=== PATIENT | female | born 1935 | race Caucasian/White ===

== ENCOUNTER → 2016-10-28 | Outpatient (CLI) | payer OTHER | LOC: BHFA 11:45 | PROVIDERS: ATTEND Internal Medicine Cardiovascular Disease | DX: I48.91 Unspecified atrial fibrillation (principal) ==

== ENCOUNTER → 2016-11-17 | Outpatient (CLI) | payer OTHER | LOC: FLAB 09:19 | PROVIDERS: ATTEND Internal Medicine Interventional Cardiology | DX: I48.91 Unspecified atrial fibrillation (principal); Z79.899 Other long term (current) drug therapy ==

== ENCOUNTER → 2016-12-08 | Outpatient (CLI) | payer OTHER | LOC: FIMAGING 15:11 | PROVIDERS: ATTEND Internal Medicine Hematology & Oncology | DX: Z12.31 Encounter for screening mammogram for malignant neoplasm of breast (principal); Z85.3 Personal history of malignant neoplasm of breast; Z90.11 Acquired absence of right breast and nipple | CPT/HCPCS: G0202-52 ==

== ENCOUNTER 2016-12-21 11:37 | Emergency (ER) | payer OTHER ==
[2016-12-21 11:41] VITALS: RESP 18; O2SAT 91
--- NOTE | 2016-12-21 12:02 | CPEKG ---
Heart Rate: 65 RR Interval: 923 P-R Interval: 148 QRSD Interval: 78 QT Interval: 460 QTC Interval: 479 P [place]: 87 QRS [place]: 55 T Wave [place]: 43 EKG Severity - NORMAL ECG - EKG Impression: SINUS RHYTHM EKG Impression: Similar to previous Electronically Signed By: Markos Javed 21-Dec-2016 12:07:10
[2016-12-21 12:18] LABS: % IMMATURE GRANULYOCYTES 0.2 % (0.0-1.1); ABSOLUTE IMMATURE GRANULOCYTES 0.01 10^3/uL (0.00-0.10); ADD DIFF? NO; ADD MORPH? NO; ADD SCAN? NO; ATYPICAL LYMPHOCYTE FLAG 10 (0-99); FRAGMENT RBC FLAG 0 (0-99); HEMATOCRIT 37.1 % (38.0-47.0); HEMOGLOBIN 12.4 g/dL (12.6-16.3); LEFT SHIFT FLG 10 (0-99); LIPEMIA HEMOLYSIS FLAG 80 (0-99); MEAN CELL HEMOGLOBIN 30.3 pg (27.9-34.1); MEAN CELL HEMOGLOBIN CONCENTR. 33.4 g/dL (32.4-36.7); MEAN CELL VOLUME 90.7 fL (81.5-99.8); MEAN PLATELET VOLUME 9.5 fL (8.7-11.7); PLATELET CLUMPS FLAG 0 (0-99); PLATELET COUNT 194 10^3/uL (150-400); RED BLOOD CELL COUNT 4.09 10^6/uL (4.18-5.33); RED CELL DISTRIBUTION WIDTH 16.5 % (11.5-15.2)
[2016-12-21 12:27] LABS: ANION GAP 10 mEq/L (8-16); CALCIUM 9.1 mg/dL (8.5-10.4); CARBON DIOXIDE 25 mEq/l (22-31); CHLORIDE 96 mEq/L (97-110); CREATININE 0.7 mg/dL (0.6-1.0); GLOMERULAR FILTRATION RATE > 60; GLUCOSE 97 mg/dL (70-100); POTASSIUM 4.1 mEq/L (3.5-5.2); SODIUM 131 mEq/L (134-144)
[2016-12-21 12:39] LABS: TROPONIN I < 0.012 ng/mL (0-0.034)
--- NOTE | 2016-12-21 13:02 | EDPHY ---
H & P Stated Complaint: HIGH BP, dizzy, CP mid sternal Time Seen by Provider: 12/21/16 12:36 HPI/ROS: CHIEF COMPLAINT: High blood pressure HPI: Patient is a 81-year-old female with a history of atrial fibrillation on Eliquis and oral amiodarone who presents to the emergency department complaining that earlier today she had a headache and chest tightness and high blood pressure. Her symptoms resolved prior to coming to the emergency department. Her blood pressure is now within normal limits for her. She is currently asymptomatic. She denies shortness of breath. She denies cough. She denies recent fevers or illness. REVIEW OF SYSTEMS: Constitutional: denies: chills, fever, recent illness, recent injury EENTM: denies: blurred vision, double vision, nose congestion Respiratory: denies: cough, shortness of breath Cardiac: See HPI Gastrointestinal/Abdominal: denies: abdominal pain, diarrhea, nausea, vomiting, blood streaked stools Genitourinary: denies: dysuria, frequency, hematuria, pain Musculoskeletal: denies: joint pain, muscle pain Skin: denies: lesions, rash, jaundice, bruising Neurological: denies: headache, numbness, paresthesia, tingling, dizziness, weakness Hematologic/Lymphatic: denies: blood clots, easy bleeding, easy bruising Immunologic/allergic: denies: HIV/AIDS, transplant EXAM: GENERAL: Well-appearing, well-nourished and in no acute distress. HEAD: Atraumatic, normocephalic. EYES: Pupils equal round and reactive to light, extraocular movements intact, sclera anicteric, conjunctiva are normal. ENT: TMs normal, nares patent, oropharynx clear without exudates. Moist mucous membranes. NECK: Normal range of motion, supple without lymphadenopathy or JVD. LUNGS: Breath sounds clear to auscultation bilaterally and equal. No wheezes rales or rhonchi. HEART: Regular rate and rhythm without murmurs, rubs or gallops. Equal pulses bilaterally ABDOMEN: Soft, nontender, normoactive bowel sounds. No guarding, no rebound. No masses appreciated. BACK: No CVA tenderness, no spinal tenderness, step-offs or deformities EXTREMITIES: Normal range of motion, no pitting or edema. No clubbing or cyanosis. NEUROLOGICAL: Cranial nerves II through XII grossly intact. Normal speech, normal gait. 5/5 strength, normal movement in all extremities, normal sensation PSYCH: Normal mood, normal affect. SKIN: Warm, dry, normal turgor, no visible rashes or lesions. Source: Patient, Family Exam Limitations: No limitations - Personal History Current Tetanus Diphtheria and Acellular Pertussis (TDAP): Yes Tetanus Vaccine Date: 2004 - Medical/Surgical History Hx Asthma: No Hx Chronic Respiratory Disease: No Hx Diabetes: No Hx Cardiac Disease: Yes Hx Renal Disease: No Hx Cirrhosis: No Hx Alcoholism: No Hx HIV/AIDS: No Hx Splenectomy or Spleen Trauma: No Other PMH: pmh- afib w/ rvr, HTN ,osteoperosis,broken heart syndrome. psh- cardioversion 04/15/16, and 02/07, [place], right mastectomy, right hip replacement fx femur 2002, cataract 2008, fx tib/fib 2011, fx right pelvis, left breast lumpectomy with radiation, R shoulder replaced - Family History Significant Family History: No pertinent family hx - Social History Smoking Status: Former smoker Alcohol Use: Sober Drug Use: None Constitutional: Initial Vital Signs Temperature (C) 36.8 C 12/21/16 11:39 Heart Rate 77 12/21/16 11:39 Respiratory Rate 18 12/21/16 11:39 Blood Pressure 173/89 H 12/21/16 11:39 O2 Sat (%) 91 L 12/21/16 11:39 O2 Delivery Mode Room Air Allergies/Adverse Reactions: codeine [Codeine] Allergy (Intermediate, Verified 02/18/15 05:39) Other-Enter Comments amlodipine besylate [From Norvasc] Allergy (Unknown, Verified 03/09/15 10:35) hydrochlorothiazide Allergy (Unknown, Verified 03/09/15 10:35) amoxicillin Allergy (Verified 02/18/15 04:54) Itching ciprofloxacin Allergy (Verified 04/18/16 09:14) Opioids - Morphine Analogues Allergy (Verified 12/21/16 11:42) Sulfa (Sulfonamide Antibiotics) Allergy (Verified 02/08/15 12:09) Home Medications: Medication Instructions Recorded Acetaminophen [Tylenol Extra 1,000 mg PO TID 03/01/16 Strength] Apixaban [Eliquis] 2.5 mg PO BID 03/01/16 Ascorbic Acid [Vitamin C 500 mg 500 mg PO DAILY 03/01/16 (*)] Cholecalciferol Vit D3 [Vitamin D3 2,000 units PO DAILY 03/01/16 2000 units tab (OTC)] FLUoxetine [Prozac 20 MG (*)] 20 mg PO DAILY 03/01/16 Herbals/Supplements -Info Only 1 ea PO DAILY 03/01/16 Simethicone [GAS-X] 80 mg PO PC PRN 03/01/16 Pantoprazole Sodium [Protonix 40mg 40 mg PO DAILY 04/15/16 (*)] Carvedilol [Coreg (*)] 12.5 mg PO BIDMEAL #0 tab 04/16/16 carBAMazepine [Tegretol] 100 mg PO BID 04/18/16 Diltiazem Cd [Cardizem ER 120 MG 120 mg PO DAILY #30 cap 04/21/16 (*)] Glucosamine/Chondroitin 1 each PO DAILY 04/26/16 [Glucosamine/Chondroitin (*)] Valsartan [Diovan (*)] 320 mg PO HS 04/26/16 Amiodarone HCl [Pacerone (*)] 200 mg PO DAILY #30 tab 04/27/16 Medical Decision Making ED Course/Re-evaluation: The patient is now asymptomatic. We discussed her lab results and EKG which are reassuring. At this point she has to go home and declines further workup or testing. We discussed other possible causes for her symptoms. We discussed specifically aortic dissection or aneurysm. She states that she the he declines any further workup and wishes to go home. Differential Diagnosis: Partial list of the Differential diagnosis considered include but were not limited to; is arrhythmia, hypertension, dissection and although unlikely based on the history and physical exam, I also considered PE, pneumonia, hernia, pneumothorax. I discussed these differential diagnoses and the plan with the patient as well as the usual and expected course. The patient understands that the diagnosis is provisional and that in medicine we are not always correct and that further workup is often warranted. Usual and customary warnings were given. All of the patient's questions were answered. The patient was instructed to return to the emergency department should the symptoms at all worsen or return, otherwise to followup with the physician as we discussed. - Data Points Laboratory Results: Laboratory Results 12/21/16 12:08 12/21/16 12:08 Departure - Departure Disposition: Home, Routine, Self-Care Clinical Impression: HTN (hypertension) Qualifiers: Hypertension type: essential hypertension Qualified Code(s): I10 - Essential ( primary) hypertension Condition: Fair Instructions: Hypertension (ED) Referrals: Jas Adams MD [Primary Care Provider] - As per Instructions
[2016-12-21 13:16] VITALS: BP 158/84; PULSE 65; TEMP 98.4
== END 2016-12-21 13:17 | disposition home or self-care (01) ==
DX: I10 Essential (primary) hypertension (principal); Z79.01 Long term (current) use of anticoagulants; Z87.891 Personal history of nicotine dependence

== ENCOUNTER → 2017-04-11 | Outpatient (CLI) | payer OTHER | LOC: BHFA 16:00 | PROVIDERS: ATTEND Internal Medicine Interventional Cardiology | DX: I48.91 Unspecified atrial fibrillation (principal) ==

== ENCOUNTER 2017-06-10 00:02 | Inpatient (IN) | payer OTHER ==
--- NOTE | 2017-06-10 17:18 | CPEKG ---
Heart Rate: 57 RR Interval: 1053 P-R Interval: 160 QRSD Interval: 84 QT Interval: 496 QTC Interval: 483 P [place]: 76 QRS [place]: 59 T Wave [place]: 54 EKG Severity - ABNORMAL ECG - EKG Impression: SINUS RHYTHM EKG Impression: LEFT VENTRICULAR HYPERTROPHY Electronically Signed By: Ping Carrillo 11-Jun-2017 14:12:29
[2017-06-10] MEDS ORDERED: ACETAMINOPHEN 325 MG TAB PO PRN (17:21)
--- NOTE | 2017-06-10 18:02 | PDCARPN ---
Cardiology Progress Note Assessment/Plan: Assessment: Please see Dr. Crane office note dated 05/12/2017 , this is to be used as history and physical. 82-year-old female with significant past history that includes paroxysmal atrial fibrillation, hypertension, hyperlipidemia, subclinical CAD, GERD, breast cancer.. She has been having adverse reactions to amiodarone and her other cardiac medications. There has been discussion about potentially consideration pacemaker implantation followed by AV node ablation. But after Dr. Crane had discussed this with Dr. Santiago, it was felt that before performing an AV node ablation with pacemaker implantation, is to place her on sotalol to see if this root did do since her adverse reactions to her other AV arely agents and amiodarone. Patient informs me that she has been off her amiodarone for 6 days as requested by Dr. Crane. She denies of any chest pressure, pain, SOB, orthopnea, PND, lightheadedness, near-syncope, or syncopal events. Denies of any symptoms suggestive of recent TIA or CVA. Initial electrocardiogram done today showing QTC of 483 milliseconds, she is currently in sinus rhythm. Plan: 1. Paroxysmal atrial fibrillation: Patient has discontinued amiodarone stay 6 days ago, per Dr. Crane we will hold both her carvedilol at and diltiazem. We will start her on amiodarone loading at 80 mg p. o. twice daily. Will plan for her to have 2 hour post dosing electrocardiograms to evaluate QTC. She will also remain on continuous cardiac monitoring and in the PCU for the 1st doses to assure no arrhythmias. Will continue her on home dosing of Eliquis. Will get all pre sotalol dosing laboratories drawn. 2. Hypertension: Current we her blood pressure is within normal limits. Discontinue carvedilol and diltiazem as mentioned above. Resume Diovan. Adjust as necessary 3. Subclinical CAD: Patient denies of any chest pain or pressure. She is currently not on aspirin therapy due to being on Eliquis. She is currently on secondary risk prevention with atorvastatin. 4. Hyperlipidemia: Continue patient on current atorvastatin. 5. GERD: Resume patient's Diovan. 6. Breast cancer: Past history of mastectomy. 7. Code status: Patient is a full code. 8. DVT prophylaxis: Patient will be resumed on home dose of Eliquis. Have ordered her to use David hose. : 06/10/17 18:02 Reviewed/Discussed With: other (Dr Crane) Objective: Vital Signs (8 Hrs) Temp Pulse Resp BP Pulse Ox 06/10/17 17:02 36.6 C 58 L 18 150/77 H 95 Intake/Output (24 Hrs) 06/09/17 06/10/17 06/11/17 05:59 05:59 05:59 Other: Weight 58.4 kg ICD10 Worksheet Patient Problems: Problems Problem Status Onset Atrial fibrillation and flutter Acute Cardiomyopathy Acute CHF (congestive heart failure) Acute Chronic Disease Mgmt/Transitional Care Acute Sinusitis chronic, frontal Acute Sinusitis chronic, ethmoidal Acute Head ache Acute Chest pain Acute Rapid atrial fibrillation Acute
[2017-06-10 18:28] LABS: % IMMATURE GRANULYOCYTES 0.2 % (0.0-1.1); ABSOLUTE IMMATURE GRANULOCYTES 0.01 10^3/uL (0.00-0.10); ADD DIFF? NO; ADD MORPH? NO; ADD SCAN? NO; ATYPICAL LYMPHOCYTE FLAG 20 (0-99); FRAGMENT RBC FLAG 0 (0-99); HEMATOCRIT 37.4 % (38.0-47.0); HEMOGLOBIN 12.6 g/dL (12.6-16.3); LEFT SHIFT FLG 0 (0-99); LIPEMIA HEMOLYSIS FLAG 80 (0-99); MEAN CELL HEMOGLOBIN 31.8 pg (27.9-34.1); MEAN CELL HEMOGLOBIN CONCENTR. 33.7 g/dL (32.4-36.7); MEAN CELL VOLUME 94.4 fL (81.5-99.8); MEAN PLATELET VOLUME 9.5 fL (8.7-11.7); PLATELET CLUMPS FLAG 0 (0-99); PLATELET COUNT 182 10^3/uL (150-400); RED BLOOD CELL COUNT 3.96 10^6/uL (4.18-5.33); RED CELL DISTRIBUTION WIDTH 14.6 % (11.5-15.2)
[2017-06-10 19:00] LABS: ANION GAP 9 mEq/L (8-16); CALCIUM 6.8 mg/dL (8.5-10.4); CARBON DIOXIDE 21 mEq/l (22-31); CHLORIDE 112 mEq/L (97-110); CREATININE 0.5 mg/dL (0.6-1.0); GLOMERULAR FILTRATION RATE > 60; GLUCOSE 63 mg/dL (70-100); MAGNESIUM 1.5 mg/dL (1.6-2.3); POTASSIUM 3.2 mEq/L (3.5-5.2); SODIUM 142 mEq/L (134-144)
[2017-06-10] MEDS ORDERED: FAMOTIDINE 20 MG TAB PO PRN (19:05)
[2017-06-10] MEDS ORDERED: SIMETHICONE 80 MG TAB CHEW PO PRN (19:05)
[2017-06-10 19:08] LABS: INR 1.09 (0.83-1.16); PROTIME(PATIENT) 14.3 SEC (12.0-15.0)
[2017-06-10 19:09] LABS: APTT 32.8 SEC (23.0-38.0)
[2017-06-10] MEDS ORDERED: MAGNESIUM SULF 2 GM/WATER 50 ML IV ONE (19:16)
[2017-06-10] MEDS: POTASSIUM CL 20 MEQ TAB PO SCH ×3 (19:45→23:45)
[2017-06-10] MEDS: SOTALOL HCL 80 MG TAB PO SCH (21:44)
[2017-06-10] MEDS: ACETAMINOPHEN 500 MG TAB PO SCH (21:44)
[2017-06-10] MEDS: GABAPENTIN 300 MG CAP PO SCH (21:44)
[2017-06-10] MEDS: APIXABAN 2.5 MG TAB PO SCH (21:44)
[2017-06-10] MEDS: VALSARTAN 160 MG TAB PO SCH (21:45)
--- NOTE | 2017-06-10 23:54 | CPEKG ---
Heart Rate: 61 RR Interval: 984 P-R Interval: 184 QRSD Interval: 86 QT Interval: 488 QTC Interval: 492 P [place]: 81 QRS [place]: 52 T Wave [place]: 40 EKG Severity - BORDERLINE ECG - EKG Impression: SINUS RHYTHM EKG Impression: BORDERLINE PROLONGED QT INTERVAL Electronically Signed By: Ping Carrillo 11-Jun-2017 14:12:40
[2017-06-11] MEDS: ACETAMINOPHEN 500 MG TAB PO SCH ×3 (05:11→21:05)
[2017-06-11 05:25] LABS: INR 1.13 (0.83-1.16); PROTIME(PATIENT) 14.7 SEC (12.0-15.0)
[2017-06-11 05:26] LABS: ANION GAP 9 mEq/L (8-16); CALCIUM 8.4 mg/dL (8.5-10.4); CARBON DIOXIDE 28 mEq/l (22-31); CHLORIDE 101 mEq/L (97-110); CREATININE 0.6 mg/dL (0.6-1.0); GLOMERULAR FILTRATION RATE > 60; GLUCOSE 74 mg/dL (70-100); MAGNESIUM 2.2 mg/dL (1.6-2.3); POTASSIUM 4.6 mEq/L (3.5-5.2); SODIUM 138 mEq/L (134-144)
[2017-06-11] MEDS: CHOLECALCIFEROL VIT D3 2,000 UNITS TAB/CAP PO SCH (08:35)
[2017-06-11] MEDS: APIXABAN 2.5 MG TAB PO SCH ×2 (08:36→21:03)
[2017-06-11] MEDS: ASCORBIC ACID 500 MG TAB PO SCH (08:36)
[2017-06-11] MEDS: PANTOPRAZOLE SODIUM 40 MG TAB PO SCH (08:36)
[2017-06-11] MEDS: ATORVASTATIN CALCIUM 10 MG TAB PO SCH (08:36)
[2017-06-11] MEDS: GABAPENTIN 300 MG CAP PO SCH ×3 (08:36→21:05)
[2017-06-11] MEDS: FLUoxetine 20 MG CAP PO SCH (08:36)
[2017-06-11] MEDS: SOTALOL HCL 80 MG TAB PO SCH ×2 (08:37→21:03)
--- NOTE | 2017-06-11 08:40 | SOAPPROG ---
SOAP Progress Note Assessment/Plan: Assessment/Plan: This is a 82 yr old with CAD, PAF, HTN, GERD, who is here for sotalol loading after Amiodarone has failed PAF: Tolerating sotalol well, continue current dose. Maintains SR. QTc is WNL HTN: Suboptimal control, will add small dose of hydralazine. Continue to monitor Subclinical CAD: Optimally Rx. Will request more ambulation. 06/11/17 08:37 Subjective: Pt is doing well. Nonspecific complaints. Objective: Vital Signs Temp Pulse Resp BP Pulse Ox 36.7 C 61 14 150/74 H 93 06/11/17 08:10 06/11/17 08:10 06/11/17 08:10 06/11/17 08:10 06/11/17 08:10 Laboratory Results 06/10/17 18:15 06/11/17 03:36 06/10/17 06/11/17 06/12/17 05:59 05:59 05:59 Intake Total 550 Output Total 100 Balance 450 PT 14.7 SEC (12.0-15.0) 06/11/17 03:36 INR 1.13 (0.83-1.16) 06/11/17 03:36 Physical Exam - Physical Exam General Appearance: alert, no apparent distress EENT: PERRL/EOMI, pharynx normal Neck: supple, No carotid bruit Respiratory: chest non-tender, lungs clear, No crackles, No rales, No rhonchi Cardiac/Chest: regular rate, rhythm, No edema, No gallop Abdomen: normal bowel sounds, non-tender, soft Skin: normal color, warm/dry ICD10 Worksheet Patient Problems: Problems Problem Status Onset Atrial fibrillation and flutter Acute CHF (congestive heart failure) Acute Cardiomyopathy Acute Chest pain Acute Chronic Disease Mgmt/Transitional Care Acute Head ache Acute Rapid atrial fibrillation Acute Sinusitis chronic, ethmoidal Acute Sinusitis chronic, frontal Acute
[2017-06-11] MEDS: CALCIUM CARBONATE 500 MG TAB PO SCH ×2 (09:26→21:03)
[2017-06-11] MEDS: hydrALAZINE 10 MG TAB PO SCH ×3 (09:26→21:06)
--- NOTE | 2017-06-11 12:20 | ASMTCMCOM ---
CM Note CM Note Notes: Chart reviewed. Patient admitted yesterday for medication titration. She currently lives independent and has home services to help with errands. No needs identified. CM available should needs arise. Date Signed: 06/11/2017 12:20 PM Electronically Signed By:Barbara Gutierrez RN
--- NOTE | 2017-06-11 13:27 | CPEKG ---
Heart Rate: 62 RR Interval: 968 P-R Interval: 168 QRSD Interval: 86 QT Interval: 492 QTC Interval: 500 P [place]: 87 QRS [place]: 58 T Wave [place]: 44 EKG Severity - ABNORMAL ECG - EKG Impression: SINUS RHYTHM EKG Impression: CONSIDER LEFT VENTRICULAR HYPERTROPHY EKG Impression: BORDERLINE PROLONGED QT INTERVAL Electronically Signed By: Ping Carrillo 11-Jun-2017 14:13:05
[2017-06-11] MEDS: VALSARTAN 160 MG TAB PO SCH (21:03)
--- NOTE | 2017-06-11 23:10 | CPEKG ---
Heart Rate: 57 RR Interval: 1053 P-R Interval: 168 QRSD Interval: 90 QT Interval: 520 QTC Interval: 507 P [place]: 87 QRS [place]: 66 T Wave [place]: 60 EKG Severity - BORDERLINE ECG - EKG Impression: SINUS RHYTHM EKG Impression: BORDERLINE PROLONGED QT INTERVAL Electronically Signed By: Jenniffer Fjaardo 12-Jun-2017 05:56:57
[2017-06-12] MEDS: GABAPENTIN 300 MG CAP PO SCH ×3 (06:00→21:02)
[2017-06-12] MEDS: ACETAMINOPHEN 500 MG TAB PO SCH ×3 (06:00→21:05)
[2017-06-12] MEDS: hydrALAZINE 10 MG TAB PO SCH (06:01)
[2017-06-12] MEDS: APIXABAN 2.5 MG TAB PO SCH ×2 (09:21→21:02)
[2017-06-12] MEDS: PANTOPRAZOLE SODIUM 40 MG TAB PO SCH (09:21)
[2017-06-12] MEDS: ASCORBIC ACID 500 MG TAB PO SCH (09:21)
[2017-06-12] MEDS: CHOLECALCIFEROL VIT D3 2,000 UNITS TAB/CAP PO SCH (09:22)
[2017-06-12] MEDS: SOTALOL HCL 80 MG TAB PO SCH ×2 (09:22→21:02)
[2017-06-12] MEDS: FLUoxetine 20 MG CAP PO SCH (09:23)
[2017-06-12] MEDS: ATORVASTATIN CALCIUM 10 MG TAB PO SCH (09:23)
[2017-06-12] MEDS: CALCIUM CARBONATE 500 MG TAB PO SCH ×2 (09:23→21:03)
--- NOTE | 2017-06-12 10:27 | SOAPPROG ---
SOAP Progress Note Assessment/Plan: Assessment/Plan: This is a 82 yr old with CAD, PAF, HTN, GERD, who is here for sotalol loading after Amiodarone has failed PAF: Has increased Qtc and hence will decrease the dose. Maintains SR. HTN: continue with hydralazine. Continue to monitor Subclinical CAD: Optimally Rx. 06/12/17 10:25 Subjective: Pt denies palpitation. No recurrence of PAF Objective: Vital Signs Temp Pulse Resp BP Pulse Ox 36.7 C 63 14 160/85 H 92 06/12/17 08:00 06/12/17 08:00 06/12/17 08:00 06/12/17 08:00 06/12/17 08:00 Laboratory Results 06/10/17 18:15 06/11/17 03:36 06/11/17 06/12/17 06/13/17 05:59 05:59 05:59 Intake Total 550 1100 Output Total 100 Balance 450 1100 PT 14.7 SEC (12.0-15.0) 06/11/17 03:36 INR 1.13 (0.83-1.16) 06/11/17 03:36 Physical Exam - Physical Exam General Appearance: alert, no apparent distress EENT: PERRL/EOMI, pharynx normal Neck: non-tender, supple, No lymphadenopathy (R), No lymphadenopathy (L) Respiratory: lungs clear, normal breath sounds Cardiac/Chest: regular rate, rhythm, No edema, No gallop Abdomen: normal bowel sounds, soft, No organomegaly ICD10 Worksheet Patient Problems: Problems Problem Status Onset Atrial fibrillation and flutter Acute CHF (congestive heart failure) Acute Cardiomyopathy Acute Chest pain Acute Chronic Disease Mgmt/Transitional Care Acute Head ache Acute Rapid atrial fibrillation Acute Sinusitis chronic, ethmoidal Acute Sinusitis chronic, frontal Acute
[2017-06-12] MEDS: hydrALAZINE 25 MG TAB PO SCH ×3 (11:36→21:06)
--- NOTE | 2017-06-12 11:42 | CPEKG ---
Heart Rate: 58 RR Interval: 1034 P-R Interval: 148 QRSD Interval: 80 QT Interval: 496 QTC Interval: 488 P [place]: 75 QRS [place]: 71 T Wave [place]: 69 EKG Severity - BORDERLINE ECG - EKG Impression: SINUS RHYTHM EKG Impression: BORDERLINE PROLONGED QT INTERVAL Electronically Signed By: Ping Carrillo 12-Jun-2017 19:27:40
[2017-06-12] MEDS ORDERED: MAGNESIUM HYDROXIDE 30 ML UDCUP PO PRN (17:57)
[2017-06-12] MEDS: VALSARTAN 160 MG TAB PO SCH (21:06)
--- NOTE | 2017-06-12 23:06 | CPEKG ---
Heart Rate: 60 RR Interval: 1000 P-R Interval: 164 QRSD Interval: 88 QT Interval: 496 QTC Interval: 496 P [place]: 81 QRS [place]: 66 T Wave [place]: 52 EKG Severity - BORDERLINE ECG - EKG Impression: SINUS RHYTHM EKG Impression: BORDERLINE PROLONGED QT INTERVAL Electronically Signed By: Jenniffer Fajardo 13-Jun-2017 07:55:53
[2017-06-13] MEDS: GABAPENTIN 300 MG CAP PO SCH (06:34)
[2017-06-13] MEDS: ACETAMINOPHEN 500 MG TAB PO SCH (06:34)
[2017-06-13] MEDS: hydrALAZINE 25 MG TAB PO SCH ×2 (06:34→11:56)
[2017-06-13 07:20] VITALS: BP 126/64; PULSE 63; RESP 16; TEMP 97.9; O2SAT 91
[2017-06-13] MEDS: ASCORBIC ACID 500 MG TAB PO SCH (07:51)
[2017-06-13] MEDS: PANTOPRAZOLE SODIUM 40 MG TAB PO SCH (07:51)
[2017-06-13] MEDS: CALCIUM CARBONATE 500 MG TAB PO SCH (07:51)
[2017-06-13] MEDS: APIXABAN 2.5 MG TAB PO SCH (07:52)
[2017-06-13] MEDS: CHOLECALCIFEROL VIT D3 2,000 UNITS TAB/CAP PO SCH (07:52)
[2017-06-13] MEDS: FLUoxetine 20 MG CAP PO SCH (07:52)
[2017-06-13] MEDS: ATORVASTATIN CALCIUM 10 MG TAB PO SCH (07:52)
[2017-06-13] MEDS: SOTALOL HCL 80 MG TAB PO SCH (10:37)
--- NOTE | 2017-06-13 13:09 | GDS ---
[f rep st] DISCHARGE SUMMARY DISCHARGE DIAGNOSES: 1. Paroxysmal atrial fibrillation, failed sotalol therapy. 2. Fatigue. 3. Hypertension. 4. Hyperlipidemia. 5. Trigeminal neuralgia. HOSPITAL COURSE: For detailed H and P, please see prior dictation. Briefly, the patient is an 82-year-old female, typically followed by Dr. Valentín Crane. She has a history of paroxysmal atrial fibrillation, hypertension, hyperlipidemia, and coronary artery disease. She has also been complaining of facial tingling, which has been attributed to trigeminal neuralgia. She does note that the tingling began when she started amiodarone. In the past, she was treated with rate control and anticoagulation. Unfortunately, when she went into atrial fibrillation, her rates were difficult to control secondary to hypotension. She was then started on amiodarone, but has complained of facial tingling, which correlated with beginning this medication. Dr. Crane discussed the patient with Dr. Theron Santiago, and the decision was made for a trial of sotalol. She was admitted to the hospital and started on sotalol 80 mg b.i.d. Unfortunately, her QTc was prolonged and the dose had to be decreased to 40 mg twice a day. Her QTc continued to progress, and at the time of discharge, it was 496. The decision was made to discontinue sotalol and have her return to her normal medical regimen. She will remain off the amiodarone and sotalol. The patient was discussed with Dr. Santiago, who agrees with the above. PHYSICAL EXAMINATION: GENERAL: Patient appears in no acute distress. VITAL SIGNS: Blood pressure 126/64, heart rate 63, oxygen saturation of 91% on room air, afebrile. LUNGS: Clear to auscultation. No wheezes, rhonchi, or crackles auscultated. CARDIAC: Regular rate and rhythm without any significant murmurs, rubs, or gallops appreciated. EXTREMITIES: No evidence of edema. DISCHARGE MEDICATIONS: Her medications are unchanged except for amiodarone and sotalol have both been discontinued. She will continue Lipitor 10 mg daily, herbal supplement daily, Tylenol p.r.n., vitamin C 1000 mg daily, Eliquis 2.5 mg twice daily, vitamin D3 at 2000 units daily, Gas-X 80 mg p.r.n., Protonix 40 mg daily, Cardizem ER 120 mg daily, Diovan 320 mg at bedtime, Pepcid 20 mg b.i.d. p.r.n., Neurontin 600 mg t.i.d., Coreg 25 mg twice daily, Prozac 40 mg daily. PLAN: The patient has a history of paroxysmal atrial fibrillation. She does not want to resume amiodarone and has failed sotalol therapy secondary to a long QTc. She will follow up with Dr. Valentín Crane on 04/23 at 9 a.m. as scheduled. Further recommendations can be made at that time. Prior discussion of pacemaker implantation and AV arely ablation was discussed and she is interested in this as a options. She is not interested in a trial of another antiarrhythmic medication. /[id number]/MODL MTDD
--- NOTE | 2017-06-13 16:10 | CPEKG ---
Heart Rate: 60 RR Interval: 1000 P-R Interval: 164 QRSD Interval: 88 QT Interval: 508 QTC Interval: 508 P [place]: 84 QRS [place]: 66 T Wave [place]: 54 EKG Severity - BORDERLINE ECG - EKG Impression: SINUS RHYTHM EKG Impression: BORDERLINE PROLONGED QT INTERVAL EKG Impression: COMPARED WITH 06/12/2017 AT 11:05 P.M., NO SIGNIFICANT CHANGE Electronically Signed By: Maru Pritchard 13-Jun-2017 17:19:15
--- NOTE | 2017-06-13 17:24 | ASDISCHSUM ---
Discharge Information Plan Status:Home with No Needs Medically Cleared to Leave:06/12/2017 Discharge Date:06/13/2017 02:07 PM CM D/C Disposition:Home, Routine, Self-Care ADT D/C Disposition:Home, Routine, Self-Care Projected Discharge Date:06/13/2017 02:07 PM Transportation at D/C: Discharge Delay Reason: Follow-Up Date:06/13/2017 02:07 PM Discharge Slot: Final Diagnosis: Placement Information Patient Contact Information Contact Name:ANGEL LUIS Relationship:Sister Address: Work Phone: [place] Alternate Phone: [facility]/Zip Code:[place] Email: Financial Information Financial Class: Primary Plan Desc:MEDICARE INPATIENT Primary Plan Number:[id number] Secondary Plan Desc:SE[employer]STIAN PPO Secondary Plan Number:[id number] Assessment Information [facility] CM Progress Note CM Note CM Note Notes: Chart reviewed. Patient admitted yesterday for medication titration. She currently lives independent and has home services to help with errands. No needs identified. CM available should needs arise. Date Signed: 06/11/2017 12:20 PM Electronically Signed By:Barbara Gutierrez RN Intervention Information Intervention Type:*IM-Signed Date of Service:06/13/2017 11:04 AM Patient Type:Inpatient Staff Member:India Glsas Hours: Discipline: Severity: Comment:
== END 2017-06-13 14:07 | disposition home or self-care (01) | DRG 310 ==
LOC: F2W 16:55
PROVIDERS: ADMIT Internal Medicine Interventional Cardiology; ATTEND Internal Medicine Interventional Cardiology
DX: I48.0 Paroxysmal atrial fibrillation (principal); T44.7X5A Adverse effect of beta-adrenoreceptor antagonists, initial encounter; I10 Essential (primary) hypertension; E78.5 Hyperlipidemia, unspecified; G50.0 Trigeminal neuralgia; K21.9 Gastro-esophageal reflux disease without esophagitis; Z85.3 Personal history of malignant neoplasm of breast; Z90.10 Acquired absence of unspecified breast and nipple
CPT/HCPCS: 97165-GO; G8987-GO-CI; G8988-GO-CI; G8989-GO-CI

== ENCOUNTER → 2017-11-02 | Outpatient (CLI) | payer OTHER | LOC: FIMAGING 10-27 14:50 | PROVIDERS: ATTEND Internal Medicine | DX: Z13.820 Encounter for screening for osteoporosis (principal); M81.0 Age-related osteoporosis without current pathological fracture; Z85.3 Personal history of malignant neoplasm of breast; Z78.0 Asymptomatic menopausal state; Z87.81 Personal history of (healed) traumatic fracture ==

== ENCOUNTER → 2017-12-14 | Outpatient (CLI) | payer OTHER | LOC: FIMAGING 16:12 | PROVIDERS: ATTEND Internal Medicine Hematology & Oncology | DX: Z12.31 Encounter for screening mammogram for malignant neoplasm of breast (principal); Z85.3 Personal history of malignant neoplasm of breast; Z90.11 Acquired absence of right breast and nipple; Z92.3 Personal history of irradiation ==

== ENCOUNTER 2017-12-22 08:27 | Inpatient (IN) | payer OTHER ==
--- NOTE | 2017-12-22 08:29 | EDPHY ---
H & P Time Seen by Provider: 12/22/17 08:29 Constitutional: Initial Vital Signs Temperature (C) 36.9 C 12/22/17 08:30 Heart Rate 100 12/22/17 08:30 Respiratory Rate 18 12/22/17 08:30 Blood Pressure 221/143 H 12/22/17 08:30 O2 Sat (%) 92 12/22/17 08:30 O2 Delivery Mode Nasal Cannula O2 (L/minute) 2 Allergies/Adverse Reactions: codeine [Codeine] Allergy (Intermediate, Verified 02/18/15 05:39) Other-Enter Comments amlodipine besylate [From Norvasc] Allergy (Unknown, Verified 03/09/15 10:35) hydrochlorothiazide Allergy (Unknown, Verified 03/09/15 10:35) amoxicillin Allergy (Verified 02/18/15 04:54) Itching ciprofloxacin Allergy (Verified 04/18/16 09:14) Opioids - Morphine Analogues Allergy (Verified 12/21/16 11:42) Sulfa (Sulfonamide Antibiotics) Allergy (Verified 02/08/15 12:09) Home Medications: Medication Instructions Recorded Acetaminophen [Tylenol Extra 1,000 mg PO TID@06,14,22 03/01/16 Strength] Apixaban [Eliquis] 2.5 mg PO BID 03/01/16 Ascorbic Acid [Vitamin C 500 mg 1,000 mg PO DAILY 03/01/16 (*)] Cholecalciferol Vit D3 [Vitamin D3 2,000 units PO DAILY 03/01/16 2000 units tab (OTC)] Herbals/Supplements -Info Only 1 ea PO DAILY 03/01/16 Simethicone [GAS-X] 80 mg PO PC PRN 03/01/16 Pantoprazole Sodium [Protonix 40mg 40 mg PO DAILY 04/15/16 (*)] Diltiazem Cd [Cardizem ER 120 MG 120 mg PO DAILY #30 cap 04/21/16 (*)] Valsartan [Diovan (*)] 320 mg PO HS 04/26/16 Atorvastatin Calcium [Lipitor 10 10 mg PO DAILY 06/10/17 mg (*)] Carvedilol [Coreg (*)] 25 mg PO BIDMEAL 06/10/17 Famotidine [Pepcid 20 MG (*)] 20 mg PO BID PRN 06/10/17 Fluoxetine HCl [Prozac 40 mg] 40 mg PO DAILY 06/10/17 Gabapentin [Neurontin] 600 mg PO TID@06,,06/10/17 Medical Decision Making - Diagnostics Imaging Results: Imaging Impressions Head CT 12/22/17 08:36 Impression: Negative noncontrast CT of the brain. Results called to Dr. Cesar Garcia at 10:20 AM at the time of the interpretation. Imaging: Discussed imaging studies w/ will call order clerk Radiologist, I viewed and interpreted images myself ED Course/Re-evaluation: CHIEF COMPLAINT: Chest pain and headache HISTORY OF PRESENT ILLNESS: The patient is an anticoagulated (Eliquis) 82 y/o female with a history of atrial fibrillation and hypertension arriving via EMS complaining of chest pain , a headache, and hypertension onset this morning. When she woke up this morning she had a headache and right-sided chest and abdominal pain. She initially thought this abdominal pain was due to gas. However, the pain continued to worsen so she called EMS. When EMS arrived the patient had a blood pressure of 221/147. While en route to the hospital the patient vomited once, so she was given 4mg of Zofran. The headache and chest pain are currently a 5/ 10. Denies shortness of breath, urinary or bowel complaints, numbness, paresthesias, fever. Followed by Dr. Crane, event planning manager. REVIEW OF SYSTEMS: A 10 point review of systems was performed and is negative with the exception of the elements mentioned in the history of present illness. PHYSICAL EXAM: HR, BP, O2 Sat, RR. Temp noted General Appearance: Alert, well hydrated, appropriate, and non-toxic appearing. Head: Atraumatic without scalp tenderness or obvious injury Eyes: Pupils equal, round, reactive to light and accommodation, EOMI, no trauma , no injection. Ears: Clear bilaterally, no perforation, normal landmarks Nose: Atraumatic, no rhinorrhea, clear. Throat: There is no erythema or exudates, no lesions, normal tonsils, mucus membranes moist. Neck: Supple, nontender, no lymphadenopathy. Respiratory: No retractions, no distress, no wheezes, and no accessory muscle use. Lungs are clear to auscultation bilaterally. Cardiovascular: Regular rate and rhythm, no murmurs, rubs, or gallops. Good capillary refill all extremities. Gastrointestinal: Abdomen is soft, nontender, non-distended, no masses, no rebound, no guarding, no peritoneal signs. Musculoskeletal: Normal active ROM of all extremities, atraumatic. Neurological: Alert, appropriate, and interactive. Nonfocal neuro. Skin: No rashes, good turgor, no nodules on palpation. Past medical history: Atrial fibrillation, CAD, cardiomyopathy, hypertension, hyperlipidemia Past surgical history: Denies Family history: Denies Social history: Lives in [place], retired, DIAGNOSTICS/PROCEDURES/CRITICAL CARE TIME: EKG: The 12 lead EKG was interpreted by myself as sinus rhythm with a rate of 82. Minimal ST depression, lateral leads, borderline prolonged QT interval. See hard copy and/or "tracemaster" electronic copy for interpretation. Head CT: Normal DIFFERENTIAL DIAGNOSIS: The differential diagnosis for the patient's chest pain included but was not limited to hypertensive emergency, myocardial ischemia, pulmonary embolus, chest wall pain, pleural inflammation, and pulmonary infectious causes. MEDICAL DECISION MAKING: The patient is an anticoagulated (Eliquis) 82 y/o female with a history of atrial fibrillation and hypertension arriving via EMS presenting with chest pain , a headache, and hypertension (211/147) onset this morning. Upon arriving to the emergency department she has a blood pressure of 221/143. Patient has hypertensive urgency. Labs, EKG, and head CT ordered; 20mg IV Labetalol and Labetalol drip administered. 0830: I met EMS upon arrival. 0915: Patient's troponin is negative. 0942: I reviewed patient's EKG as sinus rhythm with minimal ST depression. 0950: Patient would like pain medication; 25mcg IV Fentanyl administered. 1020: Spoke with Dr. Marie, radiologist, who reports the patient has a normal head CT. 1042: Patient has low sodium and chlorine. Her blood pressure has decreased to 153/86. She will need to be admitted for her symptoms and laboratory findings. 1107: Consulted with hospitalist service, Dr. Gutierres accepts admission of this patient. 1109: Patient's pain has not improved; additional 50mcg IV Fentanyl administered. - Data Points Laboratory Results: Laboratory Results 12/22/17 08:58 12/22/17 08:58 12/22/17 12/22/17 12/22/17 09:08 08:58 08:58 WBC RBC Hgb Hct MCV MCH MCHC RDW Plt Count MPV Neut % (Auto) Lymph % (Auto) [place] % (Auto) Eos % (Auto) Baso % (Auto) Nucleat RBC Rel Count Absolute Neuts (auto) Absolute Lymphs (auto) Absolute Monos (auto) Absolute Eos (auto) Absolute Basos (auto) Absolute Nucleated RBC Immature Gran % Immature Gran # PT 13.1 SEC SEC (12.0-15.0) INR 0.97 (0.83-1.16) APTT 30.6 SEC SEC (23.0-38.0) Sodium 129 mEq/L L mEq/L (135-145) Potassium 4.1 mEq/L mEq/L (3.3-5.0) Chloride 93 mEq/L L mEq/L (97-110) Carbon Dioxide 25 mEq/l mEq/l (22-31) Anion Gap 11 mEq/L mEq/L (8-16) BUN 10 mg/dL mg/dL (7-23) Creatinine 0.4 mg/dL L mg/dL (0.6-1.0) Estimated GFR > 60 Glucose 128 mg/dL H mg/dL (70-100) Calcium 8.9 mg/dL mg/dL (8.5-10.4) POC Troponin I 0.00 ng/mL ng/mL (0.00-0.08) NT-Pro-B Natriuret Pep 508 pg/mL H pg/mL (0-450) 12/22/17 08:58 WBC 7.38 10^3/uL 10^3/uL (3.80-9.50) RBC 4.66 10^6/uL 10^6/uL (4.18-5.33) Hgb 14.7 g/dL g/dL (12.6-16.3) Hct 43.0 % % (38.0-47.0) MCV 92.3 fL fL (81.5-99.8) MCH 31.5 pg pg (27.9-34.1) MCHC 34.2 g/dL g/dL (32.4-36.7) RDW 13.4 % % (11.5-15.2) Plt Count 246 10^3/uL 10^3/uL (150-400) MPV 8.8 fL fL (8.7-11.7) Neut % (Auto) 78.7 % H % (39.3-74.2) Lymph % (Auto) 14.1 % L % (15.0-45.0) [place] % (Auto) 6.1 % % (4.5-13.0) Eos % (Auto) 0.3 % L % (0.6-7.6) Baso % (Auto) 0.5 % % (0.3-1.7) Nucleat RBC Rel Count 0.0 % % (0.0-0.2) Absolute Neuts (auto) 5.81 10^3/uL 10^3/uL (1.70-6.50) Absolute Lymphs (auto) 1.04 10^3/uL 10^3/uL (1.00-3.00) Absolute Monos (auto) 0.45 10^3/uL 10^3/uL (0.30-0.80) Absolute Eos (auto) 0.02 10^3/uL L 10^3/uL (0.03-0.40) Absolute Basos (auto) 0.04 10^3/uL 10^3/uL (0.02-0.10) Absolute Nucleated RBC 0.00 10^3/uL 10^3/uL (0-0.01) Immature Gran % 0.3 % % (0.0-1.1) Immature Gran # 0.02 10^3/uL 10^3/uL (0.00-0.10) PT INR APTT Sodium Potassium Chloride Carbon Dioxide Anion Gap BUN Creatinine Estimated GFR Glucose Calcium POC Troponin I NT-Pro-B Natriuret Pep Medications Given: Labetalol HCl 200 mg/ Dextrose 200 mls @ 0 mls/hr IV CONT LYNN; As Directed PRN Reason: Protocol Stop: 06/20/18 08:44 Last Admin: 12/22/17 09:47 Dose: 200 mls Discontinued Medications Fentanyl (Sublimaze) 25 mcg IVP EDNOW ONE Stop: 12/22/17 09:50 Last Admin: 12/22/17 09:53 Dose: 25 mcg Labetalol HCl (Trandate Injection) 20 mg IVP ONCE ONE Stop: 12/22/17 08:35 Last Admin: 12/22/17 08:59 Dose: 20 mg Point of Care Test Results: Chemistry 06/28/18 09:08 POC Troponin I 0.00 ng/mL ng/mL (0.00-0.08) Departure - Departure Disposition: [facility] Inpatient Acute Clinical Impression: Hyponatremia, Hypochloremia, Hypertensive emergency Chest pain Qualifiers: Chest pain type: other chest pain Qualified Code(s): R07.89 - Other chest pain Headache Qualifiers: Headache type: unspecified Headache chronicity pattern: acute headache Intractability: not intractable Qualified Code(s): R51 - Headache Condition: Fair Referrals: Patient,NotPresent [Unknown] - As per Instructions Report Scribed for: Cesar Garcia Report Scribed by: Angie Bello Date of Report: 12/22/17 Time of Report: 08:50
[2017-12-22] MEDS ORDERED: LABETALOL HCL 5 MG/ML 20 ML MDV IVP ONE (08:34)
[2017-12-22] MEDS ORDERED: LABETALOL HCL 200 MG in D5W 200 ML IV SCH (08:45)
[2017-12-22 09:12] LABS: PLATELET COUNT 246 10^3/uL (150-400)
[2017-12-22 09:19] LABS: INR 0.97 (0.83-1.16); PROTIME(PATIENT) 13.1 SEC (12.0-15.0)
--- NOTE | 2017-12-22 09:43 | CPEKG ---
Heart Rate: 82 RR Interval: 732 P-R Interval: 164 QRSD Interval: 94 QT Interval: 432 QTC Interval: 505 P [place]: 82 QRS [place]: 71 T Wave [place]: 75 EKG Severity - BORDERLINE ECG - EKG Impression: SINUS RHYTHM EKG Impression: MINIMAL ST DEPRESSION, LATERAL LEADS EKG Impression: BORDERLINE PROLONGED QT INTERVAL Electronically Signed By: Cesar Garcia 22-Dec-2017 14:57:15
[2017-12-22] MEDS ORDERED: fentaNYL 100 MCG/2 ML INJ IVP ONE ×2 (09:49→11:08)
[2017-12-22] MEDS ORDERED: fentaNYL 100 MCG/2 ML INJ IVP PRN (13:38)
[2017-12-22] MEDS ORDERED: hydrALAZINE 20 MG/ML VIAL IVP PRN (13:39)
[2017-12-22] MEDS ORDERED: LABETALOL HCL 5 MG/ML 20 ML MDV IVP PRN (13:40)
--- NOTE | 2017-12-22 13:48 | CPEKG ---
Heart Rate: 74 RR Interval: 811 P-R Interval: 148 QRSD Interval: 100 QT Interval: 412 QTC Interval: 457 P [place]: 93 QRS [place]: 72 T Wave [place]: 57 EKG Severity - ABNORMAL ECG - EKG Impression: SINUS RHYTHM EKG Impression: MULTIPLE ATRIAL PREMATURE COMPLEXES EKG Impression: TALL T WAVES CONSIDER ISCHEMIA AND ELECTROLYTE ABN Electronically Signed By: Jaswinder Kent 23-Dec-2017 08:54:34
[2017-12-22] MEDS ORDERED: ONDANSETRON 4 MG/2 ML VIAL IVP PRN (14:41)
[2017-12-22] MEDS ORDERED: SIMETHICONE 80 MG TAB CHEW PO PRN (14:44)
[2017-12-22] MEDS: PANTOPRAZOLE SODIUM 40 MG VIAL IVP SCH (14:45)
--- NOTE | 2017-12-22 14:52 | PDGENHP ---
History and Physical - Chief Complaint Chest pain, Headache - History of Present Illness The patient is a 82 yo female with a history of atrial fibrillation and hypertension who presented with chest pain and headache since this morning. In the ER she is noted to have a BP in the 230's systolic. She has no neurological deficits. A CT of the head was negative. Initial troponin is negative. EKG shows questionable st depression of the inferior leads. In the ER, she was started on a Labetalol drip. BP have dropped to high 140's systolic. She still has a VASQUEZ. She still feels chest pressure. She has also been experiencing some SOB. no palpitations or leg swelling. Followed by Dr. Crane, transplant nurse. Past medical history: Atrial fibrillation, CAD, cardiomyopathy, hypertension, hyperlipidemia Past surgical history: Denies Family history: Denies Social history: Lives in [place], retired, , non smoker, no ETOH History Information - Allergies/Home Medication List Allergies/Adverse Reactions: codeine [Codeine] Allergy (Intermediate, Verified 02/18/15 05:39) Other-Enter Comments amlodipine besylate [From Norvasc] Allergy (Unknown, Verified 03/09/15 10:35) hydrochlorothiazide Allergy (Unknown, Verified 03/09/15 10:35) amoxicillin Allergy (Verified 02/18/15 04:54) Itching ciprofloxacin Allergy (Verified 04/18/16 09:14) Opioids - Morphine Analogues Allergy (Verified 12/21/16 11:42) Sulfa (Sulfonamide Antibiotics) Allergy (Verified 02/08/15 12:09) Home Medications: Acetaminophen [Tylenol Extra Strength] 1,000 mg PO TID@,14,03/01/16 [Last Taken 12/22/17 06:00] Apixaban [Eliquis] 2.5 mg PO BID 03/01/16 [Last Taken 12/21/17 21:00] Ascorbic Acid [Vitamin C 500 mg (*)] 1,000 mg PO DAILY 03/01/16 [Last Taken ] Cholecalciferol Vit D3 [Vitamin D3 2000 units tab (OTC)] 2,000 units PO DAILY [Last Taken 12/21/17] Herbals/Supplements -Info Only 1 ea PO DAILY 03/01/16 [Last Taken 06/10/17] Simethicone [GAS-X] 80 mg PO PC PRN 03/01/16 [Last Taken 06/07/17] Pantoprazole Sodium [Protonix 40mg (*)] 40 mg PO DAILY 04/15/16 [Last Taken ] Valsartan [Diovan (*)] 320 mg PO HS 04/26/16 [Last Taken 12/21/17] Carvedilol [Coreg (*)] 25 mg PO BIDMEAL 06/10/17 [Last Taken 12/21/17 18:00] Famotidine [Pepcid 20 MG (*)] 20 mg PO BID PRN 06/10/17 [Last Taken 06/10/17 09: 00] Fluoxetine HCl [Prozac 40 mg] 40 mg PO DAILY 06/10/17 [Last Taken 12/21/17] Gabapentin [Neurontin] 600 mg PO TID@06,14,22 06/10/17 [Last Taken 12/21/17 22: 00] Alendronate Sodium [Fosamax 70 MG (*)] 70 mg PO ELIZONDO@0700 12/22/17 [Last Taken ] Calcium Carbonate [Tums 500MG (*)] 2,000 mg PO DAILY PRN 12/22/17 [Last Taken ] I have personally reviewed and updated: medical history, social history - Social History Smoking Status: Former smoker Review of Systems Review of Systems: ROS: 1pt was reviewed & negative except for what was stated in HPI & below Physical Exam Physical Exam: Temp Pulse Resp BP Pulse Ox 36.9 C 82 15 146/79 H 96 12/22/17 12:31 12/22/17 12:31 12/22/17 12:31 12/22/17 12:31 12/22/17 12:31 O2 (L/minute) 1 Constitutional: no apparent distress Eyes: PERRL, EOMI Ears, Nose, Mouth, Throat: moist mucous membranes, hearing normal Cardiovascular: regular rate and rhythym, No edema Respiratory: no respiratory distress, no rales or rhonchi, clear to auscultation Gastrointestinal: normoactive bowel sounds, soft, non-tender abdomen Skin: warm Neurologic: AAOx3 Psychiatric: interacting appropriately, not anxious, not encephalopathic Lymph, Heme, Immunologic: No petechiae Lab Data & Imaging Review 12/22/17 08:58 12/22/17 08:58 WBC 7.38 10^3/uL (3.80-9.50) 12/22/17 08:58 RBC 4.66 10^6/uL (4.18-5.33) 12/22/17 08:58 Hgb 14.7 g/dL (12.6-16.3) 12/22/17 08:58 Hct 43.0 % (38.0-47.0) 12/22/17 08:58 MCV 92.3 fL (81.5-99.8) 12/22/17 08:58 MCH 31.5 pg (27.9-34.1) 12/22/17 08:58 MCHC 34.2 g/dL (32.4-36.7) 12/22/17 08:58 RDW 13.4 % (11.5-15.2) 12/22/17 08:58 Plt Count 246 10^3/uL (150-400) 12/22/17 08:58 MPV 8.8 fL (8.7-11.7) 12/22/17 08:58 Neut % (Auto) 78.7 % (39.3-74.2) H 12/22/17 08:58 Lymph % (Auto) 14.1 % (15.0-45.0) L 12/22/17 08:58 [place] % (Auto) 6.1 % (4.5-13.0) 12/22/17 08:58 Eos % (Auto) 0.3 % (0.6-7.6) L 12/22/17 08:58 Baso % (Auto) 0.5 % (0.3-1.7) 12/22/17 08:58 Nucleat RBC Rel Count 0.0 % (0.0-0.2) 12/22/17 08:58 Absolute Neuts (auto) 5.81 10^3/uL (1.70-6.50) 12/22/17 08:58 Absolute Lymphs (auto) 1.04 10^3/uL (1.00-3.00) 12/22/17 08:58 Absolute Monos (auto) 0.45 10^3/uL (0.30-0.80) 12/22/17 08:58 Absolute Eos (auto) 0.02 10^3/uL (0.03-0.40) L 12/22/17 08:58 Absolute Basos (auto) 0.04 10^3/uL (0.02-0.10) 12/22/17 08:58 Absolute Nucleated RBC 0.00 10^3/uL (0-0.01) 12/22/17 08:58 Immature Gran % 0.3 % (0.0-1.1) 12/22/17 08:58 Immature Gran # 0.02 10^3/uL (0.00-0.10) 12/22/17 08:58 PT 13.1 SEC (12.0-15.0) 12/22/17 08:58 INR 0.97 (0.83-1.16) 12/22/17 08:58 APTT 30.6 SEC (23.0-38.0) 12/22/17 08:58 D-Dimer < 0.27 ug/mLFEU (0.00-0.50) 12/22/17 14:04 Sodium 129 mEq/L (135-145) L 12/22/17 08:58 Potassium 4.1 mEq/L (3.3-5.0) 12/22/17 08:58 Chloride 93 mEq/L (97-110) L 12/22/17 08:58 Carbon Dioxide 25 mEq/l (22-31) 12/22/17 08:58 Anion Gap 11 mEq/L (8-16) 12/22/17 08:58 BUN 10 mg/dL (7-23) 12/22/17 08:58 Creatinine 0.4 mg/dL (0.6-1.0) L 12/22/17 08:58 Estimated GFR > 60 12/22/17 08:58 Glucose 128 mg/dL (70-100) H 12/22/17 08:58 Calcium 8.9 mg/dL (8.5-10.4) 12/22/17 08:58 POC Troponin I 0.00 ng/mL (0.00-0.08) 12/22/17 09:08 NT-Pro-B Natriuret Pep 508 pg/mL (0-450) H 12/22/17 08:58 Assessment & Plan Assessment: #acute chest pain #Hypertensive emergency #Abnormal EKG #Headache, with no neurological deficits #Afib, chronic AC -cont carvedilol and diltiazem #Urinary retention Plan: Given her persistent chest pain, will obtain repeat EKG and trop now check TTE, repeat trop and EKG Telemetry check CXR Fentanyl, pain management urine osm, Na NPO DNR further reccs pending w/u total critical care time is 60 minutes
[2017-12-22] MEDS ORDERED: FUROSEMIDE 20 MG/2 ML VIAL IVP ONE (15:21)
--- NOTE | 2017-12-22 15:52 | ECHO ---
[email or web address] [address] [address] Main: [phone] Fax: Transthoracic Echocardiogram Name: ARTHUR JACOB MR#: [id number] Study Date: 12/22/2017 Study Time: 02:08 PM Date of : 1935 Age: 82 year(s) Height: 167.6 cm (66 in.) Weight: 58.51 kg (129 lb.) BSA: 1.66 m2 Gender: Female Examination: Echo Indication: HTN crisis/chest pain Image Quality: Contrast: Requested by: Remington Gutierres BP: 146 mmHg/79 mmHg Heart Rate: Rhythm: Indication: HTN crisis/chest pain Procedure Staff Butadiene Compressor Operator: Belkis Gutierrez RDCS Reading Physician: Rick Edmonds MD Requesting Provider: Conclusions: No pericardial effusion. Biatrial enlargement. Preserved LV systolic function with ejection fraction of 65%. Moderate to severe mitral regurgitation. Mild tricuspid regurgitation with a right ventricular systolic pressure 55 mm of mercury. Considerations for transesophageal echo and surgical evaluation if clinically warranted. Measurements: Chambers Valvular Assessment AV/MV Valvular Assessment TV/PV Normal Normal Normal Name Value Range Name Value Range Name Value Range Ao Tyra (MM): 3.2 cm (2.2 cm-3.7 AV Vmax: 1.37 m/s (1 m/s-1.7 TR Vmax: 3.35 mm/s ( - ) cm) m/s) TR PGmax: 45 mmHg ( - ) IVSd (2D): 0.8 cm (0.6 cm-1.1 AV meanP mmHg ( - ) syst. PAP: 55 mmHg ( - ) cm) PIYUSH (VTI): 1.9 cm ( - ) LVDd (2D): 5.4 cm (3.9 cm-5.3 MV E Vmax: 0.98 m/s ( - ) cm) MV A Vmax: 0.58 m/s ( - ) LVDs (2D): 3.2 cm (2.1 cm-4 MV E/A: 1.69 ( - ) cm) MV meanP mmHg ( - ) LVPWd (2D): 0.8 cm ( - ) MVA (Vmax): 2.2 m/s ( - ) LVOTd 2.1 cm 2.1 cm mm LVEF (MOD4): 68 % (>=55 %) EF Range: 65-70 % Continued Measurements: Chambers Valvular Assessment AV/MV Valvular Assessment TV/PV Name Value Name Value Name Value LADs: 4.4 cm MV Annulus: 3.3 cm CVP (est.): 10 mmHg LADs Lon.6 cm MV E' Septal: 0.07 m/s LA Area: 33.4 cm2 MV E/E' Septal: 14.50 MV E/E' Lateral: 10.30 Patient: ARTHUR JACOB Study Date: 12/22/2017 Page 1 of 2 02:08 PM MV VTI: 23.90 cm MR Vena Contracta: 0.5 cm MR ERO: 0.130 cm2 MR PISA radius: 6 mm MR Reg. Volume: 25 ml MR Reg. Fraction: 12 % Additional Vessels Name Value Inferior Vena Cava: 2.7 cm Findings: Left Ventricle: Normal size left ventricle. Mild concentric LV hypertrophy. Normal global systolic LV function. The ejection fraction is estimated to be 65-70 %. No regional wall motion abnormality. Right Ventricle: Normal size right ventricle. Left Atrium: The left atrium is severely dilated. Right Atrium: The right atrium is moderately dilated. Mitral Valve: Moderate mitral valve leaflet calcification is present. Moderate to severe mitral regurgitation. MV leaflets appear to not coapt completely.. Aortic Valve: The aortic valve is tri-leaflet. Moderate aortic cusp calcification is present. Trivial aortic valve regurgitation. Tricuspid Valve: The tricuspid valve is normal in appearance and function. Mild tricuspid regurgitation is present. The pulmonary artery pressure is mildly increased. RVSP is 55mmHG.. Pulmonic Valve: The pulmonic valve is normal in appearance and function. Aorta: The aorta is normal. Pericardium: No pericardial effusion. (No Signature Object) Patient: ARTHUR JACOB Study Date: 12/22/2017 Page 2 of 2 02:08 PM [id number]
[2017-12-22] MEDS: ONDANSETRON DISINTEGRATING 4 MG TAB PO PRN (16:23)
[2017-12-22] MEDS ORDERED: fentaNYL 250 MCG/5 ML INJ IVP PRN (16:36)
[2017-12-22] MEDS: fentaNYL 100 MCG/2 ML INJ IVP PRN ×2 (17:48→22:01)
[2017-12-22] MEDS: CARVEDILOL 25 MG TAB PO SCH (17:49)
[2017-12-22] MEDS: FAMOTIDINE 20 MG TAB PO PRN (17:49)
[2017-12-22] MEDS ORDERED: IOPAMIDOL (ISOVUE 370) 100 ML BTL IV ONE (18:07)
[2017-12-22] MEDS ORDERED: APIXABAN 2.5 MG TAB PO SCH (21:00)
[2017-12-22] MEDS ORDERED: VALSARTAN 160 MG TAB PO SCH (21:00)
[2017-12-22] MEDS: GABAPENTIN 300 MG CAP PO SCH (22:01)
[2017-12-22] MEDS: ACETAMINOPHEN 325 MG TAB PO PRN (22:01)
[2017-12-22] MEDS: CALCIUM CARBONATE 500 MG CHEWABLE TAB PO PRN (22:02)
[2017-12-23 04:27] LABS: PLATELET COUNT 212 10^3/uL (150-400)
[2017-12-23] MEDS: GABAPENTIN 300 MG CAP PO SCH ×3 (05:48→21:00)
[2017-12-23] MEDS: fentaNYL 100 MCG/2 ML INJ IVP PRN (05:49)
[2017-12-23] MEDS: CARVEDILOL 25 MG TAB PO SCH (08:11)
[2017-12-23] MEDS: ASCORBIC ACID 500 MG TAB PO SCH (08:11)
[2017-12-23] MEDS: FLUoxetine 20 MG CAP PO SCH (08:11)
[2017-12-23] MEDS: CHOLECALCIFEROL VIT D3 2,000 UNITS TAB/CAP PO SCH (08:12)
[2017-12-23] MEDS: PANTOPRAZOLE SODIUM 40 MG VIAL IVP SCH (08:12)
[2017-12-23] MEDS: DILTIAZEM CD 120 MG CAP PO SCH (08:22)
--- NOTE | 2017-12-23 10:21 | PDMN ---
Medical Necessity Medical necessity: est los>2mn for acute chest pain, hypertensive emergency, abn EKG, H/A, afib on chronic AC, and urinary retention; admit for repeat EKG & troponin, labetalol gtt, TTE, tele; comorbid CAD, HTN, HLD, cardiomyopathy; per order and H&P 12/22/17
[2017-12-23] MEDS ORDERED: NS 500 ML IV ONE ×2 (11:00→12:00)
--- NOTE | 2017-12-23 14:34 | HOSPPROG ---
Hospitalist Progress Note Assessment/Plan: #acute chest pain, resolved #Hypertensive emergency #Moderate to severe MR with Pulmonary Edema #Pulmonary HTN #Headache, with no neurological deficits, resolved #Afib, chronic AC -cont carvedilol #Urinary retention #Hypotension, BP down to 62/41 with activity today CTA chest negative for p.e or dissection, evidence of Pulmonary artery hypertension TTE: preserved LVEF, mod - severe MR, RVSP 55 Plan: Give 500ml fluid given hypotension Hold additional diuretics tonight. Will likely need going forward cont Coreg Hold Diltiazem, hold Labetalol and Hydralazine change PPI from IV to PO and make BID CXR in a.m. to determine need for diuretics Urine studies Cards consult If possible, she would like to hold off on valvular surgery cont inpatient Subjective: no further chest pain, O2 improving, but still on supplementatal O2. Had hypotension while working with OT this morning Objective: Vital Signs Temp Pulse Resp BP Pulse Ox 36.6 C 63 18 109/48 L 97 12/23/17 12:00 12/23/17 12:00 12/23/17 12:00 12/23/17 12:00 12/23/17 12:00 Laboratory Results 12/23/17 03:25 12/23/17 03:25 12/22/17 12/23/17 12/24/17 05:59 05:59 05:59 Intake Total 725 Output Total 1350 Balance -625 PT 13.1 SEC (12.0-15.0) 12/22/17 08:58 INR 0.97 (0.83-1.16) 12/22/17 08:58 - Physical Exam Constitutional: no apparent distress Eyes: PERRL Ears, Nose, Mouth, Throat: moist mucous membranes Cardiovascular: regular rate and rhythym, No edema Respiratory: no respiratory distress, reduced air movement Gastrointestinal: normoactive bowel sounds, soft, non-tender abdomen Skin: warm Musculoskeletal: No generalized weakness Neurologic: AAOx3 Psychiatric: interacting appropriately, not anxious, not encephalopathic Lymph, Heme, Immunologic: No petechiae ICD10 Worksheet Patient Problems: Problems Problem Status Onset Chest pain Acute Head ache Acute Hypertensive emergency Acute Hypochloremia Acute Hyponatremia Acute Atrial fibrillation and flutter Acute CHF (congestive heart failure) Acute Cardiomyopathy Acute Chronic Disease Mgmt/Transitional Care Acute Rapid atrial fibrillation Acute Sinusitis chronic, ethmoidal Acute Sinusitis chronic, frontal Acute
[2017-12-23] MEDS: APIXABAN 2.5 MG TAB PO SCH ×2 (15:41→20:59)
--- NOTE | 2017-12-23 15:49 | ASMTCMCOM ---
CM Note CM Note Notes: 12/23/2017 Case Management Note Met w/pt to discuss d/c needs. Pt was admitted for treatment of hypertensive emergency, chest pain and headache. Pt lives at [facility] in an independent living apartment. She has 3 meals a day from [facility]. She has hired [facility] for 10 hours/week. Pt caregiver from [facility] runs errands and performs light housekeeping duties. Pt nephmanny Adkins is supportive [phone] and her niece Francia can be reached at [phone]. PT is recommending outpatient rehab at [facility]. Discussed palliative care with pt. Pt requested palliative referral. Notified MD. [facility] Discuss[facility] with [facility] palliative team. Case Management d/c poc: home [facility] resuming [facility]. Case Management to follow. Date Signed: 12/23/2017 03:48 PM Electronically Signed By:Zara Thomason RN
--- NOTE | 2017-12-23 16:56 | PDCARPN ---
Cardiology Progress Note Assessment/Plan: The patient is an 82-year-old female who I follow as an outpatient (last visit ). Her cardiac history includes hypertension, hyperlipidemia, paroxysmal atrial fibrillation, and eys-mift-zrkspbih CAD. She was admitted through the emergency room yesterday. The admission history and physical mentions chest pain and headache. However, Ada tells me that she just felt "awful"and that her issues rafi chest discomfort and headache have been long- standing. She has significant acid reflux with almost persistent chest discomfort. She said that she has had a sinus headache for the better part of 2 years. In fact, she has been taking fairly high amounts of acetaminophen at home for this. In the emergency room, her blood pressure was severely elevated with a systolic pressure of 230 mmHg. Her chest x-ray was reported as being consistent with pulmonary edema. There was no mention of this finding on her CT pulmonary angiogram which was negative for evidence of PE. She was started on intravenous labetalol and was given a single dose of intravenous Lasix. Her blood pressure came down fairly quickly and she is now off of labetalol. She did have a mild hypotensive episode earlier today. Her lung navarro are clear on examination today and she does not have any significant lower extremity edema. Her echocardiogram demonstrates normal left ventricular systolic function, moderate to severe mitral regurgitation, and an estimated PA systolic pressure of 55 mmHg. All of these echocardiographic findings have been present for at least 2 years. Yesterday's laboratory studies demonstrated moderate hyponatremia. Her troponin was normal. Her BNP was essentially normal at 508. Hypertensive Crisis- Appears to be resolved. Would reintroduce her usual home medications as blood pressure allows. Coronary Artery Disease- Ltk-olxs-[id number] CAD by cardiac catheterization in 2016. Chest pain not consistent with angina. Troponin negative. ECG with nonspecific changes. Paroxysmal Atrial Fibrillation- maintaining sinus rhythm on standard therapy. 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 It did not. Continues on systemic anticoagulation for stroke prophylaxis. Pulmonary Edema- Suspect that the etiology was acutely worsened diastolic dysfunction in the setting of hypertensive crisis with a contribution from her mitral regurgitation. Had a good diuretic response to a single dose of Lasix. Lung navarro are clear today. O2 saturation in the 90s on room air. Hyponatremia- Per the hospitalist service. Mitral Regurgitation- In reviewing my office notes. I do not see that we have had an in-depth discussion about this issue in the past. I spoke with her about it today and the potential implications including the possible need for open heart surgery. She is willing to consider all options. I will have my nurse contact her to arrange for an outpatient followup visit with me shortly after this hospital stay. At that time, I will refer her to our valvular heart disease clinic for initial assessment for potential mitral valve replacement versus Mitraclip when timing seems to be appropriate. 12/23/17 16:53 Subjective: No complaints today. Objective: Vital Signs (8 Hrs) Temp Pulse Pulse Pulse Resp BP BP 12/23/17 16:00 36.4 C 60 18 111/52 L 12/23/17 14:55 63 79/38 L 12/23/17 12:00 36.6 C 63 18 109/48 L 12/23/17 09:20 102 H 84 62/44 L BP Pulse Ox 12/23/17 16:00 95 12/23/17 14:55 95 12/23/17 12:00 97 12/23/17 09:20 116/54 L 83 L Intake/Output (24 Hrs) 12/22/17 12/23/17 12/24/17 05:59 05:59 05:59 Intake Total 725 400 Output Total 1350 500 Balance -625 -100 Intake: Oral (ml) 600 400 IV Infused (ml) 125 Labetalol HCl 200 mg In 125 D5w 200 ml @ As Directed IV CONT LYNN Rx#: [id number] Output: Urine (ml) 1350 500 Bedside Commode 1150 Toilet 200 500 Other: Weight 58.9 kg Intake Quantity Yes Sufficient Number of Voids Bedside Commode 1 Toilet 2 Result Diagrams: 12/23/17 03:25 12/23/17 03:25 Cardiac Labs: Cardiac Lab Results (72 Hrs) 12/22/17 14:04 Troponin I 0.021 - Physical Exam Constitutional: no apparent distress Eyes: PERRL, anicteric sclera Ears, Nose, Mouth, Throat: moist mucous membranes Cardiovascular: regular rate and rhythm, systolic murmur Respiratory: clear to auscultate bilat Gastrointestinal: normoactive bowel sounds, no tenderness, no masses Skin: no rashes, no edema Neurologic: AAOx3 Psychiatric: not anxious ICD10 Worksheet Patient Problems: Problems Problem Status Onset Chest pain Acute Head ache Acute Hypertensive emergency Acute Hypochloremia Acute Hyponatremia Acute Atrial fibrillation and flutter Acute CHF (congestive heart failure) Acute Cardiomyopathy Acute Chronic Disease Mgmt/Transitional Care Acute Rapid atrial fibrillation Acute Sinusitis chronic, ethmoidal Acute Sinusitis chronic, frontal Acute
[2017-12-23] MEDS: PANTOPRAZOLE SODIUM 40 MG TAB PO SCH (20:59)
[2017-12-23] MEDS: ACETAMINOPHEN 325 MG TAB PO PRN (20:59)
[2017-12-24] MEDS: CALCIUM CARBONATE 500 MG CHEWABLE TAB PO PRN (06:20)
[2017-12-24] MEDS: ACETAMINOPHEN 325 MG TAB PO PRN ×4 (06:22→21:43)
[2017-12-24] MEDS: GABAPENTIN 300 MG CAP PO SCH ×4 (06:24→20:55)
[2017-12-24] MEDS: ASCORBIC ACID 500 MG TAB PO SCH (08:05)
[2017-12-24] MEDS: PANTOPRAZOLE SODIUM 40 MG TAB PO SCH ×3 (08:05→20:56)
[2017-12-24] MEDS: CHOLECALCIFEROL VIT D3 2,000 UNITS TAB/CAP PO SCH (08:05)
[2017-12-24] MEDS: APIXABAN 2.5 MG TAB PO SCH ×2 (08:06→20:51)
[2017-12-24] MEDS: FLUoxetine 20 MG CAP PO SCH (08:06)
[2017-12-24] MEDS ORDERED: CARVEDILOL 6.25 MG TAB PO ONE (13:44)
[2017-12-24] MEDS ORDERED: FUROSEMIDE 20 MG TAB PO ONE (13:45)
--- NOTE | 2017-12-24 13:51 | HOSPPROG ---
Hospitalist Progress Note Assessment/Plan: #acute chest pain, resolved #Hypertensive emergency, resolved #Hypotension, resolved #Moderate to severe MR with Pulmonary Edema #Pulmonary HTN #Headache, with no neurological deficits, resolved #Afib, chronic AC -cont carvedilol -Cont Apixaban #Urinary retention #Hyponatremia -Urine studies are c/w appropriate Na retention. Suggests no SiADH -Etiology possible due to CHF/volume overload Studies: CTA chest negative for p.e or dissection, evidence of Pulmonary artery hypertension TTE: preserved LVEF, mod - severe MR, RVSP 55 Plan: -CXR reviewed, still shows improving CHF. Still with trace pedal edema. She will get Lasix 20mg PO x 1. Unclear if she will need daily or every other day going forward -restart Coreg. For now cont to hold Diltiazem and Diovan as BP may not tolerate -cont Protonix BID -Cont Apixaban -consider discharge tomorrow Subjective: SOB with exertion. no cp. On RA currently. CXR suggests improving pulm edema Objective: Vital Signs Temp Pulse Resp BP Pulse Ox 36.8 C 72 17 117/79 89 L 12/24/17 11:05 12/24/17 11:05 12/24/17 11:05 12/24/17 11:05 12/24/17 11:05 Laboratory Results 12/23/17 03:25 12/24/17 03:27 12/23/17 12/24/17 12/25/17 05:59 05:59 05:59 Intake Total 725 1200 Output Total 1350 750 250 Balance -625 450 -250 PT 13.1 SEC (12.0-15.0) 12/22/17 08:58 INR 0.97 (0.83-1.16) 12/22/17 08:58 - Physical Exam Constitutional: no apparent distress Eyes: PERRL Ears, Nose, Mouth, Throat: moist mucous membranes, hearing normal Cardiovascular: regular rate and rhythym, edema (trac) Respiratory: reduced air movement Gastrointestinal: normoactive bowel sounds, soft, non-tender abdomen Skin: warm Neurologic: AAOx3 Psychiatric: interacting appropriately, not anxious, not encephalopathic Lymph, Heme, Immunologic: No petechiae ICD10 Worksheet Patient Problems: Problems Problem Status Onset Chest pain Acute Head ache Acute Hypertensive emergency Acute Hypochloremia Acute Hyponatremia Acute Atrial fibrillation and flutter Acute CHF (congestive heart failure) Acute Cardiomyopathy Acute Chronic Disease Mgmt/Transitional Care Acute Rapid atrial fibrillation Acute Sinusitis chronic, ethmoidal Acute Sinusitis chronic, frontal Acute
[2017-12-24] MEDS: CARVEDILOL 25 MG TAB PO SCH (17:51)
[2017-12-24] MEDS ORDERED: LACTULOSE 20 GM/30 ML UDCUP PO PRN (21:47)
[2017-12-24] MEDS ORDERED: BISACODYL 10 MG SUPP PR PRN (21:47)
[2017-12-24] MEDS ORDERED: MAGNESIUM HYDROXIDE 30 ML UDCUP PO PRN (21:47)
[2017-12-24] MEDS ORDERED: MAGNESIUM HYDROXIDE 30 ML UDCUP PO ONE (21:47)
[2017-12-24] MEDS ORDERED: POLYETHYLENE GLYCOL 3350 17 GM PKT PO PRN (21:47)
[2017-12-25] MEDS: GABAPENTIN 300 MG CAP PO SCH ×3 (05:45→16:34)
[2017-12-25] MEDS: CALCIUM CARBONATE 500 MG CHEWABLE TAB PO PRN (05:48)
[2017-12-25] MEDS ORDERED: ALENDRONATE SODIUM 70 MG TAB PO SCH (07:00)
[2017-12-25] MEDS: ACETAMINOPHEN 325 MG TAB PO PRN (07:38)
[2017-12-25] MEDS: FLUoxetine 20 MG CAP PO SCH (07:40)
[2017-12-25] MEDS: CARVEDILOL 25 MG TAB PO SCH (07:40)
[2017-12-25] MEDS: APIXABAN 2.5 MG TAB PO SCH (07:41)
[2017-12-25] MEDS: CHOLECALCIFEROL VIT D3 2,000 UNITS TAB/CAP PO SCH (07:41)
[2017-12-25] MEDS: ASCORBIC ACID 500 MG TAB PO SCH (07:41)
[2017-12-25] MEDS: PANTOPRAZOLE SODIUM 40 MG TAB PO SCH (07:41)
[2017-12-25] MEDS: ONDANSETRON DISINTEGRATING 4 MG TAB PO PRN (08:36)
[2017-12-25] MEDS: FAMOTIDINE 20 MG TAB PO PRN (08:36)
[2017-12-25] MEDS ORDERED: SENNOSIDES/DOCUSATE SODIUM TAB PO SCH (09:00)
[2017-12-25] MEDS ORDERED: MAG HYDROX/AL HYDROX/SIMETH 30 ML UDCUP PO ONE (12:50)
[2017-12-25] MEDS ORDERED: LIDOCAINE 2% VISCOUS 15 ML UDCUP PO ONE (12:50)
[2017-12-25] MEDS ORDERED: HYOSCYAMINE SULFATE 0.125 MG TAB PO ONE (12:50)
[2017-12-25] MEDS: DILTIAZEM CD 120 MG CAP PO SCH (13:05)
[2017-12-25 15:01] VITALS: BP 128/56
--- NOTE | 2017-12-25 15:47 | GDS ---
[f rep st] DISCHARGE SUMMARY DISCHARGE DIAGNOSES: 1. Chest pain, resolved. 2. Hypertensive urgency. 3. Non flow-limiting coronary artery disease. 4. Hypertension. 5. Hyperlipidemia. 6. Atrial fibrillation. 7. Gastroesophageal reflux disease. CONSULTANTS: Dr. Valentín Crane, Cardiology. HISTORY: For details, please see History and Physical dated December 14, 2017. In brief, the patient is an 82-year-old female with multiple medical problems including coronary disease, mitral valve regurg itation, atrial fibrillation, and hypertension who presents to the emergency department with chest pa in. She was found to have markedly elevated blood pressures with a systolic blood pressure over 200. She was admitted to the hospital for further management. HOSPITAL COURSE: Patient admitted to the cardiac telemetry unit. She received IV labetalol for her initial hypertensive crisis. Her blood pressures have actually improved nicely and she will restart her home medications at discharge. However, I will decrease her Diovan slightly as she did have a li ttle hypotension here. She was evaluated by her primary Orthopaedic Nurse, Dr. Valentín Crane, who notes she had non-flow limiting coronary disease by cardiac catheterization in 2016. She had negative trop onin and a nonischemic EKG. Her chest pain is not thought to be consistent with an anginal process. I am more suspicious for acid reflux. She has had problems with this during previous hospitalizatio ns. Her Protonix was increased to twice daily. Her symptoms actually improved with a GI cocktail. I recommend she follow up with Dr. Edson Lantigua of [facility], and to [facility]. We also discussed possibly changing to different bisphosphonate as she may be couch ving side effects from her Fosamax. Dr. Crane, will arrange for referral to the Valve Clinic for initial assessment of potential mitral valve replacement versus a MitraClip when the timing is approp riate. On the day of discharge, she is normotensive. Her heart rates in the 60s. She is saturating 94% on room air. DISPOSITION: Patient is discharged home in stable condition. FOLLOWUP: 1. Dr. Edson Lantigua, [facility]. 2. Dr. Valentín Crane, Cardiology. 3. Primary Care. DISCHARGE MEDICATIONS: Please see [employer] completed outpatient medication list. Changed medication s include Protonix increased to 40 mg p.o. twice daily and valsartan is decreased from 320 mg p.o. h. s. to 160 mg p.o. h.s. this could be up titrated in the outpatient setting as indicated. She will c ontinue all other outpatient medications as previously prescribed. /[id number]/MODL
--- NOTE | 2017-12-25 17:01 | ASMTLACE ---
LACE Length of stay for Answers: 3 days current admission Acuity / Level of Answers: Yes Care: Did the patient have an inpatient admission? Comorbidities - select Answers: Coronary Artery Disease all that apply Other Notes: Atrial fibrillation; HT N # of Emergency department Answers: 1-2 visits in the last 6 months Score: 10 Date Signed: 12/25/2017 05:01 PM Electronically Signed By:Barbara Gutierrez RN
--- NOTE | 2017-12-25 17:03 | ASMTCMCOM ---
CM Note CM Note Notes: Chart reviewed.Medically clear for dc to home . Patient lives at [facility] and will have palliative care consult after discharge. CM available should other needs arise. Plan : DC to home Date Signed: 12/25/2017 05:03 PM Electronically Signed By:Barbara Gutierrez RN
--- NOTE | 2017-12-26 09:12 | ASDISCHSUM ---
Discharge Information Plan Status:Home with No Needs Medically Cleared to Leave:12/25/2017 Discharge Date:12/25/2017 05:20 PM CM D/C Disposition:Home, Routine, Self-Care ADT D/C Disposition:Home, Routine, Self-Care Projected Discharge Date:12/25/2017 11:00 AM Transportation at D/C: Discharge Delay Reason: Follow-Up Date:12/25/2017 11:00 AM Discharge Slot: Final Diagnosis: Placement Information Referral Type:Palliative Care Referral ID:[id number] Provider Name:[facility]) Address 1:[address] [place] Address 2: City:[place] Selection Factors: State:[place] Patient Contact Information Contact Name:ANGEL LUIS Relationship:Sister Address: Work Phone: [facility]:[place] Alternate Phone: State/Zip Code:[place] Email: Financial Information Financial Class:Medicare Primary Plan Desc:MEDICARE INPATIENT Primary Plan Number:[id number] Secondary Plan Desc:SEBASTIAN [employer] PPO Secondary Plan Number:[id number] Assessment Information LACE LACE Length of stay for Answers: 3 days current admission Acuity / Level of Answers: Yes Care: Did the patient have an inpatient admission? Comorbidities - select Answers: Coronary Artery Disease all that apply Other Notes: Atrial fibrillation; HT N # of Emergency department Answers: 1-2 visits in the last 6 months Score: 10 Date Signed: 12/25/2017 05:01 PM Electronically Signed By:Barbara Gutierrez RN [facility] CM Progress Note CM Note CM Note Notes: 12/23/2017 Case Management Note Met w/pt to discuss d/c needs. Pt was admitted for treatment of hypertensive emergency, chest pain and headache. Pt lives at [facility] in an independent living apartment. She has 3 meals a day from [facility]. She has hired [facility] for 10 hours/week. Pt caregiver from [facility] runs errands and performs light housekeeping duties. Pt tish Adkins is supportive [phone] and her niece Francia can be reached at [phone]. PT is recommending outpatient rehab at [facility]. Discussed palliative care with pt. Pt requested palliative referral. Notified MD. Made outpatient palliative referrals via [employer]. Discussed with [facility] palliative team. Case Management d/c poc: home FMIL resuming [facility]. Case Management to follow. Date Signed: 12/23/2017 03:48 PM Electronically Signed By:Zara Thomason RN [facility] CM Progress Note CM Note CM Note Notes: Chart reviewed.Medically clear for dc to home . [facility] and will have palliative care consult after discharge. CM available should other needs arise. Plan : DC to home Date Signed: 12/25/2017 05:03 PM Electronically Signed By:Barbara Gutierrez RN Intervention Information Intervention Type:*IM-Signed Date of Service:12/25/2017 05:09 PM Patient Type:Inpatient Staff Member:SEUN Gutierrez Margaret Hours: Discipline: Severity: Comment:
== END 2017-12-25 17:20 | disposition home or self-care (01) | DRG 305 ==
LOC: EDBD → EDUNIT# → OBSVTOIN 12:14 → F2W 12:20
PROVIDERS: ADMIT Family Medicine; ATTEND Family Medicine
DX: I16.1 Hypertensive emergency (principal); K21.9 Gastro-esophageal reflux disease without esophagitis; I25.10 Atherosclerotic heart disease of native coronary artery without angina pectoris; E78.5 Hyperlipidemia, unspecified; I48.2 Chronic atrial fibrillation; I34.0 Nonrheumatic mitral (valve) insufficiency; R33.9 Retention of urine, unspecified; Z79.01 Long term (current) use of anticoagulants; Z66 Do not resuscitate
CPT/HCPCS: 84484-PO; 96365; 96366; 97116-GP; 97162-GP; 97165-GO; 97535-GO; G8978-GP-CJ; G8979-GP-CI; G8987-GO-CJ; G8988-GO-CI; J1940; J2405; J3010; Q9967

== ENCOUNTER 2018-01-02 11:22 | Emergency (ER) | payer OTHER ==
--- NOTE | 2018-01-02 12:38 | EDPHY ---
H & P Time Seen by Provider: 01/02/18 12:23 HPI/ROS: CHIEF COMPLAINT: Hypertension, headache HISTORY OF PRESENT ILLNESS: The patient is a 82-year-old female with a history of hypertension who presents emergency department with elevated blood pressure. The patient was recently admitted to [facility] on 12/22/2017 and discharged on 12/25/2017. In part, she was diagnosed with hypertensive crisis. Her medications were adjusted. She was noted to have mitral valve disease and she has follow-up with the Valve clinic next week. Patient states she woke this morning and felt a slight headache. She went down to exercise on the machines. Prior to starting the checked her pressure and stated that her systolic pressure was 200. They recommended she come in for evaluation. Patient states her headache is improved. She has no focal neurologic deficits. No current chest pain. The patient does have ongoing"esophageal problems." She takes Tums regularly with no relief. REVIEW OF SYSTEMS: My complete review of systems is negative except as mentioned in the HPI. Past Medical/Surgical History: Includes hypertensive urgency, hypertension, hyperlipidemia, atrial fibrillation , GERD, mitral valve disease, reflux Smoking Status: Former smoker Physical Exam: Vitals noted. Initial blood pressure was 173/92. Repeat blood pressure was 176 /85. When I was in the room the blood pressure was 142/81 GENERAL: Well-appearing, in no acute distress, alert. HEENT: Eyes normal to inspection, normal pharynx, no signs of dehydration. NECK: No thyromegaly, no lymphadenopathy, supple. RESPIRATORY: Clear to auscultation bilaterally, no rales, rhonchi or wheezing. CVS: Regular rate and rhythm, no rubs, murmurs, or gallops. ABDOMEN: Soft, nontender, nondistended, no organomegaly. BACK: Normal to inspection, no CVA tenderness. SKIN: Normal color, no rash, warm, dry. No pallor. EXTREMITIES: No pedal edema, no calf tenderness, no Homans sign or cords, no joint swelling. NEURO/PSYCH: Alert and oriented x3, normal mood and affect, normal motor sensory exam. No obvious cranial nerve deficit. Constitutional: Initial Vital Signs Temperature (C) 36.9 C 01/02/18 11:27 Heart Rate 79 01/02/18 11:27 Respiratory Rate 16 01/02/18 11:27 Blood Pressure 173/92 H 01/02/18 11:27 O2 Sat (%) 95 01/02/18 11:27 O2 Delivery Mode Room Air Allergies/Adverse Reactions: codeine [Codeine] Allergy (Intermediate, Verified 01/02/18 11:25) Other-Enter Comments amlodipine besylate [From Norvasc] Allergy (Unknown, Verified 01/02/18 11:25) hydrochlorothiazide Allergy (Unknown, Verified 01/02/18 11:25) amoxicillin Allergy (Verified 01/02/18 11:25) Itching ciprofloxacin Allergy (Verified 01/02/18 11:25) Opioids - Morphine Analogues Allergy (Verified 01/02/18 11:25) Sulfa (Sulfonamide Antibiotics) Allergy (Verified 01/02/18 11:25) Home Medications: Medication Instructions Recorded Acetaminophen [Tylenol Extra 1,000 mg PO TID@,,03/01/16 Strength] Apixaban [Eliquis] 2.5 mg PO BID 03/01/16 Ascorbic Acid [Vitamin C 500 mg 1,000 mg PO DAILY 03/01/16 (*)] Cholecalciferol Vit D3 [Vitamin D3 2,000 units PO DAILY 03/01/16 2000 units tab (OTC)] Herbals/Supplements -Info Only 1 ea PO DAILY 03/01/16 Simethicone [GAS-X] 80 mg PO PC PRN 03/01/16 Diltiazem Cd [Cardizem ER 120 MG 120 mg PO DAILY #30 cap 04/21/16 (*)] Carvedilol [Coreg (*)] 25 mg PO BIDMEAL 06/10/17 Famotidine [Pepcid 20 MG (*)] 20 mg PO BID PRN 06/10/17 Fluoxetine HCl [Prozac 40 mg] 40 mg PO DAILY 06/10/17 Gabapentin [Neurontin] 600 mg PO TID@,,06/10/17 Alendronate Sodium [Fosamax 70 MG 70 mg PO ELIZONDO@0700 12/22/17 (*)] Calcium Carbonate [Tums 500MG (*)] 2,000 mg PO DAILY PRN 12/22/17 Pantoprazole Sodium [Protonix 40mg 40 mg PO BID #60 tab 12/25/17 (*)] Valsartan [Diovan (*)] 160 mg PO HS #30 tab 12/25/17 Medical Decision Making ED Course/Re-evaluation: In the emergency department I discussed possible etiologies with the patient. I reviewed her previous record. Laboratory studies, EKG were ordered. EKG shows normal sinus rhythm, normal rate, normal axis, normal intervals. There are no ST or T-wave abnormalities. EKG is normal as interpreted by me. I reviewed the patient's laboratory studies. They are unremarkable. Dr. Adams was in the emergency department to evaluate the patient. He recommended doubling the dose of the patient's diltiazem. I discussed this plan with the patient. Patient will take diltiazem 120 mg orally in the morning and 120 mg at bedtime. The patient was given warnings prior to leaving. She will follow up Dr. Adams this week. Differential Diagnosis: My differential includes but is not limited to hypertensive urgency, hypertensive crisis, hypertension, ACS, acute MN, GERD, reflux, valvular disease - Data Points Laboratory Results: Laboratory Results 01/02/18 11:38 01/02/18 11:38 01/02/18 01/02/18 01/02/18 12:43 11:38 11:38 WBC 5.88 10^3/uL 10^3/uL (3.80-9.50) RBC 4.33 10^6/uL 10^6/uL (4.18-5.33) Hgb 13.6 g/dL g/dL (12.6-16.3) Hct 40.2 % % (38.0-47.0) MCV 92.8 fL fL (81.5-99.8) MCH 31.4 pg pg (27.9-34.1) MCHC 33.8 g/dL g/dL (32.4-36.7) RDW 13.6 % % (11.5-15.2) Plt Count 236 10^3/uL 10^3/uL (150-400) MPV 9.3 fL fL (8.7-11.7) Neut % (Auto) 69.5 % % (39.3-74.2) Lymph % (Auto) 19.4 % % (15.0-45.0) [place] % (Auto) 9.4 % % (4.5-13.0) Eos % (Auto) 0.7 % % (0.6-7.6) Baso % (Auto) 0.7 % % (0.3-1.7) Nucleat RBC Rel Count 0.0 % % (0.0-0.2) Absolute Neuts (auto) 4.09 10^3/uL 10^3/uL (1.70-6.50) Absolute Lymphs (auto) 1.14 10^3/uL 10^3/uL (1.00-3.00) Absolute Monos (auto) 0.55 10^3/uL 10^3/uL (0.30-0.80) Absolute Eos (auto) 0.04 10^3/uL 10^3/uL (0.03-0.40) Absolute Basos (auto) 0.04 10^3/uL 10^3/uL (0.02-0.10) Absolute Nucleated RBC 0.00 10^3/uL 10^3/uL (0-0.01) Immature Gran % 0.3 % % (0.0-1.1) Immature Gran # 0.02 10^3/uL 10^3/uL (0.00-0.10) Sodium 131 mEq/L L mEq/L (135-145) Potassium 4.6 mEq/L mEq/L (3.3-5.0) Chloride 98 mEq/L mEq/L (97-110) Carbon Dioxide 25 mEq/l mEq/l (22-31) Anion Gap 8 mEq/L mEq/L (8-16) BUN 11 mg/dL mg/dL (7-23) Creatinine 0.5 mg/dL L mg/dL (0.6-1.0) Estimated GFR > 60 Glucose 95 mg/dL mg/dL (70-100) Calcium 8.9 mg/dL mg/dL (8.5-10.4) POC Troponin I 0.00 ng/mL ng/mL (0.00-0.08) Point of Care Test Results: Chemistry 01/02/18 12:43 POC Troponin I 0.00 ng/mL ng/mL (0.00-0.08) Departure - Departure Disposition: Home, Routine, Self-Care Clinical Impression: Hypertension Qualifiers: Hypertension type: unspecified Qualified Code(s): I10 - Essential (primary) hypertension Condition: Good Instructions: Hypertension (ED) Additional Instructions: Dr. Adams recommended that you increased your diltiazem dose. Take 1 tablet ( 120mg) with breakfast and take 1 tablet (120 mg) at bedtime. You need close follow-up with Dr. Adams this week. Return with worsening symptoms or concerns. Referrals: Jas Adams MD [Primary Care Provider] - 2-3 days, call for appt.
--- NOTE | 2018-01-02 12:48 | CPEKG ---
Heart Rate: 70 RR Interval: 857 P-R Interval: 160 QRSD Interval: 82 QT Interval: 432 QTC Interval: 467 P [place]: 95 QRS [place]: 62 T Wave [place]: 55 EKG Severity - NORMAL ECG - EKG Impression: SINUS RHYTHM Electronically Signed By: Valentín Crane 05-Jan-2018 21:11:45
[2018-01-02 13:05] LABS: PLATELET COUNT 236 10^3/uL (150-400)
[2018-01-02 14:11] VITALS: BP 151/80
== END 2018-01-02 14:11 | disposition home or self-care (01) ==
DX: I10 Essential (primary) hypertension (principal); Z87.891 Personal history of nicotine dependence
CPT/HCPCS: 84484-PO

== ENCOUNTER → 2018-03-06 | Outpatient (CLI) | payer OTHER | LOC: FIMAGING 15:08 | PROVIDERS: ATTEND Otolaryngology | DX: Z98.890 Other specified postprocedural states (principal); J32.9 Chronic sinusitis, unspecified ==

== ENCOUNTER → 2018-03-09 | Outpatient (CLI) | payer OTHER | LOC: BHFA 10:00 | PROVIDERS: ATTEND Internal Medicine Cardiovascular Disease | DX: I34.0 Nonrheumatic mitral (valve) insufficiency (principal) ==

== ENCOUNTER 2018-07-02 09:30 | Emergency (ER) | payer OTHER ==
[2018-07-02] MEDS ORDERED: LORazepam 2 MG/ML INJ IVP ONE (09:52)
--- NOTE | 2018-07-02 09:52 | EDPHY ---
H & P Time Seen by Provider: 07/02/18 09:35 HPI/ROS: CHIEF COMPLAINT: Headache, indigestion and chest discomfort HISTORY OF PRESENT ILLNESS: The patient presents the emergency department with headache, indigestion and chest discomfort that began at 4:00 a.m. In the morning. The patient reports she has been hospitalized several times for this in the past. It typically has been associated with hypertension and anxiety. The patient does endorse symptoms of anxiety. She reports she felt in her usual state of health yesterday. She denies any history of exertional chest pain or shortness of breath. The patient does have a history of atrial fibrillation. She also has a history of coronary artery disease. No history of recent stenting or coronary intervention. REVIEW OF SYSTEMS: A comprehensive 10 point review of systems is otherwise negative aside from elements mentioned in the history of present illness. Source: Patient Exam Limitations: No limitations - Personal History Tetanus Vaccine Date: 2004 - Medical/Surgical History Hx Asthma: No Hx Chronic Respiratory Disease: No Hx Diabetes: No Hx Cardiac Disease: Yes Hx Renal Disease: No Hx Cirrhosis: No Hx Alcoholism: No Hx HIV/AIDS: No Hx Splenectomy or Spleen Trauma: No Other PMH: pmh- afib w/ rvr, HTN, L TKA ,osteoperosis,broken heart syndrome. psh- cardioversion 04/15/16, and 02/07, [place], right mastectomy, right hip replacement fx femur 2002, cataract 2008, fx tib/fib 2011, fx right pelvis, left breast lumpectomy with radiation, R shoulder replaced - Social History Smoking Status: Former smoker - Physical Exam Exam: General Appearance: Alert, no distress Eyes: Pupils equal and round no pallor or injection ENT, Mouth: Mucous membranes moist Respiratory: There are no retractions, lungs are clear to auscultation Cardiovascular: Regular rate and rhythm Gastrointestinal: Abdomen is soft and nontender, no masses, bowel sounds normal Neurological: A&O, normal motor function, normal sensory exam, normal cranial nerves Skin: Warm and dry, no rashes Musculoskeletal: Neck is supple nontender Extremities: symmetrical, full range of motion Psychiatric: Patient is oriented X 3, there is no agitation Constitutional: Initial Vital Signs Temperature (C) 37.2 C 07/02/18 09:51 Heart Rate 82 07/02/18 09:51 Respiratory Rate 16 07/02/18 09:51 Blood Pressure 143/91 H 07/02/18 09:51 O2 Sat (%) 93 07/02/18 09:51 O2 Delivery Mode Room Air Allergies/Adverse Reactions: codeine [Codeine] Allergy (Intermediate, Verified 07/02/18 09:54) Other-Enter Comments amlodipine besylate [From Norvasc] Allergy (Unknown, Verified 07/02/18 09:54) hydrochlorothiazide Allergy (Unknown, Verified 07/02/18 09:54) amoxicillin Allergy (Verified 07/02/18 09:54) Itching ciprofloxacin Allergy (Verified 07/02/18 09:54) Opioids - Morphine Analogues Allergy (Verified 07/02/18 09:54) Sulfa (Sulfonamide Antibiotics) Allergy (Verified 07/02/18 09:54) Home Medications: Medication Instructions Recorded Acetaminophen [Tylenol Extra 1,000 mg PO TID@,,03/01/16 Strength] Apixaban [Eliquis] 2.5 mg PO BID 03/01/16 Ascorbic Acid [Vitamin C 500 mg 1,000 mg PO DAILY 03/01/16 (*)] Cholecalciferol Vit D3 [Vitamin D3 2,000 units PO DAILY 03/01/16 2000 units tab (OTC)] Herbals/Supplements -Info Only 1 ea PO DAILY 03/01/16 Simethicone [GAS-X] 80 mg PO PC PRN 03/01/16 Diltiazem Cd [Cardizem ER 120 MG 120 mg PO DAILY #30 cap 04/21/16 (*)] Carvedilol [Coreg (*)] 25 mg PO BIDMEAL 06/10/17 Famotidine [Pepcid 20 MG (*)] 20 mg PO BID PRN 06/10/17 Fluoxetine HCl [Prozac 40 mg] 40 mg PO DAILY 06/10/17 Gabapentin [Neurontin] 600 mg PO TID@,,06/10/17 Alendronate Sodium [Fosamax 70 MG 70 mg PO ELIZONDO@0700 12/22/17 (*)] Calcium Carbonate [Tums 500MG (*)] 2,000 mg PO DAILY PRN 12/22/17 Pantoprazole Sodium [Protonix 40mg 40 mg PO BID #60 tab 12/25/17 (*)] Valsartan [Diovan (*)] 160 mg PO HS #30 tab 12/25/17 LORazepam [Ativan] 0.5 mg PO DAILY PRN #6 tablet 07/02/18 Medical Decision Making - Diagnostics EKG Interpretation: EKG: Complete interpretation has been separately recorded in the [facility] archive. Summary impression: Sinus rhythm, rate 81, LVH is noted, nonspecific ST T wave changes present ED Course/Re-evaluation: Patient presents to the ED with headache, indigestion and chest discomfort. The patient has had this symptom in the past prompting her referral to the emergency department. Working diagnosis does seem to be anxiety. The patient's EKG demonstrates no evidence of acute changes. The patient's troponin is normal. The patient did receive a mg of Ativan intravenously. Additional blood testing was unremarkable. The patient was re-evaluated at 12:00 p.m. And is feeling much better. She would like to be discharged home. I feel this is reasonable. Her POA is requesting a short course of Ativan which the patient had been prescribed in the past. Plan will be to ensure that the patient can safely ambulate with a walker before she is discharged. Differential Diagnosis: Differential diagnosis considered includes gastroesophageal reflux disease, anxiety, acute coronary syndrome, arrhythmia, myocardial infarction - Data Points Laboratory Results: Laboratory Results 07/02/18 09:38 07/02/18 09:38 07/02/18 07/02/18 09:38 09:38 WBC 9.15 10^3/uL 10^3/uL (3.80-9.50) RBC 4.73 10^6/uL 10^6/uL (4.18-5.33) Hgb 14.9 g/dL g/dL (12.6-16.3) Hct 44.7 % % (38.0-47.0) MCV 94.5 fL fL (81.5-99.8) MCH 31.5 pg pg (27.9-34.1) MCHC 33.3 g/dL g/dL (32.4-36.7) RDW 13.5 % % (11.5-15.2) Plt Count 305 10^3/uL 10^3/uL (150-400) MPV 9.2 fL fL (8.7-11.7) Neut % (Auto) 79.6 % H % (39.3-74.2) Lymph % (Auto) 10.8 % L % (15.0-45.0) [place] % (Auto) 9.2 % % (4.5-13.0) Eos % (Auto) 0.0 % L % (0.6-7.6) Baso % (Auto) 0.1 % L % (0.3-1.7) Nucleat RBC Rel Count 0.0 % % (0.0-0.2) Absolute Neuts (auto) 7.28 10^3/uL H 10^3/uL (1.70-6.50) Absolute Lymphs (auto) 0.99 10^3/uL L 10^3/uL (1.00-3.00) Absolute Monos (auto) 0.84 10^3/uL H 10^3/uL (0.30-0.80) Absolute Eos (auto) 0.00 10^3/uL L 10^3/uL (0.03-0.40) Absolute Basos (auto) 0.01 10^3/uL L 10^3/uL (0.02-0.10) Absolute Nucleated RBC 0.00 10^3/uL 10^3/uL (0-0.01) Immature Gran % 0.3 % % (0.0-1.1) Immature Gran # 0.03 10^3/uL 10^3/uL (0.00-0.10) Sodium 132 mEq/L L mEq/L (135-145) Potassium 4.5 mEq/L mEq/L (3.5-5.2) Chloride 99 mEq/L mEq/L (97-110) Carbon Dioxide 23 mEq/l mEq/l (22-31) Anion Gap 10 mEq/L mEq/L (6-14) BUN 14 mg/dL mg/dL (7-23) Creatinine 0.4 mg/dL L mg/dL (0.6-1.0) Estimated GFR > 60 Glucose 124 mg/dL H mg/dL (70-100) Calcium 9.2 mg/dL mg/dL (8.5-10.4) Medications Given: Discontinued Medications Al Hydroxide/Mg Hydroxide (Maalox Susp) 30 ml PO ONCE ONE Stop: 07/02/18 10:32 Last Admin: 07/02/18 11:11 Dose: Not Given Hyoscyamine Sulfate (Levsin, Hyomax-Sl) 0.25 mg PO ONCE ONE Stop: 07/02/18 10:32 Last Admin: 07/02/18 11:11 Dose: Not Given Lidocaine (Lidocaine 2% Viscous) 15 ml PO ONCE ONE Stop: 07/02/18 10:32 Last Admin: 07/02/18 11:11 Dose: Not Given Lorazepam (Ativan Injection) 1 mg IVP EDNOW ONE Stop: 07/02/18 09:53 Last Admin: 07/02/18 10:00 Dose: 1 mg Departure - Departure Disposition: Home, Routine, Self-Care Clinical Impression: Chest pain, Headache Condition: Good Instructions: Chest Pain (ED) Additional Instructions: 1. Please follow-up with your primary care provider as scheduled. 2. Return to the ED for any worsening chest pain, difficulty breathing or other concerns. 3. You have been given a short course of Ativan for any recurrent symptoms of anxiety. I recommend the use this medication sparingly as it can be habit forming it is associated with sedation and fall risk. Referrals: Ludy Teresa MD [Primary Care Provider] - As per Instructions Prescriptions: LORazepam [Ativan] 0.5 mg PO DAILY PRN #6 tablet PRN Reason: for anxiety
[2018-07-02 09:57] LABS: PLATELET COUNT 305 10^3/uL (150-400)
--- NOTE | 2018-07-02 10:01 | CPEKG ---
Test Reason : OPEN Blood Pressure : / mmHG Vent. Rate : 081 BPM Atrial Rate : 081 BPM P-R Int : 142 ms QRS Dur : 087 ms QT Int : 419 ms P-R-T Axes : 089 069 076 degrees QTc Int : 487 ms Sinus rhythm Left ventricular hypertrophy Confirmed by Burton Alfred ([id number]) on 07/02/2018 10:00:29 AM Referred By: Confirmed By:Burton Alfred
[2018-07-02] MEDS ORDERED: HYOSCYAMINE SULFATE 0.125 MG TAB PO ONE (10:31)
[2018-07-02] MEDS ORDERED: MAG HYDROX/AL HYDROX/SIMETH 30 ML UDCUP PO ONE (10:31)
[2018-07-02] MEDS ORDERED: LIDOCAINE 2% VISCOUS 15 ML UDCUP PO ONE (10:31)
[2018-07-02 13:00] VITALS: BP 156/89
== END 2018-07-02 13:00 | disposition home or self-care (01) ==
LOC: EDUNIT#
DX: R07.9 Chest pain, unspecified (principal); R51 Headache; Z87.891 Personal history of nicotine dependence
CPT/HCPCS: 93005; 96374; 99284; J2060; 84484-ER

== ENCOUNTER 2018-07-12 16:17 | Inpatient (IN) | payer OTHER ==
[2018-07-12] MEDS ORDERED: DILTIAZEM 25 MG/5 ML VIAL IVP ONE (16:56)
[2018-07-12] MEDS ORDERED: DILTIAZEM 125 MG in D5W 125 ML IV ONE (16:56)
[2018-07-12] MEDS ORDERED: NS 500 ML IV ONE (16:56)
--- NOTE | 2018-07-12 17:01 | EDPHY ---
H & P Time Seen by Provider: 07/12/18 16:28 HPI/ROS: Chief complaint. Chest pain HPI. The patient is an 83-year-old female. She presents with chest pain that began at about 4:00 a.m. This morning. She feels pressure left anterior chest radiating through to her back. She took Tylenol and tramadol this morning without relief. The chest pain continues. She has no shortness of breath. No fever or cough. She does have a history of atrial fibrillation with rapid ventricular rate. She was seen in the emergency department July 02 and was in normal sinus rhythm. She does take Eliquis and diltiazem. No abdominal pain. No leg swelling or pain ROS 10 systems were reviewed and negative with the exception of the elements mentioned in the history of present illness Past Medical/Surgical History: Atrial fibrillation with rapid ventricular response, hypertension, broken heart syndrome, cardioversion, cholecystectomy, mastectomy, hip replacement, femur fracture, CHF Social History: , nonsmoker, no alcohol Smoking Status: Former smoker Physical Exam: General Appearance: Pleasant well-developed female mild distress vital signs significant for heart rate 139. Blood pressure 138/92. Afebrile Eyes: Pupils equal and round no pallor or injection. ENT, Mouth: Mucous membranes are moist. Respiratory: There are no retractions, lungs are clear to auscultation. Cardiovascular: Irregularly irregular rate and rhythm with fast ventricular response Gastrointestinal: Abdomen is soft and nontender, no masses, bowel sounds normal. Neurological: Awake and alert, sensory and motor exams grossly normal. Skin: Warm and dry, no rashes. Musculoskeletal: Neck is supple nontender. Extremities symmetrical, full range of motion. Psychiatric: Patient is oriented X 3, there is no agitation. Constitutional: Initial Vital Signs Temperature (C) 36.6 C 07/12/18 16:24 Heart Rate 139 H 07/12/18 16:24 Respiratory Rate 18 07/12/18 16:24 Blood Pressure 138/92 H 07/12/18 16:24 O2 Sat (%) 94 07/12/18 16:24 O2 Delivery Mode Room Air Allergies/Adverse Reactions: codeine [Codeine] Allergy (Intermediate, Verified 07/12/18 16:22) Other-Enter Comments amlodipine besylate [From Norvasc] Allergy (Unknown, Verified 07/12/18 16:22) hydrochlorothiazide Allergy (Unknown, Verified 07/12/18 16:22) amoxicillin Allergy (Verified 07/12/18 16:22) Itching ciprofloxacin Allergy (Verified 07/12/18 16:22) Opioids - Morphine Analogues Allergy (Verified 07/12/18 16:22) Sulfa (Sulfonamide Antibiotics) Allergy (Verified 07/12/18 16:22) Home Medications: Medication Instructions Recorded Acetaminophen [Tylenol Extra 1,000 mg PO TID@,,03/01/16 Strength] Apixaban [Eliquis] 2.5 mg PO BID 03/01/16 Ascorbic Acid [Vitamin C 500 mg 1,000 mg PO DAILY 03/01/16 (*)] Cholecalciferol Vit D3 [Vitamin D3 2,000 units PO DAILY 03/01/16 2000 units tab (OTC)] Herbals/Supplements -Info Only 1 ea PO DAILY 03/01/16 Simethicone [GAS-X] 80 mg PO PC PRN 03/01/16 Diltiazem Cd [Cardizem ER 120 MG 120 mg PO DAILY #30 cap 04/21/16 (*)] Carvedilol [Coreg (*)] 25 mg PO BIDMEAL 06/10/17 Famotidine [Pepcid 20 MG (*)] 20 mg PO BID PRN 06/10/17 Fluoxetine HCl [Prozac 40 mg] 40 mg PO DAILY 06/10/17 Gabapentin [Neurontin] 600 mg PO TID@,,06/10/17 Alendronate Sodium [Fosamax 70 MG 70 mg PO ELIZONDO@0700 12/22/17 (*)] Calcium Carbonate [Tums 500MG (*)] 2,000 mg PO DAILY PRN 12/22/17 Pantoprazole Sodium [Protonix 40mg 40 mg PO BID #60 tab 12/25/17 (*)] Valsartan [Diovan (*)] 160 mg PO HS #30 tab 12/25/17 LORazepam [Ativan] 0.5 mg PO DAILY PRN #6 tablet 07/02/18 Medical Decision Making - Diagnostics EKG Interpretation: EKG interpreted by me shows atrial fibrillation with normal axis. QRS is normal. No significant ST elevation or depression. Ventricular response is 133 Imaging Results: Imaging Impressions Chest X-Ray 07/12/18 16:57 Impression: Senescent changes of lung. Mild cardiomegaly. Procedures: IV normal saline, monitor Diltiazem bolus and drip ED Course/Re-evaluation: Left antecubital IV infiltrated. IV restarted right arm. Re-evaluation 6:15 p.m.. Patient is heart rate goes from 95-120. Patient tells me she continues to have chest discomfort She and I discussed laboratory evaluation, imaging studies. We discussed treatment plan including recommendation for admission. She expresses understanding and agreement I consulted discussed the case with , hospitalist, who agrees to the admission Differential Diagnosis: Atrial fibrillation this new in the past week as she was here about a week ago and was in normal sinus rhythm. She has ongoing chest pain. Evidence of CHF. Ventricular rate is better controlled but the patient remains in atrial fibrillation - Data Points Laboratory Results: Laboratory Results 07/12/18 16:40 07/12/18 16:40 07/12/18 07/12/18 07/12/18 17:57 16:40 16:40 WBC 7.10 10^3/uL 10^3/uL (3.80-9.50) RBC 4.37 10^6/uL 10^6/uL (4.18-5.33) Hgb 13.6 g/dL g/dL (12.6-16.3) Hct 40.1 % % (38.0-47.0) MCV 91.8 fL fL (81.5-99.8) MCH 31.1 pg pg (27.9-34.1) MCHC 33.9 g/dL g/dL (32.4-36.7) RDW 13.8 % % (11.5-15.2) Plt Count 269 10^3/uL 10^3/uL (150-400) MPV 9.2 fL fL (8.7-11.7) Neut % (Auto) 67.1 % % (39.3-74.2) Lymph % (Auto) 22.4 % % (15.0-45.0) [place] % (Auto) 9.0 % % (4.5-13.0) Eos % (Auto) 0.8 % % (0.6-7.6) Baso % (Auto) 0.4 % % (0.3-1.7) Nucleat RBC Rel Count 0.0 % % (0.0-0.2) Absolute Neuts (auto) 4.76 10^3/uL 10^3/uL (1.70-6.50) Absolute Lymphs (auto) 1.59 10^3/uL 10^3/uL (1.00-3.00) Absolute Monos (auto) 0.64 10^3/uL 10^3/uL (0.30-0.80) Absolute Eos (auto) 0.06 10^3/uL 10^3/uL (0.03-0.40) Absolute Basos (auto) 0.03 10^3/uL 10^3/uL (0.02-0.10) Absolute Nucleated RBC 0.00 10^3/uL 10^3/uL (0-0.01) Immature Gran % 0.3 % % (0.0-1.1) Immature Gran # 0.02 10^3/uL 10^3/uL (0.00-0.10) Sodium 128 mEq/L L mEq/L (135-145) Potassium 4.8 mEq/L mEq/L (3.5-5.2) Chloride 97 mEq/L mEq/L (97-110) Carbon Dioxide 23 mEq/l mEq/l (22-31) Anion Gap 8 mEq/L mEq/L (6-14) BUN 15 mg/dL mg/dL (7-23) Creatinine 0.6 mg/dL mg/dL (0.6-1.0) Estimated GFR > 60 Glucose 93 mg/dL mg/dL (70-100) Calcium 9.2 mg/dL mg/dL (8.5-10.4) POC Troponin I 0.01 ng/mL ng/mL (0.00-0.08) NT-Pro-B Natriuret Pep 2400 pg/mL H pg/mL (0-450) Medications Given: Discontinued Medications Diltiazem HCl (Cardizem 25 Mg/5 Ml Vial) 10 mg IVP EDNOW ONE Stop: 07/12/18 16:57 Last Admin: 07/12/18 17:22 Dose: 10 mg Sodium Chloride (Ns) 500 mls @ 0 mls/hr IV EDNOW ONE; Wide Open PRN Reason: Protocol Stop: 07/12/18 16:57 Last Admin: 07/12/18 17:22 Dose: 500 mls Diltiazem/Dextrose (Diltiazem 125mg/125ml (Premix)) 125 mls @ 0 mls/hr IV EDNOW ONE; Titrate PRN Reason: Protocol Stop: 07/12/18 17:31 Last Admin: 07/12/18 18:00 Dose: 125 mls Point of Care Test Results: Chemistry 07/12/18 17:57 POC Troponin I 0.01 ng/mL ng/mL (0.00-0.08) Departure - Departure Disposition: [facility] Inpatient Acute Clinical Impression: Atrial fibrillation Qualifiers: Atrial fibrillation type: paroxysmal Qualified Code(s): I48.0 - Paroxysmal atrial fibrillation Chest pain Qualifiers: Chest pain type: unspecified Qualified Code(s): R07.9 - Chest pain, unspecified CHF (congestive heart failure) Qualifiers: Heart failure type: unspecified Heart failure chronicity: unspecified Qualified Code(s): I50.9 - Heart failure, unspecified Condition: Fair Referrals: Ludy Teresa MD [Primary Care Provider] - As per Instructions
[2018-07-12 17:05] LABS: PLATELET COUNT 269 10^3/uL (150-400)
--- NOTE | 2018-07-12 17:07 | CPEKG ---
Test Reason : OPEN Blood Pressure : / mmHG Vent. Rate : 133 BPM Atrial Rate : 135 BPM P-R Int : 086 ms QRS Dur : 080 ms QT Int : 348 ms P-R-T Axes : 068 056 054 degrees QTc Int : 518 ms Atrial fibrillation Left ventricular hypertrophy ST depression, probably rate related Prolonged QT interval Confirmed by Darryl Sorensen ([id number]) on 07/12/2018 5:06:39 PM Referred By: Confirmed By:Darryl Sorensen
[2018-07-12] MEDS ORDERED: DILTIAZEM HCL/D5W 125 ML IV ONE (17:30)
[2018-07-12] MEDS ORDERED: ACETAMINOPHEN 325 MG TAB PO PRN (19:15)
[2018-07-12] MEDS ORDERED: ONDANSETRON 4 MG/2 ML VIAL IVP PRN (19:15)
[2018-07-12] MEDS ORDERED: ONDANSETRON DISINTEGRATING 4 MG TAB PO PRN (19:15)
--- NOTE | 2018-07-12 19:48 | PDCONSULT ---
<Mile Goff - Last Filed: 07/12/18 20:02> Range Mounter Note: This is an 83 y/o female with history of atrial fibrillation with RVR, hypertension and congestive heart failure presenting to the emergency room after experiencing left sided chest pain that began early this morning and has not subsided. She reports it radiates to her back. She rates the intensity of the pain 6/10. Denies palpitations, shortness of breath, vomiting, fevers, chills. She does endorse mild nausea and abdominal tenderness and non-focal headache. EKG shows atrial fibrillation with no significant ST elevation or depression. Ventricular response is 133. CXR reveal senescent changes of the lungs with mild cardiomegaly. She is being admitted for further diagnostic work-up and monitoring. Past Medical/Surgical History 1. Atrial fibrillation 2. Coronary artery disease 3. Cardiomyopathy 4. Hypertension 5. Hyperlipidemia Family history: non-pertinent Social history: , lives in [place] at the [facility] in independent living. Denies tobacco or illicit drug use. Denies alcohol use. Review of Systems: all negative besides what is noted in the HPI and what is down below Constitutional: feels healthy, denies fevers chills HEENT: negative Cards: noted in HPI, constant sternal chest pain that radiates to her back Respiratory: denies cough, shortness of breath GI: denies any urinary retention, incontinence, dysuria : noted in HPI, + nausea and abdominal tenderness Musculoskeletal: negative Skin: negative Neuro: + frontal, non-focal headache Psych: Anxious, depression Heme/Lymph: negative Allergy: see allergy list Physical examination Constitutional: She is in no respiratory distress or apparent discomfort, pleasant, able to carry on a conversation with full sentences, well-nourished HEENT: PERRLA, EOMI, normal hearing Cards: S1, S2 irregularly irregular with HR 90-115 bpm. No murmurs or rubs heard. Respiratory: CTAB GI: no bladder fullness or tenderness : Active BS, tender upon palpation, no palpable masses Musculoskeletal: Full ROM in all extremities Skin: No noted abrasion or lesions Neuro: A&Ox3, sensation intact, CN2-CN12 intact Psych: Mild anxious Heme/Lymph: No enlarged cervical lymp nodes A/P: This is a 83 y/o female presenting with persistent chest pain that radiates to her back. She is anticoagulated with Eliquis. She has chronic atrial fibrillation but she presents with atrial fibrillation and RVR with HR between 90-130s bpm. 1. Atrial fibrillation with RVR: she was given bolus and started on a drip of Diltazem in the emergency room. -Continue Diltazem drip until HR is stabilized; would consider transitioning off drip and to PO tomorrow depending on HR -Cont tele monitoring -Would have cards consult in AM -2x troponin negative 0.01. Will cycle one more trop tomorrow morning -Cycle one more EKG and then PRN -Continue Eliquis 2. Hyponatremia (128): received 500 ml NS in ED -1L gentle IVF overnight -Fluid restrict 1.5L -Rechecking sodium tomorrow with BMP 3. CHF: BNP 2400. Moderately elevated however does not appear to be fluid overloaded. No pedal edema, no JVD, lungs CTAB. -Continue to monitor 4. Hypertension: currently stable. Continue to monitor with the diltiazem drip. -She may continue hydralazine, losartan. Holding carvedilol for now. 5. Anxiety/depression: she may continue prozac and gabapentin 6. Generalized body pain: can continue tylenol and tramadol PRN Diet: Cardiac, fluid restricted 1.5L Code: DNR VTE ppx: SCDssergo Dispo: Admit to obs <Ronny Lombardi - Last Filed: 07/12/18 21:31> Range Mounter Note: Patient seen and evaluated independently and care plan reviewed with RICKEY Goff, agree with her assessment and plan as outlined above, please see separate note for further details.
[2018-07-12] MEDS ORDERED: LORazepam 0.5 MG TAB PO PRN (19:54)
[2018-07-12] MEDS ORDERED: traMADol 50 MG TAB PO PRN (19:54)
[2018-07-12] MEDS ORDERED: FAMOTIDINE 20 MG TAB PO PRN (19:54)
[2018-07-12] MEDS ORDERED: CETIRIZINE 10 MG TAB PO PRN (19:54)
[2018-07-12] MEDS ORDERED: NS 1,000 ML IV SCH (20:00)
[2018-07-12] MEDS: hydrALAZINE 25 MG TAB PO SCH (21:31)
[2018-07-12] MEDS: APIXABAN 2.5 MG TAB PO SCH (21:31)
[2018-07-12] MEDS: GABAPENTIN 300 MG CAP PO SCH (21:31)
[2018-07-12] MEDS: ACETAMINOPHEN 500 MG TAB PO SCH (21:31)
[2018-07-12] MEDS: DILTIAZEM HCL/D5W 125 ML IV SCH (21:32)
--- NOTE | 2018-07-12 21:34 | HOSPPROG ---
Hospitalist Progress Note Assessment/Plan: 83 yo F with MMI including CAD, a fib, htn, hld and valvular heart disease presenting with chest pain as well as a fib w/rvr # chest pain: in the setting of a fib w/rvr and patient notes she does often have chest pain associated with this, has a hx of CAD but non flow limiting and in the past has had hospitalizations for chest pain that have been thought to be non cardiac. She denies pain currently, heart score of 7. Plan will be for serial trops and ecg monitoring overnight, cardiology consulted and given relatively recent hospitalization for same with echo performed at that time will hold off on any further ischemic testing pending cardiology evaluation. # a fib w/rvr: chronically on AC as well as dilt and carvedilol, started on dilt gtt and will likely be able to transition to home meds in am, as above, cards consulted # gerd: prior episode of chest pain thought to be GI in nature, continue PPI, simethicone # VHD: with moderate to severe MR, last echo approximately 6 months ago, followed by cardiology # hx of Takotsubo's CM: with EF as low as 25%, most recent EF of 65-70% # chronic medical issues: HTN, HLD, breast cancer, idiopathic trigeminal neuralgia # observation status # Patient new to my care. Old records reviewed and summarized as above. Care plan reviewed with ER doctor as well as with RICKEY Goff, please see her separate note for further details. Objective: Vital Signs Temp Pulse Resp BP Pulse Ox 36.6 C 105 H 18 125/81 H 95 07/12/18 16:24 07/12/18 20:00 07/12/18 20:00 07/12/18 20:00 07/12/18 20:00 07/11/18 07/12/18 07/13/18 05:59 05:59 05:59 Intake Total 500 Balance 500 ICD10 Worksheet Patient Problems: Problems Problem Status Onset Atrial fibrillation and flutter Acute Cardiomyopathy Acute CHF (congestive heart failure) Acute Chronic Disease Mgmt/Transitional Care Acute Sinusitis chronic, frontal Acute Sinusitis chronic, ethmoidal Acute Head ache Acute Chest pain Acute Rapid atrial fibrillation Acute Hyponatremia Acute Hypochloremia Acute Hypertensive emergency Acute Hypertension Acute Atrial fibrillation Acute
--- NOTE | 2018-07-12 23:08 | CPEKG ---
Test Reason : OPEN Blood Pressure : / mmHG Vent. Rate : 107 BPM Atrial Rate : 129 BPM P-R Int : 146 ms QRS Dur : 083 ms QT Int : 384 ms P-R-T Axes : 000 052 058 degrees QTc Int : 513 ms Atrial fibrillation Confirmed by Rick Edmonds ([id number]) on 07/12/2018 11:07:35 PM Referred By: Confirmed By:Rick Edmonds
[2018-07-13] MEDS: GABAPENTIN 300 MG CAP PO SCH ×3 (06:27→20:49)
[2018-07-13] MEDS: ACETAMINOPHEN 500 MG TAB PO SCH ×4 (06:28→22:46)
[2018-07-13] MEDS: LOSARTAN POTASSIUM 50 MG TAB PO SCH (07:59)
[2018-07-13] MEDS: hydrALAZINE 25 MG TAB PO SCH ×2 (07:59→20:49)
[2018-07-13] MEDS: APIXABAN 2.5 MG TAB PO SCH ×2 (07:59→20:49)
[2018-07-13] MEDS: PANTOPRAZOLE SODIUM 40 MG TAB PO SCH (07:59)
[2018-07-13] MEDS ORDERED: CARVEDILOL 25 MG TAB PO SCH (08:00)
[2018-07-13] MEDS: SIMETHICONE 80 MG TAB CHEW PO PRN (08:56)
[2018-07-13] MEDS ORDERED: METOCLOPRAMIDE 10 MG/2 ML VIAL IVP PRN (08:59)
[2018-07-13] MEDS ORDERED: Herbals/Supplements -Info Only PO SCH (09:00)
[2018-07-13] MEDS: FLUoxetine 20 MG CAP PO SCH (11:24)
[2018-07-13] MEDS: ASCORBIC ACID 500 MG TAB PO SCH (11:24)
[2018-07-13] MEDS: CHOLECALCIFEROL VIT D3 2,000 UNITS TAB/CAP PO SCH (11:24)
--- NOTE | 2018-07-13 12:04 | HOSPPROG ---
Hospitalist Progress Note Assessment/Plan: #Afib w RVR #CP due to Afib, reports resolved. Recent cards w/u negative. Will hold off on stress testing at this time #Chronic AC #CHF #Hyponatremia, Mild pedal edema #Nausea #Long QT, likely acquired #VASQUEZ Plan: -Still on Dilt Drip. Takes oral CCB at home. Cards to see -stop IVF -obtain urine studies, suspect some underlying SiADH. Volume is not significantly overloaded -cont Eliquis -Tylenol for her VASQUEZ. She has multiple med allergies. Will determine response. -Reglan for Nausea, avoid meds prolonging QT -PT/OT -Change to inpatient Subjective: + Nausea. no cp or sob. Objective: Vital Signs Temp Pulse Resp BP Pulse Ox 36.6 C 118 H 18 140/105 H 93 07/13/18 07:46 07/13/18 07:46 07/13/18 07:46 07/13/18 07:46 07/13/18 07:46 Laboratory Results 07/13/18 03:35 07/13/18 03:35 07/12/18 07/13/18 07/14/18 05:59 05:59 05:59 Intake Total 1190 Output Total 400 200 Balance 790 -200 - Physical Exam Constitutional: no apparent distress Eyes: PERRL Ears, Nose, Mouth, Throat: moist mucous membranes Cardiovascular: irregularly irregular, edema (trace) Respiratory: no respiratory distress, no rales or rhonchi, clear to auscultation Skin: warm Neurologic: AAOx3 Psychiatric: interacting appropriately, not anxious, not encephalopathic Lymph, Heme, Immunologic: No petechiae ICD10 Worksheet Patient Problems: Problems Problem Status Onset Atrial fibrillation Acute CHF (congestive heart failure) Acute Chest pain Acute Atrial fibrillation and flutter Acute Cardiomyopathy Acute Chronic Disease Mgmt/Transitional Care Acute Head ache Acute Hypertension Acute Hypertensive emergency Acute Hypochloremia Acute Hyponatremia Acute Rapid atrial fibrillation Acute Sinusitis chronic, ethmoidal Acute Sinusitis chronic, frontal Acute
--- NOTE | 2018-07-13 12:32 | ASMTCMCOM ---
CM Note CM Note Notes: Pts case discussed in tx rounds. Pt is a 83 y/o female admitted for afib with rvr. Pt lives at [facility]. Pt recieves about 2hrs of help daily. Pt does all her own ADLs. OT worked w/ pt and has cleared her to go back without any needs. Cards have been consulted. CM available for changes. Plan: Independent Date Signed: 07/13/2018 12:31 PM Electronically Signed By:EVER Campos
[2018-07-13] MEDS: DILTIAZEM HCL/D5W 125 ML IV SCH (14:24)
--- NOTE | 2018-07-13 14:25 | PDCARCONS ---
Cardiology Consult Reason for Consult: Atrial Fibrillation with RVR Chief Complaint: chest pain Requesting Physician: Ronny Lombardi MD History of Present Illness: Ritu is a 83 y/o female with past Medical History of CAD, Paroxysmal Atrial Fibrillation, Hypertension, Hyperlipidemia, and moderate to severe Mitral Regurgitation. She presented to the ER with complaint of chest pain. She was found to be in Atrial Fibrillation with RVR. Her CAD is non-flow limiting. Chronic, paroxysmal Atrial Fibrillation with CHADs VASc (4) based on age, gender , and HTN. She is chronically on Eliquis 2.5 mg BID for anticoagulation. Her Home medications include Diltiazem, and Carvedilol. She has been on a Diltiazem Drip since her admission last night. She has history of Takotsubo's Cardiomyopathy with Ejection Fraction of 25% at its low point and recently 65%. She was evaluated in clinic by Dr Andry Gonsales, March 15 2018. Her recent Echo at that time showed moderate to severe MR. He did not think she is a good candidate for surgery. Should she become symptomatic, she may be a candidate for Mitraclip. Today she has converted to Sinus Rhythm, and reverts back to Atrial Fibrillation with rates in the 90 to 100's. She is not SOB and denies chest pain at time of visit. Will continue with Diltiazem drip at this time. History Information - Allergies/Home Medication List Allergies/Adverse Reactions: codeine [Codeine] Allergy (Intermediate, Verified 07/12/18 16:22) Other-Enter Comments amlodipine besylate [From Norvasc] Allergy (Unknown, Verified 07/12/18 16:22) hydrochlorothiazide Allergy (Unknown, Verified 07/12/18 16:22) amoxicillin Allergy (Verified 07/12/18 16:22) Itching ciprofloxacin Allergy (Verified 07/12/18 16:22) Opioids - Morphine Analogues Allergy (Verified 07/12/18 16:22) Sulfa (Sulfonamide Antibiotics) Allergy (Verified 07/12/18 16:22) Home Medications: Acetaminophen [Tylenol Extra Strength] 1,000 mg PO TID@06,14,03/01/16 [Last Taken 07/12/18 14:00] Apixaban [Eliquis] 2.5 mg PO BID 03/01/16 [Last Taken 07/12/18 09:00] Ascorbic Acid [Vitamin C 500 mg (*)] 1,000 mg PO DAILY 03/01/16 [Last Taken ] Cholecalciferol Vit D3 [Vitamin D3 2000 units tab (OTC)] 2,000 units PO DAILY [Last Taken 07/12/18] Herbals/Supplements -Info Only 1 ea PO DAILY 03/01/16 [Last Taken 07/12/18] Simethicone [GAS-X] 80 mg PO PC PRN 03/01/16 [Last Taken 07/11/18] Carvedilol [Coreg (*)] 25 mg PO BIDMEAL 06/10/17 [Last Taken 07/12/18 09:00] Famotidine [Pepcid 20 MG (*)] 20 mg PO BID PRN 06/10/17 [Last Taken 07/12/18 09: 00] Gabapentin [Neurontin] 600 mg PO TID@06,,06/10/17 [Last Taken 07/12/18 14: 00] Alendronate Sodium [Fosamax 70 MG (*)] 70 mg PO ELIZONDO@0700 12/22/17 [Last Taken ] Calcium Carbonate [Tums 500MG (*)] 500 - 1,000 mg PO TID PRN 12/22/17 [Last Taken 07/11/18] Cetirizine [ZyrTEC 10 mg (*)] 10 mg PO DAILY PRN 07/12/18 [Last Taken 07/12/18] Diltiazem Cd [Cardizem ER 120 MG (*)] 120 mg PO BID 07/12/18 [Last Taken 09:00] FLUoxetine HCL [Fluoxetine HCl] 60 mg PO DAILY 07/12/18 [Last Taken 07/12/18 09: 00] Hydralazine HCl 25 mg PO BID 07/12/18 [Last Taken 07/12/18 09:00] Losartan Potassium 50 mg PO DAILY 07/12/18 [Last Taken 07/12/18] Pantoprazole Sodium [Protonix 40mg (*)] 40 mg PO DAILY 07/12/18 [Last Taken 09:00] traMADol [Ultram 50 mg (*)] 25 mg PO TID PRN 07/12/18 [Last Taken 07/12/18 12:00 ] Past Medical History: - Social History Smoking Status: Former smoker Cardiac History - Cardiac History Past Cardiac History: OTHER (Paroxysmal Atrial Fibrillation history CHADs VASc score 4. . Moderate to severe Mitral Regurgitatin. Takotsubo Cardiomyopathy. ) Cardiac Risk Factors: hypertension (>140/90), lipidemia Physical Exam Physical Exam: Temp Pulse Resp BP Pulse Ox 36.8 C 120 H 16 125/79 H 94 07/13/18 12:00 07/13/18 13:47 07/13/18 12:00 07/13/18 13:47 07/13/18 12:00 Constitutional: no apparent distress Eyes: PERRL Ears, Nose, Mouth, Throat: moist mucous membranes Cardiovascular: systolic murmur, irregularly irregular, No JVD Peripheral Pulses: 2+: carotid (R), carotid (L) Respiratory: no respiratory distress, no rales or rhonchi Gastrointestinal: soft, non-tender abdomen, No ascites Genitourinary: no bladder fullness Skin: warm Musculoskeletal: full muscle strength Neurologic: AAOx3 Psychiatric: interacting appropriately, not anxious Lab and Imaging 07/13/18 03:35 07/13/18 03:35 WBC 5.27 10^3/uL (3.80-9.50) 07/13/18 03:35 RBC 3.72 10^6/uL (4.18-5.33) L 07/13/18 03:35 Hgb 11.6 g/dL (12.6-16.3) L 07/13/18 03:35 Hct 34.4 % (38.0-47.0) L 07/13/18 03:35 MCV 92.5 fL (81.5-99.8) 07/13/18 03:35 MCH 31.2 pg (27.9-34.1) 07/13/18 03:35 MCHC 33.7 g/dL (32.4-36.7) 07/13/18 03:35 RDW 14.0 % (11.5-15.2) 07/13/18 03:35 Plt Count 212 10^3/uL (150-400) 07/13/18 03:35 MPV 9.2 fL (8.7-11.7) 07/12/18 16:40 Neut % (Auto) 67.1 % (39.3-74.2) 07/12/18 16:40 Lymph % (Auto) 22.4 % (15.0-45.0) 07/12/18 16:40 Daniels % (Auto) 9.0 % (4.5-13.0) 07/12/18 16:40 Eos % (Auto) 0.8 % (0.6-7.6) 07/12/18 16:40 Baso % (Auto) 0.4 % (0.3-1.7) 07/12/18 16:40 Nucleat RBC Rel Count 0.0 % (0.0-0.2) 07/12/18 16:40 Absolute Neuts (auto) 4.76 10^3/uL (1.70-6.50) 07/12/18 16:40 Absolute Lymphs (auto) 1.59 10^3/uL (1.00-3.00) 07/12/18 16:40 Absolute Monos (auto) 0.64 10^3/uL (0.30-0.80) 07/12/18 16:40 Absolute Eos (auto) 0.06 10^3/uL (0.03-0.40) 07/12/18 16:40 Absolute Basos (auto) 0.03 10^3/uL (0.02-0.10) 07/12/18 16:40 Absolute Nucleated RBC 0.00 10^3/uL (0-0.01) 07/12/18 16:40 Immature Gran % 0.3 % (0.0-1.1) 07/12/18 16:40 Immature Gran # 0.02 10^3/uL (0.00-0.10) 07/12/18 16:40 Sodium 130 mEq/L (135-145) L 07/13/18 03:35 Potassium 4.2 mEq/L (3.5-5.2) 07/13/18 03:35 Chloride 99 mEq/L (97-110) 07/13/18 03:35 Carbon Dioxide 25 mEq/l (22-31) 07/13/18 03:35 Anion Gap 6 mEq/L (6-14) 07/13/18 03:35 BUN 12 mg/dL (7-23) 07/13/18 03:35 Creatinine 0.5 mg/dL (0.6-1.0) L 07/13/18 03:35 Estimated GFR > 60 07/13/18 03:35 Glucose 81 mg/dL (70-100) 07/13/18 03:35 Calcium 8.2 mg/dL (8.5-10.4) L 07/13/18 03:35 POC Troponin I 0.01 ng/mL (0.00-0.08) 07/12/18 17:57 Troponin I < 0.012 ng/mL (0.000-0.034) 07/13/18 03:35 NT-Pro-B Natriuret Pep 2400 pg/mL (0-450) H 07/12/18 16:40 Urine Osmolality 340 mosmo/kg (300-900) 07/13/18 12:43 Ur Random Sodium 110 mEq/L (30-90) H 07/13/18 12:43 Visualized and Interpreted EKG results: Yes EKG Interpretation: Positive for: other (Atrial Fibrillation) Telemetry: Atrial Fibrillation with rate 90 to 100's A/P Assessment: Atrial Fibrillation. Continue with Diltiazem drip, and Eliquis for anticoagulation. She had recent Echocardiogram. Will continue to monitor closely on Telemetry. Will adjust medications as necessary. Plan: Continue on Telemetry, and Diltiazem drip. Medication adjustment as needed.
--- NOTE | 2018-07-13 15:03 | PDMN ---
Medical Necessity Medical necessity: Change to inpt as of 07/13/18 @ 1435 per MD order and MCG M- 505, Atrial Fibrillation. 83 y/o w/hx CAD admitted w/cp in setting of afib w/RVR - diltiazem gtt, CHF w/BNP 2400. Upgraded to inpt for persistent afib w/RVR, HR 103-120 today, cont w/dilt gtt, cardiology consult, watch prolonged QT, nausea, hyponatremia Na 130, urine studies pending, PT/OT evals pending. Est LOS>2MN for ongoing eval/management of above.
[2018-07-13] MEDS ORDERED: POLYETHYLENE GLYCOL 3350 17 GM PKT PO PRN (15:33)
[2018-07-13] MEDS ORDERED: LACTULOSE 20 GM/30 ML UDCUP PO PRN (15:33)
[2018-07-13] MEDS ORDERED: MAGNESIUM HYDROXIDE 30 ML UDCUP PO PRN (15:33)
[2018-07-13] MEDS ORDERED: BISACODYL 10 MG SUPP PR PRN (15:33)
[2018-07-13] MEDS: SENNOSIDES/DOCUSATE SODIUM TAB PO SCH (20:49)
[2018-07-14] MEDS: DILTIAZEM HCL/D5W 125 ML IV SCH (04:00)
[2018-07-14] MEDS: GABAPENTIN 300 MG CAP PO SCH ×3 (06:53→21:02)
[2018-07-14] MEDS: ACETAMINOPHEN 500 MG TAB PO SCH ×3 (06:53→21:02)
[2018-07-14] MEDS: PANTOPRAZOLE SODIUM 40 MG TAB PO SCH (08:31)
[2018-07-14] MEDS: ASCORBIC ACID 500 MG TAB PO SCH (08:31)
[2018-07-14] MEDS: hydrALAZINE 25 MG TAB PO SCH ×2 (08:31→21:02)
[2018-07-14] MEDS: APIXABAN 2.5 MG TAB PO SCH ×2 (08:31→21:02)
[2018-07-14] MEDS: SENNOSIDES/DOCUSATE SODIUM TAB PO SCH ×2 (08:31→21:02)
[2018-07-14] MEDS: FLUoxetine 20 MG CAP PO SCH (08:31)
[2018-07-14] MEDS: CHOLECALCIFEROL VIT D3 2,000 UNITS TAB/CAP PO SCH (08:32)
[2018-07-14] MEDS: LOSARTAN POTASSIUM 50 MG TAB PO SCH (08:32)
[2018-07-14] MEDS ORDERED: LOSARTAN POTASSIUM 50 MG TAB PO ONE (10:30)
--- NOTE | 2018-07-14 10:30 | PDCARPN ---
Cardiology Progress Note Assessment/Plan: Assessment: Atrial Fibrillation: She has past history of Atrial fibrillation with multiple unsuccessful DCCV. She most recently was on Diltiazem for maintenance and did well until this hospitalization. She has not converted on the Dilt drip. She was managed on Amiodarone until May 2017 when she was switched to Diltiazem. She does not recall NOT tolerating the Amiodarone. She continues on Eliquis for anticoagulation. She is agreeable to try the Amiodarone again. Will start IV. She has noted the chest discomfort again with the atrial fibrillation. Hypertension: Her BP is elevated today. She reported to me that she was on Losartan 100 mg until last week when her [facility] physician decreased the dose to 50 mg. Will increase her dose back to Losartan 100 mg QD. CAD mild by cardiac angiogram showing mild irregularities, in the past 2 years. Her chest discomfort is not likely cardiac. Will consider a Nuclear Lexiscan stress test if chest pain persists after converting to SR. Plan: She did not tolerate the Amiodarone, and was switched back to Diltiazem gtt. She does not want DCCV as she has had it multiple times and it failed. 07/14/18 10:13 07/14/18 17:45 Reviewed/Discussed With: hospitalist, multidisciplinary team Time Spent with Patient: greater than 25 minutes Time Spent with Patient: Greater than 25 minutes spent on this patients care, greater than 50% of time spent counseling, educating, and coordinating care regarding the above mentioned plan. Objective: Vital Signs (8 Hrs) Temp Pulse Resp BP Pulse Ox 07/14/18 08:31 144/101 H 07/14/18 07:53 36.8 C 107 H 18 126/93 H 92 07/14/18 04:00 91 07/14/18 03:50 36.5 C 87 16 135/88 H 92 Intake/Output (24 Hrs) 07/13/18 07/14/18 07/15/18 05:59 05:59 05:59 Intake Total 1839 Output Total 1450 Balance 389 Intake: Oral (ml) 1240 IV Infused (ml) 599 Diltiazem HCl/D5w 125 ml 199 @ Per Protocol IV CONT LYNN Rx#:[id number] Ns 1,000 ml @ 75 mls/hr 400 IV CONT LYNN Rx#: [id number] Output: Urine (ml) 1450 Toilet 1450 Other: Number of Voids Toilet 1 Number of Stools Toilet 2 Result Diagrams: 07/14/18 03:14 07/14/18 03:14 - Physical Exam Constitutional: no apparent distress Cardiovascular: no murmurs, no rubs, no gallops, irregularly irregular Peripheral Pulses: 2+: dorsalis-pedis (R), dorsalis-pedis (L) Respiratory: clear to auscultate bilat, no crackles, no wheezes Skin: warm, no edema Neurologic: AAOx3 Psychiatric: cooperative, interactive ICD10 Worksheet Patient Problems: Problems Problem Status Onset Atrial fibrillation Acute CHF (congestive heart failure) Acute Chest pain Acute Atrial fibrillation and flutter Acute Cardiomyopathy Acute Chronic Disease Mgmt/Transitional Care Acute Head ache Acute Hypertension Acute Hypertensive emergency Acute Hypochloremia Acute Hyponatremia Acute Rapid atrial fibrillation Acute Sinusitis chronic, ethmoidal Acute Sinusitis chronic, frontal Acute
[2018-07-14] MEDS ORDERED: AMIODARONE A.FIB-6HR INFSN (ORDER 2/3) PREMIX IV ONE (11:30)
[2018-07-14] MEDS ORDERED: AMIODARONE A.FIB-LOAD DOSE(ORDER 1/3) PREMIX IV ONE (11:30)
--- NOTE | 2018-07-14 13:10 | HOSPPROG ---
Hospitalist Progress Note Assessment/Plan: #Afib w RVR #CP due to Afib, reports resolved. Recent cards w/u negative. Will hold off on stress testing at this time. If still with cp after converts to Sinus, consider stress testing #Chronic AC #CHF #HTN #Hyponatremia, Mild pedal edema #Nausea #Long QT, likely acquired #VASQUEZ Plan: -stop Dilt drip. 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 -adjust BP meds -cont Eliquis -Tylenol for her VASQUEZ -Reglan for Nausea, avoid meds prolonging QT -PT/OT -cont inpatient Subjective: still in afib. no current cp or sob. Objective: Vital Signs Temp Pulse Resp BP Pulse Ox 36.6 C 102 H 18 128/87 H 93 07/14/18 12:00 07/14/18 12:00 07/14/18 12:00 07/14/18 12:00 07/14/18 12:00 Laboratory Results 07/14/18 03:14 07/14/18 03:14 07/13/18 07/14/18 07/15/18 05:59 05:59 05:59 Intake Total 1839 Output Total 1450 Balance 389 - Physical Exam Constitutional: no apparent distress Eyes: PERRL, EOMI Ears, Nose, Mouth, Throat: moist mucous membranes, hearing normal Cardiovascular: irregularly irregular, No edema Respiratory: no respiratory distress, no rales or rhonchi, clear to auscultation Gastrointestinal: normoactive bowel sounds Skin: warm Neurologic: AAOx3 Psychiatric: interacting appropriately, not anxious, not encephalopathic Lymph, Heme, Immunologic: No petechiae ICD10 Worksheet Patient Problems: Problems Problem Status Onset Atrial fibrillation Acute CHF (congestive heart failure) Acute Chest pain Acute Atrial fibrillation and flutter Acute Cardiomyopathy Acute Chronic Disease Mgmt/Transitional Care Acute Head ache Acute Hypertension Acute Hypertensive emergency Acute Hypochloremia Acute Hyponatremia Acute Rapid atrial fibrillation Acute Sinusitis chronic, ethmoidal Acute Sinusitis chronic, frontal Acute
[2018-07-14] MEDS ORDERED: DILTIAZEM HCL/D5W 125 ML IV SCH (17:30)
[2018-07-14] MEDS ORDERED: AMIODARONE A.FIB-18HR INFSN (ORDER 3/3) IV ONE (18:30)
[2018-07-15] MEDS: GABAPENTIN 300 MG CAP PO SCH ×3 (06:01→21:03)
[2018-07-15] MEDS: ACETAMINOPHEN 500 MG TAB PO SCH ×3 (06:01→21:04)
[2018-07-15] MEDS: FLUoxetine 20 MG CAP PO SCH (08:34)
[2018-07-15] MEDS: APIXABAN 2.5 MG TAB PO SCH ×2 (08:34→21:01)
[2018-07-15] MEDS: CHOLECALCIFEROL VIT D3 2,000 UNITS TAB/CAP PO SCH (08:34)
[2018-07-15] MEDS: hydrALAZINE 25 MG TAB PO SCH ×2 (08:35→21:02)
[2018-07-15] MEDS: LOSARTAN POTASSIUM 50 MG TAB PO SCH (08:35)
[2018-07-15] MEDS: PANTOPRAZOLE SODIUM 40 MG TAB PO SCH (08:35)
[2018-07-15] MEDS: ASCORBIC ACID 500 MG TAB PO SCH (08:35)
[2018-07-15] MEDS: SENNOSIDES/DOCUSATE SODIUM TAB PO SCH ×2 (08:35→21:06)
[2018-07-15] MEDS: DILTIAZEM CD 120 MG CAP PO SCH ×2 (09:46→21:01)
[2018-07-15] MEDS: METOPROLOL TARTRATE 50 MG TAB PO SCH ×2 (09:46→21:02)
--- NOTE | 2018-07-15 11:34 | HOSPPROG ---
Hospitalist Progress Note Assessment/Plan: #Afib w RVR - did not tolerate amiodarone, back on po dilt and bb -cont current po meds -cardiology following, considering need for pacemaker #CP due to Afib - CP resolved, recent cards w/u negative. -defer stress testing at this time, unless symptoms recur while rate controlld #Chronic AC #CHF #HTN #Hyponatremia - urine c/w SIADH, Na improving -cont fluid restriction #Nausea #Long QT, likely acquired #VASQUEZ Subjective: Pt feels ok. Denies CP or SOb. No palpitations this am. No fevers. Taking po fairly well. Objective: Vital Signs Temp Pulse Resp BP Pulse Ox 36.7 C 79 14 137/72 H 93 07/15/18 11:28 07/15/18 11:28 07/15/18 11:28 07/15/18 11:28 07/15/18 11:28 Laboratory Results 07/14/18 03:14 07/14/18 03:14 07/14/18 07/15/18 07/16/18 05:59 05:59 05:59 Intake Total 1839 845 Output Total 1450 1500 Balance 389 -655 - Physical Exam Constitutional: no apparent distress Eyes: PERRL Ears, Nose, Mouth, Throat: moist mucous membranes Cardiovascular: irregularly irregular Respiratory: no respiratory distress, clear to auscultation Gastrointestinal: normoactive bowel sounds, soft, non-tender abdomen Skin: warm Musculoskeletal: full muscle strength Neurologic: AAOx3 Psychiatric: interacting appropriately ICD10 Worksheet Patient Problems: Problems Problem Status Onset Atrial fibrillation Acute CHF (congestive heart failure) Acute Chest pain Acute Atrial fibrillation and flutter Acute Cardiomyopathy Acute Chronic Disease Mgmt/Transitional Care Acute Head ache Acute Hypertension Acute Hypertensive emergency Acute Hypochloremia Acute Hyponatremia Acute Rapid atrial fibrillation Acute Sinusitis chronic, ethmoidal Acute Sinusitis chronic, frontal Acute
--- NOTE | 2018-07-15 11:45 | SOAPPROG ---
JEZ Progress Note Assessment/Plan: Assessment: 1. Paroxysmal atrial fibrillation. She had been on amiodarone until May. Apparently, this was trialed yesterday and she was not able to tolerate it. She had also stated that she really does not want to go through a cardioversion again. Fortunately, she appears to be doing well with rate controlled atrial fibrillation without symptoms of dyspnea, palpitations or chest pain noted today. 2. Nonobstructive CAD. She is asymptomatic today. There is mention in the chart that she may have had chest pain earlier in rapid atrial fibrillation. 3. Hypertension. 4. Moderate to severe mitral regurgitation. There is no history of congestive heart failure or left ventricular remodeling. Plan: 1. At this point I think we should simply try to rate control her and use systemic anticoagulation. It should be noted that as an outpatient she was on diltiazem CD 100 20 mg twice daily and carvedilol 25 mg twice daily. 2. Towards the the goal of rate control I have seen started her metoprolol 50 mg twice daily. I have also reinstituted her diltiazem CD 100 20 mg twice daily. 3. We will try to wean her off of the IV Cardizem drip. 4. Continue her current dose of anticoagulation. 5. I will plan to reassess her in the morning. Depending on her clinical response other options for therapy include implanting a dual-chamber pacemaker and ablating her AV node. 07/15/18 11:46 Subjective: The patient was seen and examined. Her chart was reviewed. Today she states that she feels fine. She has no awareness of her atrial fibrillation and denies chest pain and dyspnea. She is currently on a diltiazem drip with heart rates in atrial fibrillation of between 101 120 beats per minute. Objective: Vital Signs Temp Pulse Resp BP Pulse Ox 36.7 C 79 14 137/72 H 93 07/15/18 11:28 07/15/18 11:28 07/15/18 11:28 07/15/18 11:28 07/15/18 11:28 Laboratory Results 07/14/18 03:14 07/14/18 03:14 07/14/18 07/15/18 07/16/18 05:59 05:59 05:59 Intake Total 1839 845 740 Output Total 1450 1500 200 Balance 389 -65 540 Physical Exam - Physical Exam General Appearance: WD/WN, alert, no apparent distress EENT: PERRL/EOMI, normal ENT inspection, pharynx normal, TMs normal Neck: non-tender, full range of motion, supple, normal inspection Respiratory: chest non-tender, lungs clear, normal breath sounds Cardiac/Chest: normal peripheral pulses, irregularly irregular Peripheral Pulses: 2+: carotid (R), carotid (L), femoral (R), femoral (L), dorsalis-pedis (R), dorsalis-pedis (L) Abdomen: normal bowel sounds, non-tender, soft Pelvic Exam: deferred Rectal: deferred Back: Normal inspection Skin: normal color, warm/dry Lymphatic: no adenopathy Extremities: normal range of motion, non-tender, normal inspection, normal capillary refill Neuro/Psych: no motor/sensory deficits, alert, normal mood/affect, oriented x 3 ICD10 Worksheet Patient Problems: Problems Problem Status Onset Atrial fibrillation Acute CHF (congestive heart failure) Acute Chest pain Acute Atrial fibrillation and flutter Acute Cardiomyopathy Acute Chronic Disease Mgmt/Transitional Care Acute Head ache Acute Hypertension Acute Hypertensive emergency Acute Hypochloremia Acute Hyponatremia Acute Rapid atrial fibrillation Acute Sinusitis chronic, ethmoidal Acute Sinusitis chronic, frontal Acute
[2018-07-15] MEDS: SIMETHICONE 80 MG TAB CHEW PO PRN (15:30)
[2018-07-15] MEDS: CALCIUM CARB W/VIT D 500 MG TAB PO SCH (21:05)
[2018-07-16] MEDS: SIMETHICONE 80 MG TAB CHEW PO PRN (04:17)
[2018-07-16] MEDS: ACETAMINOPHEN 500 MG TAB PO SCH ×3 (05:32→20:42)
[2018-07-16] MEDS: GABAPENTIN 300 MG CAP PO SCH ×3 (05:32→20:42)
[2018-07-16] MEDS ORDERED: ALENDRONATE SODIUM 70 MG TAB PO SCH (07:00)
[2018-07-16] MEDS: CHOLECALCIFEROL VIT D3 2,000 UNITS TAB/CAP PO SCH (08:41)
[2018-07-16] MEDS: hydrALAZINE 25 MG TAB PO SCH ×2 (08:41→20:42)
[2018-07-16] MEDS: APIXABAN 2.5 MG TAB PO SCH ×2 (08:41→20:41)
[2018-07-16] MEDS: CALCIUM CARB W/VIT D 500 MG TAB PO SCH ×2 (08:41→20:42)
[2018-07-16] MEDS: SODIUM CHLORIDE 1,000 MG TAB PO SCH ×2 (08:41→18:02)
[2018-07-16] MEDS: FLUoxetine 20 MG CAP PO SCH (08:41)
[2018-07-16] MEDS: LOSARTAN POTASSIUM 50 MG TAB PO SCH (08:41)
[2018-07-16] MEDS: PANTOPRAZOLE SODIUM 40 MG TAB PO SCH (08:41)
[2018-07-16] MEDS: ASCORBIC ACID 500 MG TAB PO SCH (08:42)
[2018-07-16] MEDS: METOPROLOL TARTRATE 50 MG TAB PO SCH ×2 (08:42→20:42)
[2018-07-16] MEDS: DILTIAZEM CD 120 MG CAP PO SCH ×2 (08:42→20:42)
[2018-07-16] MEDS: SENNOSIDES/DOCUSATE SODIUM TAB PO SCH ×2 (09:53→20:41)
--- NOTE | 2018-07-16 09:57 | HOSPPROG ---
Hospitalist Progress Note Assessment/Plan: #Afib w RVR - did not tolerate amiodarone, back on po dilt and bb, rates better today 90-110's -cont current po meds -cardiology following, considering need for pacemaker #CP due to Afib - CP resolved, recent cards w/u negative. -defer stress testing at this time, unless symptoms recur while rate controlld #Chronic AC #CHF - stable, no e/o exacerbation #HTN - adequate control -cont dilt, losartan, hydralazine, metoprolol #Hyponatremia - urine c/w SIADH, Na improving -cont fluid restriction -add salt tabs #Nausea - improved with HR control #Long QT #DNR #Dispo - cont inpt, likely dc tomorrow Subjective: Pt feels well. She ambulated in halls this am. Denies CP, SOB or palpitations. No fevers. Taking po well. No complaints. Objective: Vital Signs Temp Pulse Resp BP Pulse Ox 36.6 C 110 H 19 131/87 H 95 07/16/18 08:00 07/16/18 08:00 07/16/18 08:00 07/16/18 08:00 07/16/18 08:00 Laboratory Results 07/14/18 03:14 07/16/18 05:30 07/15/18 07/16/18 07/17/18 05:59 05:59 05:59 Intake Total 845 990 Output Total 1500 650 Balance -655 340 - Physical Exam Constitutional: no apparent distress Eyes: PERRL Ears, Nose, Mouth, Throat: moist mucous membranes Cardiovascular: irregularly irregular Respiratory: no respiratory distress, clear to auscultation Gastrointestinal: normoactive bowel sounds, soft, non-tender abdomen Skin: warm Musculoskeletal: full muscle strength Neurologic: AAOx3 Psychiatric: interacting appropriately ICD10 Worksheet Patient Problems: Problems Problem Status Onset Atrial fibrillation Acute CHF (congestive heart failure) Acute Chest pain Acute Atrial fibrillation and flutter Acute Cardiomyopathy Acute Chronic Disease Mgmt/Transitional Care Acute Head ache Acute Hypertension Acute Hypertensive emergency Acute Hypochloremia Acute Hyponatremia Acute Rapid atrial fibrillation Acute Sinusitis chronic, ethmoidal Acute Sinusitis chronic, frontal Acute
--- NOTE | 2018-07-16 10:58 | SOAPPROG ---
SOSHIRA Progress Note Assessment/Plan: Assessment: 1. Paroxysmal atrial fibrillation. She had been on amiodarone until May. Apparently, this was trialed yesterday and she was not able to tolerate it. She had also stated that she really does not want to go through a cardioversion again. Fortunately, she appears to be doing well with rate controlled atrial fibrillation without symptoms of dyspnea, palpitations or chest pain noted today. 2. Nonobstructive CAD. She is asymptomatic today. There is mention in the chart that she may have had chest pain earlier in rapid atrial fibrillation. 3. Hypertension. 4. Moderate to severe mitral regurgitation. There is no history of congestive heart failure or left ventricular remodeling. 07/16/2018: She appears to be doing well with the recent medication changes. She has reasonable although not optimal heart rate control in atrial fibrillation on a combination of diltiazem and metoprolol. She has not had any concerning symptoms. Fortunately, we have been able to wean off of her diltiazem. She and I did discuss a options for therapy should rate controlled not be successful. Specifically, she had questions regarding the utility of permanent pacing. We also talked about AV node ablation in this setting. Plan: 1. I would like to see how she does when she is getting up and walking around. Specifically I would like to assess her heart rate with ambulation and her symptoms. 2. I think it would be prudent to continue to monitor her in the hospital overnight. 3. Depending on her clinical course we may need to adjust her medications further. 4. Implantation of a permanent pacemaker and AV node ablation is an option should she fail medical therapy. 5. Her other medications will be continued. 07/16/18 10:55 Subjective: She states she is feeling better today. She has not had any palpitations nor has she had episodes of chest discomfort. Resting heart rates are in the 1 teens on her current combination of metoprolol and diltiazem. She has not had any pauses noted on telemetry. She continues on systemic anticoagulation with no indications of bleeding. Objective: Vital Signs Temp Pulse Resp BP Pulse Ox 36.6 C 110 H 19 131/87 H 95 07/16/18 08:00 07/16/18 08:00 07/16/18 08:00 07/16/18 08:00 07/16/18 08:00 Laboratory Results 07/14/18 03:14 07/16/18 05:30 07/15/18 07/16/18 07/17/18 05:59 05:59 05:59 Intake Total 845 990 400 Output Total 1500 650 Balance -655 340 400 Physical Exam - Physical Exam General Appearance: WD/WN, no apparent distress Neck: non-tender Respiratory: other (Scant left basilar rales which clear with deep inspiration) Cardiac/Chest: irregularly irregular Peripheral Pulses: 2+: carotid (R), carotid (L) Neuro/Psych: alert, oriented x 3 ICD10 Worksheet Patient Problems: Problems Problem Status Onset Atrial fibrillation and flutter Acute Cardiomyopathy Acute CHF (congestive heart failure) Acute Chronic Disease Mgmt/Transitional Care Acute Sinusitis chronic, frontal Acute Sinusitis chronic, ethmoidal Acute Head ache Acute Chest pain Acute Rapid atrial fibrillation Acute Hyponatremia Acute Hypochloremia Acute Hypertensive emergency Acute Hypertension Acute Atrial fibrillation Acute
--- NOTE | 2018-07-16 13:34 | ASMTCMCOM ---
CM Note CM Note Notes: 07/16/2018 Case Management Note Discussed pt during rounds. Ongoing adjustment of medication doses. Anticipating d/c tomorrow. Faxed updates to [facility] Management d/c poc: return to prior level of services at [facility] Case Management to follow. Date Signed: 07/16/2018 01:33 PM Electronically Signed By:Zara Thomason RN
[2018-07-17] MEDS: ACETAMINOPHEN 500 MG TAB PO SCH (05:36)
[2018-07-17] MEDS: GABAPENTIN 300 MG CAP PO SCH (05:37)
[2018-07-17 07:36] VITALS: BP 132/98
[2018-07-17] MEDS: FLUoxetine 20 MG CAP PO SCH (07:39)
[2018-07-17] MEDS: CALCIUM CARB W/VIT D 500 MG TAB PO SCH (07:39)
[2018-07-17] MEDS: ASCORBIC ACID 500 MG TAB PO SCH (07:39)
[2018-07-17] MEDS: LOSARTAN POTASSIUM 50 MG TAB PO SCH (07:40)
[2018-07-17] MEDS: METOPROLOL TARTRATE 50 MG TAB PO SCH (07:40)
[2018-07-17] MEDS: hydrALAZINE 25 MG TAB PO SCH (07:41)
[2018-07-17] MEDS: CHOLECALCIFEROL VIT D3 2,000 UNITS TAB/CAP PO SCH (07:41)
[2018-07-17] MEDS: SODIUM CHLORIDE 1,000 MG TAB PO SCH (07:41)
[2018-07-17] MEDS: APIXABAN 2.5 MG TAB PO SCH (07:41)
[2018-07-17] MEDS: DILTIAZEM CD 120 MG CAP PO SCH (07:41)
[2018-07-17] MEDS: PANTOPRAZOLE SODIUM 40 MG TAB PO SCH (07:41)
[2018-07-17] MEDS: SENNOSIDES/DOCUSATE SODIUM TAB PO SCH (07:42)
[2018-07-17] MEDS: SIMETHICONE 80 MG TAB CHEW PO PRN (07:47)
--- NOTE | 2018-07-17 09:08 | SOAPPROG ---
JEZ Progress Note Assessment/Plan: Assessment: 1. Paroxysmal atrial fibrillation. She had been on amiodarone until May. Apparently, this was trialed yesterday and she was not able to tolerate it. She had also stated that she really does not want to go through a cardioversion again. Fortunately, she appears to be doing well with rate controlled atrial fibrillation without symptoms of dyspnea, palpitations or chest pain noted today. 2. Nonobstructive CAD. She is asymptomatic today. There is mention in the chart that she may have had chest pain earlier in rapid atrial fibrillation. 3. Hypertension. 4. Moderate to severe mitral regurgitation. There is no history of congestive heart failure or left ventricular remodeling. 07/16/2018: She appears to be doing well with the recent medication changes. She has reasonable although not optimal heart rate control in atrial fibrillation on a combination of diltiazem and metoprolol. She has not had any concerning symptoms. Fortunately, we have been able to wean off of her diltiazem. She and I did discuss a options for therapy should rate controlled not be successful. Specifically, she had questions regarding the utility of permanent pacing. We also talked about AV node ablation in this setting. 07/17/2018: Her heart rates are under much better control on her current medications and symptomatic Cynthia she is much improved with no palpitations, dyspnea or chest discomfort. Plan: 1. At this point I think she can be discharged from the hospital. 2. Continue current medications. 3. We will make arrangements for her to follow up with me next week to continue to monitor her and make further adjustments to her medications as needed. 4. Depending on her clinical course we can consider implantation of a permanent pacemaker and AV node ablation. 07/17/18 09:06 Subjective: She states that she has been feeling well. She had several walks yesterday around the [place] limiting symptoms of dyspnea. She notes no chest discomfort. On her current medications her heart rates have been consistently below 100 beats per minute. She notes no dizziness or lightheadedness. There has been no documented bradycardia. Objective: Vital Signs Temp Pulse Resp BP Pulse Ox 36.9 C 93 18 132/98 H 95 07/17/18 07:35 07/17/18 07:35 07/17/18 07:35 07/17/18 07:35 07/17/18 07:35 Laboratory Results 07/14/18 03:14 07/17/18 03:50 07/16/18 07/17/18 07/18/18 05:59 05:59 05:59 Intake Total 990 1170 Output Total 650 700 Balance 340 470 Physical Exam - Physical Exam General Appearance: WD/WN Neck: non-tender Respiratory: lungs clear Cardiac/Chest: irregularly irregular Peripheral Pulses: 2+: carotid (R), carotid (L) Abdomen: normal bowel sounds Pelvic Exam: deferred Rectal: deferred Neuro/Psych: alert, oriented x 3 ICD10 Worksheet Patient Problems: Problems Problem Status Onset Atrial fibrillation Acute CHF (congestive heart failure) Acute Chest pain Acute Atrial fibrillation and flutter Acute Cardiomyopathy Acute Chronic Disease Mgmt/Transitional Care Acute Head ache Acute Hypertension Acute Hypertensive emergency Acute Hypochloremia Acute Hyponatremia Acute Rapid atrial fibrillation Acute Sinusitis chronic, ethmoidal Acute Sinusitis chronic, frontal Acute
--- NOTE | 2018-07-17 10:26 | PDIAF ---
- Diagnosis Diagnosis: a fib Code Status: Do Not Resuscitate - Medication Management Discharge Medications: electronically signed and located in the Home Medication List. PICC Care - Routine: N/A - Orders Isolation Type: None Diet Recommendation: cardiac -low fat low salt - Follow Up Care Current Providers and Referrals: Ludy Teresa MD [Primary Care Provider] - As per Instructions Nathaniel Omalley MD [Medical Doctor] - 07/25/18 3:30 pm ([place] location. Check in at 3:15)
--- NOTE | 2018-07-17 10:29 | PDIAF ---
- Diagnosis Diagnosis: a fib Code Status: Do Not Resuscitate - Medication Management Discharge Medications: electronically signed and located in the Home Medication List. PICC Care - Routine: N/A - Orders Services needed: Registered Nurse Isolation Type: None Diet Recommendation: cardiac -low fat low salt - Follow Up Care Current Providers and Referrals: Ludy Teresa MD [Primary Care Provider] - As per Instructions Nathaniel Omalley MD [Medical Doctor] - 07/25/18 3:30 pm ([place] location. Check in at 3:15)
--- NOTE | 2018-07-17 10:40 | ASMTLACE ---
LACE Length of stay for Answers: 3 days current admission Acuity / Level of Answers: Yes Care: Did the patient have an inpatient admission? Comorbidities - select Answers: Congestive heart failure all that apply Opioid dependence / Chronic pain Other Notes: AFib; HTN # of Emergency department Answers: 3-4 visits in the last 6 months Score: 16 Date Signed: 07/17/2018 10:40 AM Electronically Signed By:Zara Thomason RN
--- NOTE | 2018-07-17 10:42 | ASMTDCNOTE ---
Case Management Discharge Discharge Order Complete? Answers: Yes Patient to Obtain Answers: via Family Medications Transportation Arranged Answers: Family/Friends Faxed Final Orders Answers: Yes Notes: to [facility] [place] Agency/Facility Transfer Answers: Yes Notes: to [facility]F at [place] Report Printed & Faxed to request Receiving Agency Family Notified Answers: Yes Notes: transporting pt home. Discharge Comments Notes: 07/17/2018 Case Management Note Faxed final orders to [facility] at [place] request. RN to call report. Sergio to transport home at 11:30. Pt resides in Independent Living with the addition of [facility]. Date Signed: 07/17/2018 10:42 AM Electronically Signed By:Zara Thomason RN
--- NOTE | 2018-07-17 10:43 | ASDISCHSUM ---
Discharge Information Plan Status:Home with No Needs Medically Cleared to Leave:07/16/2018 Discharge Date:07/16/2018 CM D/C Disposition:Home, Routine, Self-Care ADT D/C Disposition:Home, Routine, Self-Care Projected Discharge Date:07/17/2018 11:00 AM Transportation at D/C:Family Discharge Delay Reason: Follow-Up Date:07/17/2018 11:00 AM Discharge Slot: Final Diagnosis: Placement Information Referral Type:Assisted Living Residence Referral ID:[id number] Provider Name:[facility] Address 1:[address] Phone Number: Address 2: Fax Number: [facility]:[place] Selection Factors: State:[place] Referral Type:*Long-Term/SNF Referral ID:[id number] Provider Name: Address 1: Phone Number: Address 2: Fax Number: City: Selection Factors: State: Patient Contact Information Contact Name:ARIANNAMYESHARUBINA Relationship:Nephew Address: Work Phone: [facility]:[place] Alternate Phone: State/Zip Code:[place] Email: Financial Information Financial Class:Medicare Advantage Plans Primary Plan Desc:[employer] ADV Primary Plan Number:[id number] Secondary Plan Desc: Secondary Plan Number: Assessment Information LACE LACE Length of stay for Answers: 3 days current admission Acuity / Level of Answers: Yes Care: Did the patient have an inpatient admission? Comorbidities - select Answers: Congestive heart failure all that apply Opioid dependence / Chronic pain Other Notes: AFib; HTN # of Emergency department Answers: 3-4 visits in the last 6 months Score: 16 Date Signed: 07/17/2018 10:40 AM Electronically Signed By:Zara Thomason RN [facility] CM Progress Note CM Note CM Note Notes: Pts case discussed in tx rounds. Pt is a 83 y/o female admitted for afib with rvr. Pt lives at [facility]. Pt recieves about 2hrs of help daily. Pt does all her own ADLs. OT worked w/ pt and has cleared her to go back without any needs. Cards have been consulted. CM available for changes. Plan: Independent Date Signed: 07/13/2018 12:31 PM Electronically Signed By:EVER Campos [facility] Progress Note CM Note CM Note Notes: 07/16/2018 Case Management Note Discussed pt during rounds. Ongoing adjustment of medication doses. Anticipating d/c tomorrow. Faxed updates to [facility] Case Management d/c poc: return to prior level of services at [facility] Case Management to follow. Date Signed: 07/16/2018 01:33 PM Electronically Signed By:Zara Thomason RN Case Management Discharge Plan Note Case Management Discharge Discharge Order Complete? Answers: Yes Patient to Obtain Answers: via Family Medications Transportation Arranged Answers: Family/Friends Faxed Final Orders Answers: Yes Notes: to [facility] [place] request Agency/Facility Transfer Answers: Yes Notes: to SNF at [place]' Report Printed & Faxed to request Receiving Agency Family Notified Answers: Yes Notes: transporting pt home. Discharge Comments Notes: 07/17/2018 Case Management Note Faxed final orders to [facility] [place] request. RN to call reportAlyssa Hill to transport home at 11:30. Pt resides in Independent Living with the addition of [facility]. Date Signed: 07/17/2018 10:42 AM Electronically Signed By:Zara Thomason RN Intervention Information Intervention Type:*Incorrect Registration Date of Service:07/13/2018 07:17 AM Patient Type:Inpatient Staff Member:SEUN Stern, [facility] Hours: Discipline: Severity: Comment: Intervention Type:*IM-Signed Date of Service:07/14/2018 03:00 PM Patient Type:Inpatient Staff Member:India Glass Hours: Discipline: Severity: Comment: Intervention Type:*IM-Signed Date of Service:07/17/2018 09:57 AM Patient Type:Inpatient Staff Member:India Glass Hours: Discipline: Severity: Comment:
--- NOTE | 2018-07-17 16:14 | PDDCSUM ---
Discharge Summary Discharge Summary: Date of admission: 07/13/2018 Date of discharge: 07/15/2018 Discharge diagnoses: A fib with RVR Chest pain secondary to above, resolved Chronic heart failure, stable Hypertension Hyponatremia History: 83 yo female with h/o A fib presented with chest pain, found to be in rapid atrial fibrillation Hospital course: She was admitted to the PCU and started on IV diltiazem drip. She continued to have rapid HR and did not convert. Cardiology consult was obtained and she was transitioned to IV Amiodarone. She did not tolerate this and was ultimately restarted on oral medications. Her coreg was changed to metoprolol and Cardizem CD 120 mg twice daily was resumed. Her Losartan was increased to 100 mg daily. She has remained rate controlled for 48 hrs with HR 80-110's. She had negative troponins and a non-ischemic EKG. No further cardiac risk stratification was performed. Follow up: Dr. Earnest Omalley [facility] OR Meds: See [facility] for completed updated medication list. Changed medications: Coreg is d/c'd. Metoprolol 50 mg BID started at d/c. Losartan is increased from 50 mg to 100 mg daily. Continue Eliquis 2.5 mg twice daily and all other outpatient medications as previously prescribed.
== END 2018-07-17 11:04 | DRG 309 ==
LOC: INTOOBSV 19:02 → F2W 20:45 → OBSVTOIN 07-13 14:35
PROVIDERS: ADMIT Internal Medicine; ATTEND Internal Medicine
DX: I48.0 Paroxysmal atrial fibrillation (principal); E87.1 Hypo-osmolality and hyponatremia; E86.9 Volume depletion, unspecified; I11.0 Hypertensive heart disease with heart failure; I50.9 Heart failure, unspecified; I25.10 Atherosclerotic heart disease of native coronary artery without angina pectoris; E78.5 Hyperlipidemia, unspecified; I34.0 Nonrheumatic mitral (valve) insufficiency; Z79.01 Long term (current) use of anticoagulants; Z66 Do not resuscitate; I45.81 Long QT syndrome
CPT/HCPCS: 84484-ER; 96365; 96366; 97165-GO; 97535-GO; G0378; J0282; J2765

== ENCOUNTER 2018-07-31 11:00 | Observation (INO) | payer OTHER ==
[2018-07-31 12:01] LABS: PLATELET COUNT 234 10^3/uL (150-400)
[2018-07-31 12:21] LABS: INR 1.06 (0.83-1.16)
[2018-07-31] MEDS ORDERED: METOCLOPRAMIDE 10 MG/2 ML VIAL IVP ONE (12:37)
[2018-07-31] MEDS ORDERED: DEXAMETHASONE 4 MG/ML VIAL IVP ONE (12:37)
--- NOTE | 2018-07-31 12:41 | EDPHY ---
H & P Stated Complaint: hx afib DARSHAN scheduled for / couch 04/05 Time Seen by Provider: 07/31/18 11:17 HPI/ROS: CHIEF COMPLAINT: Headache HISTORY OF PRESENT ILLNESS: 83-year-old female with atrial fibrillation on Eliquis presents with headache. She awoke this morning with a left-sided headache, associated with nausea. She took Tylenol 1 g orally and tramadol 50 mg orally. The headache continues to be moderate, 02/03. Started Rythmol 1 week ago. No associated symptoms and no recent trauma. No recent illness. History of prior severe headaches related to hypertension. This is not the worst headache ever. REVIEW OF SYSTEMS: complete 10 point ROS reviewed and is negative except for the noted elements in the HPI - Personal History Current Tetanus Diphtheria and Acellular Pertussis (TDAP): Yes Tetanus Vaccine Date: 2004 - Medical/Surgical History Hx Asthma: No Hx Chronic Respiratory Disease: No Hx Diabetes: No Hx Cardiac Disease: Yes Hx Renal Disease: No Hx Cirrhosis: No Hx Alcoholism: No Hx HIV/AIDS: No Hx Splenectomy or Spleen Trauma: No Other PMH: afib w/ rvr, HTN, L TKA, osteoporosis, takotsubo syndrome. cardioversion x5 04/15/16, and 02/07, nat[place], right mastectomy, right hip replacement fx femur 2002, cataract 2008, fx tib/fib 2011, fx right pelvis, left breast lumpectomy with radiation, R shoulder replaced. - Social History Smoking Status: Former smoker - Physical Exam Exam: General Appearance: Alert, pleasant Eyes: Pupils equal and round, no conjunctival pallor ENT, Mouth: Mucous membranes moist Neck: Normal inspection Respiratory: Lungs are clear to auscultation Cardiovascular: Regular rate and rhythm Gastrointestinal: Abdomen is soft and nontender Neurological: Alert, oriented x3, cranial nerves II through XII intact, motor 5 /5, sensory intact to light touch Skin: Warm and dry Extremities: Normal inspection Psychiatric: Mood and affect normal Constitutional: Initial Vital Signs Temperature (C) 37 C 07/31/18 11:04 Heart Rate 104 H 07/31/18 11:04 Respiratory Rate 17 07/31/18 11:04 Blood Pressure 129/90 H 07/31/18 11:04 O2 Sat (%) 94 07/31/18 11:04 O2 Delivery Mode Room Air Allergies/Adverse Reactions: codeine [Codeine] Allergy (Intermediate, Verified 07/31/18 11:02) Other-Enter Comments amlodipine besylate [From Norvasc] Allergy (Unknown, Verified 07/31/18 11:02) hydrochlorothiazide Allergy (Unknown, Verified 07/31/18 11:02) amoxicillin Allergy (Verified 07/31/18 11:02) Itching ciprofloxacin Allergy (Verified 07/31/18 11:02) Opioids - Morphine Analogues Allergy (Verified 07/31/18 11:02) Sulfa (Sulfonamide Antibiotics) Allergy (Verified 07/31/18 11:02) Home Medications: Medication Instructions Recorded Acetaminophen [Tylenol Extra 1,000 mg PO TID@,,03/01/16 Strength] Apixaban [Eliquis] 2.5 mg PO BID 03/01/16 Ascorbic Acid [Vitamin C 500 mg 1,000 mg PO DAILY 03/01/16 (*)] Cholecalciferol Vit D3 [Vitamin D3 2,000 units PO DAILY 03/01/16 2000 units tab (OTC)] Herbals/Supplements -Info Only 1 ea PO DAILY 03/01/16 Simethicone [GAS-X] 80 mg PO PC PRN 03/01/16 Famotidine [Pepcid 20 MG (*)] 20 mg PO BID PRN 06/10/17 Gabapentin [Neurontin] 600 mg PO TID@,,06/10/17 Alendronate Sodium [Fosamax 70 MG 70 mg PO ELIZONDO@0700 12/22/17 (*)] LORazepam [Ativan] 0.5 mg PO DAILY PRN #6 tablet 07/02/18 Cetirizine [ZyrTEC 10 mg (*)] 10 mg PO DAILY PRN 07/12/18 Diltiazem Cd [Cardizem ER 120 MG 120 mg PO BID 07/12/18 (*)] FLUoxetine HCL [Fluoxetine HCl] 60 mg PO DAILY 07/12/18 Hydralazine HCl 25 mg PO BID 07/12/18 Pantoprazole Sodium [Protonix 40mg 40 mg PO DAILY 07/12/18 (*)] traMADol [Ultram 50 mg (*)] 25 mg PO TID PRN 07/12/18 Calcium Citrate W/Vit D [Citracal 945 mg PO BID 07/15/18 + D] Losartan Potassium [Cozaar 50 mg 100 mg PO DAILY tab 07/17/18 (*)] Metoprolol Tartrate [Lopressor 50 50 mg PO BID #60 tab 07/17/18 mg (*)] Rythmol Sr 225mg (*) 07/31/18 Medical Decision Making - Diagnostics Imaging Results: Imaging Impressions Head CT 07/31/18 11:16 Impression: No acute intracranial hemorrhage or mass. Kadie Elise was notified of these findings by telephone at 12:14 PM on 07/31/2018 Imaging: Discussed imaging studies w/ banquet server on call Radiologist ED Course/Re-evaluation: This patient presents with a nontraumatic headache. CT scan of the head read by the radiologist is unremarkable. I do not suspect subarachnoid hemorrhage or meningitis in this patient Discussion with the patient regarding treatment of headache. After some discussion, we will give Reglan, Benadryl and Decadron IV then reassess. 3:00 p.m.-headache much improved, would like to go home. However, she is now in atrial fibrillation with RVR ventricular rate 120s. EKG reveals atrial fibrillation, ventricular rate 114. Metoprolol [address] Earnest Omalley was consulted. Plan for cardioversion tomorrow. Hospitalist service was consulted for admission Differential Diagnosis: Headache including but not limited to subarachnoid hemorrhage, migraine headache , tension headache and infectious causes such as meningitis, pharyngitis and sinusitis. - Data Points Laboratory Results: Laboratory Results 07/31/18 11:40 07/31/18 11:40 07/31/18 07/31/18 07/31/18 11:41 11:40 11:40 WBC RBC Hgb Hct MCV MCH MCHC RDW Plt Count MPV Neut % (Auto) Lymph % (Auto) Edmons[place] % (Auto) Eos % (Auto) Baso % (Auto) Nucleat RBC Rel Count Absolute Neuts (auto) Absolute Lymphs (auto) Absolute Monos (auto) Absolute Eos (auto) Absolute Basos (auto) Absolute Nucleated RBC Immature Gran % Immature Gran # PT 14.0 SEC SEC (12.0-15.0) INR 1.06 (0.83-1.16) APTT 26.0 SEC SEC (23.0-38.0) Sodium 131 mEq/L L mEq/L (135-145) Potassium 4.5 mEq/L mEq/L (3.5-5.2) Chloride 98 mEq/L mEq/L (97-110) Carbon Dioxide 23 mEq/l mEq/l (22-31) Anion Gap 10 mEq/L mEq/L (6-14) BUN 14 mg/dL mg/dL (7-23) Creatinine 0.6 mg/dL mg/dL (0.6-1.0) Estimated GFR > 60 Glucose 99 mg/dL mg/dL (70-100) Calcium 8.9 mg/dL mg/dL (8.5-10.4) POC Troponin I 0.00 ng/mL ng/mL (0.00-0.08) 07/31/18 11:40 WBC 5.75 10^3/uL 10^3/uL (3.80-9.50) RBC 4.13 10^6/uL L 10^6/uL (4.18-5.33) Hgb 13.0 g/dL g/dL (12.6-16.3) Hct 38.0 % % (38.0-47.0) MCV 92.0 fL fL (81.5-99.8) MCH 31.5 pg pg (27.9-34.1) MCHC 34.2 g/dL g/dL (32.4-36.7) RDW 13.7 % % (11.5-15.2) Plt Count 234 10^3/uL 10^3/uL (150-400) MPV 9.1 fL fL (8.7-11.7) Neut % (Auto) 73.3 % % (39.3-74.2) Lymph % (Auto) 17.7 % % (15.0-45.0) Ed[place] % (Auto) 8.3 % % (4.5-13.0) Eos % (Auto) 0.2 % L % (0.6-7.6) Baso % (Auto) 0.3 % % (0.3-1.7) Nucleat RBC Rel Count 0.0 % % (0.0-0.2) Absolute Neuts (auto) 4.21 10^3/uL 10^3/uL (1.70-6.50) Absolute Lymphs (auto) 1.02 10^3/uL 10^3/uL (1.00-3.00) Absolute Monos (auto) 0.48 10^3/uL 10^3/uL (0.30-0.80) Absolute Eos (auto) 0.01 10^3/uL L 10^3/uL (0.03-0.40) Absolute Basos (auto) 0.02 10^3/uL 10^3/uL (0.02-0.10) Absolute Nucleated RBC 0.00 10^3/uL 10^3/uL (0-0.01) Immature Gran % 0.2 % % (0.0-1.1) Immature Gran # 0.01 10^3/uL 10^3/uL (0.00-0.10) PT INR APTT Sodium Potassium Chloride Carbon Dioxide Anion Gap BUN Creatinine Estimated GFR Glucose Calcium POC Troponin I Medications Given: Discontinued Medications Dexamethasone (Decadron Injection) 6 mg IVP EDNOW ONE Stop: 07/31/18 12:38 Last Admin: 07/31/18 13:18 Dose: 6 mg Diphenhydramine HCl (Benadryl Injection) 12.5 mg IVP EDNOW ONE Stop: 07/31/18 12:38 Last Admin: 07/31/18 13:18 Dose: 12.5 mg Metoclopramide HCl (Reglan Injection) 10 mg IVP EDNOW ONE Stop: 07/31/18 12:38 Last Admin: 07/31/18 13:19 Dose: 10 mg Point of Care Test Results: Chemistry 07/31/18 11:41 POC Troponin I 0.00 ng/mL ng/mL (0.00-0.08) Departure - Departure Disposition: [facility] Inpatient Acute Clinical Impression: Headache, Atrial fibrillation Condition: Fair Referrals: Ludy Teresa MD [Primary Care Provider] - As per Instructions
--- NOTE | 2018-07-31 15:23 | CPEKG ---
Test Reason : OPEN Blood Pressure : / mmHG Vent. Rate : 114 BPM Atrial Rate : 169 BPM P-R Int : 101 ms QRS Dur : 101 ms QT Int : 397 ms P-R-T Axes : 000 077 064 degrees QTc Int : 547 ms Atrial fibrillation Left ventricular hypertrophy Prolonged QT interval Confirmed by Kadie Elise ([id number]) on 07/31/2018 3:23:14 PM Referred By: Kadie Elise Confirmed By:Kadie Elise
[2018-07-31] MEDS ORDERED: METOPROLOL TARTRATE 25 MG TAB PO ONE (15:25)
[2018-07-31] MEDS ORDERED: ONDANSETRON 4 MG/2 ML VIAL IVP PRN (16:02)
[2018-07-31] MEDS ORDERED: SIMETHICONE 80 MG TAB CHEW PO PRN (16:14)
[2018-07-31] MEDS ORDERED: LORazepam 0.5 MG TAB PO PRN (16:14)
[2018-07-31] MEDS ORDERED: DILTIAZEM 125 MG in D5W 125 ML IV SCH (16:15)
[2018-07-31] MEDS ORDERED: NS 1,000 ML IV SCH (16:15)
--- NOTE | 2018-07-31 16:33 | PDGENHP ---
History and Physical - Chief Complaint Headache - History of Present Illness HPI: 83 y/o presenting from Cardiology office d/t frontal headache. She reportedly came to the cardiology office for an EKG and schedule a cardioversion but c/o a constant headache, rating intensity 8/10. After receiving Decadron, Benadryl, and Metoprolol in ER - intensity is 7/10. Denies vision changes, vomiting, fever, chills, chest pain or palpitations. Endorses mild nausea. Denies urinary or bowel concerns. Head CT is unremarkable for any acute processes. Per Dr. Nathaniel Omalley, environmental monitoring technician, she will be cardioverted tomorrow. She is being admitted for observation and management of her headache. Past Medical History 1. Atrial Fibrillation 2. CAD 3. Cardiomyopathy 4. Hypertension 5. Hyperlipidemia 6. Takotsubo syndrome Past Surgical History 1. Right hip replacement 2. Hysterectomy 3. Left knee replacement 4. Bilateral mastectomy 5. Cardioversion x 5 (2015) 6. Cholecystectomy 7. Right shoulder replacement Social 1. , lives in [place] at the [facility] 2. Denies tobacco or illicit drug use. Denies alcohol use. History Information - Allergies/Home Medication List Allergies/Adverse Reactions: codeine [Codeine] Allergy (Intermediate, Verified 07/31/18 11:02) Other-Enter Comments amlodipine besylate [From Norvasc] Allergy (Unknown, Verified 07/31/18 11:02) hydrochlorothiazide Allergy (Unknown, Verified 07/31/18 11:02) amoxicillin Allergy (Verified 07/31/18 11:02) Itching ciprofloxacin Allergy (Verified 07/31/18 11:02) Opioids - Morphine Analogues Allergy (Verified 07/31/18 11:02) Sulfa (Sulfonamide Antibiotics) Allergy (Verified 07/31/18 11:02) Home Medications: Acetaminophen [Tylenol Extra Strength] 1,000 mg PO TID@06,14,22 03/01/16 [Last Taken 07/31/18 14:00] Apixaban [Eliquis] 2.5 mg PO BID 03/01/16 [Last Taken 07/31/18 09:00] Ascorbic Acid [Vitamin C 500 mg (*)] 1,000 mg PO DAILY 03/01/16 [Last Taken 10/13] Cholecalciferol Vit D3 [Vitamin D3 2000 units tab (OTC)] 2,000 units PO DAILY [Last Taken 07/31/18] Herbals/Supplements -Info Only 1 ea PO DAILY 03/01/16 [Last Taken 07/12/18] Simethicone [GAS-X] 80 mg PO PC PRN 03/01/16 [Last Taken 07/11/18] Gabapentin [Neurontin] 600 mg PO TID@06,14,06/10/17 [Last Taken 07/31/18 14: 00] Cetirizine [ZyrTEC 10 mg (*)] 10 mg PO DAILY 07/12/18 [Last Taken 07/31/18] Diltiazem Cd [Cardizem ER 120 MG (*)] 120 mg PO DAILY 07/12/18 [Last Taken 07/31] FLUoxetine HCL [Fluoxetine HCl] 60 mg PO DAILY 07/12/18 [Last Taken 07/31/18] Hydralazine HCl 25 mg PO BID 07/12/18 [Last Taken 07/31/18 09:00] Pantoprazole Sodium [Protonix 40mg (*)] 40 mg PO DAILY 07/12/18 [Last Taken 10/13] traMADol [Ultram 50 mg (*)] 25 mg PO TID PRN 07/12/18 [Last Taken 07/12/18 12:00 ] Calcium Citrate W/Vit D [Citracal + D] 945 mg PO BID 07/15/18 [Last Taken 09:00] Metoprolol Tartrate [Lopressor 50 mg (*)] 25 mg PO BID 07/31/18 [Last Taken 10/13 09:00] Propafenone HCl Sr [Rythmol Sr 225mg (*)] 225 mg PO Q12 07/31/18 [Last Taken 10/13 09:00] I have personally reviewed and updated: family history, medical history, social history, surgical history Past Medical History: See HPI list - Surgical History Additional surgical history: See HPI list - Family History Positive for: non-pertinent - Social History Smoking Status: Former smoker Alcohol Use: None Drug Use: None Review of Systems Review of Systems: ROS: 10pt was reviewed & negative except for what was stated in HPI & below Constitutional: Reports: malaise EENMT: Reports: no symptoms Cardiac: Reports: no symptoms Respiratory: Reports: no symptoms Gastrointestinal: Reports: nausea Genitourinary: Reports: no symptoms Muscolosketal: Reports: no symptoms Skin: Reports: no symptoms Neurological: Reports: headache Hematologic/Lymphatic: Reports: no symptoms Immunologic/Allergy: Reports: other (See Allergy list) Physical Exam Physical Exam: Lab data and imaging were reviewed. Case discussed with admitting physician, Dr. Wilman Foss. Temp Pulse Resp BP Pulse Ox 36.9 C 126 H 20 125/86 H 94 07/31/18 16:05 07/31/18 16:05 07/31/18 16:05 07/31/18 16:05 07/31/18 16:05 Constitutional: no apparent distress, appears nourished, not in pain Eyes: PERRL, anicteric sclera, EOMI Ears, Nose, Mouth, Throat: moist mucous membranes, hearing normal, ears appear normal, no oral mucosal ulcers Cardiovascular: no murmur, rub, or gallop, irregularly irregular, tachycardia, edema (Mild bilateral non-pitting pedal edema) Peripheral Pulses: 2+: dorsalis-pedis (R) (Radial 2+), dorsalis-pedis (L) ( Radial 2+) Respiratory: no respiratory distress, no rales or rhonchi, clear to auscultation Gastrointestinal: normoactive bowel sounds, soft, non-tender abdomen, no palpable masses Genitourinary: no bladder fullness, no bladder tenderness Skin: warm, normal color, no rashes or abrasions, no fluctuance, no induration, No mottled Musculoskeletal: full muscle strength, no muscle tenderness, normal joint ROM, no joint effusions Neurologic: AAOx3, sensation intact bilaterally, CN II-XII Intact Psychiatric: interacting appropriately, not anxious, not encephalopathic, thought process linear Lymph, Heme, Immunologic: no cervical LAD, no supraclavicular LAD Lab Data & Imaging Review 07/31/18 11:40 07/31/18 11:40 WBC 5.75 10^3/uL (3.80-9.50) 07/31/18 11:40 RBC 4.13 10^6/uL (4.18-5.33) L 07/31/18 11:40 Hgb 13.0 g/dL (12.6-16.3) 07/31/18 11:40 Hct 38.0 % (38.0-47.0) 07/31/18 11:40 MCV 92.0 fL (81.5-99.8) 07/31/18 11:40 MCH 31.5 pg (27.9-34.1) 07/31/18 11:40 MCHC 34.2 g/dL (32.4-36.7) 07/31/18 11:40 RDW 13.7 % (11.5-15.2) 07/31/18 11:40 Plt Count 234 10^3/uL (150-400) 07/31/18 11:40 MPV 9.1 fL (8.7-11.7) 07/31/18 11:40 Neut % (Auto) 73.3 % (39.3-74.2) 07/31/18 11:40 Lymph % (Auto) 17.7 % (15.0-45.0) 07/31/18 11:40 [place] % (Auto) 8.3 % (4.5-13.0) 07/31/18 11:40 Eos % (Auto) 0.2 % (0.6-7.6) L 07/31/18 11:40 Baso % (Auto) 0.3 % (0.3-1.7) 07/31/18 11:40 Nucleat RBC Rel Count 0.0 % (0.0-0.2) 07/31/18 11:40 Absolute Neuts (auto) 4.21 10^3/uL (1.70-6.50) 07/31/18 11:40 Absolute Lymphs (auto) 1.02 10^3/uL (1.00-3.00) 07/31/18 11:40 Absolute Monos (auto) 0.48 10^3/uL (0.30-0.80) 07/31/18 11:40 Absolute Eos (auto) 0.01 10^3/uL (0.03-0.40) L 07/31/18 11:40 Absolute Basos (auto) 0.02 10^3/uL (0.02-0.10) 07/31/18 11:40 Absolute Nucleated RBC 0.00 10^3/uL (0-0.01) 07/31/18 11:40 Immature Gran % 0.2 % (0.0-1.1) 07/31/18 11:40 Immature Gran # 0.01 10^3/uL (0.00-0.10) 07/31/18 11:40 PT 14.0 SEC (12.0-15.0) 07/31/18 11:40 INR 1.06 (0.83-1.16) 07/31/18 11:40 APTT 26.0 SEC (23.0-38.0) 07/31/18 11:40 Sodium 131 mEq/L (135-145) L 07/31/18 11:40 Potassium 4.5 mEq/L (3.5-5.2) 07/31/18 11:40 Chloride 98 mEq/L (97-110) 07/31/18 11:40 Carbon Dioxide 23 mEq/l (22-31) 07/31/18 11:40 Anion Gap 10 mEq/L (6-14) 07/31/18 11:40 BUN 14 mg/dL (7-23) 07/31/18 11:40 Creatinine 0.6 mg/dL (0.6-1.0) 07/31/18 11:40 Estimated GFR > 60 07/31/18 11:40 Glucose 99 mg/dL (70-100) 07/31/18 11:40 Calcium 8.9 mg/dL (8.5-10.4) 07/31/18 11:40 POC Troponin I 0.00 ng/mL (0.00-0.08) 07/31/18 11:41 Assessment & Plan Plan: 83 y/o female with history of atrial fibrillation on Eliquis presents with headache and need of cardioversion. 1. Atrial fibrillation with RVR: echo performed 11/2017 revealing: no pericardial effusion. Biatrial enlargement. Preserved LV systolic function with EF 65%. Moderate to severe mitral regurgitation. Mild tricuspid regurgitation with right ventricular systolic pressure 55 mmHg. -Consulted cardiology. Dr. Omalley to cardiovert tomorrow morning therefore will be NPO at midnight tonight -Diltazem drip initiated; HR 115-130s while in ER -Received metoprolol 25 mg in ER; may continue home medications metoprolol, rhythmol, diltiazem, eliquis -Troponin negative (0.00). Will cycle one more trop this evening. -Cont tele monitoring 2. Non-focal headache: This morning, she took Tylenol 1g + Tramadol with no relief. She received decadron, Benadryl, metoprolol in ER with minor relief. -Ice pack -Scheduled Tylenol 1 g Q8H + home medication of tramadol -Gentle IVF as she reportedly has not been drinking a lot of water today 3. Hyponatremia (131) -1L gentle IVF overnight -BMP tomorrow 4. Hypertension: Currently stable. Continue to monitor with the diltiazem drip -May continue her home medications of hydralazine, losartan. 5. Anxiety/Depression: on prozac and gabapentin. 6. CHF: Does not appear to be fluid overloaded. Lungs CTAB, no JVD.. Continue to monitor Diet: Cardiac, NPO at midnight tonight Code: DNR VTE ppx: Tish Cordon Dispo: Admit to obs
--- NOTE | 2018-07-31 17:38 | HOSPPROG ---
Hospitalist Progress Note Assessment/Plan: I have personally seen and evaluated Ms. Ritu Guerrero. I agree with assessment and plan as outline by PAClementina, in a separate note. Objective: Vital Signs Temp Pulse Resp BP Pulse Ox 36.8 C 122 H 16 93/68 L 94 07/31/18 16:34 07/31/18 16:34 07/31/18 16:34 07/31/18 16:34 07/31/18 16:34 PT 14.0 SEC (12.0-15.0) 07/31/18 11:40 INR 1.06 (0.83-1.16) 07/31/18 11:40 ICD10 Worksheet Patient Problems: Problems Problem Status Onset Atrial fibrillation Acute Head ache Acute Atrial fibrillation and flutter Acute CHF (congestive heart failure) Acute Cardiomyopathy Acute Chest pain Acute Chronic Disease Mgmt/Transitional Care Acute Hypertension Acute Hypertensive emergency Acute Hypochloremia Acute Hyponatremia Acute Rapid atrial fibrillation Acute Sinusitis chronic, ethmoidal Acute Sinusitis chronic, frontal Acute
[2018-07-31] MEDS: traMADol 50 MG TAB PO PRN (18:29)
[2018-07-31] MEDS ORDERED: CHOLECALCIFEROL PO SCH (21:00)
[2018-07-31] MEDS ORDERED: CALCIUM CITRATE PO SCH (21:00)
[2018-07-31] MEDS ORDERED: [UNRECOGNIZED DRUG - OTHER] PO SCH (21:00)
[2018-07-31] MEDS: GABAPENTIN 300 MG CAP PO SCH (21:29)
[2018-07-31] MEDS: APIXABAN 2.5 MG TAB PO SCH (21:29)
[2018-07-31] MEDS: PROPAFENONE HCL SR 225 MG CAP PO SCH (21:29)
[2018-07-31] MEDS: hydrALAZINE 25 MG TAB PO SCH (21:31)
[2018-07-31] MEDS: METOPROLOL TARTRATE 50 MG TAB PO SCH (21:31)
[2018-07-31] MEDS: ACETAMINOPHEN 500 MG TAB PO SCH (21:32)
[2018-08-01 02:50] LABS: PLATELET COUNT 239 10^3/uL (150-400)
[2018-08-01] MEDS ORDERED: DILTIAZEM HCL/D5W 125 ML IV SCH (04:00)
[2018-08-01] MEDS: GABAPENTIN 300 MG CAP PO SCH ×2 (04:13→14:26)
[2018-08-01] MEDS: ACETAMINOPHEN 500 MG TAB PO SCH ×2 (04:14→14:26)
[2018-08-01] MEDS: ONDANSETRON DISINTEGRATING 4 MG TAB PO PRN ×2 (05:49→10:47)
[2018-08-01] MEDS ORDERED: FLUoxetine 20 MG CAP PO SCH (09:00)
[2018-08-01] MEDS ORDERED: CHOLECALCIFEROL VIT D3 2,000 UNITS TAB/CAP PO SCH (09:00)
[2018-08-01] MEDS ORDERED: LOSARTAN POTASSIUM 50 MG TAB PO SCH (09:00)
[2018-08-01] MEDS ORDERED: CALCIUM CARB W/VIT D 500 MG TAB PO SCH (09:00)
[2018-08-01] MEDS ORDERED: CETIRIZINE 10 MG TAB PO SCH (09:00)
[2018-08-01] MEDS ORDERED: PANTOPRAZOLE SODIUM 40 MG TAB PO SCH (09:00)
[2018-08-01] MEDS ORDERED: ASCORBIC ACID 500 MG TAB PO SCH (09:00)
[2018-08-01] MEDS: APIXABAN 2.5 MG TAB PO SCH (09:19)
[2018-08-01] MEDS: PROPAFENONE HCL SR 225 MG CAP PO SCH (09:19)
[2018-08-01] MEDS: traMADol 50 MG TAB PO PRN (09:20)
[2018-08-01] MEDS ORDERED: NS 1,000 ML IV ONE (09:35)
[2018-08-01] MEDS ORDERED: ATROPINE SULFATE 1 MG/10 ML SYR IVP ONE (09:35)
[2018-08-01] MEDS: hydrALAZINE 25 MG TAB PO SCH (10:04)
[2018-08-01] MEDS: DILTIAZEM CD 120 MG CAP PO SCH ×2 (10:04→14:26)
[2018-08-01] MEDS: METOPROLOL TARTRATE 50 MG TAB PO SCH (10:04)
[2018-08-01] MEDS ORDERED: ATROPINE SULFATE 1 MG/10 ML SYR ONE (12:40)
--- NOTE | 2018-08-01 12:42 | PDANEPAE ---
ANE History of Present Illness A-fib with RVR ANE Past Medical History - Cardiovascular History Hx Hypertension: Yes Hx Arrhythmias: Yes Hx Chest Pain: No Hx Coronary Artery / Peripheral Vascular Disease: No Hx CHF / Valvular Disease: No Cardiovascular History Comment: 2013-Afib, 2 cardioversions. - Pulmonary History Hx COPD: No Hx Asthma/Reactive Airway Disease: No Hx Recent Upper Respiratory Infection: No Hx Oxygen in Use at Home: No Hx Sleep Apnea: No Sleep Apnea Screening Result - Last Documented: Negative - Neurologic History Hx Cerebrovascular Accident: No Hx Seizures: No Hx Dementia: No - Endocrine History Hx Diabetes: No Obesity: no - Renal History Hx Renal Disorders: No - Liver History Hx Hepatic Disorders: No - Neurological & Psychiatric Hx Hx Neurological and Psychiatric Disorders: Yes Neurological / Psychiatric History Comment: Anxiety-med. - Cancer History Hx Cancer: Yes Cancer History Comment: Breast-surg. Chemo-R, radiation L. - Congenital Disorder History Hx Congenital Disorders: No - GI History GERD: mild Hx Gastrointestinal Disorders: Yes Gastrointestinal History Comment: Chronic constipation-meds. GERD-med. - Other Health History Other Health History: Bilateral hearing loss. Joint arthritis, osteoporosis. Uses walker. Permanent bilateral bridges. Warfarin-easy bruising. - Chronic Pain History Chronic Pain: Yes - Surgical History Prior Surgeries: 2011-L leg ORIF. Bilateral cataracts.2005-L knee plasty. 2003- R hip plasty, also 1998. 1991-R mastectomy. 2000- L breast lumpectomy. 1987- total hyst. 1969-GB surg. 1962-mandible surg. ANE Review of Systems Review of systems is: negative Review of Systems: - Exercise capacity Exercise capacity: >=4 METS ANE Patient History - Allergies Allergies/Adverse Reactions: codeine [Codeine] Allergy (Intermediate, Verified 07/31/18 11:02) Other-Enter Comments amlodipine besylate [From Norvasc] Allergy (Unknown, Verified 07/31/18 11:02) hydrochlorothiazide Allergy (Unknown, Verified 07/31/18 11:02) amoxicillin Allergy (Verified 07/31/18 11:02) Itching ciprofloxacin Allergy (Verified 07/31/18 11:02) Opioids - Morphine Analogues Allergy (Verified 07/31/18 11:02) Sulfa (Sulfonamide Antibiotics) Allergy (Verified 07/31/18 11:02) - Home Medications Home medications: home medication list seen and reviewed Home Medications: Acetaminophen [Tylenol Extra Strength] 1,000 mg PO TID@03/01/16 [Last Taken 07/31/18 14:00] Apixaban [Eliquis] 2.5 mg PO BID 03/01/16 [Last Taken 07/31/18 09:00] Ascorbic Acid [Vitamin C 500 mg (*)] 1,000 mg PO DAILY 03/01/16 [Last Taken 10/13] Cholecalciferol Vit D3 [Vitamin D3 2000 units tab (OTC)] 2,000 units PO DAILY [Last Taken 07/31/18] Herbals/Supplements -Info Only 1 ea PO DAILY 03/01/16 [Last Taken 07/12/18] Simethicone [GAS-X] 80 mg PO PC PRN 03/01/16 [Last Taken 07/11/18] Gabapentin [Neurontin] 600 mg PO TID@06/10/17 [Last Taken 07/31/18 14: 00] Cetirizine [ZyrTEC 10 mg (*)] 10 mg PO DAILY 07/12/18 [Last Taken 07/31/18] Diltiazem Cd [Cardizem ER 120 MG (*)] 120 mg PO DAILY 07/12/18 [Last Taken 07/31] FLUoxetine HCL [Fluoxetine HCl] 60 mg PO DAILY 07/12/18 [Last Taken 07/31/18] Hydralazine HCl 25 mg PO BID 07/12/18 [Last Taken 07/31/18 09:00] Pantoprazole Sodium [Protonix 40mg (*)] 40 mg PO DAILY 07/12/18 [Last Taken 10/13] traMADol [Ultram 50 mg (*)] 25 mg PO TID PRN 07/12/18 [Last Taken 07/12/18 12:00 ] Calcium Citrate W/Vit D [Citracal + D] 945 mg PO BID 07/15/18 [Last Taken 09:00] Metoprolol Tartrate [Lopressor 50 mg (*)] 25 mg PO BID 07/31/18 [Last Taken 10/13 09:00] Propafenone HCl Sr [Rythmol Sr 225mg (*)] 225 mg PO Q12 07/31/18 [Last Taken 10/13 09:00] - NPO status NPO Status: no food or drink >8 hours NPO Since - Liquids (Date): 08/01/18 NPO Since - Liquids (Time): 00:00 NPO Since - Solids (Date): 08/01/18 NPO Since - Solids (Time): 00:00 - Anes Hx Anes Hx: no prior problems - Smoking Hx Smoking Status: Never smoked - Alcohol Use Alcohol Use: None ANE Labs/Vital Signs - Labs Result Diagrams: 08/01/18 02:30 08/01/18 02:30 - Vital Signs Vital Signs: reviewed preoperatively; see RN documention for details Blood Pressure: 125/78 Heart Rate: 89 Respiratory Rate: 18 O2 Sat (%): 92 Height: 167.64 cm Weight: 57.9 kg ANE Physical Exam - Airway Neck exam: FROM Mallampati Score: Class 2 Mouth exam: normal dental/mouth exam - Pulmonary Pulmonary: no respiratory distress - Cardiovascular Cardiovascular: regular rate and rhythym - ASA Status ASA Status: III ANE Anesthesia Plan Anesthesia Plan: GA with mask
[2018-08-01] MEDS ORDERED: PROPOFOL 200 MG/20 ML VIAL ONE (12:43)
--- NOTE | 2018-08-01 13:00 | PDHPUP ---
History & Physical Update H&P update statement: This history and physical update is based on an assessment of the patient which was completed after admission or registration (within 24 hours), but prior to the surgery/procedure. H&P update: H&P reviewed & patient examined, no change in patient's condition since H&P completed
--- NOTE | 2018-08-01 13:13 | PDCARCONS ---
Cardiology Consult Reason for Consult: afib Chief Complaint: palpitations History of Present Illness: 83 yo known persistent atrial fibrillation and progressive valvular heart disease.Currently loading with Rythmol. Chronically anticoagulated. Rate controlled. She is now admitted with progressive palpitations AFib with rapid ventricular response. She has been seen by my partner Dr. Omalley. His plan was to continue loading her with Rythmol and attempt cardioversion in mid July. At that time he had requested assessment of her mitral valve. This morning she is feeling fair with palpitations and mild shortness of breath. She has no PND orthopnea. She has no chest pain. She has had no fever or chills. Patient's past medical history is 7 for takotsubo cardiomyopathy after shoulder surgery. AFib beginning in 2013 with cardioversions in the summer of 2013, summer. She has had a fall related to rate control. Risk include hypertension. She has a history of subclinical coronary disease based on angiograms in 2013 in 2016 History Information - Allergies/Home Medication List Allergies/Adverse Reactions: codeine [Codeine] Allergy (Intermediate, Verified 07/31/18 11:02) Other-Enter Comments amlodipine besylate [From Norvasc] Allergy (Unknown, Verified 07/31/18 11:02) hydrochlorothiazide Allergy (Unknown, Verified 07/31/18 11:02) amoxicillin Allergy (Verified 07/31/18 11:02) Itching ciprofloxacin Allergy (Verified 07/31/18 11:02) Opioids - Morphine Analogues Allergy (Verified 07/31/18 11:02) Sulfa (Sulfonamide Antibiotics) Allergy (Verified 07/31/18 11:02) Home Medications: Acetaminophen [Tylenol Extra Strength] 1,000 mg PO TID@06,14,22 03/01/16 [Last Taken 07/31/18 14:00] Apixaban [Eliquis] 2.5 mg PO BID 03/01/16 [Last Taken 07/31/18 09:00] Ascorbic Acid [Vitamin C 500 mg (*)] 1,000 mg PO DAILY 03/01/16 [Last Taken 10/13] Cholecalciferol Vit D3 [Vitamin D3 2000 units tab (OTC)] 2,000 units PO DAILY [Last Taken 07/31/18] Herbals/Supplements -Info Only 1 ea PO DAILY 03/01/16 [Last Taken 07/12/18] Simethicone [GAS-X] 80 mg PO PC PRN 03/01/16 [Last Taken 07/11/18] Gabapentin [Neurontin] 600 mg PO TID@06,14,22 06/10/17 [Last Taken 07/31/18 14: 00] Cetirizine [ZyrTEC 10 mg (*)] 10 mg PO DAILY 07/12/18 [Last Taken 07/31/18] Diltiazem Cd [Cardizem ER 120 MG (*)] 120 mg PO DAILY 07/12/18 [Last Taken 07/31] FLUoxetine HCL [Fluoxetine HCl] 60 mg PO DAILY 07/12/18 [Last Taken 07/31/18] Hydralazine HCl 25 mg PO BID 07/12/18 [Last Taken 07/31/18 09:00] Pantoprazole Sodium [Protonix 40mg (*)] 40 mg PO DAILY 07/12/18 [Last Taken 10/13] traMADol [Ultram 50 mg (*)] 25 mg PO TID PRN 07/12/18 [Last Taken 07/12/18 12:00 ] Calcium Citrate W/Vit D [Citracal + D] 945 mg PO BID 07/15/18 [Last Taken 09:00] Metoprolol Tartrate [Lopressor 50 mg (*)] 25 mg PO BID 07/31/18 [Last Taken 10/13 09:00] Propafenone HCl Sr [Rythmol Sr 225mg (*)] 225 mg PO Q12 07/31/18 [Last Taken 10/13 09:00] I have personally reviewed and updated: family history, medical history, social history, surgical history Past Medical History: - Past Medical History atrial fibrillation, coronary artery disease, hypertension, hyperlipidemia - Surgical History Reports: mastectomy - Family History Positive for: non-pertinent - Social History Smoking Status: Former smoker Alcohol Use: None Drug Use: None Physical Exam Physical Exam: Temp Pulse Resp BP Pulse Ox 36.6 C 89 18 125/78 H 92 08/01/18 11:44 08/01/18 12:42 08/01/18 12:42 08/01/18 12:42 08/01/18 12:42 Constitutional: no apparent distress Ears, Nose, Mouth, Throat: moist mucous membranes Cardiovascular: irregularly irregular Peripheral Pulses: 1+: carotid (R), carotid (L), femoral (R), femoral (L), dorsalis-pedis (R), dorsalis-pedis (L) Respiratory: no respiratory distress, no rales or rhonchi Gastrointestinal: normoactive bowel sounds, soft, non-tender abdomen Skin: warm Musculoskeletal: full muscle strength Neurologic: AAOx3, No facial droop Psychiatric: interacting appropriately Lymph, Heme, Immunologic: no cervical LAD, no supraclavicular LAD Lab and Imaging 08/01/18 02:30 08/01/18 02:30 WBC 4.09 10^3/uL (3.80-9.50) 08/01/18 02:30 RBC 3.97 10^6/uL (4.18-5.33) L 08/01/18 02:30 Hgb 12.5 g/dL (12.6-16.3) L 08/01/18 02:30 Hct 37.0 % (38.0-47.0) L 08/01/18 02:30 MCV 93.2 fL (81.5-99.8) 08/01/18 02:30 MCH 31.5 pg (27.9-34.1) 08/01/18 02:30 MCHC 33.8 g/dL (32.4-36.7) 08/01/18 02:30 RDW 13.4 % (11.5-15.2) 08/01/18 02:30 Plt Count 239 10^3/uL (150-400) 08/01/18 02:30 MPV 9.3 fL (8.7-11.7) 08/01/18 02:30 Neut % (Auto) 74.8 % (39.3-74.2) H 08/01/18 02:30 Lymph % (Auto) 18.6 % (15.0-45.0) 08/01/18 02:30 [place] % (Auto) 6.4 % (4.5-13.0) 08/01/18 02:30 Eos % (Auto) 0.0 % (0.6-7.6) L 08/01/18 02:30 Baso % (Auto) 0.0 % (0.3-1.7) L 08/01/18 02:30 Nucleat RBC Rel Count 0.0 % (0.0-0.2) 08/01/18 02:30 Absolute Neuts (auto) 3.06 10^3/uL (1.70-6.50) 08/01/18 02:30 Absolute Lymphs (auto) 0.76 10^3/uL (1.00-3.00) L 08/01/18 02:30 Absolute Monos (auto) 0.26 10^3/uL (0.30-0.80) L 08/01/18 02:30 Absolute Eos (auto) 0.00 10^3/uL (0.03-0.40) L 08/01/18 02:30 Absolute Basos (auto) 0.00 10^3/uL (0.02-0.10) L 08/01/18 02:30 Absolute Nucleated RBC 0.00 10^3/uL (0-0.01) 08/01/18 02:30 Immature Gran % 0.2 % (0.0-1.1) 08/01/18 02:30 Immature Gran # 0.01 10^3/uL (0.00-0.10) 08/01/18 02:30 PT 14.0 SEC (12.0-15.0) 07/31/18 11:40 INR 1.06 (0.83-1.16) 07/31/18 11:40 APTT 26.0 SEC (23.0-38.0) 07/31/18 11:40 Sodium 129 mEq/L (135-145) L 08/01/18 02:30 Potassium 4.0 mEq/L (3.5-5.2) 08/01/18 02:30 Chloride 98 mEq/L (97-110) 08/01/18 02:30 Carbon Dioxide 22 mEq/l (22-31) 08/01/18 02:30 Anion Gap 9 mEq/L (6-14) 08/01/18 02:30 BUN 14 mg/dL (7-23) 08/01/18 02:30 Creatinine 0.4 mg/dL (0.6-1.0) L 08/01/18 02:30 Estimated GFR > 60 08/01/18 02:30 Glucose 121 mg/dL (70-100) H 08/01/18 02:30 Calcium 8.3 mg/dL (8.5-10.4) L 08/01/18 02:30 POC Troponin I 0.00 ng/mL (0.00-0.08) 07/31/18 11:41 Troponin I < 0.012 ng/mL (0.000-0.034) 07/31/18 17:23 A/P Assessment: Impression: Recurrent persistent atrial fibrillation with rapid ventricular response despite standard of care. Likely being driven by progressive valvular heart disease with known mitral regurgitation. Recommendations are for DARSHAN cardioversion today. Continue Rythmol for maintenance of sinus rhythm. Continue anticoagulation. Continue rate control strategy as well. Clinical follow-up post procedure.
--- NOTE | 2018-08-01 13:16 | PDTEE1 ---
DARSHAN Cardioversion Procedure Procedure: electrical cardioversion, transesophageal echo Indications: atrial fibrillation Consent: signed and in chart Anticoagulation: eliquis Procedural Details: Pads were placed in anterior-posterior position. DARSHAN probe was advanced and standard images obtained. There is no evidence of left atrial or left atrial appendage thrombus. Synchronized cardioversion attempt #1: 200J Results: normal sinus rhythm Conclusions: successful DARSHAN cardioversion Patient Problems: Problems Problem Status Onset Atrial fibrillation and flutter Acute Cardiomyopathy Acute CHF (congestive heart failure) Acute Chronic Disease Mgmt/Transitional Care Acute Sinusitis chronic, frontal Acute Sinusitis chronic, ethmoidal Acute Head ache Acute Chest pain Acute Rapid atrial fibrillation Acute Hyponatremia Acute Hypochloremia Acute Hypertensive emergency Acute Hypertension Acute Atrial fibrillation Acute
--- NOTE | 2018-08-01 13:26 | POSTANESTH ---
Post Anesthetic Evaluation Cardiovascular Status: Normal, Stable Respiratory Status: Normal, Stable Level of Consciousness/Mental Status: Can Participate in Eval Pain Control: Adequate, Prn Tx Ordered Nausea/Vomiting Control: Adequate, Prn Tx Ordered Complications Possibly Related to Anesthesia: None Noted
--- NOTE | 2018-08-01 13:59 | ASMTCMCOM ---
CM Note CM Note Notes: Pts case discussed in tx rounds. Pt is a 83 y/o female admitted for afib w/ rvr. OT has been ordered and awaiting recommendations. Pt is going for a DARSHAN and cardioversion today. Pt will most likely d/c independent without any needs. CM available for changes. Plan: Independent Date Signed: 08/01/2018 01:59 PM Electronically Signed By:EVER Campos
[2018-08-01 15:01] VITALS: BP 139/78
--- NOTE | 2018-08-01 15:35 | GDS ---
[f rep st] DISCHARGE SUMMARY DISCHARGE DIAGNOSES: 1. Atrial fibrillation with rapid ventricular response. 2. Acute on chronic headache. 3. Coronary artery disease. 4. Hypertension. 5. Hyperlipidemia. PROCEDURE: Successful cardioversion 08/01/2018. CONSULTATION: Cardiology. HISTORY OF PRESENT ILLNESS: An 83-year-old female with CAD, atrial fibrillation , presenting from cardiology office with frontal headache. Rates it at 8/10. After receiving Decadron, Benadryl and metoprolol in the ER, it was still persistent. She denied vision changes, vomiting. Head CT was unremarkable. She was brought in for elective cardioversion and headache management. HOSPITAL COURSE BY PROBLEM: 1. Atrial fibrillation with RVR: Underwent echo 12/14/2017, showed preserved LV function with EF 65%, moderate to severe MR. Dr. Edmonds performed cardioversion Rythmol, metoprolol, and Eliquis. See Dr. Omalley in 1 week. 2. Nonfocal headache: CT head reassuring. May have been secondary to underlying AFib. Much improved today. 3. Hyponatremia: 129 today. This is at her baseline. 4. Hypertension: Resume home medications. 5. Anxiety/depression: On Prozac and gabapentin, p.r.n. Ativan. 6. Valvular heart disease: [id number] MR, mild TR. Euvolemic. DISPOSITION: The patient is stable for discharge. FOLLOWUP: Dr. Omalley in 1 week. PHYSICAL EXAMINATION: VITAL SIGNS: Today, temperature 36.4, blood pressure is 144/72, heart rate 80, respirations 18, 92% on room air. GENERAL: She is well- appearing smiling, in no acute distress. HEENT: PERRLA. Moist mucous membranes. CV: Irregularly irregular, now normal sinus rhythm after cardioversion. No edema. LUNGS: Clear. No crackles. ABDOMEN: Soft, nontender, nondistended. Positive bowel sounds. : No Martins. MUSCULOSKELETAL: 5/5 upper and lower extremity strength. NEURO: 2 through 12 intact. PSYCH: Alert and oriented x3. Time spent on discharge greater than 30 minutes coordinating discharge, discussing case with Dr. Edmonds. /[id number]/MODL MTDD
--- NOTE | 2018-08-02 09:52 | ECHO ---
[email or web address] [id number] Main: [phone] Fax: Transesophageal Echocardiography Name: ARTHUR JACOB MR#: [id number] Study Date: 08/01/2018 Study Time: 12:53 PM Date of : 1935 Age: 83 year(s) Height: ( ) Weight: ( ) BSA: Gender: Female Examination: DARSHAN Indication: Pre Cardioversion Image Quality: Contrast: Requested by: Liliam Alfaro Heart Rate: Rhythm: BP: / Procedure Staff Pneumatic Riveter: Darius Woodson RDCS Reading Physician: Rick Edmonds MD Requesting Provider: DARSHAN Exam Details Conclusions: No pericardial effusion. Preserved left ventricular systolic function. Dilated left atrium with moderate to severe mitral regurgitation and flail cord of the posterior leaflet of the mitral valve. No thrombus within the atrial appendage. No contraindications to cardioversion identified. Measurements: Chambers Valvular Assessment AV/MV Valvular Assessment TV/PV Normal Normal Normal Name Value Range Name Value Range Name Value Range Additional Measurements: Findings: Left Ventricle: Normal global systolic LV function. Left Atrium: The left atrium is severely dilated. Left Atrial Appendage: Good color flow doppler in the left atrial appendage. No thrombus in left appendage. Mitral Valve: Moderate to severe mitral regurgitation. There is flail of the posterior leaflet of the mitral valve. Aortic Valve: The aortic valve is tri-leaflet. Mild aortic cusp calcification is noted. Patient: ARTHUR JACOB Study Date: 08/01/2018 Page 1 of 2 12:53 PM l1n (No Signature Object) Patient: ARTHUR JACOB Study Date: 08/01/2018 Page 2 of 2 12:53 PM D:_[id number]
== END 2018-08-01 17:14 | disposition home or self-care (01) ==
LOC: F2W 16:16
PROVIDERS: ADMIT Internal Medicine; ATTEND Internal Medicine
DX: I48.1 Persistent atrial fibrillation (principal); R51 Headache; I34.0 Nonrheumatic mitral (valve) insufficiency; I36.1 Nonrheumatic tricuspid (valve) insufficiency; E87.1 Hypo-osmolality and hyponatremia; I51.81 Takotsubo syndrome; I25.10 Atherosclerotic heart disease of native coronary artery without angina pectoris; E78.5 Hyperlipidemia, unspecified; F32.9 Major depressive disorder, single episode, unspecified; F41.9 Anxiety disorder, unspecified; K21.9 Gastro-esophageal reflux disease without esophagitis; M81.0 Age-related osteoporosis without current pathological fracture; G50.0 Trigeminal neuralgia; Z79.01 Long term (current) use of anticoagulants; Z85.3 Personal history of malignant neoplasm of breast; Z87.891 Personal history of nicotine dependence; Z92.3 Personal history of irradiation; Z82.3 Family history of stroke; Z96.652 Presence of left artificial knee joint; Z96.641 Presence of right artificial hip joint; Z96.611 Presence of right artificial shoulder joint; Z88.0 Allergy status to penicillin; Z88.2 Allergy status to sulfonamides; Z90.11 Acquired absence of right breast and nipple; Z66 Do not resuscitate
CPT/HCPCS: 70450; 92960; 93005; 93312; 96374; 96375; 99285; G0378; J1100; J1200; J2704; J2765; 84484-ER; J0461

== ENCOUNTER 2018-08-08 07:33 | Inpatient (IN) | payer OTHER ==
[2018-08-08] MEDS ORDERED: NS 500 ML IV ONE (07:42)
--- NOTE | 2018-08-08 07:53 | EDPHY ---
H & P Time Seen by Provider: 08/08/18 07:38 HPI/ROS: HPI Atrial fibrillation. 83-year-old female by private vehicle. This patient has a history of atrial fibrillation. She was admitted to the hospital about a week ago with atrial fibrillation and RVR as well as a headache. She was electric cardioverted by Dr. Rick Edmonds on July 31 after a negative transesophageal echocardiogram. She was then discharged from the hospital with plan for follow- up with human resources consultant Dr. Earnest Omalley in 1 week. She is on Eliquis and has been on metoprolol. Dr. Edmonds added Rythmol 225 mg twice daily to her medication regiment. Her current medication regiment is 50 mg of metoprolol and 225 mg of Rythmol twice daily. She has not taken these medications this morning. She reports that she had some issues with constipation last night. She did have a bowel movement this morning. She reports that she felt fatigued and knew she was in AFib when she woke up this morning. She reports she was not in AFib when she went to sleep last night. She denies any chest pain no shortness of breath. ROS: Constitutional: No fever, no chills. As above. Eyes: No discharge. No changes in vision. ENT: No sore throat. No nasal congestion or rhinorrhea. Respiratory: No cough. No shortness of breath. Cardiac: No chest pain, as above. Gastrointestinal: No abdominal pain, no vomiting, no diarrhea. Genitourinary: No hematuria. No dysuria or increased frequency with urination. Musculoskeletal: No back pain. No neck pain. No myalgias or arthralgias. Skin: No rashes. Neurological: No headache. No focal weakness or altered sensation. Past medical history: Valvular disease. As above, cholecystectomy, right total hip replacement, right mastectomy, pelvis fracture, tib-fib fracture, hypertension, osteoporosis, broken heart syndrome. Social history: . Lives in [facility] living , no alcohol, nonsmoker. Physical Exam: General Appearance: Alert, no distress. This patient is responding to questions appropriately and in full sentences. This patient appears well- hydrated and well-nourished. Eyes: Pupils equal and round no pallor or injection. No lid edema, erythema or injection. Respiratory: There are no retractions, lungs are clear to auscultation anteriorly with good air movement bilaterally. Cardiovascular: Irregular tachycardia. No murmur. Gastrointestinal: Abdomen is soft and nontender, no masses, bowel sounds normal. No focal tenderness at McBurney's point. No Salguero sign. Neurological: Motor sensory function is grossly intact. Cranial nerves are normal. Gait is normal. Skin: Warm and dry, no rashes. Musculoskeletal: Neck is supple and nontender. Extremities are symmetrical. All joints range without pain or impingement. Psychiatric: No agitation. No depression. Database: EKG: EKG time is 7:45 a.m.; EKG shows a narrow complex atrial fibrillation with ventricular rate average of 125. Probable left ventricular hypertrophy. The QRS intervals are within normal limits. Prolonged QT interval noted. There are no ST-T wave changes indicative of ischemic or injury pattern. No evidence of right heart strain. Interpreted by me. Imaging: Procedures: Emergency department course: Triage vital signs reviewed. She is hypertensive. Tachycardic with a rate of 130. Vital signs are otherwise unremarkable. IV was placed. She was placed on a conveyor monitor. She was started on IV normal saline with 500 cc to be given over the next hour. EKG obtained and reviewed by myself. She has not taken her morning medications which include metoprolol 50 mg and Rythmol 225 mg. She will be given these medications initially as treatment of her atrial fibrillation with RVR. 9:10 a.m., the patient was re-evaluated, resting comfortably at this time. No chest pain, no shortness of breath. She is still in atrial fibrillation. Her rate has come down to the low 120s. She does have a history of valvular disease. I will consult with Cardiology on further management, rate control verses another DARSHAN and cardioversion. 9:10 a.m., spoke with on-call non cut filer Dr. Earnest Omalley. He is very familiar with this patient. He will come down to the emergency department and evaluate the patient and he and I will discuss a management plan. 9:55 a.m., Dr. Earnest Omalley of the cardiology service is currently at the patient' s bedside. He is reviewing the patient's echocardiogram. He has given the patient some IV metoprolol. He would like the patient admitted to the hospitalist service, telemetry observation in order to further evaluate her condition. Hospitalist paged. 10:00 a.m., spoke with on-call hospitalist, case discussed in detail, patient admitted to the hospitalist service in stable condition. Differential Diagnosis: The differential diagnosis on this patient includes but is not limited to atrial fibrillation with RVR. Acute coronary syndrome, thyroid storm, pulmonary embolism, ventricular tachycardia unlikely. This represents a partial list of diagnoses considered. These considerations are based on history , physical exam, past history, reassessment and diagnostic testing. Smoking Status: Former smoker Constitutional: Initial Vital Signs Temperature (C) 36.5 C 08/08/18 07:34 Heart Rate 130 H 08/08/18 07:34 Respiratory Rate 18 08/08/18 07:34 Blood Pressure 161/103 H 08/08/18 07:34 O2 Sat (%) 94 08/08/18 07:34 O2 Delivery Mode Nasal Cannula O2 (L/minute) 1.5 Allergies/Adverse Reactions: codeine [Codeine] Allergy (Intermediate, Verified 07/31/18 11:02) Other-Enter Comments amlodipine besylate [From Norvasc] Allergy (Unknown, Verified 07/31/18 11:02) hydrochlorothiazide Allergy (Unknown, Verified 07/31/18 11:02) amoxicillin Allergy (Verified 07/31/18 11:02) Itching ciprofloxacin Allergy (Verified 07/31/18 11:02) Opioids - Morphine Analogues Allergy (Verified 07/31/18 11:02) Sulfa (Sulfonamide Antibiotics) Allergy (Verified 07/31/18 11:02) Home Medications: Medication Instructions Recorded Acetaminophen [Tylenol Extra 1,000 mg PO TID@,,03/01/16 Strength] Apixaban [Eliquis] 2.5 mg PO BID 03/01/16 Ascorbic Acid [Vitamin C 500 mg 1,000 mg PO DAILY 03/01/16 (*)] Cholecalciferol Vit D3 [Vitamin D3 2,000 units PO DAILY 03/01/16 2000 units tab (OTC)] Herbals/Supplements -Info Only 1 ea PO DAILY 03/01/16 Simethicone [GAS-X] 80 mg PO PC PRN 03/01/16 Gabapentin [Neurontin] 600 mg PO TID@,,06/10/17 LORazepam [Ativan] 0.5 mg PO DAILY PRN #6 tablet 07/02/18 Cetirizine [ZyrTEC 10 mg (*)] 10 mg PO DAILY 07/12/18 Diltiazem Cd [Cardizem ER 120 MG 120 mg PO DAILY 07/12/18 (*)] FLUoxetine HCL [Fluoxetine HCl] 60 mg PO DAILY 07/12/18 Hydralazine HCl 25 mg PO BID 07/12/18 Pantoprazole Sodium [Protonix 40mg 40 mg PO DAILY 07/12/18 (*)] traMADol [Ultram 50 mg (*)] 25 mg PO TID PRN 07/12/18 Calcium Citrate W/Vit D [Citracal 945 mg PO BID 07/15/18 + D] Losartan Potassium [Cozaar 50 mg 100 mg PO DAILY tab 07/17/18 (*)] Metoprolol Tartrate [Lopressor 50 25 mg PO BID 07/31/18 mg (*)] Propafenone HCl Sr [Rythmol Sr 225 mg PO Q12 07/31/18 225mg (*)] Rythmol 150mg (*) 08/08/18 Medical Decision Making - Data Points Laboratory Results: Laboratory Results 08/08/18 07:51 08/08/18 07:51 08/08/18 08/08/18 08/08/18 07:54 07:51 07:51 WBC RBC Hgb Hct MCV MCH MCHC RDW Plt Count MPV Neut % (Auto) Lymph % (Auto) [place] % (Auto) Eos % (Auto) Baso % (Auto) Nucleat RBC Rel Count Absolute Neuts (auto) Absolute Lymphs (auto) Absolute Monos (auto) Absolute Eos (auto) Absolute Basos (auto) Absolute Nucleated RBC Immature Gran % Immature Gran # PT 13.1 SEC SEC (12.0-15.0) INR 0.97 (0.83-1.16) APTT 29.5 SEC SEC (23.0-38.0) Sodium 133 mEq/L L mEq/L (135-145) Potassium 4.6 mEq/L mEq/L (3.5-5.2) Chloride 98 mEq/L mEq/L (97-110) Carbon Dioxide 25 mEq/l mEq/l (22-31) Anion Gap 10 mEq/L mEq/L (6-14) BUN 12 mg/dL mg/dL (7-23) Creatinine 0.5 mg/dL L mg/dL (0.6-1.0) Estimated GFR > 60 Glucose 125 mg/dL H mg/dL (70-100) Calcium 9.5 mg/dL mg/dL (8.5-10.4) POC Troponin I 0.00 ng/mL ng/mL (0.00-0.08) TSH 2.130 uIU/mL uIU/mL (0.465-4.680) 08/08/18 08/08/18 07:51 07:41 WBC 7.06 10^3/uL 10^3/uL (3.80-9.50) RBC 5.11 10^6/uL 10^6/uL (4.18-5.33) Hgb 16.0 g/dL g/dL (12.6-16.3) Hct 47.6 % H % (38.0-47.0) MCV 93.2 fL fL (81.5-99.8) MCH 31.3 pg pg (27.9-34.1) MCHC 33.6 g/dL g/dL (32.4-36.7) RDW 13.7 % % (11.5-15.2) Plt Count 374 10^3/uL 10^3/uL (150-400) MPV 8.7 fL fL (8.7-11.7) Neut % (Auto) 63.6 % % (39.3-74.2) Lymph % (Auto) 24.2 % % (15.0-45.0) [place] % (Auto) 10.3 % % (4.5-13.0) Eos % (Auto) 0.6 % % (0.6-7.6) Baso % (Auto) 0.7 % % (0.3-1.7) Nucleat RBC Rel Count 0.0 % % (0.0-0.2) Absolute Neuts (auto) 4.49 10^3/uL 10^3/uL (1.70-6.50) Absolute Lymphs (auto) 1.71 10^3/uL 10^3/uL (1.00-3.00) Absolute Monos (auto) 0.73 10^3/uL 10^3/uL (0.30-0.80) Absolute Eos (auto) 0.04 10^3/uL 10^3/uL (0.03-0.40) Absolute Basos (auto) 0.05 10^3/uL 10^3/uL (0.02-0.10) Absolute Nucleated RBC 0.00 10^3/uL 10^3/uL (0-0.01) Immature Gran % 0.6 % % (0.0-1.1) Immature Gran # 0.04 10^3/uL 10^3/uL (0.00-0.10) PT INR APTT Sodium Potassium Chloride Carbon Dioxide Anion Gap BUN Creatinine Estimated GFR Glucose Calcium POC Troponin I TSH Cancelled Medications Given: Discontinued Medications Sodium Chloride (Ns) 500 mls @ 1,000 mls/hr IV EDNOW ONE PRN Reason: Protocol Stop: 08/08/18 08:11 Last Admin: 08/08/18 08:08 Dose: 500 mls Metoprolol Tartrate (Lopressor) 50 mg PO EDNOW ONE Stop: 08/08/18 07:58 Last Admin: 08/08/18 08:08 Dose: 50 mg Metoprolol Tartrate (Lopressor Injection) 5 mg IVP EDNOW ONE Stop: 08/08/18 09:39 Last Admin: 08/08/18 09:42 Dose: 5 mg Propafenone HCl (Rythmol) 225 mg PO EDNOW ONE Stop: 08/08/18 07:58 Last Admin: 08/08/18 08:27 Dose: 225 mg Point of Care Test Results: Chemistry 08/08/18 07:54 POC Troponin I 0.00 ng/mL ng/mL (0.00-0.08) Departure - Departure Disposition: [facility] Inpatient Acute Clinical Impression: Atrial fibrillation with RVR Referrals: Ludy Teresa MD [Primary Care Provider] - As per Instructions
[2018-08-08] MEDS ORDERED: PROPAFENONE HCL 150 MG TAB PO ONE (07:57)
[2018-08-08] MEDS ORDERED: METOPROLOL TARTRATE 50 MG TAB PO ONE (07:57)
[2018-08-08 08:02] LABS: PLATELET COUNT 374 10^3/uL (150-400)
[2018-08-08 08:11] LABS: INR 0.97 (0.83-1.16); PROTIME(PATIENT) 13.1 SEC (12.0-15.0)
[2018-08-08] MEDS ORDERED: METOPROLOL TARTRATE 5 MG/5 ML INJ IVP ONE (09:38)
[2018-08-08] MEDS ORDERED: ONDANSETRON 4 MG/2 ML VIAL IVP PRN (13:00)
[2018-08-08] MEDS ORDERED: ONDANSETRON DISINTEGRATING 4 MG TAB PO PRN (13:00)
[2018-08-08] MEDS ORDERED: ACETAMINOPHEN 325 MG TAB PO PRN (13:00)
[2018-08-08] MEDS ORDERED: LORazepam 0.5 MG TAB PO PRN (13:02)
[2018-08-08] MEDS ORDERED: SIMETHICONE 80 MG TAB CHEW PO PRN (13:02)
--- NOTE | 2018-08-08 13:31 | GHP ---
[f rep st] HISTORY AND PHYSICAL DATE OF ADMISSION: 08/08/2018 HISTORY OF PRESENT ILLNESS: The patient is a pleasant 83-year-old female with a history of mitral re gurgitation and atrial fibrillation. These are both longstanding. She was admitted about a week ago , and she underwent DARSHAN-directed cardioversion and the addition of propafenone. She was home for unm hospital really 5 days and developed palpitations and the sense of not feeling well, making her suspicious f or atrial fibrillation. She took her pulse, and it was elevated. She reported to the emergency depa rtment. She maintains she has been compliant with medications. No fever, chills, cough, sputum, nausea, vomiting, diarrhea. She does have some constipation, but di d move her bowels this morning. She takes prune juice alone to manage her constipation. REVIEW OF SYSTEMS: Complete 10-point review of systems conducted and negative except as noted in the HPI. PAST MEDICAL HISTORY: Atrial fibrillation, mitral regurgitation, hypertension, reflux, history of co ronary disease, Takotsubo syndrome, hip replacement, hysterectomy, knee replacement, bilateral mastec dinah, numerous cardioversions, right shoulder replacement. SOCIAL HISTORY: She is , lives at [facility] in independent living. No tobacco. No alc ohol. ALLERGIES: Codeine, amlodipine which she is also on, hydrochlorothiazide, amoxicillin, ciprofloxacin , opioids, sulfa. FAMILY HISTORY: Reviewed and unremarkable. PHYSICAL EXAMINATION: PRESENTING VITALS: Today, temp 36.8; blood pressure 140/100, now 122/66; puls e 96-123; breathing 20 times a minute; 97% on 1.5 L and 93% on room air. GENERAL: No acute distress . HEENT: Sclerae anicteric. Oropharynx clear. Mucous membranes are moist. NECK: Supple without lymphadenopathy or JVD. LUNGS: Clear to auscultation bilaterally with no crackles. HEART: S1, S2. Irregularly irregular. Tachycardic. ABDOMEN: Soft, nontender, nondistended. LOWER EXTREMITIES: Without edema. Calves are nontender. SKIN: Without rash. NEUROLOGIC: Exam is nonfocal. I discussed the case with Dr. Earnest Omalley. EKG interpreted by me showed atrial fibrillation at 1:25 wi th normal axis and intervals. T-wave inversion in leads III and avF, otherwise unremarkable. These T-wave inversions in the inferior leads are different than her prior EKG at a slower rate. LABORTORIES: Today, white count 7, hematocrit 47, platelets 374,000. Coags are essentially normal. Sodium 133, potassium 4.6, chloride 98, bicarb 25, BUN 12, creatinine 0.5, glucose 125. TSH is 2. Point of care troponin 0.00. I have discussed the case with Dr. Earnest Omalley. ASSESSMENT/PLAN: An 83-year-old female with recurrent atrial fibrillation. 1. Atrial fibrillation. This is valvular atrial fibrillation, given her mitral regurgitation. She has failed management with propafenone and a beta daniel. Cardiology is considering AV node ablatio n followed by pacemaker versus restarting amiodarone which she had been on about a decade ago. 2. Mitral regurgitation. The patient would probably benefit in a very limited way from surgical que ral valve intervention in that she is not in heart failure. 3. Hyponatremia. This is mild and somewhere near her baseline. We will follow. 4. Hypoxia. She had an oxygen requirement in the emergency department that vanished. We will follo w. DISPOSITION: Inpatient status. I suspect it will take greater than 2 midnights to manage her recurr ent atrial fibrillation. CODE: Full. /[id number]/MODL
--- NOTE | 2018-08-08 14:01 | PDCARCONS ---
Cardiology Consult Reason for Consult: Paroxysmal atrial fibrillation. Chief Complaint: Palpitations, chest pain. Requesting Physician: Rodrigo Ro History of Present Illness: Ms. Guerrero is well known to me from previous hospitalizations and from my outpatient clinic. She has a history of paroxysmal atrial fibrillation dating back at least 5 years. 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 In the past she has been treated with amiodarone which was discontinued in 2017 due to side effects of facial pain, sotalol which was discontinued due to prolongation of the QT interval and most recently with propafenone, diltiazem and metoprolol. She underwent cardioversion 1 week with successful lutheran of sinus rhythm an improvement in symptoms of palpitations and fatigue. She was doing well until this morning when she was awakened with a sensation of a very rapid heart rate. This was associated with mild chest pressure and symptoms of dyspnea. As result she came to the emergency department where she was noted to be in rapid atrial fibrillation with heart rates in the 130s to 140s. She had taken her normal medications however had not yet taking her morning doses. She was given IV metoprolol with an improvement in her rate control and a reduction in her symptoms. She had no evidence of congestive heart failure. History Information - Allergies/Home Medication List Allergies/Adverse Reactions: codeine [Codeine] Allergy (Intermediate, Verified 07/31/18 11:02) Other-Enter Comments amlodipine besylate [From Norvasc] Allergy (Unknown, Verified 07/31/18 11:02) hydrochlorothiazide Allergy (Unknown, Verified 07/31/18 11:02) amoxicillin Allergy (Verified 07/31/18 11:02) Itching ciprofloxacin Allergy (Verified 07/31/18 11:02) Opioids - Morphine Analogues Allergy (Verified 07/31/18 11:02) Sulfa (Sulfonamide Antibiotics) Allergy (Verified 07/31/18 11:02) Home Medications: Acetaminophen [Tylenol Extra Strength] 1,000 mg PO TID@06,14,22 03/01/16 [Last Taken 07/31/18 14:00] Apixaban [Eliquis] 2.5 mg PO BID 03/01/16 [Last Taken 08/07/18 21:00] Ascorbic Acid [Vitamin C 500 mg (*)] 1,000 mg PO DAILY 03/01/16 [Last Taken 05/15] Cholecalciferol Vit D3 [Vitamin D3 2000 units tab (OTC)] 2,000 units PO DAILY [Last Taken 08/07/18] Herbals/Supplements -Info Only 1 ea PO DAILY 03/01/16 [Last Taken 07/12/18] Simethicone [GAS-X] 80 mg PO PC PRN 03/01/16 [Last Taken 07/11/18] Gabapentin [Neurontin] 600 mg PO TID@06,14,06/10/17 [Last Taken 08/07/18 22: 00] Cetirizine [ZyrTEC 10 mg (*)] 10 mg PO DAILY 07/12/18 [Last Taken 08/07/18] Diltiazem Cd [Cardizem ER 120 MG (*)] 120 mg PO DAILY 07/12/18 [Last Taken 08/07] FLUoxetine HCL [Fluoxetine HCl] 60 mg PO DAILY 07/12/18 [Last Taken 08/07/18] Hydralazine HCl 25 mg PO BID 07/12/18 [Last Taken 08/07/18 21:00] Pantoprazole Sodium [Protonix 40mg (*)] 40 mg PO DAILY 07/12/18 [Last Taken 05/15] traMADol [Ultram 50 mg (*)] 25 mg PO TID PRN 07/12/18 [Last Taken 07/12/18 12:00 ] Calcium Citrate W/Vit D [Citracal + D] 945 mg PO BID 07/15/18 [Last Taken 21:00] Metoprolol Tartrate [Lopressor 50 mg (*)] 25 mg PO BID 07/31/18 [Last Taken 05/15 21:00] Propafenone HCl Sr [Rythmol Sr 225mg (*)] 225 mg PO Q12 07/31/18 [Last Taken 05/15 21:00] I have personally reviewed and updated: family history, medical history, social history, surgical history Past Medical History: - Past Medical History Additional medical history: Paroxysmal atrial fibrillation, moderate to severe mitral regurgitation, hypertension, GERD, nonobstructive CAD, history of takotsubo cardiomyopathy, osteoarthritis. - Surgical History Additional surgical history: Right shoulder replacement, bilateral mastectomy. - Family History Positive for: non-pertinent - Social History Smoking Status: Former smoker Alcohol Use: None Drug Use: None (She is currently a resident of [facility] Age in Years: 75 or older Sex: Female Congestive Heart Failure History: No Hypertension History: Yes Stroke/TIA/Thromboembolism History: No Vascular Disease History: No Diabetes Mellitus: No [id number] Score: 4 Physical Exam Physical Exam: Temp Pulse Resp BP Pulse Ox 36.7 C 107 H 12 122/66 H 93 08/08/18 12:06 08/08/18 12:06 08/08/18 12:06 08/08/18 12:06 08/08/18 12:10 O2 (L/minute) 1.52 Constitutional: no apparent distress, appears nourished, not in pain Eyes: PERRL, anicteric sclera, EOMI Ears, Nose, Mouth, Throat: moist mucous membranes, hearing normal, ears appear normal, no oral mucosal ulcers Cardiovascular: no murmur, rub, or gallop, irregularly irregular, No edema Respiratory: no respiratory distress, no rales or rhonchi, clear to auscultation Gastrointestinal: normoactive bowel sounds, soft, non-tender abdomen, no palpable masses Genitourinary: no bladder fullness, no bladder tenderness Skin: warm, normal color, no rashes or abrasions, no fluctuance, no induration, No mottled Musculoskeletal: full muscle strength, no muscle tenderness, normal joint ROM, no joint effusions Psychiatric: interacting appropriately, not anxious, not encephalopathic, thought process linear Lymph, Heme, Immunologic: no cervical LAD, no supraclavicular LAD Lab and Imaging 08/08/18 07:51 08/08/18 07:51 WBC 7.06 10^3/uL (3.80-9.50) 08/08/18 07:51 RBC 5.11 10^6/uL (4.18-5.33) 08/08/18 07:51 Hgb 16.0 g/dL (12.6-16.3) 08/08/18 07:51 Hct 47.6 % (38.0-47.0) H 08/08/18 07:51 MCV 93.2 fL (81.5-99.8) 08/08/18 07:51 MCH 31.3 pg (27.9-34.1) 08/08/18 07:51 MCHC 33.6 g/dL (32.4-36.7) 08/08/18 07:51 RDW 13.7 % (11.5-15.2) 08/08/18 07:51 Plt Count 374 10^3/uL (150-400) 08/08/18 07:51 MPV 8.7 fL (8.7-11.7) 08/08/18 07:51 Neut % (Auto) 63.6 % (39.3-74.2) 08/08/18 07:51 Lymph % (Auto) 24.2 % (15.0-45.0) 08/08/18 07:51 [place] % (Auto) 10.3 % (4.5-13.0) 08/08/18 07:51 Eos % (Auto) 0.6 % (0.6-7.6) 08/08/18 07:51 Baso % (Auto) 0.7 % (0.3-1.7) 08/08/18 07:51 Nucleat RBC Rel Count 0.0 % (0.0-0.2) 08/08/18 07:51 Absolute Neuts (auto) 4.49 10^3/uL (1.70-6.50) 08/08/18 07:51 Absolute Lymphs (auto) 1.71 10^3/uL (1.00-3.00) 08/08/18 07:51 Absolute Monos (auto) 0.73 10^3/uL (0.30-0.80) 08/08/18 07:51 Absolute Eos (auto) 0.04 10^3/uL (0.03-0.40) 08/08/18 07:51 Absolute Basos (auto) 0.05 10^3/uL (0.02-0.10) 08/08/18 07:51 Absolute Nucleated RBC 0.00 10^3/uL (0-0.01) 08/08/18 07:51 Immature Gran % 0.6 % (0.0-1.1) 08/08/18 07:51 Immature Gran # 0.04 10^3/uL (0.00-0.10) 08/08/18 07:51 PT 13.1 SEC (12.0-15.0) 08/08/18 07:51 INR 0.97 (0.83-1.16) 08/08/18 07:51 APTT 29.5 SEC (23.0-38.0) 08/08/18 07:51 Sodium 133 mEq/L (135-145) L 08/08/18 07:51 Potassium 4.6 mEq/L (3.5-5.2) 08/08/18 07:51 Chloride 98 mEq/L (97-110) 08/08/18 07:51 Carbon Dioxide 25 mEq/l (22-31) 08/08/18 07:51 Anion Gap 10 mEq/L (6-14) 08/08/18 07:51 BUN 12 mg/dL (7-23) 08/08/18 07:51 Creatinine 0.5 mg/dL (0.6-1.0) L 08/08/18 07:51 Estimated GFR > 60 08/08/18 07:51 Glucose 125 mg/dL (70-100) H 08/08/18 07:51 Calcium 9.5 mg/dL (8.5-10.4) 08/08/18 07:51 POC Troponin I 0.00 ng/mL (0.00-0.08) 08/08/18 07:54 TSH 2.130 uIU/mL (0.465-4.680) 08/08/18 07:51 Visualized and Interpreted Chest x-ray results: No Visualized and Interpreted imaging results: No Visualized and Interpreted EKG results: Yes EKG additional interpertation: Atrial fibrillation with a rapid ventricular response. LVH with strain. Telemetry: Atrial fibrillation. A/P Assessment: 1. Paroxysmal atrial fibrillation. She has failed medical therapy with amiodarone, sotalol and most recently Rythmol. She is symptomatic mostly with respect to elevated heart rates and irregularity to her pulse. 2. Myxomatous mitral valve disease. She has evidence of moderate to severe mitral regurgitation associated with structural changes and possibly a ruptured cord. She has been seen previously by CT surgery. She was thought not to be a surgical candidate. In discussing the case was structural heart, she really is not experiencing symptoms of heart failure breathlessness. A majority of her symptoms are related to atrial fibrillation not likely to be improved with performance of a percutaneous procedure. 3. Hypertension. Well controlled on her current medications. Plan: In general, I think that we have exhausted medical therapy options. I think the best course of action would be to implant a pacemaker in proceed with AV node ablation. This option as well as potentially reinstituting amiodarone was discussed with the patient. At the present time she favors pacemaker placement and AV node ablation. We will plan to hold her anticoagulants for the time being, make her NPO after midnight and plan for permanent pacemaker in the morning. Following that procedure, she can be seen in the outpatient setting by electrophysiology to electively schedule AV node ablation. Review of Systems - Review of Systems Constitutional: no symptoms reported EENTM: no symptoms reported Respiratory: see HPI Cardiology: see HPI Gastrointestinal/Abdominal: no symptoms reported Genitourinary: no symptoms reported Musculoskeletal: no symptoms reported Skin: no symptoms reported Neurological: no symptoms reported Endocrine: no symptoms reported Hematologic/Lymphatic: no symptoms reported All Other Systems: Reviewed and Negative
--- NOTE | 2018-08-08 14:12 | PDMN ---
Medical Necessity Medical necessity: Pt meets inpt criteria per MD order and MCG M-505, Atrial Fibrillation. 83 y/o w/hx mitral regurg ad afib and recent hospitalization w/[facility] /[facility] for afib presenting w/palpitations and not feeling well, admitted w/ valvular afib w/RVR, failed outpt management w/propafenone and beta daniel, cardiology consult pending, possibility of AV node ablation/PPM vs amiodorone initiation, mitral regurg to be addressed. Anticipate>2MN for ongoing eval/ management of recurrent afib.
[2018-08-08] MEDS: GABAPENTIN 300 MG CAP PO SCH ×2 (14:28→21:24)
[2018-08-08] MEDS: ACETAMINOPHEN 500 MG TAB PO SCH ×2 (14:28→21:24)
[2018-08-08] MEDS: PANTOPRAZOLE SODIUM 40 MG TAB PO SCH (16:18)
[2018-08-08] MEDS: CALCIUM CARB W/VIT D 500 MG TAB PO SCH (18:15)
[2018-08-08] MEDS ORDERED: PROPAFENONE HCL SR 225 MG CAP PO SCH (21:00)
[2018-08-08] MEDS ORDERED: METOPROLOL TARTRATE 50 MG TAB PO SCH (21:00)
[2018-08-08] MEDS ORDERED: APIXABAN 2.5 MG TAB PO SCH (21:00)
[2018-08-08] MEDS: METOPROLOL TARTRATE 50 MG TAB PO SCH (21:24)
[2018-08-08] MEDS: hydrALAZINE 25 MG TAB PO SCH (21:24)
[2018-08-09] MEDS: GABAPENTIN 300 MG CAP PO SCH ×3 (01:38→20:48)
[2018-08-09] MEDS: ACETAMINOPHEN 500 MG TAB PO SCH ×3 (01:38→20:46)
[2018-08-09 04:54] LABS: PLATELET COUNT 324 10^3/uL (150-400)
[2018-08-09 05:04] LABS: INR 1.1 (0.83-1.16); PROTIME(PATIENT) 14.4 SEC (12.0-15.0)
[2018-08-09] MEDS ORDERED: BACITRACIN IRRIGATION/NS 50,000 UNITS/1,000 ML BTL IRR ONE (06:00)
[2018-08-09] MEDS ORDERED: NS 1,000 ML IV ONE (06:00)
[2018-08-09] MEDS ORDERED: ceFAZolin 2 GM/DEXTROSE 100 ML IV ONE (07:30)
[2018-08-09] MEDS ORDERED: fentaNYL 100 MCG/2 ML INJ ONE (07:42)
[2018-08-09] MEDS ORDERED: LIDOCAINE 1% 300 MG/30 ML SDV ONE (07:42)
[2018-08-09] MEDS ORDERED: MIDAZOLAM 2 MG/2 ML VIAL ONE (07:42)
[2018-08-09] MEDS ORDERED: IOPAMIDOL (ISOVUE-300) 50 ML VIAL ONE (07:42)
[2018-08-09] MEDS ORDERED: LIDO/EPI 1% **for epidural** 30 ML SDV ONE (07:42)
[2018-08-09] MEDS ORDERED: BUPIVACAINE 0.5% 30 ML SDV ONE (07:42)
--- NOTE | 2018-08-09 08:33 | PDPROPOC ---
Sedation Plan of Care Sedation Plan of Care: vital signs stable, mental status noted, patient educated of risks, benefits, alternatives, patient can tolerate sedation ASA Classification: ASA 2 Planned drugs: fentanyl, midazolam Mallampati Score: Class 1 Mallampati Reference Image: Patient passed 3-3-2 rule?: Yes
[2018-08-09] MEDS ORDERED: Herbals/Supplements -Info Only PO SCH (09:00)
[2018-08-09] MEDS ORDERED: DILTIAZEM CD 120 MG CAP PO SCH (09:00)
--- NOTE | 2018-08-09 10:39 | CPIP ---
[f rep st] INVASIVE CARDIAC PROCEDURE DATE OF PROCEDURE: 08/09/2018 INDICATIONS: The patient is 83 years old. She has a history of paroxysmal atrial fibrillation and h as failed multiple medical therapies. Plans are for placement of a permanent pacemaker with an AV no de ablation to be done within the next month. PROCEDURE: Implantation of a dual-chamber pacemaker. TECHNIQUE: Following informed consent, in a fasting state and following the administration of prophy lactic antibiotics, the patient was brought to the cardiac catheterization laboratory. The left ches t was prepped and draped in usual sterile fashion. The skin below the left clavicle was infiltrated with 2% lidocaine. A venogram was performed, which identified a widely patent axillary subclavian system. Using a #10 b lade, a 3 cm incision was made. This incision was then carried bluntly down to the prepectoral fasci a and the pacemaker pocket was fashioned. Using modified Seldinger technique, 2 individual sticks we re made accessing the axillary vein at the level of the 1st rib. Two individual J-wires were then pl aced under fluoroscopy and visualized in the inferior vena cava. At this point, antibiotic soaked sp onge was placed in the pocket. Using the first J-wire, 6-Maori sheath was placed. This allowed us to place the right ventricular lead deep within the right ventricular apex. The sheath was torn away , the lead screwed in place, and the lead secured to the pacemaker pocket floor with 0 Ethibond. Usi ng the remaining wire, a 2nd 6-Maori sheath was placed. Using this sheath, the right atrial lead wa s placed in the right atrial appendage. The lead was then screwed into place and the sheath torn marisa y. The lead was sutured into place with 0 Ethibond. At this point, the antibiotic soaked sponge was removed from the pocket. The pocket was then irrigated with antibiotic-containing solution. Both l shayna were identified by serial number and affixed to the header according to oral and maxillofacial pathologist guidelines. The device was placed in the pocket. The pocket was then closed in 3 layers initially using 2 laye rs of interrupted suture with 2-0 and 3-0 Vicryl, and finally 3-0 Stratafix for the skin. Steri-Stri ps and a dry dressing were applied. DEVICE INFORMATION: The pacemaker is a [employer]'s Bloqronik Edora 8 DRT model #881635, serial #[id number]. The r ight atrial lead is a BiotroniSABIA Solia S45,, model #862006, serial #[id number]. The atrial and the vent ricular lead is a Biotronik Solia S53, model #270617, serial #[id number]. In the atrium, sensed fibril latory waves were 0.8 mV, through the device, 1.1 mV through the PSA. In the ventricle, the sensed R -waves were 7.3 mV with a lead impedance of 773 ohms and a capture threshold of 0.7 V at 0.4 msec. L ead impedance in atrial lead was 449 ohms. DISPOSITION: The patient be recovered in the CVC and returned to her room. /[id number]/MODL
--- NOTE | 2018-08-09 10:54 | SOAPPROG ---
SOAP Progress Note Assessment/Plan: Assessment: 1. Paroxysmal atrial fibrillation. She has failed medical therapy dating back a number of years. She has been on amiodarone, sotalol and most recently propafenone. Additionally, she has been treated with diltiazem and metoprolol without control of her arrhythmias. At this point, I feel that we have exhausted medical therapy. Yesterday, she was consented for implantation of a permanent pacemaker with plans for AV node ablation here within a month. 2. 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 This is associated with at least moderate to severe mitral regurgitation. This is asymptomatic however, obviously, may be contributing to her atrial fibrillation. She has been seen by CT surgery in the past and thought not to be a surgical candidate. In discussing the case with structural heart, given the fact that she is not symptomatic and the fact that a MitraClip would not improve her burden of atrial fibrillation it is thought that she is not a can defer MitraClip presently. 3. Hypertension. This is being managed fairly aggressively with reasonable blood pressure control. 4. History of takotsubo cardiomyopathy. No recurrence. Plan: 1. She will undergo implantation of a dual-chamber pacemaker today. 2. Following pacemaker placement we will up titrate her medications to gain control of her atrial fibrillation. 3. I discontinued her propafenone. 4. Tomorrow evening I would like to restart systemic anticoagulation. 5. She can follow up with electrophysiology in a month for plans for AV node ablation. 08/09/18 10:55 Subjective: She remains in atrial fibrillation. She has had occasions of palpitations and minimal chest discomfort however no symptoms of dyspnea. She has not had any fever. She denies cough and sputum production. Objective: Vital Signs Temp Pulse Resp BP Pulse Ox 36.5 C 109 H 14 130/87 H 92 08/09/18 03:50 08/09/18 03:50 08/09/18 03:50 08/09/18 03:50 08/09/18 03:50 Laboratory Results 08/09/18 04:02 08/09/18 04:02 08/08/18 08/09/18 08/10/18 05:59 05:59 05:59 Intake Total 600 Output Total 200 Balance 400 PT 14.4 SEC (12.0-15.0) 08/09/18 04:02 INR 1.10 (0.83-1.16) 08/09/18 04:02 Physical Exam - Physical Exam General Appearance: no apparent distress, thin Neck: non-tender, full range of motion, supple Respiratory: lungs clear Cardiac/Chest: tachycardia, irregularly irregular Peripheral Pulses: 2+: carotid (R), carotid (L) Abdomen: non-tender, soft Pelvic Exam: deferred Rectal: deferred Neuro/Psych: alert, oriented x 3 ICD10 Worksheet Patient Problems: Problems Problem Status Onset Atrial fibrillation with RVR Acute Atrial fibrillation Acute Atrial fibrillation and flutter Acute CHF (congestive heart failure) Acute Cardiomyopathy Acute Chest pain Acute Chronic Disease Mgmt/Transitional Care Acute Head ache Acute Hypertension Acute Hypertensive emergency Acute Hypochloremia Acute Hyponatremia Acute Rapid atrial fibrillation Acute Sinusitis chronic, ethmoidal Acute Sinusitis chronic, frontal Acute
--- NOTE | 2018-08-09 11:45 | CPEKG ---
Test Reason : OPEN Blood Pressure : / mmHG Vent. Rate : 128 BPM Atrial Rate : 127 BPM P-R Int : 152 ms QRS Dur : 097 ms QT Int : 357 ms P-R-T Axes : 000 059 -81 degrees QTc Int : 521 ms Atrial fibrillation LVH with secondary repolarization abnormality ST depression, probably rate related Prolonged QT interval Confirmed by Theron Santiago ([id number] on 08/09/2018 11:44:42 AM Referred By: Rodrigo Ro Confirmed By:Theron Santiago
[2018-08-09] MEDS: POLYETHYLENE GLYCOL 3350 17 GM PKT PO SCH (11:49)
[2018-08-09] MEDS: LOSARTAN POTASSIUM 50 MG TAB PO SCH (11:49)
[2018-08-09] MEDS: CALCIUM CARB W/VIT D 500 MG TAB PO SCH ×2 (11:49→16:35)
[2018-08-09] MEDS: FLUoxetine 20 MG CAP PO SCH (11:50)
[2018-08-09] MEDS: METOPROLOL TARTRATE 50 MG TAB PO SCH ×2 (11:50→20:47)
[2018-08-09] MEDS: DILTIAZEM CD 120 MG CAP PO SCH ×2 (11:50→20:48)
[2018-08-09] MEDS: PANTOPRAZOLE SODIUM 40 MG TAB PO SCH (11:50)
[2018-08-09] MEDS: hydrALAZINE 25 MG TAB PO SCH ×2 (11:50→22:54)
[2018-08-09] MEDS: ASCORBIC ACID 500 MG TAB PO SCH (11:50)
[2018-08-09] MEDS: CHOLECALCIFEROL VIT D3 2,000 UNITS TAB/CAP PO SCH (11:51)
--- NOTE | 2018-08-09 13:40 | HOSPPROG ---
Hospitalist Progress Note Assessment/Plan: 83 yo F w AF AF: failed medical therapy s/p pacer continue bb and dilt ablation in future MR: significant but no chf dispo: PT eval prior to dc as uses walker, lives in independent living in [place]: restart anticoag 08/10 Subjective: case d/w dr king. s/p dual chamber pacer Objective: Vital Signs Temp Pulse Resp BP Pulse Ox 36.6 C 124 H 18 103/59 L 92 08/09/18 13:28 08/09/18 13:28 08/09/18 13:28 08/09/18 13:28 08/09/18 13:28 Laboratory Results 08/09/18 04:02 08/09/18 04:02 08/08/18 08/09/18 08/10/18 05:59 05:59 05:59 Intake Total 600 320 Output Total 200 Balance 400 320 PT 14.4 SEC (12.0-15.0) 08/09/18 04:02 INR 1.10 (0.83-1.16) 08/09/18 04:02 - Physical Exam Constitutional: no apparent distress, appears nourished Eyes: PERRL, anicteric sclera Ears, Nose, Mouth, Throat: moist mucous membranes, hearing normal Cardiovascular: irregularly irregular, tachycardia Respiratory: no respiratory distress, no rales or rhonchi Gastrointestinal: normoactive bowel sounds, soft, non-tender abdomen Genitourinary: No paula in urethra Skin: warm, normal color Musculoskeletal: full muscle strength ICD10 Worksheet Patient Problems: Problems Problem Status Onset Atrial fibrillation with RVR Acute Atrial fibrillation Acute Atrial fibrillation and flutter Acute CHF (congestive heart failure) Acute Cardiomyopathy Acute Chest pain Acute Chronic Disease Mgmt/Transitional Care Acute Head ache Acute Hypertension Acute Hypertensive emergency Acute Hypochloremia Acute Hyponatremia Acute Rapid atrial fibrillation Acute Sinusitis chronic, ethmoidal Acute Sinusitis chronic, frontal Acute
[2018-08-09] MEDS: traMADol 50 MG TAB PO PRN (16:35)
--- NOTE | 2018-08-09 16:46 | ASMTCASEMG ---
Living Arrangements What is your living Answers: Alone arrangement? Who do you live with? Type Of Residence What kind of residence do Answers: Halfway you live in? Type of Residence Facility Name Notes: Patient lives at [facility] Discharge Plan Comments Coordination Status Comments Notes: Patient is an 83yo female who is being admitted for AFIB, mitral regurgitation, hyponatremia and hypoxia. Patient lives alone at [facility] in independent living. PT/OT evals have been ordered. D/C plan TBD. CM will follow. Date Signed: 08/09/2018 04:45 PM Electronically Signed By:Kristel Skaggs LCSW
--- NOTE | 2018-08-09 23:23 | CPEKG ---
Test Reason : OPEN Blood Pressure : / mmHG Vent. Rate : 125 BPM Atrial Rate : 124 BPM P-R Int : 104 ms QRS Dur : 098 ms QT Int : 356 ms P-R-T Axes : 000 064 -41 degrees QTc Int : 514 ms Atrial fibrillation Probable left ventricular hypertrophy Nonspecific T abnormalities, inferior leads Prolonged QT interval Confirmed by Yulissa Sequeira ([id number]) on 08/09/2018 11:22:51 PM Referred By: Yulissa Sequeira Confirmed By:Yulissa Sequeira
[2018-08-10] MEDS: traMADol 50 MG TAB PO PRN (03:06)
[2018-08-10] MEDS: ACETAMINOPHEN 500 MG TAB PO SCH ×3 (05:25→21:22)
[2018-08-10] MEDS: GABAPENTIN 300 MG CAP PO SCH ×3 (05:25→21:21)
[2018-08-10] MEDS: POLYETHYLENE GLYCOL 3350 17 GM PKT PO SCH (08:23)
[2018-08-10] MEDS: CHOLECALCIFEROL VIT D3 2,000 UNITS TAB/CAP PO SCH (08:24)
[2018-08-10] MEDS: LOSARTAN POTASSIUM 50 MG TAB PO SCH (08:24)
[2018-08-10] MEDS: ASCORBIC ACID 500 MG TAB PO SCH (08:24)
[2018-08-10] MEDS: PANTOPRAZOLE SODIUM 40 MG TAB PO SCH (08:24)
[2018-08-10] MEDS: FLUoxetine 20 MG CAP PO SCH (08:24)
[2018-08-10] MEDS: DILTIAZEM CD 120 MG CAP PO SCH ×2 (08:25→21:21)
[2018-08-10] MEDS: METOPROLOL TARTRATE 50 MG TAB PO SCH ×2 (08:25→21:22)
[2018-08-10] MEDS: CALCIUM CARB W/VIT D 500 MG TAB PO SCH ×2 (08:25→17:10)
[2018-08-10] MEDS: hydrALAZINE 25 MG TAB PO SCH (08:25)
--- NOTE | 2018-08-10 11:08 | HOSPPROG ---
Hospitalist Progress Note Assessment/Plan: 83 yo F w AF AF: failed medical therapy s/p pacer continue bb and dilt ablation in future orthostasis: d/w dr king dc losartan and hydral no change in arely agents gentle IVF (i L over 10 h) limited echo to rule out effusion MR: significant but no chf dispo: PT eval prior to dc as uses walker, lives in independent living in [place]: restart anticoag 08/10 Subjective: orthostatic and weak w PT this AM. tele: af 90-110's. case d/w dr king Objective: Vital Signs Temp Pulse Resp BP Pulse Ox 36.4 C 100 12 108/74 91 L 08/10/18 07:55 08/10/18 07:55 08/10/18 07:55 08/10/18 08:25 08/10/18 07:55 Laboratory Results 08/09/18 04:02 08/09/18 04:02 08/09/18 08/10/18 08/11/18 05:59 05:59 05:59 Intake Total 600 1170 Output Total 200 Balance 400 1170 PT 14.4 SEC (12.0-15.0) 08/09/18 04:02 INR 1.10 (0.83-1.16) 08/09/18 04:02 - Physical Exam Constitutional: no apparent distress, appears nourished Eyes: PERRL, anicteric sclera Ears, Nose, Mouth, Throat: moist mucous membranes, hearing normal Cardiovascular: no murmur, rub, or gallop, irregularly irregular Respiratory: no respiratory distress, no rales or rhonchi Gastrointestinal: normoactive bowel sounds, soft, non-tender abdomen Genitourinary: no bladder fullness, No paula in urethra Skin: warm, normal color Musculoskeletal: full muscle strength, no muscle tenderness Neurologic: AAOx3, sensation intact bilaterally Psychiatric: interacting appropriately ICD10 Worksheet Patient Problems: Problems Problem Status Onset Atrial fibrillation with RVR Acute Atrial fibrillation Acute Atrial fibrillation and flutter Acute CHF (congestive heart failure) Acute Cardiomyopathy Acute Chest pain Acute Chronic Disease Mgmt/Transitional Care Acute Head ache Acute Hypertension Acute Hypertensive emergency Acute Hypochloremia Acute Hyponatremia Acute Rapid atrial fibrillation Acute Sinusitis chronic, ethmoidal Acute Sinusitis chronic, frontal Acute
[2018-08-10] MEDS ORDERED: NS 1,000 ML IV SCH (11:15)
--- NOTE | 2018-08-10 16:34 | SOAPPROG ---
SOAP Progress Note Assessment/Plan: Assessment: 1. Paroxysmal atrial fibrillation. She has failed medical therapy dating back a number of years. She has been on amiodarone, sotalol and most recently propafenone. Additionally, she has been treated with diltiazem and metoprolol without control of her arrhythmias. At this point, I feel that we have exhausted medical therapy. Yesterday, she was consented for implantation of a permanent pacemaker with plans for AV node ablation here within a month. 2. 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 This is associated with at least moderate to severe mitral regurgitation. This is asymptomatic however, obviously, may be contributing to her atrial fibrillation. She has been seen by CT surgery in the past and thought not to be a surgical candidate. In discussing the case with structural heart, given the fact that she is not symptomatic and the fact that a MitraClip would not improve her burden of atrial fibrillation it is thought that she is not a can defer MitraClip presently. 3. Hypertension. This is being managed fairly aggressively with reasonable blood pressure control. 4. History of takotsubo cardiomyopathy. No recurrence. 08/10/2018: Generally she appears to be doing well. I suspect her hypotension is hemodynamically mediated. There is no indication of pneumothorax or pericardial effusion. Plan: 1. Discontinue losartan and hydralazine. 2. Continue metoprolol and diltiazem. 3. She can start systemic anticoagulation this evening. 4. Hopefully, he hemodynamics will remain stable we can discharge her tomorrow with plans for AV node ablation in the next month. 08/10/18 16:33 Subjective: She was noted to have hypotension earlier today with systolic blood pressures down into the 70s. These have subsequently resolved. I reviewed her chest x- ray. There was no indication of pneumothorax. Pacemaker leads are in good position. She had an echocardiogram done with no indication of a pericardial effusion. Objective: Vital Signs Temp Pulse Resp BP Pulse Ox 36.6 C 94 12 110/71 94 08/10/18 12:30 08/10/18 12:30 08/10/18 12:30 08/10/18 12:30 08/10/18 12:30 Laboratory Results 08/09/18 04:02 08/09/18 04:02 0208/10/18 08/11/18 05:59 05:59 05:59 Intake Total 600 1170 650 Output Total 200 Balance 400 1170 650 PT 14.4 SEC (12.0-15.0) 08/09/18 04:02 INR 1.10 (0.83-1.16) 08/09/18 04:02 Physical Exam - Physical Exam General Appearance: WD/WN, no apparent distress Respiratory: lungs clear Cardiac/Chest: irregularly irregular, other (Pacemaker in place with well- approximated wound.) Peripheral Pulses: 2+: carotid (R), carotid (L) Abdomen: non-tender, soft Pelvic Exam: deferred Rectal: deferred ICD10 Worksheet Patient Problems: Problems Problem Status Onset Atrial fibrillation and flutter Acute Cardiomyopathy Acute CHF (congestive heart failure) Acute Chronic Disease Mgmt/Transitional Care Acute Sinusitis chronic, frontal Acute Sinusitis chronic, ethmoidal Acute Head ache Acute Chest pain Acute Rapid atrial fibrillation Acute Hyponatremia Acute Hypochloremia Acute Hypertensive emergency Acute Hypertension Acute Atrial fibrillation Acute Atrial fibrillation with RVR Acute
--- NOTE | 2018-08-10 17:18 | PDCARPN ---
Cardiology Progress Note Assessment/Plan: 83-year-old female, early persistent atrial fibrillation, has failed medical therapy. Dr. Omalley discussed with me the role of pacemaker and AV node ablation. I agree with this plan. Pacemaker has been implanted this admission. AV node ablation is being scheduled for one-month post pacemaker implantation. My nurse will discuss this with the patient. Risks and benefits of EPS/ablation including but not limited to risks of , myocardial infarction, stroke, tamponade which may require emergent cardiac surgery, AV block requiring implantation of a permanent pacemaker, vascular access complications which may require surgery, deep venous thrombosis, pulmonary embolism, infection, risks associated with sedation/anesthesia were discussed with the patient. Risks and benefits specific to AV junction ablation including a risk of being pacemaker dependent i.e. risk of sudden or syncope in case of pacemaker failure. It was also emphasized that the pacemaker lower rate will be programmed at 80 ppm for the 1st 3 months to reduce the risk of sudden cardiac due to torsades de pointes. I also emphasized to the patient that this procedure does not prevent atrial fibrillation, is designed for rate control only, and therefore anticoagulation must be continued postprocedure. 08/10/18 17:16 Objective: Vital Signs (8 Hrs) Temp Pulse Resp BP Pulse Ox 08/10/18 17:12 36.4 C 87 14 107/84 H 90 L 08/10/18 12:30 36.6 C 94 12 110/71 94 08/10/18 12:16 36.6 C 89 14 87/52 L 93 08/10/18 10:39 73/53 L Intake/Output (24 Hrs) 08/09/18 08/10/18 08/11/18 11:59 11:59 11:59 Intake Total 920 850 650 Output Total 200 Balance 720 850 650 Intake: Oral (ml) 720 850 650 IV Intake (ml) 200 Output: Urine (ml) 200 Toilet 200 Other: Number of Voids Toilet 1 1 2 Number of Stools Toilet 1 1 Result Diagrams: 08/09/18 04:02 08/09/18 04:02 ICD10 Worksheet Patient Problems: Problems Problem Status Onset Atrial fibrillation and flutter Acute Cardiomyopathy Acute CHF (congestive heart failure) Acute Chronic Disease Mgmt/Transitional Care Acute Sinusitis chronic, frontal Acute Sinusitis chronic, ethmoidal Acute Head ache Acute Chest pain Acute Rapid atrial fibrillation Acute Hyponatremia Acute Hypochloremia Acute Hypertensive emergency Acute Hypertension Acute Atrial fibrillation Acute Atrial fibrillation with RVR Acute
[2018-08-10] MEDS: APIXABAN 2.5 MG TAB PO SCH (21:22)
[2018-08-11] MEDS: ACETAMINOPHEN 500 MG TAB PO SCH (05:41)
[2018-08-11] MEDS: GABAPENTIN 300 MG CAP PO SCH (05:41)
[2018-08-11 07:44] VITALS: BP 113/87
[2018-08-11] MEDS: METOPROLOL TARTRATE 50 MG TAB PO SCH (08:18)
[2018-08-11] MEDS: ASCORBIC ACID 500 MG TAB PO SCH (08:19)
[2018-08-11] MEDS: PANTOPRAZOLE SODIUM 40 MG TAB PO SCH (08:19)
[2018-08-11] MEDS: CALCIUM CARB W/VIT D 500 MG TAB PO SCH (08:19)
[2018-08-11] MEDS: DILTIAZEM CD 120 MG CAP PO SCH (08:19)
[2018-08-11] MEDS: CHOLECALCIFEROL VIT D3 2,000 UNITS TAB/CAP PO SCH (08:19)
[2018-08-11] MEDS: APIXABAN 2.5 MG TAB PO SCH (08:20)
[2018-08-11] MEDS: FLUoxetine 20 MG CAP PO SCH (08:20)
--- NOTE | 2018-08-11 09:32 | HOSPPROG ---
Hospitalist Progress Note Assessment/Plan: 83 yo F w AF AF: failed medical therapy s/p pacer continue bb and dilt ablation in future orthostasis: d/w dr king dc losartan and hydral no change in arely agents gentle IVF (i L over 10 h) limited echo to rule out effusion 08/11- vitals better MR: significant but no chf dispo: PT eval prior to dc as uses walker, lives in independent living in proph: home today > 30 MINUTES Subjective: bp/hr better Objective: Vital Signs Temp Pulse Resp BP Pulse Ox 36.7 C 80 19 113/87 H 92 08/11/18 07:43 08/11/18 07:43 08/11/18 07:43 08/11/18 08:19 08/11/18 07:43 Laboratory Results 08/09/18 04:02 08/09/18 04:02 08/10/18 08/11/18 08/12/18 05:59 05:59 05:59 Intake Total 1170 1440 Balance 1170 1440 PT 14.4 SEC (12.0-15.0) 08/09/18 04:02 INR 1.10 (0.83-1.16) 08/09/18 04:02 - Physical Exam Constitutional: no apparent distress, appears nourished Eyes: PERRL, anicteric sclera Ears, Nose, Mouth, Throat: moist mucous membranes, hearing normal Cardiovascular: regular rate and rhythym, no murmur, rub, or gallop, other ( pacer site OK) Respiratory: no respiratory distress, no rales or rhonchi Gastrointestinal: normoactive bowel sounds, soft, non-tender abdomen Genitourinary: no bladder fullness, No paula in urethra Skin: warm, normal color Musculoskeletal: full muscle strength, no muscle tenderness Neurologic: AAOx3 ICD10 Worksheet Patient Problems: Problems Problem Status Onset Atrial fibrillation with RVR Acute Atrial fibrillation Acute Atrial fibrillation and flutter Acute CHF (congestive heart failure) Acute Cardiomyopathy Acute Chest pain Acute Chronic Disease Mgmt/Transitional Care Acute Head ache Acute Hypertension Acute Hypertensive emergency Acute Hypochloremia Acute Hyponatremia Acute Rapid atrial fibrillation Acute Sinusitis chronic, ethmoidal Acute Sinusitis chronic, frontal Acute
--- NOTE | 2018-08-11 09:42 | SOAPPROG ---
SOAP Progress Note Assessment/Plan: Assessment: 1. Paroxysmal atrial fibrillation. She has failed medical therapy dating back a number of years. She has been on amiodarone, sotalol and most recently propafenone. Additionally, she has been treated with diltiazem and metoprolol without control of her arrhythmias. At this point, I feel that we have exhausted medical therapy. Yesterday, she was consented for implantation of a permanent pacemaker with plans for AV node ablation here within a month. 2. 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 This is associated with at least moderate to severe mitral regurgitation. This is asymptomatic however, obviously, may be contributing to her atrial fibrillation. She has been seen by CT surgery in the past and thought not to be a surgical candidate. In discussing the case with structural heart, given the fact that she is not symptomatic and the fact that a MitraClip would not improve her burden of atrial fibrillation it is thought that she is not a can defer MitraClip presently. 3. Hypertension. This is being managed fairly aggressively with reasonable blood pressure control. 4. History of takotsubo cardiomyopathy. No recurrence. 08/10/2018: Generally she appears to be doing well. I suspect her hypotension is hemodynamically mediated. There is no indication of pneumothorax or pericardial effusion. 08/11/2018: At this point, she appears much improved. Her heart rate in atrial fibrillation is nicely controlled. Plan: 1. Can be discharged from the hospital today on her current medications. 2. Follow-up with me has already been arranged for next week. 3. In 1 months time she will come in for an AV node ablation. 4. Will follow her myxomatous mitral valve disease longitudinally in the outpatient setting. 08/11/18 09:41 Subjective: She is doing well today. She has no complaints of dyspnea or chest discomfort. Chest x-ray from yesterday indicated a well-positioned pacemaker with no indications of pneumothorax. Following discontinuation of her ARB and hydralazine her hemodynamics have improved. Objective: Vital Signs Temp Pulse Resp BP Pulse Ox 36.7 C 80 19 113/87 H 92 08/11/18 07:43 08/11/18 07:43 08/11/18 07:43 08/11/18 08:19 08/11/18 07:43 Laboratory Results 08/09/18 04:02 08/09/18 04:02 08/10/18 08/11/18 08/12/18 05:59 05:59 05:59 Intake Total 1170 1440 Balance 1170 1440 PT 14.4 SEC (12.0-15.0) 08/09/18 04:02 INR 1.10 (0.83-1.16) 08/09/18 04:02 Physical Exam - Physical Exam General Appearance: no apparent distress, thin Respiratory: lungs clear Cardiac/Chest: irregularly irregular, other (Pacemaker site is free of hematoma and well approximated) Peripheral Pulses: 2+: carotid (R), carotid (L) Abdomen: non-tender Pelvic Exam: deferred Rectal: deferred ICD10 Worksheet Patient Problems: Problems Problem Status Onset Atrial fibrillation with RVR Acute Atrial fibrillation Acute Atrial fibrillation and flutter Acute CHF (congestive heart failure) Acute Cardiomyopathy Acute Chest pain Acute Chronic Disease Mgmt/Transitional Care Acute Head ache Acute Hypertension Acute Hypertensive emergency Acute Hypochloremia Acute Hyponatremia Acute Rapid atrial fibrillation Acute Sinusitis chronic, ethmoidal Acute Sinusitis chronic, frontal Acute
[2018-08-11] MEDS: POLYETHYLENE GLYCOL 3350 17 GM PKT PO SCH (10:13)
--- NOTE | 2018-08-11 12:21 | GDS ---
[f rep st] DISCHARGE SUMMARY DISCHARGE DIAGNOSES: 1. Poorly controlled atrial fibrillation failing medical therapy, now status post pacemaker. 2. Mitral regurgitation without heart failure. 3. History of coronary disease. See history and physical by Dr. Roel Hanley. The patient presented with atrial fibrillation. She had recently been started on propafenone and this was discontinued. Pacemaker was placed without co mplication. On the 1st day following the pacemaker placement on the , she was orthostatic. Her losartan and hydralazine were discontinued. On the following day, today, the day of discharge, her heart rate and blood pressure were improved. She is feeling well. Her Eliquis is resumed. She is discharged home with outpatient followup with Chai Santiago and Dr. Omalley for AV node ablation. She has a dual lead pacer. /[id number]/MODL
== END 2018-08-11 11:42 | disposition home or self-care (01) | DRG 244 ==
LOC: F2W 11:48 → OBSVTOIN 13:06
PROVIDERS: ADMIT Internal Medicine; ATTEND Internal Medicine
DX: I48.0 Paroxysmal atrial fibrillation (principal); I34.0 Nonrheumatic mitral (valve) insufficiency; I10 Essential (primary) hypertension; I25.10 Atherosclerotic heart disease of native coronary artery without angina pectoris; Z95.0 Presence of cardiac pacemaker; Z66 Do not resuscitate
CPT/HCPCS: 84484-ER; 96374; 97161-GP; 97165-GO; 97530-GO; 97535-GO; C1785; C1898; J0690; J2250; J3010; Q9967

== ENCOUNTER 2018-09-04 06:42 | Observation (INO) | payer OTHER ==
[2018-09-04] MEDS ORDERED: NS 1,000 ML IV ONE (06:47)
[2018-09-04 07:21] LABS: PLATELET COUNT 252 10^3/uL (150-400)
[2018-09-04 07:32] LABS: INR 1.03 (0.83-1.16); PROTIME(PATIENT) 13.1 SEC (12.0-15.0)
[2018-09-04] MEDS ORDERED: LIDOCAINE 1% 300 MG/30 ML SDV ONE (08:08)
[2018-09-04] MEDS ORDERED: HEPARIN 10,000 UNIT/10 ML MDV (1,000 UNIT/ML) ONE (08:08)
[2018-09-04] MEDS ORDERED: BUPIVACAINE 0.75% 10 ML SDV ONE (08:09)
[2018-09-04] MEDS ORDERED: ISOPROTERENOL HCL/D5W 0.2 MG/50 ML BAG IV ONE (08:09)
[2018-09-04] MEDS ORDERED: PROPOFOL/EMULSION 500 MG/50 ML BOTTLE IV ONE (08:13)
[2018-09-04] MEDS ORDERED: fentaNYL 100 MCG/2 ML INJ ONE (08:15)
--- NOTE | 2018-09-04 08:21 | PDANEPAE ---
ANE History of Present Illness 83 year old female for AV node ablation for A-fib. History of cardiomyopathy, htn, trigeminal neuralgia, depression. ANE Past Medical History - Cardiovascular History Hx Hypertension: Yes Hx Arrhythmias: Yes Hx Chest Pain: No Hx Coronary Artery / Peripheral Vascular Disease: Yes Hx CHF / Valvular Disease: Yes Cardiovascular History Comment: 2013-Afib, 2 cardioversions. - Pulmonary History Hx COPD: No Hx Asthma/Reactive Airway Disease: No Hx Recent Upper Respiratory Infection: No Hx Oxygen in Use at Home: No Hx Sleep Apnea: No - Neurologic History Hx Cerebrovascular Accident: No Hx Seizures: No Hx Dementia: No - Endocrine History Hx Diabetes: No - Renal History Hx Renal Disorders: No - Liver History Hx Hepatic Disorders: No - Neurological & Psychiatric Hx Hx Neurological and Psychiatric Disorders: Yes Neurological / Psychiatric History Comment: Anxiety-med. - Cancer History Hx Cancer: Yes Cancer History Comment: Breast-surg. Chemo-R, radiation L. - Congenital Disorder History Hx Congenital Disorders: No - GI History Hx Gastrointestinal Disorders: Yes Gastrointestinal History Comment: Chronic constipation-meds. GERD-med. - Other Health History Other Health History: Bilateral hearing loss. Joint arthritis, osteoporosis. Uses walker. Permanent bilateral bridges. Warfarin-easy bruising. - Chronic Pain History Chronic Pain: Yes - Surgical History Prior Surgeries: 2011-L leg ORIF. Bilateral cataracts.2005-L knee plasty. 2003- R hip plasty, also 1998. 1992-R mastectomy. 2000- L breast lumpectomy. 1987- total hyst. 1969-GB surg. 1962-mandible surg. ANE Review of Systems Review of systems is: negative Review of Systems: ANE Patient History - Allergies Allergies/Adverse Reactions: codeine [Codeine] Allergy (Intermediate, Verified 07/31/18 11:02) Other-Enter Comments amlodipine besylate [From Norvasc] Allergy (Unknown, Verified 07/31/18 11:02) hydrochlorothiazide Allergy (Unknown, Verified 07/31/18 11:02) amoxicillin Allergy (Verified 07/31/18 11:02) Itching ciprofloxacin Allergy (Verified 07/31/18 11:02) Opioids - Morphine Analogues Allergy (Verified 07/31/18 11:02) Sulfa (Sulfonamide Antibiotics) Allergy (Verified 07/31/18 11:02) - Home Medications Home Medications: Apixaban [Eliquis] 2.5 mg PO BID 03/01/16 [Last Taken 09/01/18] Ascorbic Acid [Vitamin C 500 mg (*)] 1,000 mg PO DAILY 03/01/16 [Last Taken 1 Day Ago ~09/03/18] Cholecalciferol Vit D3 [Vitamin D3 2000 units tab (OTC)] 2,000 units PO DAILY [Last Taken 1 Day Ago ~09/03/18] Herbals/Supplements -Info Only 1 ea PO DAILY 03/01/16 [Last Taken 1 Day Ago ~04/14] Gabapentin [Neurontin] 600 mg PO TID@,,06/10/17 [Last Taken 1 Day Ago ~] Cetirizine [ZyrTEC 10 mg (*)] 10 mg PO DAILY 07/12/18 [Last Taken 1 Day Ago ~04/14] Diltiazem Cd [Cardizem ER 120 MG (*)] 120 mg PO BID 07/12/18 [Last Taken 1 Day Ago ~09/03/18] FLUoxetine HCL [Fluoxetine HCl] 60 mg PO DAILY 07/12/18 [Last Taken 1 Day Ago ~ 09/03/18] Pantoprazole Sodium [Protonix 40mg (*)] 40 mg PO DAILY 07/12/18 [Last Taken 1 Day Ago ~09/03/18] Calcium Citrate W/Vit D [Citracal + D] 945 mg PO BID 07/15/18 [Last Taken 1 Day Ago ~09/03/18] Metoprolol Tartrate [Lopressor 50 mg (*)] 25 mg PO BID 07/31/18 [Last Taken 1 Week Ago ~08/28/18] Acetaminophen [Tylenol 325mg (*)] 325 mg PO DAILY 08/28/18 [Last Taken 1 Day Ago ~09/03/18] C/E/Zn/Cu/OM3/DHA/EPA/LUT/ZEAX [Preservision Areds 2 Softgel] 1 each PO BID 10/13 [Last Taken 1 Day Ago ~09/03/18] Calcium Carbonate [Tums 500MG (*)] 500 mg PO DAILY PRN 08/28/18 [Last Taken 1 Day Ago ~09/03/18] Cyanocobalamin [Vitamin B12 (*)] 1,000 mcg PO DAILY 08/28/18 [Last Taken 1 Day Ago ~09/03/18] Glucosamine/Chondroitin [Glucosamine/Chondroitin (*)] 1 each PO BID 08/28/18 [ Last Taken 1 Day Ago ~09/03/18] - Smoking Hx Smoking Status: Former smoker ANE Labs/Vital Signs - Labs Result Diagrams: 09/04/18 07:00 09/04/18 07:00 - Vital Signs Height: 167.64 cm Weight: 58.967 kg ANE Physical Exam - Airway Neck exam: decreased ROM Mallampati Score: Class 2 Mouth exam: normal dental/mouth exam - Pulmonary Pulmonary: no respiratory distress - Cardiovascular Cardiovascular: irregularly irregular - ASA Status ASA Status: III ANE Anesthesia Plan Anesthesia Plan: general endotracheal anesthesia
--- NOTE | 2018-09-04 08:39 | PDGENHP ---
History & Physical Chief Complaint: af with uncontrolled rates, palpitations, fatigue Relevant Physical Exam: s1s2 irreg. cta. ao3 Cardiorespiratory Assessment: for av node ablation. uti last week, afebrile
[2018-09-04] MEDS ORDERED: fentaNYL 100 MCG/2 ML INJ IVP PRN (08:50)
[2018-09-04] MEDS ORDERED: NALOXONE HCL 0.4 MG/ML INJ IVP PRN (08:50)
[2018-09-04] MEDS ORDERED: ACETAMINOPHEN 500 MG TAB PO PRN (08:50)
[2018-09-04] MEDS ORDERED: ONDANSETRON 4 MG/2 ML VIAL IVP PRN (08:50)
[2018-09-04] MEDS ORDERED: LORazepam 0.5 MG TAB PO PRN (09:35)
--- NOTE | 2018-09-04 09:37 | EPPROC ---
Electrophysiology Procedure Note: CATHETER MEDIATED ABLATION OF THE AV JUNCTION Procedures performed: 12999 AV node ablation Fluoroscopy INDICATION: Atrial fibrillation, unable to rate control despite maximally tolerated medical therapy Catheters & Anesthesia: The patient arrived in the Electrophysiology Laboratory in the fasting state. Moderate sedation was administered by Dr. Robin Nur. The right groin and left groin area were prepped and draped in the usual sterile manner. Appropriate non- invasive blood pressure, pulse oximetry and end-tidal CO2 monitoring was established. All catheters were placed percutaneously using the modified Seldinger technique and advanced into position under fluoroscopic guidance). At baseline the patient was noted to be in AFIB with a mean ventricular rate of 120 bpm. A #7 Dutch deflectable quadrapolar electrode catheter (2mm-5mm-2mm spacing) with 8 mm tip electrode was advanced to the right atrium. A total of 2 RF applications were delivered. There was complete AV block after RF1. Cessation of pacing revealed that there was no escape rhythm while pacing at 30 bpm (after glycopyrolate). Pacemaker implantation was done previously. The pacemaker was programmed to a lower rate of 80 ppm to reduce the risk of sudden associated with torsades de pointes. The lower rate will gradually be reduced to 60 ppm after 1 month . Fluoroscopically pacemaker lead positions were unchanged after procedure Pacemaker thresholds and impedances were unchanged after the procedure The catheters were removed. The patient was transferred to the cardiovascular holding area in stable condition. Vascular access sheaths will be removed in the holding area after 30 min of wait time. There were no apparent complications. CONCLUSIONS: 1. Atrial fibrillation with rapid ventricular response. 2. Successful ablation of the AV junction producing complete AV block. 3. No escape rhythm while pacing at 30 ppm. 4. No complications. Patient Problems: Problems Problem Status Onset Atrial fibrillation Acute Atrial fibrillation and flutter Acute Atrial fibrillation with RVR Acute CHF (congestive heart failure) Acute Cardiomyopathy Acute Chest pain Acute Chronic Disease Mgmt/Transitional Care Acute Head ache Acute Hypertension Acute Hypertensive emergency Acute Hypochloremia Acute Hyponatremia Acute Rapid atrial fibrillation Acute Sinusitis chronic, ethmoidal Acute Sinusitis chronic, frontal Acute
--- NOTE | 2018-09-04 09:48 | POSTANESTH ---
Post Anesthetic Evaluation Cardiovascular Status: Normal, Stable Respiratory Status: Normal, Stable Level of Consciousness/Mental Status: Mildly Sleepy, Arousable Pain Control: Adequate, Prn Tx Ordered Nausea/Vomiting Control: Adequate, Prn Tx Ordered Complications Possibly Related to Anesthesia: None Noted
[2018-09-04] MEDS ORDERED: ACETAMINOPHEN 325 MG TAB ONE (13:28)
[2018-09-04] MEDS: ACETAMINOPHEN 325 MG TAB PO PRN (14:30)
[2018-09-04] MEDS: GABAPENTIN 300 MG CAP PO SCH ×2 (15:50→21:02)
[2018-09-04] MEDS: APIXABAN 2.5 MG TAB PO SCH (15:50)
[2018-09-04] MEDS: PRESERVISION AREDS2 FORMULA EYE VIT 1 EACH PO SCH (21:02)
[2018-09-04] MEDS: METOPROLOL TARTRATE 50 MG TAB PO SCH (21:03)
[2018-09-05 04:23] LABS: PLATELET COUNT 233 10^3/uL (150-400)
[2018-09-05] MEDS: GABAPENTIN 300 MG CAP PO SCH (05:01)
[2018-09-05] MEDS: ACETAMINOPHEN 325 MG TAB PO PRN (05:03)
[2018-09-05] MEDS: APIXABAN 2.5 MG TAB PO SCH (08:18)
[2018-09-05] MEDS: PRESERVISION AREDS2 FORMULA EYE VIT 1 EACH PO SCH (08:19)
[2018-09-05] MEDS: METOPROLOL TARTRATE 50 MG TAB PO SCH (08:19)
[2018-09-05] MEDS ORDERED: ACETAMINOPHEN 325 MG TAB PO SCH (09:00)
[2018-09-05] MEDS ORDERED: CETIRIZINE 10 MG TAB PO SCH (09:00)
[2018-09-05] MEDS ORDERED: ASCORBIC ACID 500 MG TAB PO SCH (09:00)
[2018-09-05] MEDS ORDERED: FLUoxetine 20 MG CAP PO SCH (09:00)
[2018-09-05] MEDS ORDERED: PANTOPRAZOLE SODIUM 40 MG TAB PO SCH (09:00)
[2018-09-05 11:32] VITALS: BP 120/88
--- NOTE | 2018-09-05 12:48 | ASMTCMCOM ---
CM Note CM Note Notes: 09/05/2018 Case Mangaement Note Reviewed chart. Pt admitted for AV node ablation. Previous d/c have been independent returning to [facility]. Left VM with Magy at [facility]. There are no therapy evals ordered at this time. Case Management d/c poc: return to [facility] with follow up as directed. Case Management available if needs change. Date Signed: 09/05/2018 12:48 PM Electronically Signed By:Zara Thomason RN
--- NOTE | 2018-09-05 13:29 | ASDISCHSUM ---
Discharge Information Plan Status:Home with No Needs Medically Cleared to Leave:09/05/2018 Discharge Date:09/05/2018 CM D/C Disposition:Home, Routine, Self-Care ADT D/C Disposition:Home, Routine, Self-Care Projected Discharge Date:09/05/2018 Transportation at D/C:Self Discharge Delay Reason: Follow-Up Date:09/05/2018 Discharge Slot: Final Diagnosis: Placement Information Patient Contact Information Contact Name:CHRIS Relationship:Elisabeth Address: Work Phone: City:[place] Alternate Phone: State/[employer] Code:[place] Email: Financial Information Financial Class:Medicare Advantage Plans Primary Plan Desc:[employer] MEDICARE ADV Primary Plan Number:[id number] Secondary Plan Desc: Secondary Plan Number: Assessment Information LACE LACE Length of stay for Answers: 1 day current admission Acuity / Level of Answers: No Care: Did the patient have an inpatient admission? Comorbidities - select Answers: Any tumor (including all that apply lymphoma or leukemia) Congestive heart failure Coronary Artery Disease Opioid dependence / Chronic pain Other Notes: HTN; AFib # of Emergency department Answers: 3-4 visits in the last 6 months Social determinants Answers: Mental health diagnosis (anxiety, depression, pers onality disorders, etc.) Score: 18 Date Signed: 09/05/2018 01:29 PM Electronically Signed By:Zara Thomason RN [facility] CM Progress Note CM Note CM Note Notes: 09/05/2018 Case Mangaement Note Reviewed chart. Pt admitted for AV node ablation. Previous d/c have been independent returning to [facility]. Left VM with Magy at [facility]. There are no therapy evals ordered at this time. Case Management d/c poc: return to [facility] with follow up as directed. Case Management available if needs change. Date Signed: 09/05/2018 12:48 PM Electronically Signed By:Zara Thomason RN Intervention Information
--- NOTE | 2018-09-05 14:22 | GDS ---
[f rep st] DISCHARGE SUMMARY SUPERVISING DESIGN SPECIALIST: Theron Santiago MD ADMISSION DIAGNOSES: 1. Atrial fibrillation with rapid ventricular rates. 2. Cardiomyopathy. DISCHARGE DIAGNOSES: 1. Atrial fibrillation, status post atrioventricular node ablation. 2. Cardiomyopathy. PROCEDURES PERFORMED DURING HOSPITALIZATION: 1. Catheter mediated ablation of the AV junction. 2. Echocardiogram. 3. Electrocardiogram HOSPITAL COURSE: Patient presented 09/04/2018, for an AV node ablation in the setting of symptomatic atrial fibrillation with rapid ventricular rates, which have been difficult to medically manage. After undergoing implantation of her permanent pacemaker 1 month ago, she presented for AV node ablation, which was successfully performed by Dr. Theron Santiago without any intra-procedure complications. She has done very well in the postprocedure setting and has been up ambulating around her room this morning without issue. Device interrogation this morning demonstrates some underlying conduction, however, patient reports feeling much better overall. She is appropriate and stable for discharge home today. PHYSICAL EXAMINATION: GENERAL: Alert and oriented x4, in no apparent distress. VITAL SIGNS: Blood pressure 120/88, heart rate 79, respiratory rate 10, SpO2 93% on room air, temp 36.7 degrees Celsius. RESPIRATORY: Lungs are clear to auscultation without adventitious breath sounds. CARDIAC: Normal S1, S2. No S3 or S4. Rhythm is regular. ABDOMEN: Normoactive bowel sounds times all 4 quadrants. No masses or tenderness. Abdomen soft to palpation. SKIN: Cooper, warm, dry without cyanosis, clubbing, or peripheral edema. EXTREMITIES: Right groin pursestring suture removed intact without evidence of hematoma, redness, oozing, swelling, or warmth. Pulses are 2+ bilaterally. No edema. LABORATORY STUDIES: Drawn today: CBC and BMP relatively stable compared to preprocedure. Troponin 0.149, please note, elevated troponin is to be expected in the postprocedure setting. PROCEDURES: AV node ablation as mentioned above. Device interrogation this morning demonstrates some underlying conduction. Preliminary echocardiogram this morning demonstrates stable left ventricular systolic function without any wall motion abnormalities or pericardial effusion. Electrocardiogram this morning demonstrates a V paced rhythm without new ST-T wave or LA interval abnormalities. DISCHARGE DISPOSITION: Patient will be discharged home in stable condition. She is under activity restrictions as below. DISCHARGE MEDICATIONS: Please see discharge medication reconciliation sheet for full details. Please note, the patient was restarted on her Eliquis 6 hours post-procedure. We have discontinued her diltiazem at this time and will continue to monitor her blood pressures. She will continue her metoprolol at this time. DISCHARGE INSTRUCTIONS: Post-AV node ablation instructions reviewed with patient in detail. 1. We discussed activity restrictions including lifting more than 10 pounds and avoidance of submerged bathing for 10 days. 2. She will get up and walk around every 45 minutes for the next 45 days while awake. 3. We reviewed bleeding precautions, medication compliance, monitoring for signs and symptoms of infection, and monitoring for sustained arrhythmias. At the time of discharge, the patient verbalizes understanding regarding discharge instructions without questions or concerns. She will continue to monitor her symptoms and we will re-evaluate her underlying conduction in 4 weeks. If she has any symptoms related to her atrial fibrillation/underlying conduction, we may consider repeat AV node ablation at that time. She has a followup visit scheduled with Dr. Santiago in 3 to 4 weeks and she will follow up with our device clinic in 1 week. She will contact our clinic with any new or concerning symptoms prior to her upcoming visits. Time spent on discharge greater than 30 minutes. /[id number]/MODL MTDD
--- NOTE | 2018-09-05 15:21 | ECHO ---
[email or web address] [address] [address] Main: [phone] Echocardiography Examination Transthoracic Name: ARTHUR JACOB MR#: [id number] Study Date: 09/05/2018 Study Time: 06:00 AM Date of : 1935 Age: 83 year(s) Height: 167.6 cm (66 in.) Weight: 58.97 kg (130 lb.) BSA: 1.67 m2 Gender: Female Examination: Echo Contrast: Image Quality: Adequate Rhythm: Pacemaker rhythm Heart Rate: 60 bpm BP: 156 mmHg/87 mmHg Indication: Post EP study Procedure Staff Referring Physician: Director [employer]: Joanna Boudreaux [facility] Reading Physician: Markel Limon MD Requesting Provider: Ordering Physician: Radha Singh Indication: Post EP study Measurements Chambers AV/MV Label Value Normal Value Label Value Normal Value EF lower range (%) 50 % AV PGmax 5 mmHg EF upper range (%) 55 % AV PGmean 3 mmHg IVSd, 2D 1.2 cm (0.6cm - 1.1cm) AV Vmax, Caliper 1.1 m/s LVDd, 2D 5 cm (3.9cm - 5.3cm) PIYUSH D (continuity eq. 1.6 cm2 LVDs, 2D 3.5 cm (2.1cm - 4cm) VTI) LVEF, 2D 56 % (54% - 74%) MR (ERO) 0.19 cm2 LVEF, BP 55 % (55% - 70%) MR PISA Alias V. 38.5 cm/s LVEF, MOD2 55 % (55% - 70%) MR PISA Radius 0.7 cm LVEF, MOD4 54 % (55% - 70%) MR Reg. Fraction 42 % LVOT PGmean 1 mmHg MR Reg. Volume 40 ml LVOT Vmean 0.33 m/s MR Vena Contracta 0.7 cm LVOTd 2 cm (1.8cm - 2cm) MR Vmax 6310 m/s LVPWd, 2D 0.9 cm MR VTI 208 cm RVDd, 2D 3.8 cm (1.9cm - 3.8cm) MV Gertrudis 3.5 cm TAPSE 2 cm MV DT 124 ms LADs, 2D 4.3 cm (2.7cm - 3.8cm) MV E Vmax 0.97 m/s LAESV index, MOD2 61.7 ml/m2 MV PGmax 2 mmHg RA Area 27.7 cm2 MV PGmean 1 mmHg Additional Vessels MV VTI 9.83 cm Patient: ARTHUR JACOB Study Date: 09/05/2018 Page 1 of 3 06:00 AM Label Value Normal Value MVA D (continuity eq.) 3.3 cm2 AoAsc 3.3 cm TV/PV AoRoot, 2D 3 cm (1.4cm - 2.6cm) Label Value Normal Value RA Pressure 10 mmHg RVSP 57 mmHg TR Pmax 47 mmHg TR Vmax 3.41 m/s PV PGmax 1 mmHg PV Vmax, Caliper 0.6 m/s (0.6m/s - 0.9m/s) Conclusions Compared to a prior study dated 08/02/2018 there are now pacing wires in the right heart. No immediate complication post AV arely ablation. Left Ventricle: EF evaluated by EF (biplane Vora's). There is no regional wall motion abnormalities. Unable to assess Diastolic Dysfunction due to atrial fibrillation/a flutter. Right Ventricle: There is a pacemaker wire noted in the right ventricle. Left Atrium: The left atrium is severely dilated. Mitral Valve: Moderate to severe mitral regurgitation. There is mild mitral thickening. There is flail motion of the posterior mitral leaflet. Aortic Valve: There is no aortic stenosis. Pulmonary Vein: There is systolic blunting in the pulmonary vein. IVC: The inferior vena cava is dilated. The respirophasic change in diameter is more than 50%. Findings Left Ventricle: Left ventricle is normal in size. Normal global systolic left ventricular function. EF evaluated by EF (biplane Vora's). The ejection fraction, measured by Simpsons method, is 55 %. EF range is estimated at 50 % - 55 %. Left ventricle wall thickness is normal. There is no regional wall motion abnormalities. Unable to assess Diastolic Dysfunction due to atrial fibrillation/a flutter. Right Ventricle: There is a pacemaker wire noted in the right ventricle. Normal size right ventricle. Right ventricular systolic function is normal. Left Atrium: The left atrium is severely dilated. Right Atrium: Pacemaker wire noted in RA. Patient: ARTHUR JACOB Study Date: 09/05/2018 Page 2 of 3 06:00 AM Mitral Valve: Moderate to severe mitral regurgitation. No mitral valve stenosis. There is mild mitral thickening. There is flail motion of the posterior mitral leaflet. Aortic Valve: Aortic leaflets are structurally normal. Trivial aortic regurgitation is present. There is no aortic stenosis. The aortic valve is trileaflet. Tricuspid Valve: Moderate tricuspid regurgitation. Right Ventricular systolic pressure is measured at 57 mmHg. Pulmonary artery pressure moderately increased. Pulmonic Valve: Trivial pulmonic valve regurgitation is present. Aorta: The aortic root size in 2D measures 3.0 cm. The aortic root exhibits normal size. The ascending aorta measures 3.3 cm. Ascending aorta is normal in size. Aorta Measurements AoRoot, 2D is 3.0 cm. Pulmonary Vein: There is systolic blunting in the pulmonary vein. IVC: The inferior vena cava is dilated. The respirophasic change in diameter is more than 50%. No foreign bodies are observed in the inferior vena cava Pericardium: No pericardial effusion. Exam Details Procedure Ordered: Echo Procedure Status: Routine study Image Quality: Adequate Facility Location: Cardiac Echo 1 (No Signature Object) Patient: ARTHUR JACOB Study Date: 09/05/2018 Page 3 of 3 06:00 AM [id number]
--- NOTE | 2018-09-08 11:40 | CPEKG ---
Test Reason : OPEN Blood Pressure : / mmHG Vent. Rate : 085 BPM Atrial Rate : 085 BPM P-R Int : 116 ms QRS Dur : 144 ms QT Int : 502 ms P-R-T Axes : 000 -54 139 degrees QTc Int : 597 ms Ventricular-paced complexes Confirmed by Markel Limon ([id number]) on 09/08/2018 11:40:12 AM Referred By: Theron Santiago Confirmed By:Markel Limon
--- NOTE | 2018-09-08 11:40 | CPEKG ---
Test Reason : OPEN Blood Pressure : / mmHG Vent. Rate : 079 BPM Atrial Rate : 138 BPM P-R Int : 188 ms QRS Dur : 147 ms QT Int : 508 ms P-R-T Axes : 000 -79 086 degrees QTc Int : 583 ms Afib/flutter and ventricular-paced rhythm Confirmed by Markel Limon ([id number]) on 09/08/2018 11:39:44 AM Referred By: Theron Santiago Confirmed By:Markel Limon
--- NOTE | 2018-09-08 18:33 | CPEKG ---
Test Reason : OPEN Blood Pressure : / mmHG Vent. Rate : 128 BPM Atrial Rate : 142 BPM P-R Int : 112 ms QRS Dur : 080 ms QT Int : 357 ms P-R-T Axes : 000 063 -03 degrees QTc Int : 521 ms Atrial fibrillation Consider left ventricular hypertrophy Repolarization abnormality, prob rate related Prolonged QT interval Confirmed by Markel Limon ([id number]) on 09/08/2018 6:32:39 PM Referred By: Theron Santiago Confirmed By:Markel Limon
== END 2018-09-05 13:31 | disposition home or self-care (01) ==
LOC: FCATH 06:42 → F2W 09:33
PROVIDERS: ADMIT Internal Medicine Cardiovascular Disease; ATTEND Internal Medicine Cardiovascular Disease
DX: I48.0 Paroxysmal atrial fibrillation (principal); R00.0 Tachycardia, unspecified; I25.10 Atherosclerotic heart disease of native coronary artery without angina pectoris; I34.0 Nonrheumatic mitral (valve) insufficiency; K21.9 Gastro-esophageal reflux disease without esophagitis; I51.81 Takotsubo syndrome; E78.5 Hyperlipidemia, unspecified; F41.9 Anxiety disorder, unspecified; Z95.0 Presence of cardiac pacemaker; Z85.3 Personal history of malignant neoplasm of breast
CPT/HCPCS: 93306; 93619; 93623; 93650; C1732; G0378; J1644; J2704; J3010

== ENCOUNTER 2018-10-02 08:05 | Emergency (ER) | payer OTHER ==
[2018-10-02 08:36] LABS: PLATELET COUNT 244 10^3/uL (150-400)
--- NOTE | 2018-10-02 09:07 | EDPHY ---
H & P Stated Complaint: GERD, abd cramping Time Seen by Provider: 10/02/18 08:12 HPI/ROS: CHIEF COMPLAINT: Abdominal cramping, frequent bowel movements HISTORY OF PRESENT ILLNESS: 83-year-old female with hypertension and atrial fibrillation s/p ablation on Eliquis presents with abdominal cramping and frequent bowel movements. Onset of lower abdominal cramping 2 weeks ago, associated with frequent bowel movements. Typically, lower abdominal cramping occurs, followed by a small bowel movement. The bowel movements are normal in consistency and not bloody. This morning she awoke at 2:00 a.m. with central chest pain, the pain was typical of GERD. She usually takes Protonix daily for GERD. She was awake most of the night because of ongoing pain up and down her chest. She eventually took Ativan and Tylenol. Several day h/o dysuria and urinary frequency. No abdominal or chest pain currently. REVIEW OF SYSTEMS: complete 10 point ROS reviewed and is negative except for the noted elements in the HPI - Personal History Current Tetanus/Diphtheria Vaccine: Yes Current Tetanus Diphtheria and Acellular Pertussis (TDAP): Yes Tetanus Vaccine Date: 2004 - Medical/Surgical History Hx Asthma: No Hx Chronic Respiratory Disease: No Hx Diabetes: No Hx Cardiac Disease: Yes Hx Renal Disease: No Hx Cirrhosis: No Hx Alcoholism: No Hx HIV/AIDS: No Hx Splenectomy or Spleen Trauma: No Other PMH: afib w/ rvr, HTN, L TKA, osteoporosis, takotsubo syndrome. cardioversion x5 04/15/16, and 02/07, nat[place], right mastectomy, right hip replacement fx femur 2002, cataract 2008, fx tib/fib 2011, fx right pelvis, left breast lumpectomy with radiation, R shoulder replaced. - Social History Smoking Status: Former smoker - Physical Exam Exam: General Appearance: Alert, pleasant Eyes: Pupils equal and round, no conjunctival pallor ENT, Mouth: Mucous membranes moist Neck: Normal inspection Respiratory: Lungs are clear to auscultation Cardiovascular: Irregular rhythm Gastrointestinal: Abdomen is soft and nontender Rectal: Brown stool, no fecal impaction Neurological: A&O, nonfocal exam Skin: Warm and dry Extremities: Normal inspection Psychiatric: Mood and affect normal Constitutional: Initial Vital Signs Temperature (C) 36.5 C 10/02/18 08:07 Heart Rate 76 10/02/18 08:07 Respiratory Rate 18 04/08/19 08:07 Blood Pressure 164/109 H 10/02/18 08:07 O2 Sat (%) 91 L 10/02/18 08:07 O2 Delivery Mode Room Air Allergies/Adverse Reactions: codeine [Codeine] Allergy (Intermediate, Verified 10/02/18 08:07) Other-Enter Comments amlodipine besylate [From Norvasc] Allergy (Unknown, Verified 10/02/18 08:07) hydrochlorothiazide Allergy (Unknown, Verified 10/02/18 08:07) amoxicillin Allergy (Verified 10/02/18 08:07) Itching ciprofloxacin Allergy (Verified 10/02/18 08:07) Opioids - Morphine Analogues Allergy (Verified 10/02/18 08:07) Sulfa (Sulfonamide Antibiotics) Allergy (Verified 10/02/18 08:07) Home Medications: Medication Instructions Recorded Apixaban [Eliquis] 2.5 mg PO BID 03/01/16 Ascorbic Acid [Vitamin C 500 mg 1,000 mg PO DAILY 03/01/16 (*)] Cholecalciferol Vit D3 [Vitamin D3 2,000 units PO DAILY 03/01/16 2000 units tab (OTC)] Herbals/Supplements -Info Only 1 ea PO DAILY 03/01/16 Gabapentin [Neurontin] 600 mg PO TID@,14,06/10/17 LORazepam [Ativan] 0.5 mg PO DAILY PRN #6 tablet 07/02/18 Cetirizine [ZyrTEC 10 mg (*)] 10 mg PO DAILY 07/12/18 FLUoxetine HCL [Fluoxetine HCl] 60 mg PO DAILY 07/12/18 Pantoprazole Sodium [Protonix 40mg 40 mg PO DAILY 07/12/18 (*)] Calcium Citrate W/Vit D [Citracal 945 mg PO BID 07/15/18 + D] Metoprolol Tartrate [Lopressor 50 25 mg PO BID 07/31/18 mg (*)] Acetaminophen [Tylenol 325mg (*)] 325 mg PO DAILY 08/28/18 C/E/Zn/Cu/OM3/DHA/EPA/LUT/ZEAX 1 each PO BID 08/28/18 [Preservision Areds 2 Softgel] Calcium Carbonate [Tums 500MG (*)] 500 mg PO DAILY PRN 08/28/18 Cyanocobalamin [Vitamin B12 (*)] 1,000 mcg PO DAILY 08/28/18 Glucosamine/Chondroitin 1 each PO BID 08/28/18 [Glucosamine/Chondroitin (*)] Cephalexin [Keflex (*)] 500 mg PO BID #10 cap 10/02/18 Dicyclomine [Bentyl 10 MG (*)] 10 mg PO Q6 PRN #15 cap 10/02/18 Medical Decision Making - Diagnostics EKG Interpretation: EKG interpreted by me reveals a ventricular paced rhythm, rate 84, alternating with atrial fibrillation, right bundle branch block pattern. Interpretation: Abnormal EKG Imaging Results: Imaging Impressions Chest X-Ray 10/02/18 08:12 Impression: 1. Mild fluid overload/CHF suspected. Imaging: I viewed and interpreted images myself ED Course/Re-evaluation: Assessment: 1. Chest pain, atypical, stat EKG unremarkable, troponin normal. Now 7 hrs after onset of cp, with normal troponin, doubt ACS. Sx c/w GERD. continue Protonix, consider Maalox at bedtime. 2. Lower abd cramping and frequent BM's. Possibly secondary to recent med change. Abd is soft, NT and no leukocytosis. Imaging not indicated. Bentyl given. 3. CHF, mild: Elevated BNP and mild pulmonary edema on chest x-ray. No shortness of breath or hypoxia. Discussed with the patient and her daughter. Will follow up with PCP in the office. Differential Diagnosis: Differential diagnosis for abdominal pain includes though it is not limited to appendicitis, cholecystitis, diverticulitis, pyelonephritis, bowel perforation, small bowel obstruction. - Data Points Laboratory Results: Laboratory Results 10/02/18 08:25 10/02/18 08:25 10/02/18 10/02/18 10/02/18 09:30 09:10 09:00 WBC RBC Hgb Hct MCV MCH MCHC RDW Plt Count MPV Neut % (Auto) Lymph % (Auto) [place] % (Auto) Eos % (Auto) Baso % (Auto) Nucleat RBC Rel Count Absolute Neuts (auto) Absolute Lymphs (auto) Absolute Monos (auto) Absolute Eos (auto) Absolute Basos (auto) Absolute Nucleated RBC Immature Gran % Immature Gran # D-Dimer Sodium Potassium Chloride Carbon Dioxide Anion Gap BUN Creatinine Estimated GFR Glucose Calcium POC Troponin I 0.02 ng/mL ng/mL (0.00-0.08) NT-Pro-B Natriuret Pep Urine Color YELLOW Urine Appearance HAZY Urine pH 6.0 (5.0-7.5) Ur Specific [place] 1.016 (1.002-1.030) Urine Protein 1+ H (NEGATIVE) Urine Ketones TRACE H (NEGATIVE) Urine Blood NEGATIVE (NEGATIVE) Urine Nitrate NEGATIVE (NEGATIVE) Urine Bilirubin NEGATIVE (NEGATIVE) Urine Urobilinogen 4.0 EU H EU (0.2-1.0) Ur Leukocyte Esterase 2+ H (NEGATIVE) Urine RBC 5-10 /hpf H /hpf (0-3) Urine WBC 5-10 /hpf H /hpf (0-3) Ur Epithelial Cells TRACE /lpf /lpf (NONE-1+) Urine Mucus TRACE /lpf /lpf (NONE-1+) Urine Glucose NEGATIVE (NEGATIVE) Stool Occult Bld Scrn NEGATIVE (NEGATIVE) 10/02/18 10/02/18 10/02/18 08:25 08:25 08:25 WBC 7.21 10^3/uL 10^3/uL (3.80-9.50) RBC 4.35 10^6/uL 10^6/uL (4.18-5.33) Hgb 13.4 g/dL g/dL (12.6-16.3) Hct 40.4 % % (38.0-47.0) MCV 92.9 fL fL (81.5-99.8) MCH 30.8 pg pg (27.9-34.1) MCHC 33.2 g/dL g/dL (32.4-36.7) RDW 14.8 % % (11.5-15.2) Plt Count 244 10^3/uL 10^3/uL (150-400) MPV 9.6 fL fL (8.7-11.7) Neut % (Auto) 78.5 % H % (39.3-74.2) Lymph % (Auto) 13.2 % L % (15.0-45.0) [place] % (Auto) 7.6 % % (4.5-13.0) Eos % (Auto) 0.0 % L % (0.6-7.6) Baso % (Auto) 0.4 % % (0.3-1.7) Nucleat RBC Rel Count 0.0 % % (0.0-0.2) Absolute Neuts (auto) 5.66 10^3/uL 10^3/uL (1.70-6.50) Absolute Lymphs (auto) 0.95 10^3/uL L 10^3/uL (1.00-3.00) Absolute Monos (auto) 0.55 10^3/uL 10^3/uL (0.30-0.80) Absolute Eos (auto) 0.00 10^3/uL L 10^3/uL (0.03-0.40) Absolute Basos (auto) 0.03 10^3/uL 10^3/uL (0.02-0.10) Absolute Nucleated RBC 0.00 10^3/uL 10^3/uL (0-0.01) Immature Gran % 0.3 % % (0.0-1.1) Immature Gran # 0.02 10^3/uL 10^3/uL (0.00-0.10) D-Dimer 0.70 ug/mLFEU H ug/mLFEU (0.00-0.50) Sodium 133 mEq/L L mEq/L (135-145) Potassium 3.9 mEq/L mEq/L (3.5-5.2) Chloride 99 mEq/L mEq/L (97-110) Carbon Dioxide 22 mEq/l mEq/l (22-31) Anion Gap 12 mEq/L mEq/L (6-14) BUN 12 mg/dL mg/dL (7-23) Creatinine 0.5 mg/dL L mg/dL (0.6-1.0) Estimated GFR > 60 Glucose 120 mg/dL H mg/dL (70-100) Calcium 9.0 mg/dL mg/dL (8.5-10.4) POC Troponin I NT-Pro-B Natriuret Pep 7610 pg/mL H pg/mL (0-450) Urine Color Urine Appearance Urine pH Ur Specific [place] Urine Protein Urine Ketones Urine Blood Urine Nitrate Urine Bilirubin Urine Urobilinogen Ur Leukocyte Esterase Urine RBC Urine WBC Ur Epithelial Cells Urine Mucus Urine Glucose Stool Occult Bld Scrn Medications Given: Discontinued Medications Dicyclomine HCl (Bentyl) 10 mg PO EDNOW ONE Stop: 10/02/18 09:21 Last Admin: 10/02/18 09:23 Dose: 10 mg Point of Care Test Results: Chemistry 10/02/18 09:10 POC Troponin I 0.02 ng/mL ng/mL (0.00-0.08) Departure - Departure Disposition: Home, Routine, Self-Care Clinical Impression: Abdominal cramping Urinary tract infection Qualifiers: Urinary tract infection type: acute cystitis Hematuria presence: without hematuria Qualified Code(s): N30.00 - Acute cystitis without hematuria Condition: Good Instructions: Urinary Tract Infection in Women (ED), Gas and Bloating (ED) Additional Instructions: You have a urinary tract infection. Take Keflex as prescribed. Take Bentyl as needed for abdominal cramping. Continue Protonix for GERD symptoms. You may also take Mylanta or Maalox at bedtime. Avoid fatty and spicy foods. Return for worsening symptoms or any concerns. Referrals: Jas Adams MD [Primary Care Provider] - As per Instructions (Keep your appointment on Tuesday. Review the urine culture results at your follow-up visit.) Prescriptions: Cephalexin [Keflex (*)] 500 mg PO BID #10 cap Dicyclomine [Bentyl 10 MG (*)] 10 mg PO Q6 PRN #15 cap PRN Reason: abdominal cramping
[2018-10-02] MEDS ORDERED: DICYCLOMINE 10 MG CAP PO ONE (09:20)
[2018-10-02 10:01] VITALS: BP 159/110
--- NOTE | 2018-10-02 15:39 | CPEKG ---
Test Reason : OPEN Blood Pressure : / mmHG Vent. Rate : 084 BPM Atrial Rate : 082 BPM P-R Int : 064 ms QRS Dur : 143 ms QT Int : 484 ms P-R-T Axes : 000 094 -37 degrees QTc Int : 573 ms Atrial-sensed ventricular-paced complexes RBBB and LPFB Confirmed by Kadie Elise ([id number]) on 10/02/2018 3:39:14 PM Referred By: Kadie Elise Confirmed By:Kadie Elise
== END 2018-10-02 10:14 | disposition home or self-care (01) ==
DX: N30.00 Acute cystitis without hematuria (principal); R10.9 Unspecified abdominal pain; I51.81 Takotsubo syndrome; I48.91 Unspecified atrial fibrillation; K21.9 Gastro-esophageal reflux disease without esophagitis; I50.9 Heart failure, unspecified; Z79.01 Long term (current) use of anticoagulants; Z87.891 Personal history of nicotine dependence; Z96.652 Presence of left artificial knee joint; Z96.641 Presence of right artificial hip joint; Z96.611 Presence of right artificial shoulder joint; Z88.0 Allergy status to penicillin; Z90.11 Acquired absence of right breast and nipple; Z88.2 Allergy status to sulfonamides
CPT/HCPCS: 84484-ER

== ENCOUNTER 2018-10-09 21:38 | Observation (INO) | payer OTHER ==
--- NOTE | 2018-10-09 21:50 | EDPHY ---
H & P Time Seen by Provider: 10/09/18 21:40 HPI/ROS: CHIEF COMPLAINT: Atrial fibrillation, chest pain HISTORY OF PRESENT ILLNESS: Patient is an 83-year-old female who presents emergency department multiple complaints. She has a history of atrial fibrillation and is on Eliquis. She developed a headache for the past 24 hr. This afternoon she develops mild chest discomfort. She was noted to be tachycardic and subsequently sent to the emergency department. She normally takes diltiazem. She has not missed any doses. EMS found the patient to have a heart rate in the 150s. Patient denies any shortness of breath. At this time , the chest pain has resolved. She has a mild headache. REVIEW OF SYSTEMS: 10 systems were reveiwed and are negative with the exception of the elements mentioned in the history of present illness. Past Medical/Surgical History: Includes atrial fibrillation, hypertension Smoking Status: Former smoker Physical Exam: Vitals noted GENERAL: No acute distress, alert. HEENT: Eyes normal to inspection, normal pharynx, no signs of dehydration. NECK: Normal, supple. RESPIRATORY: Clear to auscultation bilaterally, no rales, rhonchi or wheezing. CVS: Irregularly irregular rhythm, tachycardia, no rubs, murmurs, or gallops. ABDOMEN: Soft, nontender, nondistended, no organomegaly. BACK: Normal to inspection, no CVA tenderness. SKIN: Normal color, no rash, warm, dry. No pallor. EXTREMITIES: No pedal edema, no calf tenderness, no joint swelling. NEURO/PSYCH: Alert. Answer my questions appropriately. No focal deficits. Constitutional: Initial Vital Signs Temperature (C) 36.7 C 10/09/18 21:34 Heart Rate 134 H 10/09/18 21:34 Respiratory Rate 20 10/09/18 21:34 Blood Pressure 148/117 H 10/09/18 21:34 O2 Sat (%) 89 L 10/09/18 21:34 O2 Delivery Mode Nasal Cannula O2 (L/minute) 3 Allergies/Adverse Reactions: codeine [Codeine] Allergy (Intermediate, Verified 10/09/18 21:41) Other-Enter Comments amlodipine besylate [From Norvasc] Allergy (Unknown, Verified 10/09/18 21:41) hydrochlorothiazide Allergy (Unknown, Verified 10/09/18 21:41) amoxicillin Allergy (Verified 10/09/18 21:41) Itching ciprofloxacin Allergy (Verified 10/09/18 21:41) Opioids - Morphine Analogues Allergy (Verified 10/09/18 21:41) Sulfa (Sulfonamide Antibiotics) Allergy (Verified 10/09/18 21:41) Home Medications: Medication Instructions Recorded Apixaban [Eliquis] 2.5 mg PO BID 03/01/16 Ascorbic Acid [Vitamin C 500 mg 1,000 mg PO DAILY 03/01/16 (*)] Cholecalciferol Vit D3 [Vitamin D3 2,000 units PO DAILY 03/01/16 2000 units tab (OTC)] Herbals/Supplements -Info Only 1 ea PO DAILY 03/01/16 Gabapentin [Neurontin] 600 mg PO TID@,,06/10/17 LORazepam [Ativan] 0.5 mg PO DAILY PRN #6 tablet 07/02/18 Cetirizine [ZyrTEC 10 mg (*)] 10 mg PO DAILY 07/12/18 FLUoxetine HCL [Fluoxetine HCl] 60 mg PO DAILY 07/12/18 Pantoprazole Sodium [Protonix 40mg 40 mg PO DAILY 07/12/18 (*)] Calcium Citrate W/Vit D [Citracal 945 mg PO BID 07/15/18 + D] Metoprolol Tartrate [Lopressor 50 25 mg PO BID 07/31/18 mg (*)] Acetaminophen [Tylenol 325mg (*)] 325 mg PO DAILY 08/28/18 C/E/Zn/Cu/OM3/DHA/EPA/LUT/ZEAX 1 each PO BID 08/28/18 [Preservision Areds 2 Softgel] Calcium Carbonate [Tums 500MG (*)] 500 mg PO DAILY PRN 08/28/18 Cyanocobalamin [Vitamin B12 (*)] 1,000 mcg PO DAILY 08/28/18 Glucosamine/Chondroitin 1 each PO BID 08/28/18 [Glucosamine/Chondroitin (*)] Cephalexin [Keflex (*)] 500 mg PO BID #10 cap 10/02/18 Dicyclomine [Bentyl 10 MG (*)] 10 mg PO Q6 PRN #15 cap 10/02/18 Medical Decision Making ED Course/Re-evaluation: In the emergency department I met EMS on arrival. I took report from the kiln pusher. Discussed the plan with the patient. I answered all her questions. EKG: Atrial fibrillation at 135. Right bundle branch block. ST depression. Laboratory studies were obtained. Patient given diltiazem 10 mg IV followed by diltiazem drip. Troponin is negative I discussed the results with the patient and her family. I discussed the results with Dr. Anna in. The patient will be admitted for further evaluation. Differential Diagnosis: My differential includes but is not limited to atrial flutter, atrial fibrillation, SVT, ACS, acute VT, electrolyte abnormality, sugar abnormality Critical Care Time: The patient required 35 min of critical care time. This is exclusive of any unbundled procedure. This was due to the patient's rapid heart rate, need for diltiazem, consultation with hospitalist service, time spent at the bedside, and admission. - Data Points Laboratory Results: Laboratory Results 10/09/18 21:50 10/09/18 10/09/18 10/09/18 21:50 21:50 21:50 WBC 5.88 10^3/uL 10^3/uL (3.80-9.50) RBC 4.29 10^6/uL 10^6/uL (4.18-5.33) Hgb 12.8 g/dL g/dL (12.6-16.3) Hct 39.4 % % (38.0-47.0) MCV 91.8 fL fL (81.5-99.8) MCH 29.8 pg pg (27.9-34.1) MCHC 32.5 g/dL g/dL (32.4-36.7) RDW 15.4 % H % (11.5-15.2) Plt Count 261 10^3/uL 10^3/uL (150-400) MPV 10.0 fL fL (8.7-11.7) Neut % (Auto) 71.4 % % (39.3-74.2) Lymph % (Auto) 18.7 % % (15.0-45.0) [place] % (Auto) 9.2 % % (4.5-13.0) Eos % (Auto) 0.2 % L % (0.6-7.6) Baso % (Auto) 0.2 % L % (0.3-1.7) Nucleat RBC Rel Count 0.0 % % (0.0-0.2) Absolute Neuts (auto) 4.20 10^3/uL 10^3/uL (1.70-6.50) Absolute Lymphs (auto) 1.10 10^3/uL 10^3/uL (1.00-3.00) Absolute Monos (auto) 0.54 10^3/uL 10^3/uL (0.30-0.80) Absolute Eos (auto) 0.01 10^3/uL L 10^3/uL (0.03-0.40) Absolute Basos (auto) 0.01 10^3/uL L 10^3/uL (0.02-0.10) Absolute Nucleated RBC 0.00 10^3/uL 10^3/uL (0-0.01) Immature Gran % 0.3 % % (0.0-1.1) Immature Gran # 0.02 10^3/uL 10^3/uL (0.00-0.10) PT 14.6 SEC SEC (12.0-15.0) INR 1.19 H (0.83-1.16) APTT 32.7 SEC SEC (23.0-38.0) Sodium Pending Potassium Pending Chloride Pending Carbon Dioxide Pending Anion Gap Pending BUN Pending Creatinine Pending Estimated GFR Pending Glucose Pending Calcium Pending POC Troponin I NT-Pro-B Natriuret Pep Pending 10/09/18 21:49 WBC RBC Hgb Hct MCV MCH MCHC RDW Plt Count MPV Neut % (Auto) Lymph % (Auto) [place] % (Auto) Eos % (Auto) Baso % (Auto) Nucleat RBC Rel Count Absolute Neuts (auto) Absolute Lymphs (auto) Absolute Monos (auto) Absolute Eos (auto) Absolute Basos (auto) Absolute Nucleated RBC Immature Gran % Immature Gran # PT INR APTT Sodium Potassium Chloride Carbon Dioxide Anion Gap BUN Creatinine Estimated GFR Glucose Calcium POC Troponin I 0.01 ng/mL ng/mL (0.00-0.08) NT-Pro-B Natriuret Pep Medications Given: Discontinued Medications Aspirin (Aspirin) 324 mg PO EDNOW ONE Stop: 10/09/18 21:52 Last Admin: 10/09/18 22:04 Dose: 324 mg Diltiazem HCl (Cardizem 25 Mg/5 Ml Vial) 10 mg IVP EDNOW ONE Stop: 10/09/18 21:52 Last Admin: 10/09/18 22:04 Dose: 10 mg Diltiazem/Dextrose (Diltiazem 125mg/125ml (Premix)) 125 mls @ 0 mls/hr IV EDNOW ONE; As Directed PRN Reason: Protocol Stop: 10/09/18 21:52 Last Admin: 10/09/18 22:15 Dose: 125 mls Sodium Chloride (Ns) 500 mls @ 1,000 mls/hr IV EDNOW ONE PRN Reason: Protocol Stop: 10/09/18 22:20 Last Admin: 10/09/18 22:04 Dose: 500 mls Point of Care Test Results: Chemistry 10/09/18 21:49 POC Troponin I 0.01 ng/mL ng/mL (0.00-0.08) Departure - Departure Disposition: [facility] Inpatient Acute Clinical Impression: Atrial fibrillation with RVR Condition: Good Referrals: Ludy Teresa MD [Primary Care Provider] - As per Instructions
[2018-10-09] MEDS ORDERED: NS 500 ML IV ONE (21:51)
[2018-10-09] MEDS ORDERED: DILTIAZEM 25 MG/5 ML VIAL IVP ONE (21:51)
[2018-10-09] MEDS ORDERED: ASPIRIN 81 MG CHEWABLE TAB PO ONE (21:51)
[2018-10-09] MEDS ORDERED: DILTIAZEM HCL/D5W 125 ML IV ONE (21:51)
[2018-10-09 22:39] LABS: PLATELET COUNT 261 10^3/uL (150-400)
[2018-10-09 22:47] LABS: INR 1.19 (0.83-1.16); PROTIME(PATIENT) 14.6 SEC (12.0-15.0)
[2018-10-09] MEDS ORDERED: NS 1,000 ML IV SCH (23:45)
[2018-10-09] MEDS ORDERED: ONDANSETRON 4 MG/2 ML VIAL IVP PRN (23:48)
[2018-10-09] MEDS ORDERED: ONDANSETRON DISINTEGRATING 4 MG TAB PO PRN (23:48)
[2018-10-10] MEDS: DILTIAZEM HCL/D5W 125 ML IV SCH ×2 (00:08→09:08)
--- NOTE | 2018-10-10 03:18 | PDGENHP ---
History and Physical - Chief Complaint Palpitation, chest pain - History of Present Illness Source-patient is able to provide all amount of history she is quite fatigued at time of interview. Her nephew who is also MD ODILON Adkins is at bedside supplements details. EMR was reviewed and case discussed with ED provider. HPI - the pleasant 83-year-old female with past medical history significant for chronic atrial fibrillation status post multi ablations, history of takotsubo cardiomyopathy, mitral regurg, HTN, GERD, CAD who presents to the ED today from [facility] complaints of palpitations and chest pain patient has a history of paroxysmal atrial fibrillation. She has undergone multiple ablations most recently on 09/05/2018 she was discharged on after ablation was completed by Dr. Alonzo. Patient's the nephew mentions that it was anticipate she may require an additional ablation however his she had follow-up scheduled for tomorrow morning. Patient in the emergency department was given IV fluid bolus, Cardizem bolus and drip. With decline in her heart rate from the 150s to 110s patient reported that her chest pain and headache resolved. Patient denies any fevers or chills. She denies any recent illnesses. No shortness of breath. Pain patient's nephew reports that she has a overall poor record of oral hydration but no issues with tolerating solids. History Information - Allergies/Home Medication List Allergies/Adverse Reactions: codeine [Codeine] Allergy (Intermediate, Verified 10/09/18 21:41) Other-Enter Comments amlodipine besylate [From Norvasc] Allergy (Unknown, Verified 10/09/18 21:41) hydrochlorothiazide Allergy (Unknown, Verified 10/09/18 21:41) amoxicillin Allergy (Verified 10/09/18 21:41) Itching ciprofloxacin Allergy (Verified 10/09/18 21:41) Opioids - Morphine Analogues Allergy (Verified 10/09/18 21:41) Sulfa (Sulfonamide Antibiotics) Allergy (Verified 10/09/18 21:41) Home Medications: Apixaban [Eliquis] 2.5 mg PO BIDMEAL 03/01/16 [Last Taken 10/09/18 18:00] Ascorbic Acid [Vitamin C 500 mg (*)] 1,000 mg PO DAILY 03/01/16 [Last Taken ] Cholecalciferol Vit D3 [Vitamin D3 2000 units tab (OTC)] 2,000 units PO DAILY [Last Taken 10/09/18] Herbals/Supplements -Info Only 1 ea PO DAILY 03/01/16 [Last Taken 1 Day Ago ~04/14] Gabapentin [Neurontin] 600 mg PO TID@06,14,22 06/10/17 [Last Taken 10/09/18 14: 00] Cetirizine [ZyrTEC 10 mg (*)] 10 mg PO DAILY 07/12/18 [Last Taken 10/09/18] FLUoxetine HCL [Fluoxetine HCl] 60 mg PO DAILY 07/12/18 [Last Taken 10/09/18] Pantoprazole Sodium [Protonix 40mg (*)] 40 mg PO DAILY 07/12/18 [Last Taken ] Calcium Citrate W/Vit D [Citracal + D] 945 mg PO BIDMEAL 07/15/18 [Last Taken 18:00] Metoprolol Tartrate [Lopressor 50 mg (*)] 50 mg PO BIDMEAL 07/31/18 [Last Taken 10/09/18 18:00] C/E/Zn/Cu/OM3/DHA/EPA/LUT/ZEAX [Preservision Areds 2 Softgel] 1 each PO BIDMEAL 08/28/18 [Last Taken 10/09/18 18:00] Calcium Carbonate [Tums 500MG (*)] 500 mg PO DAILY PRN 08/28/18 [Last Taken 1 Day Ago ~09/03/18] Cyanocobalamin [Vitamin B12 (*)] 1,000 mcg PO DAILY 08/28/18 [Last Taken ] Glucosamine/Chondroitin [Glucosamine/Chondroitin (*)] 1 each PO BIDMEAL [Last Taken 10/09/18 18:00] Acetaminophen [Tylenol ES 500 mg (*)] 1,000 mg PO TIDMEAL 10/10/18 [Last Taken 10/09/18 18:00] Diltiazem HCl [Cartia Xt] 120 mg PO DAILY 10/10/18 [Last Taken 10/09/18] I have personally reviewed and updated: family history, medical history, social history, surgical history Past Medical History: See HPI list - Past Medical History atrial fibrillation (s/p multiple ablations), coronary artery disease, hypertension, hyperlipidemia Additional medical history: Paroxysmal atrial fibrillation with 1st occurrence in 2013 during episode of takotsubo, moderate to severe mitral regurgitation, hypertension, GERD, nonobstructive CAD, history of takotsubo cardiomyopathy, osteoarthritis, trigeminal neuralgia, osteoporosis, HTN, history of breast cancer status post mastectomy - Surgical History Reports: mastectomy Additional surgical history: Right shoulder replacement, bilateral mastectomy., right SAAD, his, TKA, mastectomy, multiple cardioversions, cardiac cath 1013 2015 , cholecystectomy, left fibula repair, dual chamber pacer (Biotronic), bilateral cataract extraction with lens placement. - Family History Additional family history: Diabetes, CVA, CAD - Social History Smoking Status: Former smoker Tobacco Use: Cigarettes Alcohol Use: None Drug Use: None Additional social history: Patient resides at [facility] living [facility]. No home O2 requirement. She does utilize a walker. Patient' s nephew Jed is MD DONALD. Cor status-DNR. Review of Systems Review of Systems: ROS: 10pt was reviewed & negative except for what was stated in HPI & below Physical Exam Physical Exam: Selected Entries 10/09/18 21:34 Blood Pressure Automatic Method Heart Rate 134 H Respiratory 20 Rate O2 Sat (%) 89 L Temperature (C) 36.7 C Blood Pressure 148/117 H Mean Arterial 127 H Pressure (MAP) O2 Delivery Room Air Mode Temperature Oral Source Temp Pulse Resp BP Pulse Ox 36.7 C 120 H 20 146/100 H 90 L 10/10/18 00:03 10/10/18 00:03 10/10/18 00:03 10/10/18 00:03 10/10/18 00:03 O2 (L/minute) 3 Constitutional: no apparent distress, appears nourished, chronically ill appearing, other (NAD. Pleasant elderly female is lying quietly in bed she does fall asleep intermittently during the interview. Her nephew is at bedside. ), No uncomfortable Eyes: PERRL (decreased reactivity to light bilaterally but symmetric. lens reflex appreciated) Ears, Nose, Mouth, Throat: dry mucous membranes, other (no nasal discharge) Cardiovascular: pulses symmetric bilaterally, tachycardia, other (irregularly irregular rhythm, tachy 100s), No regular rate and rhythym, No edema Peripheral Pulses: 1+: dorsalis-pedis (R), dorsalis-pedis (L) Respiratory: no respiratory distress, no rales or rhonchi, clear to auscultation , reduced air movement (decreased inspiratory effort) Genitourinary: no bladder tenderness, No paula in urethra Skin: warm, normal color, no rashes or abrasions Musculoskeletal: generalized weakness (patient is able to move all extremities while laying in bed. ) Neurologic: AAOx3, other (grossly nonfocal exam. ), No facial droop Psychiatric: interacting appropriately, not anxious, not encephalopathic, other (patient quite fatigued during interview and falls asleep several times. wakes easily to name) Lab Data & Imaging Review 10/10/18 03:05 10/10/18 03:05 WBC 5.88 10^3/uL (3.80-9.50) 10/09/18 21:50 RBC 4.29 10^6/uL (4.18-5.33) 10/09/18 21:50 Hgb 12.8 g/dL (12.6-16.3) 10/09/18 21:50 Hct 39.4 % (38.0-47.0) 10/09/18 21:50 MCV 91.8 fL (81.5-99.8) 10/09/18 21:50 MCH 29.8 pg (27.9-34.1) 10/09/18 21:50 MCHC 32.5 g/dL (32.4-36.7) 10/09/18 21:50 RDW 15.4 % (11.5-15.2) H 10/09/18 21:50 Plt Count 261 10^3/uL (150-400) 10/09/18 21:50 MPV 10.0 fL (8.7-11.7) 10/09/18 21:50 Neut % (Auto) 71.4 % (39.3-74.2) 10/09/18 21:50 Lymph % (Auto) 18.7 % (15.0-45.0) 10/09/18 21:50 [place] % (Auto) 9.2 % (4.5-13.0) 10/09/18 21:50 Eos % (Auto) 0.2 % (0.6-7.6) L 10/09/18 21:50 Baso % (Auto) 0.2 % (0.3-1.7) L 10/09/18 21:50 Nucleat RBC Rel Count 0.0 % (0.0-0.2) 10/09/18 21:50 Absolute Neuts (auto) 4.20 10^3/uL (1.70-6.50) 10/09/18 21:50 Absolute Lymphs (auto) 1.10 10^3/uL (1.00-3.00) 10/09/18 21:50 Absolute Monos (auto) 0.54 10^3/uL (0.30-0.80) 10/09/18 21:50 Absolute Eos (auto) 0.01 10^3/uL (0.03-0.40) L 10/09/18 21:50 Absolute Basos (auto) 0.01 10^3/uL (0.02-0.10) L 10/09/18 21:50 Absolute Nucleated RBC 0.00 10^3/uL (0-0.01) 10/09/18 21:50 Immature Gran % 0.3 % (0.0-1.1) 10/09/18 21:50 Immature Gran # 0.02 10^3/uL (0.00-0.10) 10/09/18 21:50 PT 14.6 SEC (12.0-15.0) 10/09/18 21:50 INR 1.19 (0.83-1.16) H 10/09/18 21:50 APTT 32.7 SEC (23.0-38.0) 10/09/18 21:50 Sodium 135 mEq/L (135-145) 10/09/18 21:50 Potassium 3.4 mEq/L (3.5-5.2) L 10/09/18 21:50 Chloride 99 mEq/L (97-110) 10/09/18 21:50 Carbon Dioxide 24 mEq/l (22-31) 10/09/18 21:50 Anion Gap 12 mEq/L (6-14) 10/09/18 21:50 BUN 24 mg/dL (7-23) H 10/09/18 21:50 Creatinine 0.6 mg/dL (0.6-1.0) 10/09/18 21:50 Estimated GFR > 60 10/09/18 21:50 Glucose 95 mg/dL (70-100) 10/09/18 21:50 Calcium 9.3 mg/dL (8.5-10.4) 10/09/18 21:50 POC Troponin I 0.01 ng/mL (0.00-0.08) 10/09/18 21:49 NT-Pro-B Natriuret Pep 9830 pg/mL (0-450) H 10/09/18 21:50 Visualized and Interpreted EKG results: Yes EKG additional interpertation: Afib 130s (ekg read note aflutter). RBBB. st depression multiple leads. no acute ST elevations Assessment & Plan Assessment: The pleasant 83-year-old female with past medical history significant for chronic atrial fibrillation status post multi ablations, history of takotsubo cardiomyopathy, mitral regurg, HTN, GERD, CAD who presents to the ED today from [facility] complaints of palpitations and chest pain patient has a history of paroxysmal atrial fibrillation. #Atrial fibrillation with RVR (Acute) - rate improved with Cardizem bolus and drip. Plan to continue overnight. Patient is followed by Dr. Omalley, Dr. ALONZO consult for Cardiology in the morning. Patient is on chronic anticoagulation with Eliquis. #Chest pain - initial troponin negative likely secondary to or AFib RVR. Symptoms resolved when rate came down. Trend troponins. EKG showing AFib with a diffuse ST depressions. Will monitor on telemetry. #Benign essential HTN - BPs elevated upon arrival continue with cardizem gtt. resume metoprolol when patient transitioned off gtt or as bps tolerate. chronic medical issues - resume home medications when med rec available. #Cardiomyopathy with history dual chamber pacer - patient does not appear decompensated. monitor fluid status #History of takotsubo #Moderate to severe mitral regurg #GERD - continu #CAD #anxiety/depression #chronic pain/trigeminal neuralgia FEN - s/p bolus in ED. gentle IVF hydration as patient appears slightly dry x 1 liter ordered. electrolyte monitoring and replacement prn. cardiac diet then NPO after midnight pending cardiology recs. PPX - SCDs. on eliquis COR - DNR/DNI Dispo - Patient admitted to observation status on PCU floor pending response to cardizem gtt and cardiology consult.
[2018-10-10 04:27] LABS: PLATELET COUNT 240 10^3/uL (150-400)
[2018-10-10] MEDS ORDERED: POTASSIUM CL 20 MEQ/15 ML UDCUP PO ONE ×2 (08:08→16:15)
[2018-10-10] MEDS ORDERED: PROTOCOL POTASSIUM 1 DOSE MISC PRN (08:43)
--- NOTE | 2018-10-10 09:33 | PDGENHP ---
History & Physical Chief Complaint: AF with RVR, palpitations Relevant Physical Exam: s1s2 irreg, tach. dec air entry bilat bases. ao3 Cardiorespiratory Assessment: plan AV node ablation (repeat). unfortunately she has had recurrent conduction over the av node
[2018-10-10] MEDS ORDERED: BUPIVACAINE 0.75% 10 ML SDV ONE (09:37)
[2018-10-10] MEDS ORDERED: LIDOCAINE 1% 300 MG/30 ML SDV ONE (09:37)
[2018-10-10] MEDS ORDERED: ISOPROTERENOL HCL/D5W 0.2 MG/50 ML BAG IV ONE (09:45)
[2018-10-10] MEDS ORDERED: HEPARIN 10,000 UNIT/10 ML MDV (1,000 UNIT/ML) ONE (09:46)
--- NOTE | 2018-10-10 09:56 | PDANEPAE ---
ANE History of Present Illness here for AV node ablation for AF ANE Past Medical History - Cardiovascular History Hx Hypertension: Yes Hx Arrhythmias: Yes Hx Chest Pain: No Hx Coronary Artery / Peripheral Vascular Disease: Yes Hx CHF / Valvular Disease: Yes Cardiovascular History Comment: 2013-Afib, 2 cardioversions. - Pulmonary History Hx COPD: No Hx Asthma/Reactive Airway Disease: No Hx Recent Upper Respiratory Infection: No Hx Oxygen in Use at Home: No Hx Sleep Apnea: No - Neurologic History Hx Cerebrovascular Accident: No Hx Seizures: No Hx Dementia: No - Endocrine History Hx Diabetes: No - Renal History Hx Renal Disorders: No - Liver History Hx Hepatic Disorders: No - Neurological & Psychiatric Hx Hx Neurological and Psychiatric Disorders: Yes Neurological / Psychiatric History Comment: Anxiety-med. - Cancer History Hx Cancer: Yes Cancer History Comment: Breast-surg. Chemo-R, radiation L. - Congenital Disorder History Hx Congenital Disorders: No - GI History Hx Gastrointestinal Disorders: Yes Gastrointestinal History Comment: Chronic constipation-meds. GERD-med. - Other Health History Other Health History: Bilateral hearing loss. Joint arthritis, osteoporosis. Uses walker. Permanent bilateral bridges. Warfarin-easy bruising. - Chronic Pain History Chronic Pain: Yes - Surgical History Prior Surgeries: 2011-L leg ORIF. Bilateral cataracts.2005-L knee plasty. 2003- R hip plasty, also 1998. 1991-R mastectomy. 2000- L breast lumpectomy. 1987- total hyst. 1969-GB surg. 1963-mandible surg. ANE Review of Systems Review of systems is: negative Review of Systems: - Exercise capacity Exercise capacity: <4 METS ANE Patient History - Allergies Allergies/Adverse Reactions: codeine [Codeine] Allergy (Intermediate, Verified 10/09/18 21:41) Other-Enter Comments amlodipine besylate [From Norvasc] Allergy (Unknown, Verified 10/09/18 21:41) hydrochlorothiazide Allergy (Unknown, Verified 10/09/18 21:41) amoxicillin Allergy (Verified 10/09/18 21:41) Itching ciprofloxacin Allergy (Verified 10/09/18 21:41) Opioids - Morphine Analogues Allergy (Verified 10/09/18 21:41) Sulfa (Sulfonamide Antibiotics) Allergy (Verified 10/09/18 21:41) - Home Medications Home medications: home medication list seen and reviewed Home Medications: Apixaban [Eliquis] 2.5 mg PO BIDMEAL 03/01/16 [Last Taken 10/09/18 18:00] Ascorbic Acid [Vitamin C 500 mg (*)] 1,000 mg PO DAILY 03/01/16 [Last Taken ] Cholecalciferol Vit D3 [Vitamin D3 2000 units tab (OTC)] 2,000 units PO DAILY [Last Taken 10/09/18] Herbals/Supplements -Info Only 1 ea PO DAILY 03/01/16 [Last Taken 1 Day Ago ~04/14] Gabapentin [Neurontin] 600 mg PO TID@06/10/17 [Last Taken 10/09/18 14: 00] Cetirizine [ZyrTEC 10 mg (*)] 10 mg PO DAILY 07/12/18 [Last Taken 10/09/18] FLUoxetine HCL [Fluoxetine HCl] 60 mg PO DAILY 07/12/18 [Last Taken 10/09/18] Pantoprazole Sodium [Protonix 40mg (*)] 40 mg PO DAILY 07/12/18 [Last Taken ] Calcium Citrate W/Vit D [Citracal + D] 945 mg PO BIDMEAL 07/15/18 [Last Taken 18:00] Metoprolol Tartrate [Lopressor 50 mg (*)] 50 mg PO BIDMEAL 07/31/18 [Last Taken 10/09/18 18:00] C/E/Zn/Cu/OM3/DHA/EPA/LUT/ZEAX [Preservision Areds 2 Softgel] 1 each PO BIDMEAL 08/28/18 [Last Taken 10/09/18 18:00] Calcium Carbonate [Tums 500MG (*)] 500 mg PO DAILY PRN 08/28/18 [Last Taken 1 Day Ago ~09/03/18] Cyanocobalamin [Vitamin B12 (*)] 1,000 mcg PO DAILY 08/28/18 [Last Taken ] Glucosamine/Chondroitin [Glucosamine/Chondroitin (*)] 1 each PO BIDMEAL [Last Taken 10/09/18 18:00] Acetaminophen [Tylenol ES 500 mg (*)] 1,000 mg PO TIDMEAL 10/10/18 [Last Taken 10/09/18 18:00] Diltiazem HCl [Cartia Xt] 120 mg PO DAILY 10/10/18 [Last Taken 10/09/18] - Smoking Hx Smoking Status: Former smoker - Alcohol Use Alcohol Use: None ANE Labs/Vital Signs - Labs Result Diagrams: 10/10/18 03:05 10/10/18 03:05 - Vital Signs Vital Signs: reviewed preoperatively; see RN documention for details Blood Pressure: 136/98 Heart Rate: 122 Respiratory Rate: 17 O2 Sat (%): 91 Height: 152.4 cm Weight: 58.559 kg ANE Physical Exam - Airway Neck exam: FROM Mallampati Score: Class 1 - Pulmonary Pulmonary: no respiratory distress - Cardiovascular Cardiovascular: irregularly irregular - ASA Status ASA Status: III ANE Anesthesia Plan Anesthesia Plan: GA with mask
[2018-10-10] MEDS ORDERED: PROPOFOL/EMULSION 500 MG/50 ML BOTTLE IV ONE (10:06)
[2018-10-10] MEDS ORDERED: fentaNYL 100 MCG/2 ML INJ ONE (10:38)
--- NOTE | 2018-10-10 11:24 | ASMTCMCOM ---
CM Note CM Note Notes: Pts case discussed in tx rounds. Pt is a 83 y/o female admitted for afib. Pt is getting an ablation today. OT has been ordered and awaiting recommendations. Pt will most likely d/c independent without any needs. CM available for changes. Plan: Independent Date Signed: 10/10/2018 11:23 AM Electronically Signed By:EVER Campos
--- NOTE | 2018-10-10 11:29 | EPPROC ---
Electrophysiology Procedure Note: CATHETER MEDIATED ABLATION OF THE AV JUNCTION Procedures performed: [id number] AV node ablation Fluoroscopy INDICATION: Atrial fibrillation, unable to rate control despite maximally tolerated medical therapy Prior AV node ablation Catheters & Anesthesia: The patient arrived in the Electrophysiology Laboratory in the fasting state. Dr. Byers administered sedation. The right groin and left groin area were prepped and draped in the usual sterile manner. Appropriate non-invasive blood pressure, pulse oximetry and end-tidal CO2 monitoring was established. All catheters were placed percutaneously using the modified Seldinger technique and advanced into position under fluoroscopic guidance). At baseline the patient was noted to be in AF with a mean ventricular rate of 90 bpm. (diltiazem 15 mg/hr IV) A #7 Venezuelan deflectable quadripolar electrode catheter (2mm-5mm-2mm spacing) with 3.5 mm irrigated tip electrode was advanced to the right atrium. Complete AV block was achieved with ablation. Cessation of pacing revealed that there was junctional escape rhythm at a rate of 38 bpm. With isoproterenol and glycopyrrolate escape rhythm at 55 bpm. Pacemaker implantation was done previously. The pacemaker was programmed to a lower rate of 80 ppm to reduce the risk of sudden associated with torsades de pointes. The lower rate will gradually be reduced to 60 ppm after 1 month . Fluoroscopically pacemaker lead positions were unchanged after procedure Pacemaker thresholds and impedances were unchanged after the procedure The catheters were removed. The patient was transferred to the cardiovascular holding area in stable condition. Vascular access sheaths will be removed in the holding area after 30 min of wait time. There were no apparent complications. CONCLUSIONS: 1. Atrial fibrillation with rapid ventricular response. 2. Successful ablation of the AV junction producing complete AV block. 3. Junctional escape rhythm at a rate of 38 bpm. 4. No complications. Patient Problems: Problems Problem Status Onset Atrial fibrillation and flutter Acute Cardiomyopathy Acute CHF (congestive heart failure) Acute Chronic Disease Mgmt/Transitional Care Acute Sinusitis chronic, frontal Acute Sinusitis chronic, ethmoidal Acute Head ache Acute Chest pain Acute Rapid atrial fibrillation Acute Hyponatremia Acute Hypochloremia Acute Hypertensive emergency Acute Hypertension Acute Atrial fibrillation Acute Atrial fibrillation with RVR Acute
[2018-10-10] MEDS ORDERED: LORazepam 0.5 MG TAB PO PRN (15:00)
[2018-10-10] MEDS ORDERED: DICYCLOMINE 10 MG CAP PO PRN (15:00)
--- NOTE | 2018-10-10 15:00 | HOSPPROG ---
Hospitalist Progress Note Assessment/Plan: The pleasant 83-year-old female with past medical history significant for chronic atrial fibrillation status post multi ablations, history of takotsubo cardiomyopathy, mitral regurg, HTN, GERD, CAD who presents to the ED today from [facility] complaints of palpitations and chest pain patient has a history of paroxysmal atrial fibrillation. #Atrial fibrillation with RVR (Acute) - rate improved with Cardizem bolus and drip overnight. Patient is on chronic anticoagulation with Eliquis. S/p successful AV Ileana Ablation by Dr. Santiago today. #Chest pain - Likely secondary to AFib RVR. Symptoms resolved when rate came down. EKG showing AFib with a diffuse ST depressions. Will monitor on telemetry. Troponin negative overnight. #Benign essential HTN - BPs elevated upon arrival continue with cardizem gtt. resume metoprolol when patient transitioned off gtt or as bps tolerate. chronic medical issues - resume home medications when med rec available. #Cardiomyopathy with history dual chamber pacer - patient does not appear decompensated. monitor fluid status #History of takotsubo #Moderate to severe mitral regurg #GERD - continu #CAD #anxiety/depression #chronic pain/trigeminal neuralgia FEN - s/p bolus in ED. gentle IVF hydration as patient appears slightly dry x 1 liter ordered. electrolyte monitoring and replacement prn. cardiac diet then NPO after midnight PPX - SCDs. on eliquis COR - DNR/DNI Dispo - Patient admitted to observation status on PCU floor pending response to cardizem gtt and cardiology consult. Subjective: Patient reports no compalints this AM Objective: Vital Signs Temp Pulse Resp BP Pulse Ox 36.7 C 85 15 148/90 H 92 10/10/18 13:32 10/10/18 13:32 10/10/18 13:32 10/10/18 13:32 10/10/18 13:32 Laboratory Results 10/10/18 03:05 10/10/18 09:36 10/09/18 10/10/18 10/11/18 05:59 05:59 05:59 Intake Total 1142 600 Output Total 400 Balance 742 600 PT 14.6 SEC (12.0-15.0) 10/09/18 21:50 INR 1.19 (0.83-1.16) H 10/09/18 21:50 - Physical Exam Constitutional: no apparent distress Eyes: PERRL Ears, Nose, Mouth, Throat: moist mucous membranes Cardiovascular: irregularly irregular Respiratory: no respiratory distress Gastrointestinal: soft, non-tender abdomen Skin: warm Neurologic: AAOx3 Psychiatric: interacting appropriately ICD10 Worksheet Patient Problems: Problems Problem Status Onset Atrial fibrillation with RVR Acute Atrial fibrillation Acute Atrial fibrillation and flutter Acute CHF (congestive heart failure) Acute Cardiomyopathy Acute Chest pain Acute Chronic Disease Mgmt/Transitional Care Acute Head ache Acute Hypertension Acute Hypertensive emergency Acute Hypochloremia Acute Hyponatremia Acute Rapid atrial fibrillation Acute Sinusitis chronic, ethmoidal Acute Sinusitis chronic, frontal Acute
--- NOTE | 2018-10-10 15:42 | PDCARPN ---
Cardiology Progress Note Chief Complaint: Atrial fibrillation with RVR Assessment/Plan: Assessment: 1. Atrial fibrillation with RVR: repeat AV node ablation performed by Dr. Santiago this morning 2. Chest pain: Resolved with improved rate control. BNP > 9800 on admission, suspect demand ischemia 3. HTN: Resume home BP meds 4. Dual-chamber PPM 5. CAD 6. Moderate to severe MR Plan: 1. Echo, 12-lead ECG, device interrogation, CBC, BMP, and trop in AM 2. Pending results of the above testing, patient will likely be appropriate for DC home tomorrow 3. Follow-up with [facility] device clinic in 1 week, follow-up with RAQUEL Garcia [facility] in 1 month 10/10/18 15:39 Subjective: Feeling much better compared to admission Reviewed/Discussed With: multidisciplinary team Time Spent with Patient: greater than 25 minutes Time Spent with Patient: Greater than 25 minutes spent on this patients care, greater than 50% of time spent counseling, educating, and coordinating care regarding the above mentioned plan. Objective: Vital Signs (8 Hrs) Temp Pulse Resp BP Pulse Ox 10/10/18 13:32 36.7 C 85 15 148/90 H 92 10/10/18 09:56 122 H 17 136/98 H 91 L 10/10/18 09:08 122 H Intake/Output (24 Hrs) 10/09/18 10/10/18 10/11/18 05:59 05:59 05:59 Intake Total 1142 600 Output Total 400 Balance 742 600 Intake: Oral (ml) 110 IV Intake (ml) 600 IV Infused (ml) 1032 Diltiazem HCl/D5w 125 ml 52 @ Per Protocol IV CONT LYNN Rx#:[id number] Ns 1,000 ml @ 75 mls/hr 430 IV CONT LYNN Rx#: [id number] Output: Urine (ml) 400 Bedside Commode 400 Other: Weight 58.559 kg 58.559 kg Number of Voids 0 Result Diagrams: 10/10/18 03:05 10/10/18 09:36 ICD10 Worksheet Patient Problems: Problems Problem Status Onset Atrial fibrillation with RVR Acute Atrial fibrillation Acute Atrial fibrillation and flutter Acute CHF (congestive heart failure) Acute Cardiomyopathy Acute Chest pain Acute Chronic Disease Mgmt/Transitional Care Acute Head ache Acute Hypertension Acute Hypertensive emergency Acute Hypochloremia Acute Hyponatremia Acute Rapid atrial fibrillation Acute Sinusitis chronic, ethmoidal Acute Sinusitis chronic, frontal Acute
--- NOTE | 2018-10-10 16:56 | ASMTLACE ---
JODY Comorbidities - select Answers: Congestive heart failure all that apply Coronary Artery Disease Opioid dependence / Chronic pain Other Notes: AFib; HTN; Hx of breast cancer # of Emergency department Answers: 5-8 visits in the last 6 months Social determinants Answers: Mental health diagnosis (anxiety, depression, pers onality disorders, etc.) Score: 16 Date Signed: 10/10/2018 04:55 PM Electronically Signed By:India Glass
[2018-10-10] MEDS: ACETAMINOPHEN 325 MG TAB PO PRN ×2 (18:06→21:52)
[2018-10-10] MEDS: CALCIUM CARBONATE 500 MG CHEWABLE TAB PO PRN (18:08)
[2018-10-10] MEDS: APIXABAN 2.5 MG TAB PO SCH (18:08)
[2018-10-10] MEDS: GLUCOSAMINE/CHONDROITIN CAP PO SCH (18:08)
[2018-10-10] MEDS: GABAPENTIN 300 MG CAP PO SCH (21:08)
[2018-10-10] MEDS: METOPROLOL TARTRATE 50 MG TAB PO SCH (21:08)
[2018-10-11] MEDS: ACETAMINOPHEN 325 MG TAB PO PRN ×3 (03:26→16:57)
[2018-10-11 04:38] LABS: PLATELET COUNT 270 10^3/uL (150-400)
--- NOTE | 2018-10-11 05:44 | CPEKG ---
Test Reason : OPEN Blood Pressure : / mmHG Vent. Rate : 080 BPM Atrial Rate : 079 BPM P-R Int : 071 ms QRS Dur : 154 ms QT Int : 495 ms P-R-T Axes : 000 -81 100 degrees QTc Int : 572 ms Afib/flutter and ventricular-paced rhythm Confirmed by Maru Pritchard ([id number]) on 10/11/2018 5:43:39 AM Referred By: Enedina Martin Confirmed By:Maru Pritchard
[2018-10-11] MEDS: GABAPENTIN 300 MG CAP PO SCH ×3 (06:27→20:15)
[2018-10-11] MEDS: APIXABAN 2.5 MG TAB PO SCH ×2 (07:58→18:08)
[2018-10-11] MEDS: PANTOPRAZOLE SODIUM 40 MG TAB PO SCH (07:58)
[2018-10-11] MEDS: CETIRIZINE 10 MG TAB PO SCH (07:58)
[2018-10-11] MEDS: GLUCOSAMINE/CHONDROITIN CAP PO SCH ×2 (07:58→18:08)
[2018-10-11] MEDS: METOPROLOL TARTRATE 50 MG TAB PO SCH ×2 (07:58→20:15)
[2018-10-11] MEDS: FLUoxetine 20 MG CAP PO SCH (07:58)
--- NOTE | 2018-10-11 08:47 | PDCARPN ---
Cardiology Progress Note Chief Complaint: Atrial fibrillation s/p AV node ablation Chest pain Pleural effusion Assessment/Plan: Assessment: 1. Atrial fibrillation with RVR: repeat AV node ablation performed by Dr. Santiago yesterday, [id number] score = at least 6, Eliquis was re-started 6hrs post- procedure. Underlying rhythm in the 40s during device interrogation this AM 2. Chest pain: Recurrence this morning, resolved this afternoon after administration of Lasix 20mg, BNP > 9800 on admission, new pleural effusion noted on preliminary review of echo this AM. Stable, small bilateral pleural effusions. 3. HTN: BPs elevated today 4. Dual-chamber PPM 5. CAD 6. Moderate to severe MR, stable compared to echo 08/2018 7. PVCs Plan: 1. Re-start BID dosing of Diltiazem today 2. BMP in AM. If Cr is normal, consider additional dose of IV Lasix prior to discharge 3. Follow-up with EP in 2 weeks 10/11/18 17:23 Subjective: Chest discomfort overnight, feeling worse this AM, improved this afternoon Reviewed/Discussed With: multidisciplinary team Time Spent with Patient: greater than 25 minutes Time Spent with Patient: Greater than 25 minutes spent on this patients care, greater than 50% of time spent counseling, educating, and coordinating care regarding the above mentioned plan. Objective: Vital Signs (8 Hrs) Temp Pulse Resp BP Pulse Ox 10/11/18 07:58 84 161/122 H 10/11/18 06:40 36.3 C 86 12 166/110 H 92 10/11/18 03:06 35.9 C L 85 18 157/98 H 93 Intake/Output (24 Hrs) 10/10/18 10/11/18 10/12/18 05:59 05:59 05:59 Intake Total 1142 845 Output Total 400 705 Balance 742 140 Intake: Oral (ml) 110 200 IV Intake (ml) 600 IV Infused (ml) 1032 45 Diltiazem HCl/D5w 125 ml 52 45 @ Per Protocol IV CONT LYNN Rx#:[id number] Ns 1,000 ml @ 75 mls/hr 430 IV CONT LYNN Rx#: [id number] Output: Urine (ml) 400 705 Bedside Commode 400 205 Toilet 500 Other: Weight 58.559 kg 58.559 kg Number of Voids 0 Bedside Commode 1 Toilet 1 Result Diagrams: 10/11/18 03:06 10/11/18 03:06 Cardiac Labs: Cardiac Lab Results (72 Hrs) 10/11/18 03:06 Troponin I 0.521 H ICD10 Worksheet Patient Problems: Problems Problem Status Onset Atrial fibrillation with RVR Acute Atrial fibrillation Acute Atrial fibrillation and flutter Acute CHF (congestive heart failure) Acute Cardiomyopathy Acute Chest pain Acute Chronic Disease Mgmt/Transitional Care Acute Head ache Acute Hypertension Acute Hypertensive emergency Acute Hypochloremia Acute Hyponatremia Acute Rapid atrial fibrillation Acute Sinusitis chronic, ethmoidal Acute Sinusitis chronic, frontal Acute
[2018-10-11] MEDS ORDERED: DILTIAZEM CD 120 MG CAP PO SCH ×2 (09:00)
[2018-10-11] MEDS ORDERED: FUROSEMIDE 20 MG/2 ML VIAL IVP ONE (11:36)
--- NOTE | 2018-10-11 13:21 | ASMTCMCOM ---
CM Note CM Note Notes: Pts case discussed w/ Dr. Foss. Pt will be staying for another night. Both, PT and OT worked w/ pt today and is recommending HC. CM met w/ pt and pts niece for dispo planning. Pt lives at [facility]. Pt is agreeable to having HC services through [facility]. Referral sent and [facility] is able to accept. CM confirmed pts address and phone number. Pts PCP is Dr. Adams. CM to follow. Plan: [facility]; PT, OT, RN Date Signed: 10/11/2018 01:19 PM Electronically Signed By:EVER Campos
--- NOTE | 2018-10-11 13:34 | HOSPPROG ---
Hospitalist Progress Note Assessment/Plan: The pleasant 83-year-old female with past medical history significant for chronic atrial fibrillation status post multi ablations, history of takotsubo cardiomyopathy, mitral regurg, HTN, GERD, CAD who presents to the ED today from [facility] complaints of palpitations and chest pain patient has a history of paroxysmal atrial fibrillation. #Atrial fibrillation with RVR (Acute) - rate improved with Cardizem bolus and drip. Patient is on chronic anticoagulation with Eliquis. S/p successful AV Ileana Ablation by Dr. Santiago on 10/10. Restarted on Metoprolol and Diltiazem by cardiology. #Chest pain - Likely secondary to AFib RVR. EKG showing AFib with a diffuse ST depressions. Will monitor on telemetry. Troponin negative overnight. #Benign essential HTN - BPs elevated. Restarted on metoprolol and diltiazem as above. #Cardiomyopathy with history dual chamber pacer - - CXR this AM showing minimally worse mild interstitial edema, small b/l pleural effusions-unchanged. - TTE pending. - S/p dose of IVP 20 mg Lasix this AM per cardiology chronic medical issues - resume home medications when med rec available. #History of takotsubo #Moderate to severe mitral regurg #GERD - continu #CAD #anxiety/depression #chronic pain/trigeminal neuralgia FEN - s/p bolus in ED. gentle IVF hydration as patient appears slightly dry x 1 liter ordered. electrolyte monitoring and replacement prn. cardiac diet then NPO after midnight PPX - SCDs. on eliquis COR - DNR/DNI Dispo - Patient admitted to observation status on PCU floor pending response to cardizem gtt and cardiology consult. Subjective: Pt reports no complaints this AM Objective: Vital Signs Temp Pulse Resp BP Pulse Ox 36.8 C 83 17 162/102 H 93 10/11/18 11:06 10/11/18 11:06 10/11/18 11:06 10/11/18 11:06 10/11/18 11:06 Laboratory Results 10/11/18 03:06 10/11/18 03:06 10/10/18 10/11/18 10/12/18 05:59 05:59 05:59 Intake Total 1142 845 Output Total 400 705 775 Balance 742 140 -775 PT 14.6 SEC (12.0-15.0) 10/09/18 21:50 INR 1.19 (0.83-1.16) H 10/09/18 21:50 - Physical Exam Constitutional: chronically ill appearing Eyes: PERRL Ears, Nose, Mouth, Throat: moist mucous membranes Cardiovascular: regular rate and rhythym Respiratory: no respiratory distress Gastrointestinal: soft, non-tender abdomen Skin: warm Musculoskeletal: full muscle strength Neurologic: AAOx3 Psychiatric: interacting appropriately ICD10 Worksheet Patient Problems: Problems Problem Status Onset Atrial fibrillation with RVR Acute Atrial fibrillation Acute Atrial fibrillation and flutter Acute CHF (congestive heart failure) Acute Cardiomyopathy Acute Chest pain Acute Chronic Disease Mgmt/Transitional Care Acute Head ache Acute Hypertension Acute Hypertensive emergency Acute Hypochloremia Acute Hyponatremia Acute Rapid atrial fibrillation Acute Sinusitis chronic, ethmoidal Acute Sinusitis chronic, frontal Acute
--- NOTE | 2018-10-11 14:14 | ECHO ---
[email or web address] [address] Main: [phone] Echocardiography Examination Transthoracic Name: ARTHUR JACOB MR#: [id number] Study Date: 10/11/2018 Study Time: 08:06 AM Date of : 1935 Age: 83 year(s) Height: 152.4 cm (60 in.) Weight: 58.51 kg (129 lb.) BSA: 1.55 m2 Gender: Female Examination: Echo Contrast: Image Quality: Adequate Rhythm: Heart Rate: BP: 161 mmHg/122 mmHg Indication: F/U post EP study Procedure Staff Referring Physician: An/Syq 13 Nav/C2 Operator: Belkis Gutierrez MARCELA Reading Physician: Jaswinder Kent MD Requesting Provider: Ordering Physician: Theron Santiago MD Indication: F/U post EP study Measurements Chambers AV/MV Label Value Normal Value Label Value Normal Value LVOTd 2 cm (1.8cm - 2cm) AV PGmean 2 mmHg LVOT VTI 9.1 cm (18cm - 22cm) AV Vmax 1.01 m/s LVDd, 2D 5.6 cm (3.9cm - 5.3cm) PIYUSH (VTI) 1.7 cm2 LVDs, 2D 4 cm (2.1cm - 4cm) MV A Vmax 1.09 m/s IVSd, 2D 1.1 cm (0.6cm - 1.1cm) MV VTI 14.3 cm LVPWd, 2D 0.7 cm MVA D (continuity eq.) 2 cm2 LVEF, 2D 54 % (54% - 74%) MV PGmax 5 mmHg LVOT PGmean 1 mmHg MV PGmean 2 mmHg LVOT Vmean 0.31 m/s MV Gertrudis 3.5 cm LADs, 2D 5.1 cm (2.7cm - 3.8cm) MR Vena Contracta 0.6 cm Additional Vessels MR Reg. Volume 55 ml Label Value Normal Value MR Reg. Fraction 40 % AoAsc 3.8 cm MR Vmax 6.15 m/s IVC 3 cm (1.2cm - 2.3cm) MR VTI 184 cm MR (ERO) 0.3 cm2 MR PISA Radius 0.9 cm MR PISA Alias V. 36.6 cm/s TV/PV Label Value Normal Value Patient: ARTHUR JACOB Study Date: 10/11/2018 Page 1 of 3 08:06 AM RA Pressure 20 mmHg RVSP 68 mmHg TR Pmax 48 mmHg TR Vmax 3.45 m/s Conclusions 1. The left ventricle is borderline dilated in size With reduced systolic function. The ejection fraction is 45-50%. There are septal and apical wall motion abnormalities present. 2. There is biatrial enlargement. 3. The mitral valve leaflets are thickened and sclerotic. There is severe mitral regurgitation. 4. The aortic valve is trileaflet. The leaflets are thickened and sclerotic. There is no aortic stenosis. There is trivial aortic insufficiency. 5. The ascending aorta is mildly dilated at 3.8 cm. 6. The pulmonary artery pressure is elevated at 68 mm of mercury. 7. There is a trivial pericardial effusion and left pleural effusion. 8. When compared to the 09/05/2018 study the LVEF is decreased from 50/55% to 45/50%. The pulmonary artery pressure estimate increased from 57 mm of mercury to 60 8 mm of mercury. A pleural effusion is now appreciated. Findings Compared to the previous study of 09/05/18, there is now a pleural effusion present.. Left Ventricle: LV septal wall is consistent with conduction abnormality. LV apex appears akinetic. LV size is borderline dilated.. EF range is estimated at 45 % - 50 %. Left ventricle wall thickness is normal. Right Ventricle: Normal size right ventricle. Right ventricular systolic function is normal. There is a ICD/Pacer wire noted in the right ventricle. Left Atrium: The left atrium is severely dilated. Right Atrium: The right atrium is severely dilated. Mitral Valve: MR fraction is 40%. MR ERO is .30cm2.. Severe mitral regurgitation. No mitral valve stenosis. Aortic Valve: Trivial aortic regurgitation is present. There is no aortic stenosis. Aortic leaflets exhibit mild calcification. The aortic valve is trileaflet. Tricuspid Valve: Tricuspid valve leaflets are normal in appearance and function. Moderate tricuspid regurgitation. No tricuspid valve stenosis. Right Ventricular systolic pressure is measured at 68 mmHg. Pulmonary artery pressure moderately increased. Pulmonic Valve: Pulmonic leaflets exhibit normal cuspal separation. Trivial pulmonic valve regurgitation is present. There is no pulmonic valve stenosis. Aorta: The aorta is normal. The ascending aorta measures 3.8 cm. Pulmonary Artery: The pulmonary artery morphology appears normal. IVC: The inferior vena cava is dilated. The inferior vena cava is normal in size and course. Pericardium: Trivial pericardial effusion. There is a left pleural effusion. Exam Details Procedure Ordered: Echo Procedure Status: Routine study Patient: ARTHUR JACOB Study Date: 10/11/2018 Page 2 of 3 08:06 AM Image Quality: Adequate Facility Location: Cardiac Echo 1 (No Signature Object) Patient: ARTHUR JACOB Study Date: 10/11/2018 Page 3 of 3 08:06 AM [id number]
--- NOTE | 2018-10-11 18:33 | CPEKG ---
Test Reason : OPEN Blood Pressure : / mmHG Vent. Rate : 081 BPM Atrial Rate : 000 BPM P-R Int : 035 ms QRS Dur : 151 ms QT Int : 526 ms P-R-T Axes : 000 -74 098 degrees QTc Int : 611 ms A sensed, V paced Confirmed by Maru Pritchard ([id number]) on 10/11/2018 6:32:47 PM Referred By: Enedina Martin Confirmed By:Maru Pritchard
[2018-10-11] MEDS: DILTIAZEM CD 120 MG CAP PO SCH (20:15)
[2018-10-12] MEDS ORDERED: POTASSIUM CL 10 MEQ TAB PO ONE ×2 (00:14→07:59)
[2018-10-12] MEDS: GABAPENTIN 300 MG CAP PO SCH ×3 (05:41→20:40)
[2018-10-12] MEDS: CETIRIZINE 10 MG TAB PO SCH (09:48)
[2018-10-12] MEDS: GLUCOSAMINE/CHONDROITIN CAP PO SCH ×2 (09:48→17:34)
[2018-10-12] MEDS: APIXABAN 2.5 MG TAB PO SCH ×2 (09:48→17:34)
[2018-10-12] MEDS: DILTIAZEM CD 120 MG CAP PO SCH (09:50)
[2018-10-12] MEDS: FLUoxetine 20 MG CAP PO SCH (09:51)
[2018-10-12] MEDS: METOPROLOL TARTRATE 50 MG TAB PO SCH (09:52)
[2018-10-12] MEDS: PANTOPRAZOLE SODIUM 40 MG TAB PO SCH (09:53)
[2018-10-12] MEDS: ACETAMINOPHEN 325 MG TAB PO PRN ×2 (09:54→15:10)
--- NOTE | 2018-10-12 12:33 | PDCARPN ---
<Ludy Lamar - Last Filed: 10/12/18 13:39> Cardiology Progress Note Chief Complaint: Atrial fibrillation Assessment/Plan: Assessment: 1. Atrial fibrillation with RVR, now s/p re-do of AV node ablation on 10/10. No high rates since then. CHADSVASC of 6, taking Eliquis. Suture removed from right groin site without difficulty. No hematoma or bruising. 2. Dual chamber pacemaker functioning normally. 3. HTN, will change cardizem to lisinopril due to CM and no longer needed for rate control ; and metoprolol to carvedilol which provides better BP control. 4. Chest pain . No further pain since ablation. Echocardiogram did show slight decrease in EF and new wall motion abnormalities. This may be due more to pacemaker and severe MR. However, she does have underlying at least non- obstructive CAD by cath 3 years ago and presented with Chest pain. Trop in ER was negative. Trop yesterday , after ablation , was .5 , which is likely due to the ablation. EKG non diagnostic due to Vent pacing. 5. Severe MR . small, bilateral pleural effusions. Received one dose of lasix yesterday, breathing and o2 sat improved. 6 pulmonary htn Plan:Lexiscan stress to evaluate for significant ischemia. Medication changes as above for htn. 10/12/18 12:25 10/12/18 13:02 10/12/18 13:33 10/12/18 13:37 Reviewed/Discussed With: multidisciplinary team (Dr. Le, Dr. Kent, Dr. Foss), other Objective: Vital Signs (8 Hrs) Temp Pulse Resp BP Pulse Ox 10/12/18 12:00 36.8 C 85 18 136/85 H 94 10/12/18 09:52 85 142/90 H 10/12/18 09:50 94 142/90 H 10/12/18 07:22 36.6 C 98 18 147/94 H 91 L Intake/Output (24 Hrs) 10/11/18 10/12/18 10/13/18 05:59 05:59 05:59 Intake Total 845 800 Output Total 705 775 Balance 140 25 Intake: Oral (ml) 200 800 IV Intake (ml) 600 IV Infused (ml) 45 Diltiazem HCl/D5w 125 ml 45 @ Per Protocol IV CONT LYNN Rx#:[id number] Output: Urine (ml) 705 775 Bedside Commode 205 100 Toilet 500 675 Other: Weight 58.559 kg Intake Quantity Yes Sufficient Output Comment Toilet missed hat Number of Voids Bedside Commode 1 1 Toilet 1 1 Number of Stools Toilet 1 Result Diagrams: 10/11/18 03:06 10/12/18 06:30 Cardiac Labs: Cardiac Lab Results (72 Hrs) 10/11/18 03:06 Troponin I 0.521 H - Physical Exam Constitutional: no apparent distress Eyes: PERRL Cardiovascular: regular rate and rhythm, no rubs, systolic murmur, No jugular vein distention Peripheral Pulses: 1+: dorsalis-pedis (R), dorsalis-pedis (L), 2+: femoral (R) Respiratory: other (basilar crackles) Neurologic: AAOx3 ICD10 Worksheet Patient Problems: Problems Problem Status Onset Atrial fibrillation with RVR Acute Atrial fibrillation Acute Atrial fibrillation and flutter Acute CHF (congestive heart failure) Acute Cardiomyopathy Acute Chest pain Acute Chronic Disease Mgmt/Transitional Care Acute Head ache Acute Hypertension Acute Hypertensive emergency Acute Hypochloremia Acute Hyponatremia Acute Rapid atrial fibrillation Acute Sinusitis chronic, ethmoidal Acute Sinusitis chronic, frontal Acute <Lei Le - Last Filed: 10/12/18 14:08> Cardiology Progress Note Assessment/Plan: ADDENDUM Jesus Le MD - patient seen and examined with Ms Lamar. Agree with the assessment and plan above. POD1 from AV node ablation. Hypertension management as above. Workup of new wall motion abnormality by SPECT. 10/12/18 14:03 Objective: Vital Signs (8 Hrs) Temp Pulse Resp BP Pulse Ox 10/12/18 12:00 36.8 C 85 18 136/85 H 94 10/12/18 09:52 85 142/90 H 10/12/18 09:50 94 142/90 H 10/12/18 07:22 36.6 C 98 18 147/94 H 91 L Intake/Output (24 Hrs) 10/11/18 10/12/18 10/13/18 05:59 05:59 05:59 Intake Total 845 800 Output Total 705 775 Balance 140 25 Intake: Oral (ml) 200 800 IV Intake (ml) 600 IV Infused (ml) 45 Diltiazem HCl/D5w 125 ml 45 @ Per Protocol IV CONT LYNN Rx#:[id number] Output: Urine (ml) 705 775 Bedside Commode 205 100 Toilet 500 675 Other: Weight 58.559 kg Intake Quantity Yes Sufficient Output Comment Toilet missed hat Number of Voids Bedside Commode 1 1 Toilet 1 1 Number of Stools Toilet 1 Result Diagrams: 10/11/18 03:06 10/12/18 06:30 Cardiac Labs: Cardiac Lab Results (72 Hrs) 10/11/18 03:06 Troponin I 0.521 H
--- NOTE | 2018-10-12 13:09 | HOSPPROG ---
Hospitalist Progress Note Assessment/Plan: The pleasant 83-year-old female with past medical history significant for chronic atrial fibrillation status post multi ablations, history of takotsubo cardiomyopathy, mitral regurg, HTN, GERD, CAD who presents to the ED today from [facility] complaints of palpitations and chest pain patient has a history of paroxysmal atrial fibrillation. #Atrial fibrillation with RVR (Acute) - rate improved with Cardizem bolus and drip. Patient is on chronic anticoagulation with Eliquis. S/p successful AV Ileana Ablation by Dr. Santiago on 10/10. Restarted on Metoprolol and Diltiazem by cardiology, switching cardizem to lisinopril and metoprolol to carvedilol per cardiology #Chest pain -EKG showing AFib with a diffuse ST depressions. Troponin elevated to 0.52 on 10/11. TTE showing slightly decreased EF with new WMA which may be 2/ 2 to PPM and severe MR. Hx of non-obstructive CAD by [facility] 3 yrs ago. Plan for MPS per cardiology to further evaluate. #Benign essential HTN - BPs elevated. Restarted on metoprolol and diltiazem as above. #Cardiomyopathy with history dual chamber pacer - - CXR on 10/11 showing minimally worse mild interstitial edema, small b/l pleural effusions-unchanged. - TTE as above - S/p dose of IVP 20 mg Lasix on 10/11 per cardiology chronic medical issues - resume home medications when med rec available. #History of takotsubo #Moderate to severe mitral regurg #GERD - continu #CAD #anxiety/depression #chronic pain/trigeminal neuralgia FEN - Cardiac diet then NPO after midnight PPX - SCDs. on eliquis COR - DNR/DNI Dispo - Pending clinical corse Subjective: Pt reports no chest pain this AM Objective: Vital Signs Temp Pulse Resp BP Pulse Ox 36.8 C 85 18 136/85 H 94 10/12/18 12:00 10/12/18 12:00 10/12/18 12:00 10/12/18 12:00 10/12/18 12:00 Laboratory Results 10/11/18 03:06 10/12/18 06:30 10/11/18 10/12/18 10/13/18 05:59 05:59 05:59 Intake Total 845 800 Output Total 705 775 Balance 140 25 PT 14.6 SEC (12.0-15.0) 10/09/18 21:50 INR 1.19 (0.83-1.16) H 10/09/18 21:50 - Physical Exam Constitutional: chronically ill appearing Eyes: PERRL Ears, Nose, Mouth, Throat: moist mucous membranes Cardiovascular: regular rate and rhythym Respiratory: no respiratory distress Gastrointestinal: soft, non-tender abdomen Skin: warm Musculoskeletal: generalized weakness Neurologic: AAOx3 Psychiatric: interacting appropriately ICD10 Worksheet Patient Problems: Problems Problem Status Onset Atrial fibrillation with RVR Acute Atrial fibrillation Acute Atrial fibrillation and flutter Acute CHF (congestive heart failure) Acute Cardiomyopathy Acute Chest pain Acute Chronic Disease Mgmt/Transitional Care Acute Head ache Acute Hypertension Acute Hypertensive emergency Acute Hypochloremia Acute Hyponatremia Acute Rapid atrial fibrillation Acute Sinusitis chronic, ethmoidal Acute Sinusitis chronic, frontal Acute
[2018-10-12] MEDS: CARVEDILOL 6.25 MG TAB PO SCH (17:34)
[2018-10-13] MEDS: ACETAMINOPHEN 325 MG TAB PO PRN ×3 (05:09→22:17)
[2018-10-13] MEDS: GABAPENTIN 300 MG CAP PO SCH ×3 (05:09→23:00)
[2018-10-13] MEDS ORDERED: REGADENOSON 0.4 MG/5 ML SYR IVP ONE (11:52)
--- NOTE | 2018-10-13 12:19 | PDCARST ---
CAR Stress Test Results Type of Stress Test: Lexiscan stress test Indication: CHF Description of Procedure: After informed consent was obtained, pt was established to ECG, blood pressure, HR and oximetry monitoring. STRESS EKG AND HEMODYNAMIC DATA. Resting heart rate: 89 BPM. Resting ECG: V-paced. Resting blood pressure: 130/74 mmHg. O2 saturation at rest: 90%. Peak heart rate: BPM. Peak blood pressure: 152/80 mmHg. Arrhythmias: A-fib baseline. Symptoms: The patient experienced no typical symptoms of angina during stress or recovery. Stress/Infusion ECG: No change in rhythm with no significant ST/T wave changes. Stress/infusion O2 saturation: 97% Impression: Uneventful Lexiscan infusion. Conclusion: Await nuclear images.
[2018-10-13] MEDS: FLUoxetine 20 MG CAP PO SCH (13:12)
[2018-10-13] MEDS: PANTOPRAZOLE SODIUM 40 MG TAB PO SCH (13:12)
[2018-10-13] MEDS: CETIRIZINE 10 MG TAB PO SCH (13:13)
[2018-10-13] MEDS: LISINOPRIL 10 MG TAB PO SCH (13:13)
[2018-10-13] MEDS: APIXABAN 2.5 MG TAB PO SCH ×2 (13:15→22:23)
[2018-10-13] MEDS: CARVEDILOL 6.25 MG TAB PO SCH ×2 (13:15→22:21)
[2018-10-13] MEDS: GLUCOSAMINE/CHONDROITIN CAP PO SCH ×2 (13:15→22:24)
[2018-10-13] MEDS ORDERED: POTASSIUM CL 10 MEQ TAB PO ONE (13:33)
--- NOTE | 2018-10-13 13:50 | PDCARPN ---
Cardiology Progress Note Chief Complaint: CHF/cp Assessment/Plan: Assessment: 83F with previous AVN ablation with PPM for AF, mild CAD by [facility] in 2016, htn, dyslipidemia, severe MR, previous stress CM, admitted with cp in setting of AF RVR. Plan: #. Atrial fibrillation with RVR: s/p re-do of AV node ablation on 10/10 No high rates since then CHADSVASC of 6, taking Eliquis #. CP: no pain since ablation Echocardiogram did show slight decrease in EF and new wall motion abnormalities MPI today shows infarct pattern no ischemia will continue med management as at present with changes in meds (Carvedilol and Lisinopril) follow up with Dr. Omalley in outpatient setting defer statin for now #. HTN: BP appears well-controlled with med changes stop Dilt and Metoprolol continue Lisinopril and Coreg #. 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 Severe MR . small, bilateral pleural effusions. Received one dose of lasix yesterday, breathing and o2 sat improved. #. pulmonary htn #. S/p AVN ablation OK to d/c when stable from hospital med perspective. Will need 1 week clinic follow up. 10/13/18 13:41 Subjective: Feels well. No cp or dyspnea. Reviewed/Discussed With: hospitalist (Dr. Foss) Objective: Vital Signs (8 Hrs) Temp Pulse Resp BP Pulse Ox 10/13/18 12:00 97.8 F 87 18 134/87 H 94 10/13/18 08:00 98.3 F 92 18 130/89 H 93 Intake/Output (24 Hrs) 10/12/18 10/13/18 10/14/18 05:59 05:59 05:59 Intake Total 800 800 Output Total 775 1050 Balance 25 -250 Intake: Oral (ml) 800 800 Output: Urine (ml) 775 1050 Bedside Commode 100 Toilet 675 1050 Other: Intake Quantity Yes Yes Sufficient Output Comment Toilet missed hat Number of Voids Bedside Commode 1 Toilet 1 1 Number of Stools Toilet 1 1 Result Diagrams: 10/11/18 03:06 10/13/18 03:12 Cardiac Labs: Cardiac Lab Results (72 Hrs) 10/11/18 03:06 Troponin I 0.521 H Telemetry: V-paced - Physical Exam Constitutional: healthy appearing Eyes: PERRL Cardiovascular: regular rate and rhythm Respiratory: clear to auscultate bilat, reduced air movement Gastrointestinal: normoactive bowel sounds Skin: warm Neurologic: AAOx3 Psychiatric: cooperative, interactive ICD10 Worksheet Patient Problems: Problems Problem Status Onset Atrial fibrillation and flutter Acute Cardiomyopathy Acute CHF (congestive heart failure) Acute Chronic Disease Mgmt/Transitional Care Acute Sinusitis chronic, frontal Acute Sinusitis chronic, ethmoidal Acute Head ache Acute Chest pain Acute Rapid atrial fibrillation Acute Hyponatremia Acute Hypochloremia Acute Hypertensive emergency Acute Hypertension Acute Atrial fibrillation Acute Atrial fibrillation with RVR Acute
--- NOTE | 2018-10-13 14:00 | HOSPPROG ---
Hospitalist Progress Note Assessment/Plan: The pleasant 83-year-old female with past medical history significant for chronic atrial fibrillation status post multi ablations, history of takotsubo cardiomyopathy, mitral regurg, HTN, GERD, CAD who presents to the ED today from [facility] complaints of palpitations and chest pain patient has a history of paroxysmal atrial fibrillation. #Atrial fibrillation with RVR (Acute) - rate improved with Cardizem bolus and drip. Patient is on chronic anticoagulation with Eliquis. S/p successful AV Ileana Ablation by Dr. Santiago on 10/10. Restarted on Metoprolol and Diltiazem by cardiology, switched cardizem to lisinopril and metoprolol to carvedilol per cardiology on 10/12 #Chest pain -EKG showing AFib with a diffuse ST depressions. Troponin elevated to 0.52 on 10/11. TTE showing slightly decreased EF with new WMA which may be 2/ 2 to PPM and severe MR. Hx of non-obstructive CAD by [facility] 3 yrs ago. MPS performed today with no signs of reversible ischemia #Benign essential HTN - BPs elevated. Restarted on metoprolol and diltiazem as above. #Cardiomyopathy with history dual chamber pacer - - CXR on 10/11 showing minimally worse mild interstitial edema, small b/l pleural effusions-unchanged. - TTE as above - S/p dose of IVP 20 mg Lasix on 10/11 per cardiology, monitor overnight for signs of fluid overload off diuretics chronic medical issues - resume home medications when med rec available. #History of takotsubo #Moderate to severe mitral regurg #GERD - continu #CAD #anxiety/depression #chronic pain/trigeminal neuralgia FEN - Cardiac diet PPX - SCDs. on eliquis COR - DNR/DNI Dispo - Pending clinical course Subjective: Pt reports swelling in ankles this AM Objective: Vital Signs Temp Pulse Resp BP Pulse Ox 36.6 C 87 18 134/87 H 94 10/13/18 12:00 10/13/18 12:00 10/13/18 12:00 10/13/18 12:00 10/13/18 12:00 Laboratory Results 10/11/18 03:06 10/13/18 03:12 04/18/19 04/19/19 04/20/19 05:59 05:59 05:59 Intake Total 800 800 Output Total 775 1050 Balance 25 -250 PT 14.6 SEC (12.0-15.0) 10/09/18 21:50 INR 1.19 (0.83-1.16) H 10/09/18 21:50 - Physical Exam Constitutional: chronically ill appearing Eyes: PERRL Ears, Nose, Mouth, Throat: moist mucous membranes Cardiovascular: regular rate and rhythym, edema Respiratory: no respiratory distress Gastrointestinal: soft, non-tender abdomen Skin: warm Musculoskeletal: generalized weakness Neurologic: AAOx3 Psychiatric: interacting appropriately ICD10 Worksheet Patient Problems: Problems Problem Status Onset Atrial fibrillation with RVR Acute Atrial fibrillation Acute Atrial fibrillation and flutter Acute CHF (congestive heart failure) Acute Cardiomyopathy Acute Chest pain Acute Chronic Disease Mgmt/Transitional Care Acute Head ache Acute Hypertension Acute Hypertensive emergency Acute Hypochloremia Acute Hyponatremia Acute Rapid atrial fibrillation Acute Sinusitis chronic, ethmoidal Acute Sinusitis chronic, frontal Acute
--- NOTE | 2018-10-13 14:05 | CPEKG ---
Test Reason : OPEN Blood Pressure : / mmHG Vent. Rate : 135 BPM Atrial Rate : 131 BPM P-R Int : 000 ms QRS Dur : 146 ms QT Int : 391 ms P-R-T Axes : 000 080 -46 degrees QTc Int : 587 ms Atrial flutter with predominant 2:1 AV block Right bundle branch block ST depression, consider ischemia, diffuse lds Confirmed by Tamika Jiménez ([id number]) on 10/13/2018 2:05:08 PM Referred By: Tamika Jiménez Confirmed By:Tamika Jiménez
--- NOTE | 2018-10-13 17:00 | ASMTCMCOM ---
CM Note CM Note Notes: 10/13/2018 Case Management Note Discussed pt during rounds this morning. Pt had lexascan today. [facility] Palliative team met w/pt. Please see note for details. At palliative team request faxed referral to [facility] for outpatient follow. Case Management d/c poc: Martín LE with [facility] RN PT OT with [facility] outpatient palliative care to follow. Case Management to follow. Date Signed: 10/13/2018 04:59 PM Electronically Signed By:Zara Thomason RN
[2018-10-14] MEDS: CALCIUM CARBONATE 500 MG CHEWABLE TAB PO PRN ×2 (00:23→04:46)
[2018-10-14] MEDS: GABAPENTIN 300 MG CAP PO SCH (04:46)
[2018-10-14 07:07] VITALS: BP 134/91
[2018-10-14] MEDS: CETIRIZINE 10 MG TAB PO SCH (08:42)
[2018-10-14] MEDS: GLUCOSAMINE/CHONDROITIN CAP PO SCH (08:42)
[2018-10-14] MEDS: APIXABAN 2.5 MG TAB PO SCH (08:42)
[2018-10-14] MEDS: PANTOPRAZOLE SODIUM 40 MG TAB PO SCH (08:42)
[2018-10-14] MEDS: CARVEDILOL 6.25 MG TAB PO SCH (08:42)
[2018-10-14] MEDS: LISINOPRIL 10 MG TAB PO SCH (08:42)
[2018-10-14] MEDS: FLUoxetine 20 MG CAP PO SCH (08:45)
[2018-10-14] MEDS: ACETAMINOPHEN 325 MG TAB PO PRN (08:47)
--- NOTE | 2018-10-14 09:26 | PDIAF ---
- Diagnosis Diagnosis: A fib Code Status: Do Not Resuscitate - Medication Management Discharge Medications: electronically signed and located in the Home Medication List. - Orders Services needed: Home Care, Registered Nurse, Physical Therapy, Occupational Therapy Home Care Face to Face: I certify that this patient was under my care and that I had the required [id number] encounter meeting the encounter requirements on the discharge day. My findings support the fact that the patient is homebound as defined in Home Care Face to Face Continued: CMS Chapter 7 Medicare Benefits Manual 30.1.1 , The condition of the patient is such that there exists a normal inability to leave home and consequently, leaving home would require a considerable and taxing effort. Isolation Type: None - Follow Up Care Current Providers and Referrals: Ludy Teresa MD [Primary Care Provider] - As per Instructions Theron Santiago MD [Medical Doctor] - 10/18/18 3:30 pm
--- NOTE | 2018-10-14 09:52 | ASMTDCNOTE ---
Case Management Discharge Discharge Order Complete? Answers: Yes Patient to Obtain Answers: via Family Medications Transportation Arranged Answers: Family/Friends Case Management Transport Answers: Yes Form Complete Faxed Final Orders Answers: Yes Agency/Facility Transfer Answers: Yes Report Printed & Faxed to Receiving Agency Discharge Comments Notes: CM met with pt, RN and MD. Pt is being discharged back to [facility] with [facility] PT/OT/RN and [facility]. Orders submit. Pt's niece is to transport. No other CM needs identified. Date Signed: 10/14/2018 09:52 AM Electronically Signed By:EVER Rae
--- NOTE | 2018-10-14 09:55 | ASDISCHSUM ---
Discharge Information Plan Status:Home with Home Health Medically Cleared to Leave: Discharge Date: D/C Disposition:Home Health Service ADT D/C Disposition: Projected Discharge Date:10/12/2018 11:00 AM Transportation at D/C:Family Discharge Delay Reason: Follow-Up Date:10/12/2018 11:00 AM Discharge Slot: Final Diagnosis: Placement Information Referral Type:*Home Health Care Services Referral ID:[id number] Provider Name:[facility] Address 1:[address] [facility] [address] Address 2: City:[place] Selection Factors: State:[place] Referral Type:Palliative Care Referral ID:[id number] Provider Name:[facility] Address 1:[address] [place] Address 2: City:[place] Selection Factors: State:[place] Patient Contact Information Contact Name:CHRIS Relationship:Elisabeht Address: Work Phone: [facility]:[place] Alternate Phone: [facility]/Zip Code:[place] Email: Financial Information Financial Class:Medicare Advantage Plans Primary Plan Desc:[employer] ADV Primary Plan Number:[id number] Secondary Plan Desc: Secondary Plan Number: Assessment Information [facility] CM Progress Note CM Note CM Note Notes: Pts case discussed in tx rounds. Pt is a 83 y/o female admitted for afib. Pt is getting an ablation today. OT has been ordered and awaiting recommendations. Pt will most likely d/c independent without any needs. CM available for changes. Plan: Independent Date Signed: 10/10/2018 11:23 AM Electronically Signed By:EVER Campos LACE JODY Comorbidities - select Answers: Congestive heart failure all that apply Coronary Artery Disease Opioid dependence / Chronic pain Other Notes: AFib; HTN; Hx of breast cancer # of Emergency department Answers: 5-8 visits in the last 6 months Social determinants Answers: Mental health diagnosis (anxiety, depression, pers onality disorders, etc.) Score: 16 Date Signed: 10/10/2018 04:55 PM Electronically Signed By:India Glass [facility] CM Progress Note CM Note CM Note Notes: Pts case discussed w/ Dr. Foss. Pt will be staying for another night. Both, PT and OT worked w/ pt today and is recommending HC. CM met w/ pt and pts niece for dispo planning. Pt lives at [facility]. Pt is agreeable to having HC services through [facility]. Referral sent and [facility] is able to accept. CM confirmed pts address and phone number. Pts PCP is Dr. Adams. CM to follow. Plan: [facility]; PT, OT, RN Date Signed: 10/11/2018 01:19 PM Electronically Signed By:EVER Campos [facility] CM Progress Note CM Note CM Note Notes: 10/13/2018 Case Management Note Discussed pt during rounds this morning. Pt had lexascan today. [facility] Palliative team met w/pt. Please see note for details. At palliative team request faxed referral to [facility] for outpatient follow. Case Management d/c poc: Martín LE with [facility] RN PT OT with [facility] outpatient palliative care to follow. Case Management to follow. Date Signed: 10/13/2018 04:59 PM Electronically Signed By:Zara Thomason RN Case Management Discharge Plan Note Case Management Discharge Discharge Order Complete? Answers: Yes Patient to Obtain Answers: via Family Medications Transportation Arranged Answers: Family/Friends Case Management Transport Answers: Yes Form Complete Faxed Final Orders Answers: Yes Agency/Facility Transfer Answers: Yes Report Printed & Faxed to Receiving Agency Discharge Comments Notes: CM met with pt, RN and MD. Pt is being discharged back to Martín LE with [facility] PT/OT/RN and [facility]. Orders submit. Pt's niece is to transport. No other CM needs identified. Date Signed: 10/14/2018 09:52 AM Electronically Signed By:EVER Rae Intervention Information
--- NOTE | 2018-10-14 14:53 | PDDCSUM ---
Discharge Summary Discharge Summary: Date of Admission: 10/09/2018 Date of Discharge: 10/14/2018 Consults: Cardiology, EP Procedures: TTE, AV Node Ablation, MPS Followup: Cardiology, PCP Hospital Course Problem List: The pleasant 83-year-old female with past medical history significant for chronic atrial fibrillation status post multi ablations, history of takotsubo cardiomyopathy, mitral regurg, HTN, GERD, CAD who presented from [facility] complaints of palpitations and chest pain. #Atrial fibrillation with RVR (Acute) - rate improved with Cardizem bolus and drip. Patient is on chronic anticoagulation with Eliquis. S/p successful AV Ileana Ablation by Dr. Santiago on 10/10. Restarted on Metoprolol and Diltiazem by cardiology, switched cardizem to lisinopril and metoprolol to carvedilol per cardiology on 10/12. #Chest pain -EKG showing AFib with a diffuse ST depressions. Troponin elevated to 0.52 on 10/11. TTE showing slightly decreased EF with new WMA which may be 2/ 2 to PPM and severe MR. Hx of non-obstructive CAD by [facility] 3 yrs ago. MPS performed on 10/13 with no signs of reversible ischemia. #Benign essential HTN - BPs elevated. Started on Lisinopril and Coreg as above #Cardiomyopathy with history dual chamber pacer - - CXR on 10/11 showing minimally worse mild interstitial edema, small b/l pleural effusions-unchanged. - TTE as above - S/p dose of IVP 20 mg Lasix on 10/11 per cardiology, monitored for signs of fluid overload off diuretics chronic medical issues - resume home medications when med rec available. #History of takotsubo #Moderate to severe mitral regurg #GERD - continu #CAD #anxiety/depression #chronic pain/trigeminal neuralgia Time spent on discharge was >35 minutes with >50% of time spent on patient education and counseling.
== END 2018-10-14 10:45 | disposition home or self-care (01) ==
LOC: EDUNIT# → F2W 23:49
PROVIDERS: ADMIT Family Medicine; ATTEND Family Medicine
PROC: 02563ZZ Destruction of Right Atrium, Percutaneous Approach (ICD-10-PCS; principal; 2018-10-09)
DX: I48.91 Unspecified atrial fibrillation (principal); R07.9 Chest pain, unspecified; I10 Essential (primary) hypertension; I42.9 Cardiomyopathy, unspecified; I34.0 Nonrheumatic mitral (valve) insufficiency; K21.9 Gastro-esophageal reflux disease without esophagitis; I25.10 Atherosclerotic heart disease of native coronary artery without angina pectoris; F41.9 Anxiety disorder, unspecified; F32.9 Major depressive disorder, single episode, unspecified; G89.29 Other chronic pain; G50.0 Trigeminal neuralgia; Z95.0 Presence of cardiac pacemaker; Z87.891 Personal history of nicotine dependence
CPT/HCPCS: 71046; 78452; 93005; 93017; 93306; 93650; 96365; 96366; 96375; 97116; 97161; 97165; 97530; 97535; 99291; A9500; C1766; C2630; G0378; J1644; J1940; J2704; J2785; J3010; 84484-ER

== ENCOUNTER 2018-11-23 18:14 | Emergency (ER) | payer OTHER | END 2018-11-23 19:55 | disposition home or self-care (01) ==

== ENCOUNTER 2018-12-05 16:27 | Observation (INO) | payer OTHER | END 2018-12-06 13:24 | LOC: F3N 20:58 ==

== ENCOUNTER → 2018-12-15 | Outpatient (CLI) | payer OTHER | LOC: FIMAGING 10:23 ==